=== PATIENT | male | born 1935 | race Caucasian/White ===

== ENCOUNTER → 2016-10-28 | Outpatient (CLI) | payer OTHER ==
[~2016-10-28] MED LIST: ASPCH81X PO; ASPEC81 PO; ATOR-24 PO; LPT40 PO; MULT-506 PO; OMEG10007 PO; PANT1TAB3 PO; PANT40TA PO
[2016-10-28 11:06] LABS: BASO % 0.6 %; BASO ABS # 0.03 K/uL (0-0.2); COMPLETE YES; EOS % 3.6 %; HEMATOCRIT 41.3 % (42-52); IG% 0.2 %; LYMPH ABS # 1.46 K/uL (1.2-3.4); MEAN CELL VOLUME 90.8 fL (80-100); MEAN CORPUSCULAR HEMOGLOBIN 30.3 pg (25-34); MEAN CORPUSCULAR HGB CONC 33.4 g/dl (32-36); MEAN PLATELET VOLUME 9.6 fL (7.4-10.4); MONO % 8.1 %; NEUT % 56.5 %; PLATELET COUNT 152 K/uL (130-400); RED BLOOD COUNT 4.55 M/uL (4.7-6.1); WHITE BLOOD COUNT 4.71 K/uL (4.8-10.8)
[2016-10-28 11:37] LABS: ALT/SGPT 29 U/L (12-78); BLOOD UREA NITROGEN 19 mg/dl (7-18); BUN/CREATININE RATIO 19.4 (10-20); CALCIUM 9.4 mg/dl (8.5-10.1); CARBON DIOXIDE 28 mmol/L (21-32); CHLORIDE 108 mmol/L (98-107); GLUCOSE 88 mg/dl (70-99); POTASSIUM 4.3 mmol/L (3.5-5.1); SODIUM 142 mmol/L (136-145)
[2016-10-28 11:40] LABS: ALKALINE PHOSPHATASE 76 U/L (45-117); AST/SGOT 22 U/L (15-37)
== END | disposition home or self-care (01) ==
LOC: C.LAB 09:55
PROVIDERS: ATTEND Nurse Practitioner Family
DX: C34.90 Malignant neoplasm of unspecified part of unspecified bronchus or lung (principal)

== ENCOUNTER → 2016-10-30 | Outpatient (CLI) | payer OTHER ==
[~2016-10-30] MED LIST changes: +OPTIRAY 320 IV PRN
--- NOTE | 2016-10-30 19:25 | DIAGNOSTIC IMAGING REPORT ---
CT OF THE CHEST WITH IV CONTRAST CLINICAL HISTORY: Lung cancer. COMPARISON STUDY: Chest CT T August 31, 2012 and October 29, 2015 TECHNIQUE: Following IV administration of 92 mL of Optiray-320, helical axial images of the chest were obtained. Images were viewed in the axial, sagittal and coronal planes. IV contrast was administered without complication. CT DOSE: 315.18 mGycm FINDINGS: The water attenuation paratracheal abnormality is unchanged since earlier exams. This is benign given stability. No suspicious thoracic lymph nodes are present. The size of the heart is normal. There is no pericardial effusion. Scoliosis of the thoracolumbar spine is incidentally noted. Postsurgical findings consistent with a right upper lobectomy are noted. The postoperative appearance is unchanged. There are old right-sided rib deformities. Subpleural opacity within the right lower lobe is unchanged and likely reflect scarring. No suspicious nodules are present. There is no consolidation to suggest pneumonia. Several thyroid nodules are again noted. No suspicious osseous lesions are identified in the bony thorax. A left hepatic lobe cyst is again noted. There is a small hiatal hernia. No suspicious osseous lesions are present. IMPRESSION: No evidence of recurrent malignancy status post right upper lobectomy. No change in appearance of the chest. Electronically signed by: Rajan Robertson M.D. 10/30/2016 7:23 PM Dictated Date/Time: 10/30/2016 9:58 AM
== END | disposition home or self-care (01) ==
LOC: C.CTS 09:07
PROVIDERS: ATTEND Nurse Practitioner Family
DX: C34.90 Malignant neoplasm of unspecified part of unspecified bronchus or lung (principal)

== ENCOUNTER → 2016-11-26 | Outpatient (CLI) | payer OTHER ==
[~2016-11-26] MED LIST changes: -ASPCH81X PO; -ATOR-24 PO; -OPTIRAY 320 IV PRN; -PANT1TAB3 PO; +PANT1TAB48 PO; -PANT40TA PO
--- NOTE | 2016-11-26 14:53 | DIAGNOSTIC IMAGING REPORT ---
TWO VIEW CHEST CLINICAL HISTORY: Cough. History of lung cancer.. FINDINGS: PA and lateral chest radiographs are compared to study dated 09/21/2015 and correlated with chest CT dated 10/30/2016. The PA view is degraded by patient rotation. The cardiomediastinal silhouette is unremarkable. Emphysema and chronic interstitial thickening are similar to previous. Postoperative changes present in the right upper lobe. No airspace consolidation or pleural effusion is identified. There is no pneumothorax. The skeletal structures are osteopenic. Degenerative change and moderate scoliosis are noted in the thoracic spine. Chronic posttraumatic deformity is again seen in the right upper ribs. IMPRESSION: Emphysema and chronic changes as above. There is no acute cardiopulmonary abnormality. Electronically signed by: Clifford Amin M.D. 11/26/2016 2:51 PM Dictated Date/Time: 11/26/2016 2:49 PM
== END | disposition home or self-care (01) ==
LOC: C.RAD 14:12
PROVIDERS: ATTEND Internal Medicine Geriatric Medicine
DX: R05 Cough (principal); J43.9 Emphysema, unspecified

== ENCOUNTER → 2017-07-23 | Outpatient (CLI) | payer OTHER ==
[2017-07-23 10:49] LABS: BASO % 0.9 %; BASO ABS # 0.04 K/uL (0-0.2); COMPLETE YES; EOS % 3.9 %; HEMATOCRIT 40.8 % (42-52); IG% 0.2 %; LYMPH % 39.4 %; MEAN CELL VOLUME 89.7 fL (80-100); MEAN CORPUSCULAR HEMOGLOBIN 30.8 pg (25-34); MEAN CORPUSCULAR HGB CONC 34.3 g/dl (32-36); MEAN PLATELET VOLUME 9.7 fL (7.4-10.4); NEUT % 46.6 %; PLATELET COUNT 139 K/uL (130-400); RED BLOOD COUNT 4.55 M/uL (4.7-6.1); WHITE BLOOD COUNT 4.32 K/uL (4.8-10.8)
[2017-07-23 11:08] LABS: ALT/SGPT 33 U/L (12-78); AST/SGOT 28 U/L (15-37); BLOOD UREA NITROGEN 20 mg/dl (7-18); BUN/CREATININE RATIO 19.5 (10-20); CALCIUM 9.1 mg/dl (8.5-10.1); CARBON DIOXIDE 28 mmol/L (21-32); CHLORIDE 107 mmol/L (98-107); CHOLESTEROL 129 mg/dl (0-200); GLUCOSE 89 mg/dl (70-99); POTASSIUM 4.2 mmol/L (3.5-5.1); SODIUM 141 mmol/L (136-145)
[2017-07-23 11:19] LABS: ALB/GLOB RATIO 0.9 (0.9-2); ALKALINE PHOSPHATASE 75 U/L (45-117); CHOLESTEROL/HDL RATIO 1.8; HDL CHOLESTEROL 71 mg/dl; LDL CHOLESTEROL CALCULATED 46 mg/dl; TRIGLYCERIDES 59 mg/dl (0-150); VERY LOW DENSITY LIPOPROT CALC 12 mg/dl
== END | disposition home or self-care (01) ==
LOC: C.LABBC 07:46
PROVIDERS: ATTEND Internal Medicine
DX: K21.9 Gastro-esophageal reflux disease without esophagitis (principal); E78.5 Hyperlipidemia, unspecified; D64.9 Anemia, unspecified; M48.00 Spinal stenosis, site unspecified; K22.70 Barrett's esophagus without dysplasia; I63.9 Cerebral infarction, unspecified

== ENCOUNTER → 2017-09-21 | Day surgery (SDC) | payer OTHER ==
[2017-09-16 14:01] VITALS: Ht 182.9 cm; Wt 81.8 kg
[~2017-09-21] VITALS: Ht 182.9 cm; Wt 81.8 kg
[~2017-09-21] MED LIST changes: +ASPCH81X PO; -ASPEC81 PO; +ATOR-24 PO; +LIDOCAINE HCL 2% 2 ML VIAL (20MG/ML) ONE; -LPT40 PO; -OMEG10007 PO; -PANT1TAB48 PO; +PANT40TA PO; +PROPOFOL IV EMULSION 10 MG/ML 20 ML VIAL IV ONE; +SODIUM CHLORIDE 0.9% 500ML 500 ML IV ONE
--- NOTE | 2017-09-21 10:45 | Endo History and Physical ---
History & Physical Date of Service: Sep 21, 2017. Chief Complaint: Farah's esophagus Referring Physician: Dr. Issa Gonzáles History of Present Illness Farah's esophagus Past Medical History Reflux, Cancer, High Cholesterol Past Surgical History Hx Cardiac Surgery: No Hx Internal Defibrillator: No Hx Pacemaker: No Hx Abdominal Surgery: Yes (APPY, RT/LEFT INGUINAL HERNIA) Hx of Implantable Prosthesis: No Hx Post-Op Nausea and Vomiting: No Hx Cancer Surgery: Yes (RT UPPER LOBECTOMY, MOHS ON FACE) Hx Thoracic Surgery: No Hx Orthopedic: Yes (RT KNEE PATELLA TENDON REPAIR) Hx Urinary Tract Surgery: No Family History Colon CA Social History Smoking Status: Former Smoker Hx Substance Use: No Hx Alcohol Use: Yes (1 DRINK 4 DAYS PER WEEK) Allergies Coded Allergies: No Known Allergies (Verified , 09/16/17) Current Medications Reported Home Medications Medications Dose Route/Sig Max Daily Dose Days Date Category Lipitor (Atorvastatin Calcium) 40 Mg Tab 40 Mg PO HS 09/16/17 Reported Multivitamin (Multivitamins) Tab 1 Tab PO HS 09/16/17 Reported Protonix (Pantoprazole Sodium) 40 Mg Tab 40 Mg PO QAM 09/16/17 Reported Aspirin Chewable (Aspirin) 81 Mg Chew 81 Mg PO QAM 09/16/17 Reported Vital Signs Weight (Kilograms): 81.82 Height (Feet): 6 Height (Inches): 0 Date Time Temp Pulse Resp B/P (MAP) Pulse Ox O2 Delivery O2 Flow Rate FiO2 09/21/17 09:42 36.4 68 16 153/82 (105) 96 Room Air Physical Exam General Appearance: WD/WN, no apparent distress Respiratory/Chest: Respiratory effort: no dyspnea Cardiovascular: Heart Auscultation: RRR Assessment and Plan H/o farah's - EGD
--- NOTE | 2017-09-21 11:22 | GI REPORT ---
Procedure Date: 09/21/2017 10:49 AM Procedure: Upper GI endoscopy Indications: Follow-up of Chavarria's esophagus Medicines: See the Anesthesia note for documentation of the administered medications Complications: No immediate complications. Estimated Blood Loss: Estimated blood loss: none. Procedure: Pre-Anesthesia Assessment: - ASA Grade Assessment: III - A patient with severe systemic disease. After obtaining informed consent, the endoscope was passed under direct vision. Throughout the procedure, the patient's blood pressure, pulse, and oxygen saturations were monitored continuously. The scope was introduced through the mouth, and advanced to the second part of duodenum. The upper GI endoscopy was accomplished without difficulty. The patient tolerated the procedure well. Findings: The Z-line was irregular and was found 40 cm from the incisors. Biopsies were taken with a cold forceps for histology. There was a moderate hiatal hernia. The exam of the esophagus was otherwise normal. The stomach was normal. The examined duodenum was normal. Impression: - Z-line irregular, 40 cm from the incisors. Biopsied. - Hiatal hernia. Recommendation: Given age, would not pursue further Chavarria's surveillance. - Discharge patient to home. Jesse Mon M.D. Jesse Mon MD 09/21/2017 11:22:13 AM This report has been signed electronically. Note Initiated On: 09/21/2017 10:49 AM I attest to the content of the Intraoperative Record and orders documented therein, exceptions below
[2017-09-21 11:33] VITALS: BP 120/75; PULSE 56; O2SAT 97
--- NOTE | 2017-09-21 11:48 | Discharge Instructions ---
Endoscopy Patient Instructions Date / Procedure(s) Performed Sep 21, 2017. EGD Allergy Information Coded Allergies: No Known Allergies (Verified , 09/16/17) Discharge Date / Findings Sep 21, 2017. Irregular Z line, biopsied. Hiatal hernia. Medication Instructions Stopped Medication(s): took ASA yesterday Restart Stopped Medication(s): Resume aspirin today. Provider Instructions Activity Restrictions - No exercising or heavy lifting for 24 hours. - Do not drink alcohol the day of the procedure. - Do not drive a car or operate machinery until the day after the procedure. - Do not make any important decisions or sign important papers in 24 hours after the procedure. Following Day: - Return to full activity which may include returning to work/school. Diet Start your diet with liquids and light foods (jello, soup, juice, toast). Then eat your usual diet if not nauseated. Treatment For Common After Affects For mild abdominal pain, bloating, or excessive gas: - Rest - Eat lightly - Lie on right side Follow-Up Information Follow-up with Dr. Issa Gonzáles as scheduled Anesthesia Information What You Should Know You have had a procedure that required some medicine to reduce anxiety and discomfort. This treatment is called moderate sedation. After receiving the treatment, you may be sleepy, but you will be able to breathe on your own. The effects of the treatment may last for several hours. Follow these instructions along with Activity/Diet recommendations noted above: * Do NOT do anything where dizziness or clumsiness would be dangerous. * Rest quietly at home today, then you can be up and about tomorrow. * Have a responsible person stay with you the rest of today. * You may have had an I.V. today. If so, you may take the dressing off later today. Recommendations Call your doctor if: * Trouble breathing * Continuous vomiting for more than 24 hours * Temperature above 101 degrees * Severe abdominal pain or bloating * Pain not relieved by pain medicine ordered * There is increased drainage or redness from any incision * A large amount of rectal bleeding greater than 2-3 tablespoons. (If you had a polyp/s removed or have hemorrhoids, a small amount of blood - from the rectum is to be expected.) * You have any unanswered questions or concerns. IN THE EVENT OF A SERIOUS EMERGENCY, GO TO THE NEAREST EMERGENCY ROOM Your discharge instructions were prepared by provider Jesse Javed. Patient Instructions Signature Page Makenzie York Patient (or Guardian) Signature/Date: I have read and understand the instructions given to me by my caregivers. Caregiver/RN/Doctor Signature/Date: The above-named patient and/or guardian has received patient instructions on this date. + Original Patient Signature Page (only) stays with chart. Please make copy for patient.
--- NOTE | 2017-09-21 11:52 | Anesthesiology Progress Note ---
Anesthesia Post Op Note Date & Time Sep 21, 2017 at 11:52 Vital Signs Pain Intensity: 0 Vital Signs Past 12 Hours Date Time Temp Pulse Resp B/P (MAP) Pulse Ox O2 Delivery O2 Flow Rate FiO2 09/21/17 11:33 56 20 120/75 (90) 97 Room Air 09/21/17 11:23 56 18 130/67 (88) 96 Room Air 09/21/17 11:13 58 18 112/64 (80) 97 Room Air 09/21/17 09:42 36.4 68 16 153/82 (105) 96 Room Air Notes Mental Status: alert / awake / arousable, participated in evaluation Pt Amnestic to Procedure: Yes Nausea / Vomiting: adequately controlled Pain: adequately controlled Airway Patency, RR, SpO2: stable & adequate BP & HR: stable & adequate Hydration State: stable & adequate Anesthetic Complications: no major complications apparent
== END | disposition home or self-care (01) ==
LOC: C.GI 09:27
PROVIDERS: ATTEND Internal Medicine Gastroenterology
DX: Z09 Encounter for follow-up examination after completed treatment for conditions other than malignant neoplasm (principal); K22.8 Other specified diseases of esophagus; K44.9 Diaphragmatic hernia without obstruction or gangrene; Z90.89 Acquired absence of other organs; Z98.890 Other specified postprocedural states; Z79.82 Long term (current) use of aspirin; Z85.118 Personal history of other malignant neoplasm of bronchus and lung; Z98.42 Cataract extraction status, left eye; Z87.891 Personal history of nicotine dependence; Z86.73 Personal history of transient ischemic attack (TIA), and cerebral infarction without residual deficits; Z80.0 Family history of malignant neoplasm of digestive organs

== ENCOUNTER 2023-10-07 14:38 | Observation (INO) ==
--- NOTE | 2023-10-07 14:57 | ED Triage Note ---
Date of Service October 07, 2023 Provider in Triage Author: Cecilia Zhou History of Present Illness This patient was briefly evaluated while in triage. An abbreviated physical exam was performed. This patient is a 88-year-old Male who presents to the ED for evaluation of fall and right back pain. States he was picking something up off his floor and lost balance and fell into the fridge. Hit his right back. Incident occurred on Thursday. Denies hitting his head or LOC. On a baby MARKEL. Notes pain with deep breath and coughing. Denies headache, dizziness/lightheadedness, chest pain, SOB, abdominal pain. Physical Exam Constitutional: alert and oriented x3. no acute distress. nontoxic HEENT: normocephalic, atraumatic. normal conjunctiva.PERRLA. EOM's grossly intact. Respiratory: lungs are clear to auscultation without wheezes, rhonchi, or rales bilaterally. equal chest rise. normal respiratory effort, no accessory muscle use. Right posterior rib tenderness Cardiovascular: normal heart sounds without murmur. regular rate and rhythm. GI: abdomen is soft, nontender. No palpable masses. No rebound tenderness or guarding. MSK: moves all 4 extremities spontaneously. No midline thoracic or lumbar tenderness. R thoracic tenderness Psych:appropriate mood and affect. Initial orders for labs and / or imaging were placed and patient was placed in the waiting area until a bed is available. Please see further documentation for the full ED course.
--- NOTE | 2023-10-07 15:23 | Emergency Department Note ---
History of Present Illness General Chief complaint: Back Injury/Pain Stated complaint: R RIB PAIN Time Seen by Provider: 10/07/23 15:09 History of Present Illness Maximum Pain Intensity: 9 88-year-old male who presents to the emergency department via EMS for evaluation of right back/rib pain. Patient states on Thursday he was picking something up off of his floor and lost his balance and fell onto his fridge hitting the right side of his back against the handle. He denies hitting his head or loss of consciousness. He is on a baby aspirin, no other blood thinners. He was able to get up on his own and ambulate without difficulty. He notes his only pain is in the right posterior rib. It is intermittent and exacerbated with certain movements, deep inhalation or coughing. He has not taken anything for his symptoms. He denies headache, visual changes, dizziness/lightheadedness, nausea/vomiting, chest pain, shortness of breath, abdominal pain. Denies neck pain or low back pain. No pain in his extremities. Denies blood in his urine or stool. Home Medications Medication Instructions Recorded Confirmed Type aspirin 81 mg tablet,delayed 81 mg PO QAM 08/24/18 04/09/23 History release multivitamin 1 tab PO DAILYBB 08/02/19 04/09/23 History guaifenesin 600 mg tablet, 600 mg PO BID PRN cough #60 tabs 09/09/22 04/09/23 Rx extended release 12 hr (Mucinex) Flutter Valve #1 ea 01/29/23 04/09/23 Rx ipratropium 0.5 mg-albuterol 3 mg 3 ml inhalation BID shortness of 01/29/23 04/09/23 Rx (2.5 mg base)/3 mL nebulization breath or wheezing #180 mL soln nebulizers (Aeroneb Go Nebulizer) #1 ea 01/29/23 04/09/23 Rx sodium chloride 7 % for 1 inh inhalation BID #240 mL 01/29/23 04/09/23 Rx nebulization Vibration Vest #1 ea 02/18/23 Rx sertraline 100 mg tablet 100 mg PO DAILY #90 tabs 09/07/23 Rx atorvastatin 40 mg tablet 40 mg PO HS #90 tabs 09/30/23 Rx pantoprazole 40 mg tablet,delayed 40 mg PO QAM #90 tabs 09/30/23 Rx release Allergies Allergy/AdvReac Type Severity Reaction Status Date / Time No Known Drug Allergies Allergy Verified 04/09/23 14:32 Past Med/Surg History Medical History Sensorineural hearing loss of both ears Positive colorectal cancer screening using Cologuard test reason for colonoscopy History of melanoma on lip Suspected 2018 novel coronavirus infection Barretts esophagus Stage I adenocarcinoma of lung Gastroesophageal reflux disease Hyperlipidemia 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 Scoliosis Spinal stenosis of lumbar region Osteoarthritis GERD (gastroesophageal reflux disease) Thyroid goiter BIOPSY DONE "NORMAL" Cancer LUNG CANCER SKIN CANCER Hearing deficit Stroke 2014 (NO PROBLEMS NOW) Surgical History History of melanoma excision off lip History of Mohs micrographic surgery for skin cancer History of appendectomy History of anesthesia reaction SLOW TO WAKE UP AND "GOES UNDER QUICKLY" History of knee surgery RT History of herniorrhaphy bilateral History of esophagogastroduodenoscopy (EGD) History of colonoscopy History of tooth extraction History of tonsillectomy History of adenoidectomy History of cataract surgery bilt History of lung surgery UPPER RT LOBECTOMY (NO CHEMO) Family History Father Family hx of colon cancer Colorectal cancer Other No family history of adverse response to anesthesia No family history of bleeding disorder Denies family history of Ovarian cancer Prostate cancer Diabetes Myocardial infarction Breast cancer Lung cancer Stroke Social History Smoking Status: Never smoker Age Started Using Tobacco: 19; Age Quit Using Tobacco: 36; packs per day: 0.5; Cigarettes Per Day: QUIT AT AGE 36; Second Hand Exposure: Yes ("everyone smoked"); Do You Dip or Chew Tobacco: No; Hx Alcohol Use: Yes Alcohol type: wine Alcohol Intake Frequency: 4 or More x per/Week Hx Substance Use: No Preferred Language: Maltese Communication Ability: Effective Visual Impairment: Limited Hearing Ability: Use of Hearing Aid Media Sales Representative Required: No Beliefs That Will Affect Care: None marital status: / Current Living Situation: Alone and Personal Care Facility current occupational status: retired How many Children do You have: 3 Feels Safe at Home: Yes Childhood Exposure to Second-Hand Smoke: Yes caffeine: Yes Dental Care, Regularly: Yes Physical Activity Frequency: Daily Seatbelt Use: always Sunscreen Use: Yes Assistive Devices: None Physical Exam Vital Signs Vital Signs - 24 hr 10/07/23 14:54 10/07/23 16:50 10/07/23 18:45 Temperature 36.8 C Temperature Source Skin Pulse Rate 77 Pulse Rate [Apical] 73 65 Respiratory Rate 18 18 18 Respiratory Effort / Characteristics Non-Labored Non-Labored Respiratory Depth Normal Normal Blood Pressure 135/90 Blood Pressure [Right Arm] 154/84 H 174/89 H Blood Pressure Mean 105 Blood Pressure Mean [Right Arm] 107 117 Pulse Oximetry 93 93 94 Oxygen Delivery Method Room Air Room Air Room Air Sepsis Recent Fever Within 48 Hours No Sepsis New/Unexplained Change in Mental Status No Sepsis Action Taken by Nursing No Action Required 10/07/23 18:45 Temperature Temperature Source Pulse Rate Pulse Rate [Apical] Respiratory Rate Respiratory Effort / Characteristics Respiratory Depth Blood Pressure Blood Pressure [Right Arm] Blood Pressure Mean Blood Pressure Mean [Right Arm] Pulse Oximetry Oxygen Delivery Method Room Air Sepsis Recent Fever Within 48 Hours Sepsis New/Unexplained Change in Mental Status Sepsis Action Taken by Nursing Constitutional: alert and oriented x3. no acute distress. nontoxic HEENT: normocephalic, atraumatic. No facial trauma. No scalp tenderness or hematoma. Normal conjunctiva.PERRLA. EOM's grossly intact. No tinoco signs or raccoon eyes. TMs pearly mascorro without effusion. No hemotympanum. Pharynx pink without exudate. Tonsils nonenlarged. Mucus membranes moist Neck: neck is supple, nontender. Midline C-spine nontender Respiratory: lungs are clear to auscultation without wheezes, rhonchi, or rales bilaterally. equal chest rise. normal respiratory effort, no accessory muscle use. Right posterior rib tenderness. No ecchymosis or erythema. No flail chest. Cardiovascular: normal heart sounds without murmur. regular rate and rhythm. GI: abdomen is soft, nontender. No palpable masses. No rebound tenderness or guarding. MSK: Moves all 4 extremities spontaneously. No midline thoracic or lumbar spinal tenderness. Peripheral vascular: Upper extremities warm and well perfused with palpable radial pulses. Brisk capillary refill of all digits. Sensation grossly intact Neuro: without focal neuro deficits. GCS 15. Answers questions appropriately, follows commands. CNII-XII intact. Speech clear, tongue midline, without facial droop. Strength equal throughout all for extremities. Psych:appropriate mood and affect. Course Administered Medications Discontinued Medications Acetaminophen (Acetaminophen 500 Mg Tab) 1,000 mg PO NOW STA Stop: 10/07/23 17:09 Last Admin: 10/07/23 17:40 Dose: 1,000 mg Documented By: TRIPP Lidocaine (Lidocaine 5% 1 Patch) 1 patch TD NOW STA Stop: 10/07/23 17:09 Last Admin: 10/07/23 17:41 Dose: 1 patch Documented By: TRIPP Morphine Sulfate (Morphine Sulfate 2 Mg/Ml Carp) 2 mg IV NOW STA Stop: 10/07/23 17:11 Last Admin: 10/07/23 17:41 Dose: Not Given Documented By: TRIPP Medical Decision Making Differential Diagnosis Fracture, contusion, musculoskeletal, pneumothorax, pneumonia, PE as well as other pathologies Laboratory Data Attestation: I reviewed the patient's lab results. 10/07/23 17:32 10/07/23 17:32 Lab Results 10/07/23 Range/Units 17:32 WBC 5.99 (4.8-10.8) K/ul RBC 4.33 L (4.70-6.10) M/uL Hgb 13.2 L (14.0-18.0) g/dl Hct 39.9 L (42.0-52.0) % MCV 92.1 (80.0-100.0) fL MCH 30.5 (25.0-34.0) pg MCHC 33.1 (32.0-36.0) g/dL RDW Std Deviation 50.4 H (36.4-46.3) fL RDW Coeff of [place] 14.7 H (11.5-14.5) % Plt Count 140 (130-400) K/uL MPV 9.4 (9.4-12.4) fL Immature Gran % (Auto) 0.2 % Neut % (Auto) 71.8 % Lymph % (Auto) 16.0 % [place] % (Auto) 9.3 % Eos % (Auto) 2.2 % Baso % (Auto) 0.5 % Neut # (Auto) 4.30 (1.40-6.50) K/uL Lymph # (Auto) 0.96 L (1.20-3.40) K/uL [place] # (Auto) 0.56 (0.11-0.59) K/uL Eos # (Auto) 0.13 (0.00-0.50) K/uL Baso # (Auto) 0.03 (0.00-0.20) K/uL Immature Gran # (Auto) 0.01 (0.01-0.20) K/uL Sodium 137 (136-145) mmol/L Potassium 4.2 (3.5-5.1) mmol/L Chloride 104 (98-107) mmol/L Carbon Dioxide 27 (21-32) mmol/L Anion Gap 6 (3-11) BUN 19 (6-23) mg/dl Creatinine 1.03 (0.6-1.4) mg/dl Est Cr Clr Drug Dosing Not Reportable Est GFR ( Amer) 75.3 ml/min Est GFR (Non-Af Amer) 65.0 ml/min BUN/Creatinine Ratio 18.4 (10-20) Glucose 112 H (70-99(Fasting)) mg/dl Calcium 10.0 (8.6-10.3) mg/dl Imaging Data Radiologist's Impression: Ribs w/Chest X-Ray 10/07/23 15:16 XR ribs RT min 2V w CXR1V CLINICAL HISTORY: Right posterior rib pain s/p fall. COMPARISON: Chest CT January 20, 2023. Chest radiograph March 30, 2023. FINDINGS: There is a small to moderate size right basilar hydropneumothorax. Acute mildly displaced fractures of the lateral right eighth and ninth ribs are noted. There are multiple old right rib fractures. Left basilar opacity persists. There is a hiatal hernia. Thoracolumbar spine scoliosis is incidentally noted. There is no left pneumothorax. IMPRESSION: 1. Small to moderate right basilar hydropneumothorax. Acute mildly displaced fractures of the right eighth and ninth ribs. 2. Persistent left basilar opacity, similar to prior exam. ACT 112: Negative or not required by law. Electronically signed by: Rajan Robertson M.D. 10/07/2023 4:20 PM MDM Narrative 88-year-old male presents to the emergency department for evaluation of right back/rib pain status post mechanical fall on Thursday. Reviewed pertinent visits and past medical history performed. Vital signs in ED stable, afebrile. Patient was seen and evaluated as above. Right rib x-rays with chest x-ray was performed. This was personally reviewed as well as interpreted by radiology as above and demonstrates acute mildly displaced fractures of the lateral right eighth and ninth ribs with associated small to moderate right basilar hydropneumothorax. Chronic left basilar opacity, unchanged. On exam, patient is well-appearing in no acute distress. He is neurologically intact without focal deficits. GCS 15. There is no evidence for facial or head trauma. He is tender to palpation over the right posterior ribs. Lungs CTA. Abdominal exam is benign. Remaining physical exam is otherwise unremarkable. He initially declined pain medication. Upon reassessment, patient remained stable without new concerns. He was updated on all exam findings and test results. He has sustained rib fractures of right eighth and ninth ribs with associated pneumothorax in the basilar region. Given findings, I recommended admission to the hospital for continued monitoring and repeat imaging. I discussed case with ED attending, Dr. Celestin. Patient initially declined admission and was planning to leave AGAINST MEDICAL ADVICE. Upon continued conversation, patient did eventually agree to admission for observation. I discussed case with on-call streaming media specialist, Dr. Youngblood, who reviewed x-ray and recommended repeat CXR in 6 hours. If CXR is stable patient is okay to be discharged with close follow-up with pulmonology next week for further evaluation. He did not feel NRB would be of much benefit at this time given his initial accident was 3 days ago. Patient was updated with these recommendations and was comfortable with plan of care. IV access was established and basic labs were obtained for admission. CBC without leukocytosis or acute anemia. BMP unremarkable. Patient was ordered IV morphine, PO Tylenol, and lidocaine patch for pain. Case was discussed with hospitalist, Dr. Ocampo, who graciously accepted patient to his service for further management. He was admitted in stable condition. Impression & Plan Multiple fractures of ribs of right side, Pneumothorax, right, Fall from slip, trip, or stumble Discharge Plan Visit Data Chief Complaint: Back Injury/Pain Stated Complaint: R RIB PAIN ED Provider: Collin Celestin ED Midlevel Provider: Cecilia Zhou Discharge Problem: Multiple fractures of ribs of right side, Pneumothorax, right, Fall from slip, trip, or stumble Patient Disposition: Admitted As Inpatient Forms Stand Alone Forms: My [facility] Prescriptions Prescriptions: No Action (DME) Vibration Vest Misc See Rx Instructions .Route Qty: 1 0RF Rx Instructions: As directed sertraline 100 mg tablet 100 mg PO DAILY Qty: 90 3RF atorvastatin 40 mg tablet 40 mg PO HS Qty: 90 3RF pantoprazole 40 mg tablet,delayed release (DR/EC) 40 mg PO QAM Qty: 90 3RF (DME) nebulizers [Aeroneb Go Nebulizer] Misc See Rx Instructions .MEDSUPPLY Qty: 1 0RF Rx Instructions: With tubing and supplies. J44.9. J45.9. (DME) Flutter Valve Device See Rx Instructions .Route Qty: 1 0RF Rx Instructions: As directed sodium chloride 7 % solution for nebulization 1 inh inhalation BID Qty: 240 3RF ipratropium-albuterol 0.5 mg-3 mg(2.5 mg base)/3 mL solution for nebulization 3 ml inhalation BID Qty: 180 3RF guaifenesin [Mucinex] 600 mg tablet extended release 12hr 600 mg PO BID PRN (Reason: cough) Qty: 60 3RF aspirin 81 mg Tablet,Delayed Release (Dr/Ec) 81 mg PO QAM multivitamin tablet 1 tab PO DAILYBB Patient Comments: Take 30 minutes before breakfast Referrals Referrals: PCP,NO [Primary Care Provider] -
--- NOTE | 2023-10-07 16:22 | XRay Report ---
XR ribs RT min 2V w CXR1V CLINICAL HISTORY: Right posterior rib pain s/p fall. COMPARISON: Chest CT January 20, 2023. Chest radiograph March 30, 2023. FINDINGS: There is a small to moderate size right basilar hydropneumothorax. Acute mildly displaced fractures of the lateral right eighth and ninth ribs are noted. There are multiple old right rib frac tures. Left basilar opacity persists. There is a hiatal hernia. Thoracolumbar spine scoliosis is inci dentally noted. There is no left pneumothorax. IMPRESSION: 1. Small to moderate right basilar hydropneumothorax. Acute mildly displaced fractures of the right e ighth and ninth ribs. 2. Persistent left basilar opacity, similar to prior exam. ACT 112: Negative or not required by law. Electronically signed by: Rajan Robertson M.D. 10/07/2023 4:20 PM
[2023-10-07] MEDS ORDERED: ACETAMINOPHEN 500 MG TAB PO STA (17:08)
[2023-10-07] MEDS ORDERED: LIDOCAINE 5% 1 PATCH TD STA (17:08)
[2023-10-07] MEDS ORDERED: MoRPHine SULFATE 2 MG/ML CARP IV STA (17:10)
--- NOTE | 2023-10-07 17:34 | Emergency Department Note ---
ED Visit Note I was consulted by the Advanced Practice Provider Cecilia Zhou PA-C. I personally made/approved the management plan and take responsibility for the patient management. I performed a substantive portion of the visit. This includes the aspects of: I personally saw the patient who had a fall on Thursday where it struck the side of his refrigerator. Patient was noted to have 2 rib fractures with an associated hydropneumothorax. The patient initially was requesting to go home and was given sign out AMA but after further discussion was amenable to staying. The patient was discussed with on-call supervisor chemical Dr. Youngblood via Cecilia Zhou PA-C. He recommended repeat chest x-ray in 6 hours. The patient was admitted to the medicine service. .
[2023-10-07 17:57] LABS: Basophils # (auto) 0.03 K/uL (0.00-0.20); Basophils % (auto) 0.5 %; Eosinophils # (auto) 0.13 K/uL (0.00-0.50); Eosinophils % (auto) 2.2 %; Hematocrit (blood only) 39.9 % (42.0-52.0); Hemoglobin 13.2 g/dl (14.0-18.0); Immature Granulocytes # (auto) 0.01 K/uL (0.01-0.20); Immature Granulocytes % (auto) 0.2 %; Lymphocytes # (auto) 0.96 K/uL (1.20-3.40); Mean Corpuscular Hemoglobin 30.5 pg (25.0-34.0); Mean Corpuscular Hgb Conc 33.1 g/dL (32.0-36.0); Mean Corpuscular Volume 92.1 fL (80.0-100.0); Mean Platelet Volume 9.4 fL (9.4-12.4); Monocytes # (auto) 0.56 K/uL (0.11-0.59); Monocytes % (auto) 9.3 %; Neutrophils % (auto) 71.8 %; Platelet Count 140 K/uL (130-400); RDW Coefficient of Variation 14.7 % (11.5-14.5); RDW Standard Deviation 50.4 fL (36.4-46.3); Red Blood Count 4.33 M/uL (4.70-6.10); White Blood Count 5.99 K/ul (4.8-10.8)
[2023-10-07 18:05] LABS: Anion Gap 6 (3-11); BUN Creatinine Ratio 18.4 (10-20); Blood Urea Nitrogen 19 mg/dl (6-23); Carbon Dioxide 27 mmol/L (21-32); Chloride 104 mmol/L (98-107); Est GFR (African American) 75.3 ml/min; Glucose 112 mg/dl (70-99(Fasting)); Potassium 4.2 mmol/L (3.5-5.1); Sodium 137 mmol/L (136-145)
--- NOTE | 2023-10-07 18:05 | History & Physical Report ---
Date of Service October 07, 2023 Assessment & Plan (1) Pneumothorax, right: (2) Multiple fractures of ribs of right side: (3) Fall from slip, trip, or stumble: (4) Mixed restrictive and obstructive lung disease: (5) Depression: (6) Encounter for pre-operative examination: Plan Patient is a 88 yo M w/ a PMHx of chronic sinusitis, mixed restrictive/obstructive lung disease, adenocarcinoma of lung, melanoma, GERD, hyperlipidemia, scoliosis, lumbar spinal stenosis, depression, presenting with r. posterior rib cage pain that worsens with positional change, deep inspiration or cough. 1. R. hydropneumothorax - no dyspnea on admission, O2 Sats > 90 while in ED - initial chest Xray showed: "Small to moderate right basilar hydropneumothorax. Acute mildly displaced fractures of the right eighth and ninth ribs." "Persistent left basilar opacity, similar to prior exam." - 2nd chest Xray scheduled 6 hrs after admission - daily serial chest Xrays to monitor progression of hydropneumothorax - pulmonology consulted --> not recommending chest tube right now 2. displaced rib fractures of 8th and 9th ribs posteriorly - Tylenol, 650 mg, PO, PRN for pain - taping or brace not recommended due to prevention of deep breaths, increased risk of pneumonia - use an incentive spirometer - A CT-chest/abdomen can be considered if pt develops abdominal pain but not indicated now 3. Depression - continue sertraline 4. GERD - continue pantoprazole 5. restrictive/obstructive lung disease - continue ipratropium/albuterol/ order nebulizers if needed 6. past CVA - continue aspirin 7. Hyperlipidemia - continue atorvastatin FENGI: Reg diet Code: DNR/DNI DVT prophylaxis: SCD Disposition: Med-Tele, Obs History of Present Illness Chief Complaint: acute pain in lower, right posterior rib cage Primary Care Provider: NO PCP 88 yo male presented to the ED via EMS for evaluation of right back/rib pain. Patient stated on Thursday he was picking something up off of his floor and lost his balance and fell onto his fridge hitting the right side of his back against the handle. He denies hitting his head or loss of consciousness. He is on a b jean marie aspirin, no other blood thinners. Pt able to get up on his own and ambulate without difficulty. He notes intermittent pain is in the right posterior rib cage, exacerbated with change in position, deep inhalation or coughing. He has not taken anything for his symptoms. He denied headache, visual changes, dizziness/lightheadedness, nausea/vomiting, chest pain, shortness of breath, abdominal pain, neck pain, low back pain, and any pain in extremities. Denied blood in his urine, stool, or any blood-tinged sputum from lungs. Patient has not had any other recent falls but has had some other near-falls, which he attributed to him putting his body in a position where he loses his balance--is not tripping over anything, does not have any recent gait changes, no new onset weakness. He does occasionally use a cane as a walking assistive device but does not use it in his home. Allergies Allergy/AdvReac Type Severity Reaction Status Date / Time No Known Drug Allergies Allergy Verified 04/09/23 14:32 Home Medications Medication Instructions Recorded Confirmed Type aspirin 81 mg tablet,delayed 81 mg PO QAM 08/24/18 04/09/23 History release multivitamin 1 tab PO DAILYBB 08/02/19 04/09/23 History guaifenesin 600 mg tablet, 600 mg PO BID PRN cough #60 tabs 09/09/22 04/09/23 Rx extended release 12 hr (Mucinex) Flutter Valve #1 ea 01/29/23 04/09/23 Rx ipratropium 0.5 mg-albuterol 3 mg 3 ml inhalation BID shortness of 01/29/23 Rx (2.5 mg base)/3 mL nebulization breath or wheezing #180 mL soln nebulizers (Aeroneb Go Nebulizer) #1 ea 01/29/23 04/09/23 Rx sodium chloride 7 % for 1 inh inhalation BID #240 mL 01/29/23 04/09/23 Rx nebulization Vibration Vest #1 ea 02/18/23 Rx sertraline 100 mg tablet 100 mg PO DAILY #90 tabs 09/07/23 Rx atorvastatin 40 mg tablet 40 mg PO HS #90 tabs 09/30/23 Rx pantoprazole 40 mg tablet,delayed 40 mg PO QAM #90 tabs 09/30/23 Rx release Past Med/Surg History Medical History Sensorineural hearing loss of both ears Positive colorectal cancer screening using Cologuard test reason for colonoscopy History of melanoma on lip Suspected 2018 novel coronavirus infection Barretts esophagus Stage I adenocarcinoma of lung Gastroesophageal reflux disease Hyperlipidemia 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 Scoliosis Spinal stenosis of lumbar region Osteoarthritis GERD (gastroesophageal reflux disease) Thyroid goiter BIOPSY DONE "NORMAL" Cancer LUNG CANCER SKIN CANCER Hearing deficit Stroke 2014 (NO PROBLEMS NOW) Surgical History History of melanoma excision off lip History of Mohs micrographic surgery for skin cancer History of appendectomy History of anesthesia reaction SLOW TO WAKE UP AND "GOES UNDER QUICKLY" History of knee surgery RT History of herniorrhaphy bilateral History of esophagogastroduodenoscopy (EGD) History of colonoscopy History of tooth extraction History of tonsillectomy History of adenoidectomy History of cataract surgery bilt History of lung surgery UPPER RT LOBECTOMY (NO CHEMO) Family History Father Family hx of colon cancer Colorectal cancer Other No family history of adverse response to anesthesia No family history of bleeding disorder Denies family history of Ovarian cancer Prostate cancer Diabetes Myocardial infarction Breast cancer Lung cancer Stroke Social History Smoking Status: Never smoker Age Started Using Tobacco: 19; Age Quit Using Tobacco: 36; packs per day: 0.5; Cigarettes Per Day: QUIT AT AGE 36; Second Hand Exposure: Yes ("everyone smoked"); Do You Dip or Chew Tobacco: No; Hx Alcohol Use: Yes Alcohol type: wine Alcohol Intake Frequency: 4 or More x per/Week Hx Substance Use: No Preferred Language: Slovak Communication Ability: Effective Visual Impairment: Limited Hearing Ability: Use of Hearing Aid Security Systems Technician Required: No Beliefs That Will Affect Care: None marital status: / Current Living Situation: Alone and Personal Care Facility current occupational status: retired How many Children do You have: 3 Feels Safe at Home: Yes Childhood Exposure to Second-Hand Smoke: Yes caffeine: Yes Dental Care, Regularly: Yes Physical Activity Frequency: Daily Seatbelt Use: always Sunscreen Use: Yes Assistive Devices: None Review of Systems Constitutional: no fever, no chills, no fatigue and no weakness Respiratory: + pain on inspiration (can induce pain w / deep breath); no cough and no dyspnea Cardiovascular: no chest pain and no palpitations Gastrointestinal: + constipation (baseline constipation); no abdominal pain, no nausea, no vomiting and no diarrhea/loose stools Genitourinary: no dysuria or no urinary frequency Neurologic: no tingling and no numbness Physical Exam Constitutional: WD/WN, vitals as above Respiratory: normal respiratory effort, lungs clear to auscultation Cardiovascular: RRR, no murmur, no edema Gastrointestinal (Abdomen): normal bowel sounds, soft, nontender, no hepatosplenomegaly Musculoskeletal: Spine: + scoliosis Psychiatric: A+Ox3, euthymic affect Results & Data Results & Data Vital Signs (Past 12 Hours) Vital Signs Temp Pulse Pulse Resp BP BP Pulse Ox 10/07/23 16:50 73 18 154/84 H 93 10/07/23 14:54 36.8 C 77 18 135/90 93 O2 Del Method 10/07/23 16:50 Room Air 10/07/23 14:54 Room Air
[2023-10-07] MEDS ORDERED: ATORVASTATIN 40 MG TAB PO SCH (23:14)
[2023-10-07] MEDS ORDERED: ONDANSETRON INJ 2 MG/ML 2 ML VIAL IV PRN (23:14)
[2023-10-07] MEDS ORDERED: ACETAMINOPHEN 325 MG TAB PO PRN (23:14)
[2023-10-08] MEDS: ALBUT/IPRATROP 3MG/0.5MG NEB 3 ML VIAL INH SCH ×2 (00:47→07:48)
--- OUTSIDE RECORDS SUMMARY | 2023-10-08 04:48 | External Medical Summary | Continuity of Care Document ---
Author Name Unknown Organization [facility] [address] [facility] 2 [place], [place] [id number] Care Team Providers Care Veneer Matcher Name Role Phone Issa Gonzáles Primary Care Physician [phone] [id number] Date(s): 09/04/23 - 09/04/23 [facility] [address] [facility] [address] [place], [place] [id number] Encounter Diagnosis Changing skin lesion(Discharge Diagnosis) - 09/04/23 Actinic keratoses(Discharge Diagnosis) - 09/04/23 Seborrheic keratoses(Discharge Diagnosis) - 09/04/23 History of skin cancer(Discharge Diagnosis) - 09/04/23 Discharge Disposition: Home or Self Care Attending Physician: SHAAN Lawler Dawn M Allergies, Adverse Reactions, Alerts No Known Medication Allergies Substance Reaction Severity Status Adhesive bandage Adhesive retainer Adhesive retainer redness Active Pollen Sneezing.. Active Assessment and Plan Extracted from: Title:Office Visit Note Author:SHAAN Lawler D awn M Date:09/04/23 1.Changing skin lesion Changing skin lesion - bx today. will contact with result 2.Actinic keratoses chronic and worsening. ACTINIC KERATOSES - discussed precancerous potential of these lesions and reviewed options for watchful waiting with judicious sun protection vs cryotherapy. cryo x 7 3.Seborrheic keratoses - chronic and stable -SEBORRHEIC KERATOSES - discussed the likely benign and genetic nature of these lesions._ watchful waiting 4.History of skin cancer Reviewed sun protection with SPF 30 or higher applied every 80 minutes and use of sun protective clothing and hat. Call with questions or concerns. Follow up 6 months and pending mohs. Patient in agreement with plan. Medications aspirin 81 mg oral tablet Start: 12/01/15 9:57:00, 1 tab, PO, Daily Start Date: 09/25/15 Status: Ordered Centrum Silver oral tablet Start: 03/23/13 10:50:00, 1 tab, PO, Daily Start Date: 03/23/13 Status: Ordered Lipitor 40 mg oral tablet Start: 09/25/15 9:57:00, 1 tab, PO, Daily Start Date: 09/25/15 Status: Ordered Nasonex 50 mcg/inh nasal spray Start: 04/16/22 12:04:00 EDT, 2 spray, each nostril, Daily, Disp# 1 each, Refills: 11, Pharmacy: [address] Start Date: 04/16/22 Status: Ordered pantoprazole 40 mg oral delayed release tablet Start: 03/23/13 10:50:00, 1 tab, PO, Daily, Start Date: 03/23/13 Status: Ordered sertraline 50 mg oral tablet take 1/2 tablet by mouth daily for 8 days then INCREASE to 1 tablet by mouth daily Start Date: 09/30/22 Status: Ordered Mental Status 09/04/23 Barriers to Learning one year Hearing de ficit Mandatory Health Literacy Documentation Yes Health Literacy Communication Barriers N ever Primary Language [place] Problem List Condition Confirmation Course Effective Dates Status H ealth Status Informant Actinic keratosis Confirmed Active Basal cell carcinoma of skin Confirmed Active Stroke Confirmed Active Chronic sinusitis Confirmed Active Deviated nasal septum Confirmed Active High cholesterol Confirmed Active Melanoma Confirmed Active Skin neoplasm Confirmed Active Reflux Confirmed Active Scar Confirmed Active Senile hyperkeratosis Confirmed Active Diagnosis Diagnosis Type Effective Dates Health Status Clinical Service Informant History of skin cancer Discharge Diagnosis 09/04/23 Changing skin lesion Discharge Diagnosis 09/04/23 Actinic keratoses Discharge Diagnosis 09/04/23 Seborrheic keratoses Discharge Diagnosis 09/04/23 Procedures Procedure Date Related Diagnosis Body Site Status Shave biopsy 09/04/23 Completed Shave biopsy 1 08/10/23 Completed Shave biopsy of skin 07/13/23 Comp leted Electrodesiccation with curettage 06/13/22 Completed Excision biopsy 2 11/08/20 Complet ed Shave biopsy and cauterization of skin 10/04/20 Completed Shave biopsy 3 11/13/17 Completed Endoscopy 08/2017 Completed Electrodesiccation with curettage 4 08/12/17 Completed Colonoscopy 2014 Completed Endoscopy 2013 Completed Cataract surgery L 2011 Comple jacey lobectomy 5 2010 Completed Appendectomy 2006 Completed Mohs surgery 2003 Completed Hernia repair 1999 Completed Knee reconstr 1985 Completed 1right james 2left wrist 3right lower lip 4right lower cheek 5lobectomy Social History Social History Type Response Smoking Status Never smoked cigaret samson Sex Male Dermatology Outpatient Note * SHAAN Lawler, Sheila M: PERFORM Event Display: Dermatology Outpt Note Authored Date: [id number] Chief Complaint New spots of concern left leg and face x months worsening History of Present Illness CHACHA VERMA Ris [id number] old patient returning todaywith a chief complaint of New spots of concern left leg and face x months worsening.He denies itching, bleeding, oozing, but confirms crusting or evolving lesions. Patient has a past personal history of skin cancer: Review of Systems Denies fever, chills, sweats, night sweats, weight loss, headache, visual change, stomach upset diarrhea and joint pain. Physical Exam _Constitutional: Generally well appearing, well developed. Appears stated age. Eyes: Conjunctivae and lids without noted inflammation, lesion, mass, deformity or drainage. Cardiovascular: Swelling of the lower extremities not noted. Extremities pink, warm and dry. Extremities: Digits and nails without clubbing, cyanosis, petechiae, signs of ischemia, infectionor inflammation. Neurological / Psychiatric: Oriented to person, place and time. Appropriate mood and affect. No notable depression, anxiety or agitation. Complete skin exam was performed today including head, neck, chest, axillae, abdomen, groin, buttocks, back, bilateral upper and bilateral lower extremities. Palpation of the scalp, inspection of hair of scalp, eyebrows and finger and toenails was performed. 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 - 1.2cm pink scaled patch - bx today RIGHT BACK - 1.3cm pink trapped pigment nodule - bx today RIGHT EAR, LEFT EAR, LEFT NOSE, RIGHT CHEEK (3), CENTRAL CHEST - erythematous based scaled lesions consistent with actinic keratoses - cryo x 7 BACK, RIGHT ARM hyperkeratotic plaques and papules consistent with seborrheic keratoses Procedure Note A shave skin biopsy RIGHT BACK and LEFT LATERAL LOWER LEG was performed after a time out (patient identified with full name and date, site located and confirmed with team members) and verbal informed consent was obtained.Risks (infection, scar, bleeding) and benefits (proper diagnosis andtreatment) were reviewed.Alternative options were discussed if applicable.Time was given toaddress and answer all questions.Photograph was taken to document location. Skin prep: isopropyl alcohol Anesthesia: 1% lidocaine with epinephrine Shave biopsy with derm blade. Hemostasis/Closure: aluminum chloride Dressing: sterile Verbal and written wound care instructions given.Patient was informed that further procedure(s)or treatment(s) may be needed pending pathology results.Patient is instructed to call should any problems or concerns arise.The patient agreed to call the office to obtain the test results if they have not been communicated to them within 2 weeks.Patient left after procedure in good condition. PROCEDURE: Cryotherapy performed to actinic keratoses x 7following verbal consent, time out and allowing time for questions. Alternative therapies were discussed, and education on wound healing, risk of thermal injury, dyspigmentation, infection and scar formation were performed. Wound care instruction was provided. Patient was without concerns after questions answered after the procedure. Diagnostic Results Images 2023-09-04 10:49:06 2023-09-04 10:49:13 2023-09-04 10:49:26 2023-09-04 10:49:37 Assessment/Plan 1.Changing skin lesion Changing skin lesion - bx today. will contact with result 2.Actinic keratoses chronic and worsening. ACTINIC KERATOSES - discussed precancerous potential of these lesions and reviewed options for watchful waiting with judicious sun protection vs cryotherapy. cryo x 7 3.Seborrheic keratoses - chronic and stable -SEBORRHEIC KERATOSES - discussed the likely benign and genetic nature of these lesions._ watchful waiting 4.History of skin cancer Reviewed sun protection with SPF 30 or higher applied every 80 minutes and use of sun protective clothing and hat. Call with questions or concerns. Follow up 6 months and pending mohs. Patient in agreement with plan. Problem List/Past Medical History Ongoing Actinic keratosis Basal cell carcinoma of skin Chronic sinusitis Deviated nasal septum High cholesterol Melanoma Reflux Scar Senile hyperkeratosis Skin neoplasm Stroke Procedure/Surgical History Shave biopsy (08/10/2023)Shave biopsy of skin (07/13/2023)Electrodesiccation with curettage (06/13/2022)Excision biopsy (11/08/2020)Shave biopsy and cauterization of skin (10/04/2020)Shave biopsy (11/13/2017)Endoscopy (08/2017)Electrodesiccation with curettage (08/12/2017)Colonoscopy (2014)Endoscopy (2012)Cataract surgery L (2011)lobectomy (2010)Appendectomy(2006)Mohs surgery (2003)Hernia repair (1999)Knee reconstr (1984) Medications aspirin(aspirin 81 mg oral tablet), 81 mg= 1 tab, PO, Daily atorvastatin(Lipitor 40 mg oral tablet), 40 mg= 1 tab, PO, Daily mometasone nasal(Nasonex 50 mcg/inh nasal spray), 2 spray, each nostril, Daily, 11 refills multivitamin with minerals(Centrum Silver oral tablet), 1 tab, PO, Daily pantoprazole(pantoprazole 40 mg oral delayed release tablet), 40 mg= 1 tab, PO, Daily sertraline(sertraline 50 mg oral tablet) Allergies Adhesive bandageAdhesive retainer, Adhesive retainer, redness No Known Medication Allergies PollenSneezing.. Social History Smoking Status Never smoked cigarettes Recommendations Health Maintenance Pending(in the next year) OverDue Body Mass Index due04/16/23and every 1year Adult Influenza Vaccine due04/25/23and every 1year Due Adult COVID-19 Vaccination due09/04/23Unknown Frequency Adult Tdap/Td Vaccine due09/04/23Unknown Frequency Medicare Annual Wellness Visit due09/04/23and every 1year Pneumococcal Vaccine Older Adults due09/04/23One-time only Shingles Vaccine due09/04/23One-time only Satisfied(in the past 1 year) There are no satisfied recommendations within the defined date range Electronic Signature on File Electronically Reviewed/Signed by: ZANDER [place] Author Signature Dt/Tm:09/04/2023 10:58 AM Department of Family Medicine Department of Dermatology D[facility] Patient Care team information Care Team Personnel Name: MD Gonzáles Paul Position: Referring DIRECT Member Role: Primary Care Provider Address: Address: [address] [place] [address] Care Team Related Persons Name: FOREST VERMA Address: home [address] [place], [place] [id number]
--- OUTSIDE RECORDS SUMMARY | 2023-10-08 04:48 | External Medical Summary | Continuity of Care Document ---
Author Name Unknown Organization [facility] [address] [facility] [address] [id number] Care Team Providers Care Agricultural Engineering Technician Name Role Phone Issa Gonzáles Primary Care Physician [phone] [facility] [id number] Date(s): 07/13/23 - 07/13/23 [facility] [address] [phone] Encounter Diagnosis Changing skin lesion(Discharge Diagnosis) - 07/13/23 Discharge Disposition: Home or Self Care Attending Physician: SHAAN Lawler, Sheila Clement Allergies, Adverse Reactions, Alerts No Known Medication Allergies Substance Reaction Severity Status Pollen Sneezing.. Active Medications aspirin 81 mg oral tablet Start: 09/25/15 9:57:00, 1 [...] Daily, Disp# 1 each, Refills: 11, Pharmacy: [address] Start Date: 04/16/22 Status: Ordered pantoprazole 40 mg oral delayed release tablet Start: 03/23/13 10:50:00, 1 tab, PO, Daily, Start Date: 03/23/13 Status: Ordered sertraline 50 mg oral tablet take 1/2 tablet by mouth daily for 8 days then INCREASE to 1 tablet by mouth daily Start Date: 09/30/22 Status: Ordered Mental Status 07/13/23 Barriers to Learning one year Hearing de ficit Mandatory Health Literacy Documentation Yes Health Literacy Communication Barriers N ever Primary Language Swedish Problem List Condition Confirmation Course Effective Dates Status H ealth Status Informant Actinic keratosis Confirmed Active Basal cell carcinoma of skin Confirmed Active Stroke Confirmed Active Chronic sinusitis Confirmed Active Deviated nasal septum Confirmed Active High cholesterol Confirmed Active Melanoma Confirmed Active Skin neoplasm Confirmed Active Reflux Confirmed Active Scar Confirmed Active Senile hyperkeratosis Confirmed Active Diagnosis Diagnosis Type Effective Dates Health Status Cl inical Service Informant Changing skin lesion Discharge Diagnosis 07/13/23 Procedures Procedure Date Related Diagnosis Body Site Status Shave biopsy of skin 07/13/23 Comp leted Electrodesiccation with curettage 06/13/22 Completed Excision biopsy 1 11/08/20 Complet ed Shave biopsy and cauterization of skin 10/04/20 Completed Shave biopsy 2 11/13/17 Completed Endoscopy 08/2017 Completed Electrodesiccation with curettage 3 08/12/17 Completed Colonoscopy 2014 Completed Endoscopy 2012 Completed Cataract surgery L 2011 Comple jacey lobectomy 2010 Completed Appendectomy 2007 Completed Mohs surgery 2004 Completed Hernia repair 1999 Completed Knee reconstr 1985 Completed 1left wrist 2right lower lip 3right lower cheek 4lobectomy Social History Social History Type Response Smoking Status Never smoked cigaret samson Sex Male Dermatology Outpt Proc * SHAAN Lawler, Sheila M: PERFORM Event Display: Dermatology Outpt Proc Authored Date: [id number] DERMATOLOGY OUTPATIENT PROCEDURE NOTE Name: CHACHA VERMA Patient Number: [id number] : 1935 Date of Service: 07/13/2023 _ Diagnosis: changing skin lesion Location: right lower back - 2.5cm Indication: Lesion on back x 10 days. "Looking better" per nursing at [place]. R/o BCC vs avulsed SK Procedure Note A shave skin biopsy RIGHT LOWER BACK was performed after a time out (patient identified with full name and date, site located and confirmed with team members) and verbal informed consent was obtained. Risks (infection, scar, bleeding) and benefits (proper diagnosis and treatment) were reviewed. Alternative options were discussed if applicable. Time was given to address and answer all questions. Photograph was taken to document location. Skin prep: isopropyl alcohol Anesthesia: 1% lidocaine with epinephrine Shave biopsy with derm blade. Hemostasis/Closure: aluminum chloride Dressing: sterile Verbal and written wound care instructions given. Patient was informed that further procedure(s) or treatment(s) may be needed pending pathology results. Patient is instructed to call should any problems or concerns arise. The patient agreed to call the office to obtain the test results if they have not been communicated to them within 2 weeks. Patient left after procedure in good condition. Call with questions or concerns. Follow up pending path. Patient in agreement with plan. Electronic Signature on File Electronically Reviewed/Signed by: ZANDER [place] Author Signature Dt/Tm:07/13/2023 02:08 PM Department of Family Medicine Department of Dermatology D[facility] Patient Care team information Care Team Personnel Name: MD Gonzáles Paul Position: Referring DIRECT Member Role: Primary Care Provider Address: Address: [address] [place] [address] [place] Care Team Related Persons Name: FOREST VERMA Address: home [address] [place] [phone]
--- OUTSIDE RECORDS SUMMARY | 2023-10-08 04:48 | External Medical Summary | Continuity of Care Document ---
Author Name Unknown Organization [facility] [address] [facility] [address] [phone] Care Team Providers Care Speech Lang Path Name Role Phone Issa Gonzáles Primary Care Physician [phone] [id number] Date(s): 08/10/23 - 08/10/23 [facility] [address] [phone] Encounter Diagnosis Changing skin lesion(Discharge Diagnosis) - 08/10/23 Discharge Disposition: Home or Self Care Attending Physician: SHAAN Lawler Dawn M Referring Physician: SHAAN Lawler Dawn M Allergies, Adverse Reactions, Alerts No Known Medication Allergies Substance Reaction Severity Status Adhesive bandage Adhesive retainer Adhesive retainer redness Active Pollen Sneezing.. Active Medications aspirin 81 mg [...] Daily, Disp# 1 each, Refills: 11, Pharmacy: [address] Start Date: 04/16/22 Status: Ordered pantoprazole 40 mg oral delayed release tablet Start: 03/23/13 10:50:00, 1 tab, PO, Daily, Start Date: 03/23/13 Status: Ordered sertraline 50 mg oral tablet take 1/2 tablet by mouth daily for 8 days then INCREASE to 1 tablet by mouth daily Start Date: 09/30/22 Status: Ordered Problem List Condition Confirmation Course Effective Dates [...] Service Informant Changing skin lesion Discharge Diagnosis 08/10/23 Procedures Procedure Date Related Diagnosis Body Site Status Shave biopsy 1 08/10/23 Completed Shave biopsy of skin 07/13/23 Comp leted Electrodesiccation with curettage 06/13/22 Completed Excision biopsy 2 11/08/20 Complet ed Shave biopsy and cauterization of skin 10/04/20 Completed Shave biopsy 3 11/13/17 Completed Endoscopy 08/2017 Completed Electrodesiccation with curettage 4 08/12/17 Completed Colonoscopy 2015 Completed Endoscopy 2013 Completed Cataract surgery L 2011 Comple jacey lobectomy 5 2010 Completed Appendectomy 2007 Completed Mohs surgery 2003 Completed Hernia repair 1999 Completed Knee reconstr 1984 Completed 1right james 2left wrist 3right lower lip 4right lower cheek 5lobectomy Social History Social History Type Response Smoking Status Never smoked cigaret samson Sex Male Dermatology Outpt Proc * SHAAN Lawler Dawn M: PERFORM Event Display: Dermatology Outpt Proc Authored Date: [id number] DERMATOLOGY OUTPATIENT PROCEDURE NOTE Name: CHACHA VERMA Patient Number: [id number] : 1935 Date of Service: 08/10/2023 _ Diagnosis: changing skin lesion Location: right fraga Size: 1.5cm 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 Hemostasis/Closure: electrocautery Dressing: sterile Verbal and written wound care [...] questions or concerns. Follow up pending path. Needs Mohs if SCC. Patient in agreement with plan. Electronic Signature on File Electronically Reviewed/Signed by: ZANDER [place] Author Signature Dt/Tm:08/10/2023 03:36 PM Department of Family Medicine Department of Dermatology D[facility] Patient Care team information Care Team Personnel Name: MD Gonzáles Paul Position: Referring DIRECT Member Role: Primary Care Provider Address: Address: [address] [place] [id number] Care Team Related Persons Name: FOREST VERMA Address: home [address] [place] [phone]
--- OUTSIDE RECORDS SUMMARY | 2023-10-08 04:49 | External Medical Summary | Continuity of Care Document ---
Author Name Unknown Organization [facility] [address] [facility] 2 Address [address] [facility] [address] [id number] Care Team Providers Care Rheologist Name Role Phone Issa Gonzáles Primary Care Physician [phone] Encounter [facility] [id number] Date(s): 05/27/23 - 05/27/23 [facility] [address] [facility] [address] [place], [place] [id number] Encounter Diagnosis SK (seborrheic keratosis)(Discharge Diagnosis) - 05/27/23 History of basal cell cancer(Discharge Diagnosis) - 05/27/23 AK (actinic keratosis)(Discharge Diagnosis) - 05/27/23 Discharge Disposition: Home or Self Care Attending Physician: MD Alicea David L Allergies, Adverse Reactions, Alerts No Known Medication Allergies Substance Reaction Severity Status Pollen Sneezing.. Active Assessment and Plan Extracted from: Title:Clinical Document Author:MD Alicea David L Date:05/27/23 OUTPATIENT NOTE Name: CHACHA YORK Patient Number:1 [id number] : 1935 Date of Service: 05/27/2023 _ Mr York is recheck. He notes a lesion on the scalp and right forearm. He is not outside in the sun at all he says. He does have a past history basal cell carcinoma and melanoma. Physical examination: Well-developed well-nourished white male type I skin. Alert and oriented x3. Examination of scalp face ears and neck reveals a 4 mm verruca hyperkeratotic papule in the vertex of the scalp. Examination of back chest abdomen hands arms legs feet buttocks reveal some brown verruca hyperkeratotic papule in the trunk. He has a 5 mm hyperkeratotic actual cutaneous horn on the extensor proximal right forearm. Impression: #1 verrucal keratosis on the scalp. #2 cutaneous horn on the right forearm. #3 seborrheic keratosis and trunk. #4 no evidence for new or recurrent melanoma or basal cell carcinoma. Plan: After discussing the procedure risk benefits and scarring, lesion on the scalp and lesion on the right forearm were shave removed the base true electrocautery and curettement. 1% Xylocaine with epinephrine was used as local anesthetic. No pathology was sent. Tolerated very well. Wound care instruction given. Sun protection was stressed. Return for recheck in 6 months. Medications aspirin 81 mg oral tablet Start: [...] Daily, Disp# 1 each, Refills: 11, Pharmacy: [address] Start Date: 04/16/22 Status: Ordered pantoprazole 40 mg oral delayed release tablet Start: 03/23/13 10:50:00, 1 tab, PO, Daily, Start Date: 03/23/13 Status: Ordered sertraline 50 mg oral tablet take 1/2 tablet by mouth daily for 8 days then INCREASE to 1 tablet by mouth daily Start Date: 09/30/22 Status: Ordered Mental Status 05/27/23 Barriers to Learning one year Hearing de ficit Mandatory Health Literacy Documentation Yes Health Literacy Communication Barriers N ever Primary Language Uzbek Problem List Condition Confirmation Course Effective Dates [...] Dates Health Status Cl inical Service Informant AK (actinic keratosis) Discharge Diagnosis 05/27/23 History of basal cell cancer Discharge Diagnosis 05/27/23 SK (seborrheic keratosis) Discharge Diagnosis 05/27/23 Procedures Procedure Date Related Diagnosis Body Site Status Electrodesiccation with curettage 06/13/22 Completed Excision biopsy 1 11/08/20 Complet ed Shave biopsy and cauterization of skin 10/04/20 Completed Shave biopsy 2 11/13/17 Completed Endoscopy 08/2017 Completed Electrodesiccation with curettage 3 08/12/17 Completed Colonoscopy 2014 Completed Endoscopy 2012 Completed Cataract surgery L 2011 Comple jacey lobectomy 4 2010 Completed Appendectomy 2006 Completed Mohs surgery 2003 Completed Hernia repair 1999 Completed Knee reconstr 1985 Completed 1left wrist 2right lower lip 3right lower cheek 4lobectomy Social History Social History Type Response Smoking Status Former Smoker, quit > 1 yr Sex Male Outpatient Note * MD Deanne, Vidal L: PERFORM Event Display: .Outpt Note Authored Date: [id number] OUTPATIENT NOTE Name: CHACHA YORK Patient Number:1 [id number] : 1935 Date of Service: 05/27/2023 _ Mr York is recheck. He notes a lesion on the scalp and right forearm. He is not outside in the sun at all he says. He does have a past history basal cell carcinoma and melanoma. Physical examination: Well-developed well-nourished white male type I skin. Alert and oriented x3. Examination of scalp face ears and neck reveals a 4 mm verruca hyperkeratotic papule in the vertex of the scalp. Examination of back chest abdomen hands arms legs feet buttocks reveal some brown verruca hyperkeratotic papule in the trunk. He has a 5 mm hyperkeratotic actual cutaneous horn on the extensor proximal right forearm. Impression: #1 verrucal keratosis on the scalp. #2 cutaneous horn on the right forearm. #3 seborrheic keratosis and trunk. #4 no evidence for new or recurrent melanoma or basal cell carcinoma. Plan: After discussing the procedure risk benefits and scarring, lesion on the scalp and lesion on the right forearm were shave removed the base true electrocautery and curettement. 1% Xylocaine withepinephrine was used as local anesthetic. No pathology was sent. Tolerated very well. Wound care instruction given. Sun protection was stressed. Return for recheck in 6 months. Electronic Signature on File Electronically Reviewed/Signed by: Vidal Alicea MD Author Signature Dt/Tm:05/27/2023 11:16 AM Department of Dermatology DLS Patient Care team information Care Team Personnel Name: MD Gonzáles Paul Position: Referring DIRECT Member Role: Primary Care Provider Address: Address: [address] [facility] [address] [place] [address] [place] Care Team Related Persons Name: FOREST YORK Address: home [address] [place], [place] [id number]
--- NOTE | 2023-10-08 07:21 | XRay Report ---
XR chest 2V PA/lateral HISTORY: 88 years-old Male R rib frax with pneumo, repeat follow-up study in a patient with right-si ded hydropneumothorax with right-sided rib fractures COMPARISON: Chest radiographs of same day at 3:49 PM TECHNIQUE: AP and lateral views of the chest FINDINGS: Unchanged [id number] right basilar hydropneumothorax. Cardiomegaly. Hiatal hernia. Limited exa m secondary to positioning with sigmoidal thoracolumbar scoliosis. Small left pleural effusion with l eft basilar opacities suggestive of atelectasis. Pulmonary vascular congestion. Acute nondisplaced fr actures of the right eighth and ninth ribs again noted. Additional chronic right-sided rib fractures are also present. IMPRESSION: 1. Right basilar hydropneumothorax again noted which appears similar to mildly decreased in size from the earlier study. 2. Acute mildly displaced fractures of the right eighth and ninth ribs. 3. Cardiomegaly with pulmonary vascular congestion. 4. Small left pleural effusion with mild left basilar opacities. ACT 112: Negative or not required by law. The above report was generated using voice recognition software. It may contain grammatical, syntax o r spelling errors. Electronically signed by: Vinod Saeed M.D. 10/08/2023 7:19 AM
[2023-10-08 07:38] LABS: Basophils # (auto) 0.04 K/uL (0.00-0.20); Basophils % (auto) 0.7 %; Eosinophils # (auto) 0.24 K/uL (0.00-0.50); Eosinophils % (auto) 4.2 %; Hematocrit (blood only) 36.3 % (42.0-52.0); Hemoglobin 12.2 g/dl (14.0-18.0); Immature Granulocytes # (auto) 0.02 K/uL (0.01-0.20); Immature Granulocytes % (auto) 0.3 %; Lymphocytes # (auto) 1.34 K/uL (1.20-3.40); Lymphocytes % (auto) 23.4 %; Mean Corpuscular Hemoglobin 30.3 pg (25.0-34.0); Mean Corpuscular Hgb Conc 33.6 g/dL (32.0-36.0); Mean Corpuscular Volume 90.3 fL (80.0-100.0); Mean Platelet Volume 9.2 fL (9.4-12.4); Monocytes # (auto) 0.65 K/uL (0.11-0.59); Monocytes % (auto) 11.3 %; Neutrophils # (auto) 3.44 K/uL (1.40-6.50); Neutrophils % (auto) 60.1 %; Platelet Count 139 K/uL (130-400); RDW Coefficient of Variation 14.6 % (11.5-14.5); RDW Standard Deviation 49.1 fL (36.4-46.3); Red Blood Count 4.02 M/uL (4.70-6.10); White Blood Count 5.73 K/ul (4.8-10.8)
[2023-10-08 07:57] LABS: Calcium 9.7 mg/dl (8.6-10.3); Creatinine Clr Calc Pharmacy 70.2 ml/min; Est GFR (African American) 93.6 ml/min; Est GFR (Non-African American) 80.7 ml/min
[2023-10-08] MEDS: SERTRALINE HCL 100 MG TABLET PO SCH ×2 (08:01→09:32)
--- NOTE | 2023-10-08 08:20 | Pulmonary Consultation ---
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 He is hemodynamically stable and serial chest x-rays have demonstrated slight decrease in size of the pneumothorax. His pain control is adequate. Recommendations: 1. Rib fractures: Pain management. Patient will need to be able to ambulate, cough, and clear secretions without significant compromise to avoid pneumonia. Out of bed to chair as tolerated and ambulate. If additional pain management strategies are needed, consultation with acute pain service may be appropriate. 2. Pneumothorax: The patient underwent a right upper lobectomy in the lung is likely already scarred down which would prevent complete pneumothorax. On chest x-ray 6 hours later, the pneumothorax appears to be significantly decreasing in size. Will repeat a chest x-ray this morning. I think he likely if this is stable can be dismissed from the hospital. Would recommend outpatient follow-up in the pulmonary clinic in 1 to 2 weeks with a repeat chest x-ray. If the patient should develop increasing shortness of breath, chest pain, or hemoptysis, he should return to the emergency room. 3. History of bronchiectasis: Management per primary outpatient pulmonary. The above recommendations and plan were discussed extensively with the patient bedside. Questions were answered to the best my ability. He expressed understanding and is in agreement with plan as outlined. Pulmonary will sign off once the follow-up chest x-ray is completed. Feel free to contact us with questions or concerns History of Present Illness Attending Physician: Shelly Aviles MD History of Present Illness Asked by hospitalist to evaluate this patient with loculated lower lobe hydropneumothorax after a fall and rib fractures. History is obtained from discussion with the patient as well as review the electronic medical record. Patient is an 88-year-old male who follows with Dr. Lowery in the outpatient pulmonary clinic. He suffered a fall on Thursday. He hit the right side of his back against his refrigerator. He did not have a syncopal event. He has had persistent right-sided chest pain which prompted him to be evaluated in the emergency room. Chest x-ray performed in the ER demonstrated mildly to place fractures on the right eighth and ninth ribs with a small right basilar hydropneumothorax. Follow-up chest x-ray performed a few hours later demonstrated stability versus decrease in size of the hydropneumothorax but dougie esparza was admitted overnight for observation. Patient does not report any coughing or shortness of breath. His pain is adequately controlled with Tylenol. Has not had any hemoptysis. He denies any crepitus. No shortness of breath with exertion. Patient has a history of adenocarcinoma of the lung status post right upper lobectomy in 2009. 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 He had a bronchoscopy performed January of this year showing pansensitive Pseudomonas. Allergies Allergy/AdvReac Type Severity Reaction Status Date / Time No Known Drug Allergies Allergy Verified 04/09/23 14:32 Home Medications Medication Instructions Recorded Confirmed Type aspirin 81 mg tablet,delayed 81 mg PO QAM 08/24/18 04/09/23 History release multivitamin 1 tab PO DAILYBB 08/02/19 04/09/23 History guaifenesin 600 mg tablet, 600 mg PO BID PRN cough #60 tabs 09/09/22 04/09/23 Rx extended release 12 hr (Mucinex) Flutter Valve #1 ea 01/29/23 04/09/23 Rx ipratropium 0.5 mg-albuterol 3 mg 3 ml inhalation BID shortness of 01/29/23 04/09/23 Rx (2.5 mg base)/3 mL nebulization breath or wheezing #180 mL soln nebulizers (Aeroneb Go Nebulizer) #1 ea 01/29/23 04/09/23 Rx sodium chloride 7 % for 1 inh inhalation BID #240 mL 01/29/23 04/09/23 Rx nebulization Vibration Vest #1 ea 02/18/23 Rx sertraline 100 mg tablet 100 mg PO DAILY #90 tabs 09/07/23 Rx atorvastatin 40 mg tablet 40 mg PO HS #90 tabs 09/30/23 Rx pantoprazole 40 mg tablet,delayed 40 mg PO QAM #90 tabs 09/30/23 Rx release Patient History Medical History Sensorineural hearing loss of both ears Positive colorectal cancer screening using Cologuard test reason for colonoscopy History of melanoma on lip Suspected 2018 novel coronavirus infection Barretts esophagus Stage I adenocarcinoma of lung Gastroesophageal reflux disease Hyperlipidemia 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 Scoliosis Spinal stenosis of lumbar region Osteoarthritis GERD (gastroesophageal reflux disease) Thyroid goiter BIOPSY DONE "NORMAL" Cancer LUNG CANCER SKIN CANCER Hearing deficit Stroke 2014 (NO PROBLEMS NOW) Surgical History History of melanoma excision off lip History of Mohs micrographic surgery for skin cancer History of appendectomy History of anesthesia reaction SLOW TO WAKE UP AND "GOES UNDER QUICKLY" History of knee surgery RT History of herniorrhaphy bilateral History of esophagogastroduodenoscopy (EGD) History of colonoscopy History of tooth extraction History of tonsillectomy History of adenoidectomy History of cataract surgery bilt History of lung surgery UPPER RT LOBECTOMY (NO CHEMO) Family History Father Family hx of colon cancer Colorectal cancer Other No family history of adverse response to anesthesia No family history of bleeding disorder Denies family history of Ovarian cancer Prostate cancer Diabetes Myocardial infarction Breast cancer Lung cancer Stroke Social History Smoking Status: Never smoker Age Started Using Tobacco: 19; Age Quit Using Tobacco: 36; packs per day: 0.5; Cigarettes Per Day: QUIT AT AGE 36; Second Hand Exposure: Yes ("everyone smoked"); Do You Dip or Chew Tobacco: No; Hx Alcohol Use: No Hx Substance Use: No Preferred Language: German Communication Ability: Effective Visual Impairment: Limited Hearing Ability: Use of Hearing Aid 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 Required: No Beliefs That Will Affect Care: None marital status: / Current Living Situation: Alone current occupational status: retired How many Children do You have: 3 Other Information That Helps Us Care for You: No Feels Safe at Home: Yes Safety Concerns: Feels Safe At This Time Childhood Exposure to Second-Hand Smoke: Yes caffeine: Yes Dental Care, Regularly: Yes Physical Activity Frequency: Daily Seatbelt Use: always Sunscreen Use: Yes Assistive Devices: Glasses Review of Systems Review of Systems: All systems reviewed & are unremarkable except as noted in Subjective Physical Exam Constitutional: WD/WN, vitals as above Neck: trachea midline, no thyromegaly Respiratory: normal respiratory effort, lungs clear to auscultation Cardiovascular: RRR, no murmur, no edema Gastrointestinal (Abdomen): normal bowel sounds, soft, nontender, no hepatosplenomegaly Musculoskeletal: Extremities: extremities normal to inspection Skin: no rashes, warm and dry Neurologic: Nonfocal exam Lymphatic: no cervical lymphadenopathy Results & Data Results & Data Vital Signs (Past 12 Hours) Vital Signs Temp Pulse Pulse Resp BP Pulse Ox O2 Del Method 10/08/23 07:58 36.5 C 66 17 165/83 H 94 Room Air 10/08/23 07:50 58 L 16 93 Room Air 10/08/23 00:49 66 17 92 Room Air 10/07/23 22:50 36.6 C 70 16 162/92 H 93 Room Air 10/07/23 21:30 72 19 10/07/23 21:20 66 23 10/07/23 21:10 78 15 10/07/23 21:00 70 21 10/07/23 20:50 61 20 10/07/23 20:40 61 21 10/07/23 20:30 66 24 10/07/23 20:24 91 H 21 10/07/23 20:13 64 21 Critical Care Results & Data Vital Signs (Past 12 Hours) Vital Signs Temp Pulse Pulse Resp BP Pulse Ox O2 Del Method 10/08/23 07:58 36.5 C 66 17 165/83 H 94 Room Air 10/08/23 07:50 58 L 16 93 Room Air 10/08/23 00:49 66 17 92 Room Air 10/07/23 22:50 36.6 C 70 16 162/92 H 93 Room Air 10/07/23 21:30 72 19 10/07/23 21:20 66 23 10/07/23 21:10 78 15 10/07/23 21:00 70 21 10/07/23 20:50 61 20 10/07/23 20:40 61 21 10/07/23 20:30 66 24 10/07/23 20:24 91 H 21 10/07/23 20:13 64 21 Lab & Micro Results (Past 24 Hours) RBC 4.02 M/uL (4.70-6.10) L 10/08/23 WBC 5.73 K/ul (4.8-10.8) 10/08/23 Hgb 12.2 g/dl (14.0-18.0) L 10/08/23 Hct 36.3 % (42.0-52.0) L 10/08/23 MCV 90.3 fL (80.0-100.0) 10/08/23 MCH 30.3 pg (25.0-34.0) 10/08/23 MCHC 33.6 g/dL (32.0-36.0) 10/08/23 RDW Standard Deviation 49.1 fL (36.4-46.3) H 10/08/23 RDW Coefficient of Variation 14.6 % (11.5-14.5) H 10/08/23 Plt Count 139 K/uL (130-400) 10/08/23 MPV 9.2 fL (9.4-12.4) L 10/08/23 Neutrophils (%) (Auto) 60.1 % 10/08/23 Lymphocytes (%) (Auto) 23.4 % 10/08/23 Monocytes # (Auto) 0.65 K/uL (0.11-0.59) H 10/08/23 Eosinophils # (Auto) 0.24 K/uL (0.00-0.50) 10/08/23 Immature Granulocyte % (Auto) 0.3 % 10/08/23 Neutrophils # (Auto) 3.44 K/uL (1.40-6.50) 10/08/23 Lymphocytes # (Auto) 1.34 K/uL (1.20-3.40) 10/08/23 Monocytes # (Auto) 0.65 K/uL (0.11-0.59) H 10/08/23 Eosinophils # (Auto) 0.24 K/uL (0.00-0.50) 10/08/23 Basophils # (Auto) 0.04 K/uL (0.00-0.20) 10/08/23 Immature Granulocyte # (Auto) 0.02 K/uL (0.01-0.20) 3 Na 139 mmol/L (136-145) 10/08/23 K 4.0 mmol/L (3.5-5.1) 10/08/23 Cl 106 mmol/L (98-107) 10/08/23 CO2 29 mmol/L (21-32) 10/08/23 Anion Gap 4 (3-11) 10/08/23 BUN 15 mg/dl (6-23) 10/08/23 Creatinine 0.79 mg/dl (0.6-1.4) 10/08/23 Estimated GFR ( Amer) 93.6 ml/min 10/08/23 Estimated GFR (Non-Af Amer) 80.7 ml/min 10/08/23 BUN/Creatinine Ratio 19.0 (10-20) 10/08/23 Glu 96 mg/dl (70-99(Fasting)) 10/08/23 Ca 9.7 mg/dl (8.6-10.3) 10/08/23 Calcium Level 9.7 mg/dl (8.6-10.3) 10/08/23 07:11 Diagnostic Findings (Past 24 Hours) Ribs w/Chest X-Ray 10/07/23 15:16 XR ribs RT min 2V w CXR1V CLINICAL HISTORY: Right posterior rib pain s/p fall. COMPARISON: Chest CT January 20, 2023. Chest radiograph March 30, 2023. FINDINGS: There is a small to moderate size right basilar hydropneumothorax. Acute mildly displaced fractures of the lateral right eighth and ninth ribs are noted. There are multiple old right rib fractures. Left basilar opacity persists. There is a hiatal hernia. Thoracolumbar spine scoliosis is incidentally noted. There is no left pneumothorax. IMPRESSION: 1. Small to moderate right basilar hydropneumothorax. Acute mildly displaced fractures of the right eighth and ninth ribs. 2. Persistent left basilar opacity, similar to prior exam. ACT 112: Negative or not required by law. Electronically signed by: Rajan Robertson M.D. 10/07/2023 4:20 PM Chest X-Ray 10/07/23 21:15 XR chest 2V PA/lateral HISTORY: 88 years-old Male R rib frax with pneumo, repeat follow-up study in a patient with right-sided hydropneumothorax with right-sided rib fractures COMPARISON: Chest radiographs of same day at 3:49 PM TECHNIQUE: AP and lateral views of the chest FINDINGS: Unchanged [id number] right basilar hydropneumothorax. Cardiomegaly. Hiatal hernia. Limited exam secondary to positioning with sigmoidal thoracolumbar scoliosis. Small left pleural effusion with left basilar opacities suggestive of atelectasis. Pulmonary vascular congestion. Acute nondisplaced fractures of the right eighth and ninth ribs again noted. Additional chronic right-sided rib fractures are also present. IMPRESSION: 1. Right basilar hydropneumothorax again noted which appears similar to mildly decreased in size from the earlier study. 2. Acute mildly displaced fractures of the right eighth and ninth ribs. 3. Cardiomegaly with pulmonary vascular congestion. 4. Small left pleural effusion with mild left basilar opacities. ACT 112: Negative or not required by law. The above report was generated using voice recognition software. It may contain grammatical, syntax or spelling errors. Electronically signed by: Vinod Saeed M.D. 10/08/2023 7:19 AM RT Ventilator Mngmt (Last Documented) Ventilator Ordered Settings Respiratory Rate 17 10/08/23 07:58 Ventilator - PT Measurements Respiratory Rate 17 PG Care Time/CCT Total # of Minutes Spent Total Time Spent with Patient: Total time spent is greater than 50% in coordination of care (as documented) at patient's floor/unit and/or counseling patient: Coding Level of Care Code 91997 INT INP/OBS CARE 3/75MIN Diagnoses Pneumothorax, right J93.9 Multiple fractures of ribs of right side S22.41XA
[2023-10-08] MEDS ORDERED: PANTOprazole 40 MG TAB PO SCH (09:00)
[2023-10-08] MEDS ORDERED: ASPIRIN 81 MG ECTAB PO SCH (09:00)
--- NOTE | 2023-10-08 09:25 | XRay Report ---
XR chest 1V portable HISTORY: Follow up pneumothorax. COMPARISON: Chest 10/07/2023. FINDINGS: There is again noted a small to moderate right-sided hydropneumothorax. This has slightly d ecreased in size. The heart remains enlarged. There is mild central pulmonary vascular congestion wit hout overt edema. Small left pleural effusion and left basilar densities persist. A hiatal hernia is again noted. Right-sided rib fractures are better appreciated on the prior studies. IMPRESSION: 1. Right-sided hydropneumothorax has slightly decreased in size. 2. Small left pleural effusions and left basilar densities persist. 3. Cardiomegaly and mild congestive change. ACT 112: Negative or not required by law. Electronically signed by: Logan Salgado M.D. 10/08/2023 9:24 AM
[2023-10-08] MEDS ORDERED: SERTRALINE HCL 100 MG TABLET PO SCH (12:00)
--- NOTE | 2023-10-08 12:27 | Discharge Summary ---
Date of Service October 08, 2023 Admission HPI Per Admitting Provider 88 yo male presented to the ED via EMS for evaluation of right back/rib pain. Patient stated on Thursday he was picking something up off of his floor and lost his balance and fell onto his fridge hitting the right side of his back against the handle. He denies hitting his head or loss of consciousness. He is on a baby aspirin, no other blood thinners. Pt able to get up on his own and ambulate without difficulty. He notes intermittent pain is in the right posterior rib cage, exacerbated with change in position, deep inhalation or coughing. He has not taken anything for his symptoms. He denied headache, vi sual changes, dizziness/lightheadedness, nausea/vomiting, chest pain, shortness of breath, abdominal pain, neck pain, low back pain, and any pain in extremities. Denied blood in his urine, stool, or any blood-tinged sputum from lungs. Patient has not had any other recent falls but has had some other near-falls, which he attributed to him putting his body in a position where he loses his balance--is not tripping over anything, does not have any recent gait changes, no new onset weakness. He does occasionally use a cane as a walking assistive device but does not use it in his home. Admission Exam Per Admitting Provider Constitutional: WD/WN, vitals as above Respiratory: normal respiratory effort, lungs clear to auscultation Cardiovascular: RRR, no murmur, no edema Gastrointestinal (Abdomen): normal bowel sounds, soft, nontender, no hepatosplenomegaly Musculoskeletal: Spine: + scoliosis Psychiatric: A+Ox3, euthymic affect Principal Diagnosis Right-sided hydro-pneumothorax and right-sided rib fractures Discharge Exam General: awake, alert, oriented x4, afebrile, cooperative, calm, no acute distress HEENT: EOM intact, normocephalic Chest: symmetrical chest rise with respirations Respiratory: normal respiratory effort, no respiratory distress Cardio: RRR,no r/m/g Abdomen: non-distended, soft, nontender Discharge Data Allergies Allergy/AdvReac Type Severity Reaction Status Date / Time No Known Drug Allergies Allergy Verified 04/09/23 14:32 Consultations 10/07/23 17:52 ED Decision to Admit Stat 10/07/23 23:14 Consult Pulmonology Routine Hospital Course (1) Pneumothorax, right: (2) Multiple fractures of ribs of right side: (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 He has history of imbalance, for which he is undergoing PT in [facility]. CXR done on admission confirmed the presence of right-sided hydro-pneumothorax and rib fractures on the 8th and 9th ribs of that same side. Right hydropneumothorax (Acute, stable) - Patient O2 sat has ranged between 92-94 at room air - Initial CXR showed "small to moderate right basilar hydropneumothorax." 2nd CXR 6 hours after the initial one showing similar to mild improvement of the pneumothorax 3rd CXR done on the morning after showing "right-sided pneumothorax that has sightly decreased in size" - Pulmonology consulted: No chest tube necessary at this time Patient underwent a right upper lobectomy in the lung is likely already scarred down which would prevent complete pneumothorax. Outpatient f/u in pulmonary clinic in 1-2 weeks with a repeat CXR. Mildly displaced rib fractures of 8th and 9th ribs posteriorly (Acute, stable) - Tylenol, 650 mg, PO, PRN for pain - Incentive Spirometer recommended - Advised to return to ED if she should develop increasing SOB or worsening symptoms Depression (Chronic, stable) - continue sertraline GERD (Chronic, stable) - continue pantoprazole Restrictive/obstructive lung disease (Chronic, stable) - continue ipratropium/albuterol Past CVA (Chronic, stable) - continue aspirin Hyperlipidemia (Chronic, stable) - continue atorvastatin Patient found to be clinically and hemodynamically stable, and fit to be discharged today. He was advised to go to his f/u appointment with pulmonology clinic to check the progression of his PTX, as well as his PCP for post- discharge f/u. He expressed understanding and agreed. Total Time Total Time Spent Total Time Spent (In Minutes): As per attending attestation. Discharge Plan Discharge Items Patient Disposition: Transfer [facility] Reason For Visit: R. POSTERIOR RIB PAIN Discharge Diagnosis: right-sided hydro-pneumothorax and rib fractures Activity: Per Instructions section Non-emergency contact: Primary Care Provider and Sales And Marketing Engineer Call non-emergency contact if: your symptoms worsen Follow-up/Referrals: Emily Lowery MD, [facility] [Physician] - 10/15/23 1:00 pm (You have an appt scheduled with ZANDER Odonnell. Please call if you need to reschedule this appointment. ) PCP,NO [Primary Care Provider] - Diet: Regular Ambulatory Orders: XR chest 2V PA/lateral (Routine) Timeframe: 10 Day Location: Determined by Patient Ordered By: Ivonne Austin Attending Provider Instructions: You were admitted to the hospital for right sided lung collapse (hydropneumothorax) and rib fractures on the right side after a fall you sustained. 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 Please make sure to follow up with the incentive spirometry and with your follow up appointments. A discharge summary will be sent to your primary care physician to ensure continuity of care. Please bring this discharge summary with you to your next office appointment so that your provider can review it at that time. Follow-up appointments: Make a follow-up appointment with your PCP within the next week. It is very important that you follow up with them shortly after discharge from the hospital. We have requested a follow-up appointment with your Sales And Marketing Engineer within 1-2 w eeks from your discharge. Please call their office if you do not hear from them. For your appointment, you need to get another chest x ray a few days prior to your appointment to check how it has progressed. Please bring this with you to your appointment. Keep all your follow-up appointments as already scheduled. If you cannot make an appointment, notify your provider. Medications: Your medication list has been reviewed and reconciled upon discharge to ensure accuracy and continuity of care. An updated list of all your medications is included with your hospital discharge paperwork. Please review this list closely, and make note of any changes. If you have any issues filling these prescriptions, please call [phone] and ask to leave a message for Dr. Orellana. Take your medications as instructed; do not skip a dose of your medicines. Make sure all of your doctors know every medicine you are taking (including [id number] medicines, vitamins, and supplements). Call your primary care provider before taking any new medicines (including over- the-counter medicines, vitamins, and supplements), because some of these may interact with your current medications, or may make your symptoms worse. Tell your primary care provider if you cannot afford your medications. CONTACT YOUR PRIMARY CARE PROVIDER if you experience any of the following: Worsening of symptoms Fever, chills, or fatigue Difficulty following your treatment plan, or difficulty taking medications CALL 911 OR GO TO THE EMERGENCY DEPARTMENT if you experience any of the following: Sudden, severe abdominal pain or nausea/vomiting Severe chest pain, or chest pain that radiates (moves) to your jaw or arm Sudden, severe shortness of breath or difficulty breathing Thank you for allowing us to participate in your care. Pending Studies at Discharge: No Stand-Alone Forms: My [facility] Skilled Items Patient informed of condition?: Yes DNR: Yes Discharge Level of Care: Skilled Communicable Disease: No Discharge Prognosis: Stable Lines: None Urinary Catheter: No Medications and DC Order Prescriptions: Continued (DME) Vibration Vest Mis See Rx Instructions .Route Qty: 1 0RF Rx Instructions: As directed sertraline 100 mg tablet 100 mg PO DAILY Qty: 90 3RF atorvastatin 40 mg tablet 40 mg PO HS Qty: 90 3RF pantoprazole 40 mg tablet,delayed release (DR/EC) 40 mg PO QAM Qty: 90 3RF (DME) nebulizers [Aeroneb Go Nebulizer] [facility] See Rx Instructions .MEDSUPPLY Qty: 1 0RF Rx Instructions: With tubing and supplies. J44.9. J45.9. (DME) Flutter Valve Device See Rx Instructions .Route Qty: 1 0RF Rx Instructions: As directed sodium chloride 7 % solution for nebulization 1 inh inhalation BID Qty: 240 3RF ipratropium-albuterol 0.5 mg-3 mg(2.5 mg base)/3 mL solution for nebulization 3 ml inhalation BID Qty: 180 3RF guaifenesin [Mucinex] 600 mg tablet extended release 12hr 600 mg PO BID PRN (Reason: cough) Qty: 60 3RF aspirin 81 mg Tablet,Delayed Release (Dr/Ec) 81 mg PO QAM multivitamin tablet 1 tab PO DAILYBB Patient Comments: Take 30 minutes before breakfast Discharge Orders: Discharge Order (Routine); Ordered 10/08/23 Ordered By: Ivonne Orellana Admission Data Admit Date/Time: 10/07/23 19:48 Attending Provider: Shelly Aviles Admit Provider: Roger Monroy Primary Care Provider: PCP,NO Other Providers: Tushar Ocampo; Sanjiv Youngblood Other Interventions: Discharge Summary Assessment (RN) Last Done: 10/08/23 14:11 Supervising Physician Co-Signing Physician Notes Resident Physician Supervision Note: I reviewed the reddy history and physical, reviewed labs and image studies and agree with resident findings and care plan. I did not see the patient on day of discharge. Resident Activity Tracking Resident Involvement: Resident Care Provided Care Provided: Adult Hospital Medicine
== END 2023-10-08 15:36 ==
LOC: SUATTDRO → 3E 14:38 → ED 14:38 → SUATTDRO 19:48 → 3E 22:18 → 2N 10-08 11:03

== ENCOUNTER 2025-05-19 11:34 | Inpatient (IN) ==
--- NOTE | 2025-05-19 11:46 | Emergency Department Note ---
Impression & Plan Rhabdomyolysis, Generalized weakness ED Provider Note Name: CHACHA VERMA Age: 89 Sex: Male Arrives Via: Ambulance Informant: Patient, EMS ED Provider: Charly Chase MD Chief Complaint: Weakness Impression: As per impressions above Medical Decision Makin-year-old gentleman who lives in an assisted living facility arrives for evaluation of weakness. Patient notes he had gotten up last night to go to the bathroom when he had fallen to the ground and could not get up. Laid on the ground overnight. Arrives via EMS. Patient without any significant plaints. He is clearly quite dehydrated. No evidence of trauma on examination. CT of the head was obtained given the fall and weakness which is fortunately unremarkable. Laboratory workup is consistent with rhabdomyolysis. Patient otherwise is looking well and I do not see any clear evidence of infection at this time. Will need further workup and management as an inpatient. IV fluids initiated and patient stable throughout stay. Of note I do not see any clear evidence of infection thus I do not feel antibiotics necessary at this time. Triage/Nursing Notes reviewed by Me External Chart Review by me: I did review a recent PCP note from 05/16/2025 discussing patient's past medical history and recent care. Differential:Infection, dehydration, metabolic abnormality, hypo/hyperglycemia, electrolyte disturbance, anemia, hypoxia, cardiac sources, intracerebral event, toxicologic, neurologic, as well as other pathologies. Vital Signs: reviewed and remarkable for mildly hypertensive on arrival Interventions: Normal Saline bolus 1 L IV Labs:ED labs Reviewed by me and remarkable for elevated CK along with some other mild elevations of the labs Imagin view chest x-ray as per my interpretation no infiltrate nor effusion appreciated. CT of the head without contrast as per my informal interpretation reveals no intracranial hemorrhage or mass effect. Confirmed by radiologist. EKG:As per my interpretation. Indication weakness. Poor baseline. Sinus with first-degree AV block and PACs noted. 71 bpm QTc 458. There is no overt ischemia. Intraventricular block noted. No significant change from September 22, 2015 EKG. Cardiac/Tele Monitoring: Cardiac Monitoring: An Order was placed for continuous cardiac monitoring. The monitor shows a rate of 70 with a normal sinus rhythm. Consults:Discussed with hospitalist who will further manage patient. Plan: Disposition:Hospitalization. Condition: Fair History of Present Illness: 89-year-old male arrives for evaluation of weakness. Patient states he was going to the bathroom last evening when he fell to the ground. He was too weak to get up. He states he laid on the ground until this morning when staff found him at his assisted living facility. Patient states he is a bit hungry but denies any other significant symptoms. He notes he has not been able to pee since last night as he was lying on the floor thus he is asking to go to the bathroom. Denies any chest pain, shortness of breath abdominal pain, back pain, headache, neck pain, focal deficits or other concerning signs or symptoms. Notes at times he does get a bit weak but this is a bit more than typical. Denies any headache or neck pain. He does not believe he hit his head. He does not believe he had a loss of consciousness. Patient states he is not on any blood thinner. Patient does note recently starting gabapentin and prednisone for some right hip pain. Past Medical History:See Below Home Medications:See Below Allergies:nkda Vitals:Blood Pressure: 170/110, Pulse 70, RR 16, T 36.6C, O2 98% on RA Physical Exam: GENERAL: Patient is dehydrated, cachectic, tired, and tremulous appearing and in minimal distress. Dry mucous membranes RESPIRATORY: No dyspnea. Clear to auscultation and equal bilaterally. CARDIOVASCULAR: Regular rate and rhythm.No murmur appreciated. GASTROINTESTINAL: Abdomen soft, non-tender, no peritonitis. EXTREMITIES: Normal motion all extremities, no cyanosis, no edema. NEUROLOGIC: Alert and oriented though tremulous and a bit of stuttered speaking at times. No focal neurologic deficits appreciated SKIN: No rash, no jaundice, no diaphoresis. PSYCH: Appropriate GCS: 15 ED Course: Times/Reassessments: Patient is stable and does appear a bit improved with IV fluids. He is agreeable to hospitalization. Charly Chase MD Past Med/Surg History Problem List (Updated 05/19/25 @ 17:39 by Charly Chase MD) Generalized weakness (Acute) Leucocytosis Rhabdomyolysis (Acute) Right sided sciatica (Acute) Low back pain radiating to right leg (Acute) Gait apraxia of elderly Upper airway cough syndrome Chronic cough Sensorineural hearing loss of both ears Osteoarthritis of both knees Right bundle branch block (Acute) Anemia Situational depression (Chronic) Barretts esophagus (Chronic) Gastroesophageal reflux disease (Chronic) Hyperlipidemia (Chronic) Scoliosis (Chronic) Spinal stenosis of lumbar region (Acute) Medical History History of stroke Enlarged prostate Lower urinary tract symptoms (LUTS) Deviated nasal septum Chronic sinusitis Ex-smoker Pneumothorax, right Multiple fractures of ribs of right side Depression Mixed restrictive and obstructive lung disease History of melanoma Suspected 2019 novel coronavirus infection Stage I adenocarcinoma of lung 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 Osteoarthritis GERD (gastroesophageal reflux disease) Thyroid goiter Hearing deficit Surgical History History of melanoma excision History of Mohs micrographic surgery for skin cancer History of appendectomy History of anesthesia reaction History of knee surgery History of herniorrhaphy History of esophagogastroduodenoscopy (EGD) History of colonoscopy History of tooth extraction History of tonsillectomy History of adenoidectomy History of cataract surgery History of lung surgery Family History Father Family hx of colon cancer Colorectal cancer Other No family history of adverse response to anesthesia No family history of bleeding disorder Denies family history of Ovarian cancer Prostate cancer Diabetes Myocardial infarction Breast cancer Lung cancer Stroke Social History Smoking Status: Former smoker Tobacco Type: Cigarettes Age Started Using Tobacco: 19; Age Quit Using Tobacco: 36; packs per day: 0.5; Cigarettes Per Day: QUIT AT AGE 36; Second Hand Exposure: Yes ("everyone smoked"); Do You Dip or Chew Tobacco: No; Hx Alcohol Use: No Hx Substance Use: No Preferred Language: French Communication Ability: Effective Visual Impairment: Limited Hearing Ability: Use of Hearing Aid 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 Required: No Beliefs That Will Affect Care: None marital status: / Current Living Situation: Alone Current Living Situation Comment: independent living at [facility] current occupational status: retired How many Children do You have: 3 Feels Safe at Home: Yes Childhood Exposure to Second-Hand Smoke: Yes caffeine: Yes Dental Care, Regularly: Yes Physical Activity Frequency: Daily Seatbelt Use: always Sunscreen Use: Yes Assistive Devices: Cane, Glasses and Hearing Aid - Bilateral Allergies Allergies Allergy/AdvReac Type Severity Reaction Status Date / Time No Known Drug Allergies Allergy Verified 05/16/25 12:55 Home Meds Home Medications Medication Instructions Recorded Confirmed aspirin 81 mg tablet,delayed 81 mg PO QAM 08/24/18 05/19/25 release multivitamin 1 tab PO DAILYBB 08/02/19 05/19/25 guaifenesin 600 mg tablet, 600 mg PO Q12H PRN Congestion 05/19/25 05/19/25 extended release 12 hr (Mucinex) sertraline 50 mg tablet 0 mg PO DAILY 05/19/25 05/19/25 Previous Rx's Medication Instructions Recorded atorvastatin 40 mg tablet 40 mg PO HS #90 tabs 11/11/24 pantoprazole 40 mg tablet,delayed 40 mg PO QAM #90 tabs 11/11/24 release gabapentin 100 mg capsule 100 mg PO BID #60 caps 05/16/25 Results & Data (ED) Vital Signs Vital Signs - 24 hr 05/19/25 11:40 05/19/25 12:00 05/19/25 12:31 Temperature 36.6 C Temperature Source Oral Pulse Rate 73 Pulse Rate [Apical] 67 Pulse Rate from SpO2 Sensor Respiratory Rate 22 20 Respiratory Effort / Characteristics Non-Labored Spontaneous Non-Labored Spontaneous Respiratory Depth Normal Normal Respiratory Pattern Regular Regular Blood Pressure 171/127 H Blood Pressure [Left Arm] 178/102 H 160/97 H Blood Pressure Mean 141 Blood Pressure Mean [Left Arm] 127 118 Blood Pressure Position Lying Blood Pressure Position [Left Arm] Lying Lying Pulse Oximetry 92 95 Oxygen Delivery Method Room Air Room Air Sepsis Recent Fever Within 48 Hours No Sepsis New/Unexplained Change in Mental Status N/A Sepsis Action Taken by Nursing No Action Required 05/19/25 12:55 05/19/25 13:00 05/19/25 13:00 Temperature Temperature Source Pulse Rate 64 71 Pulse Rate [Apical] 69 Pulse Rate from SpO2 Sensor 63 Respiratory Rate 20 20 Respiratory Effort / Characteristics Non-Labored Spontaneous Respiratory Depth Normal Respiratory Pattern Regular Blood Pressure Blood Pressure [Left Arm] 156/93 H Blood Pressure Mean Blood Pressure Mean [Left Arm] 114 Blood Pressure Position Blood Pressure Position [Left Arm] Semi-fowlers Pulse Oximetry 95 92 Oxygen Delivery Method Room Air Sepsis Recent Fever Within 48 Hours Sepsis New/Unexplained Change in Mental Status Sepsis Action Taken by Nursing 05/19/25 13:00 05/19/25 13:27 05/19/25 13:30 Temperature Temperature Source Pulse Rate 76 Pulse Rate [Apical] Pulse Rate from SpO2 Sensor Respiratory Rate 15 Respiratory Effort / Characteristics Respiratory Depth Respiratory Pattern Blood Pressure 156/93 H 186/86 H Blood Pressure [Left Arm] Blood Pressure Mean 109 122 Blood Pressure Mean [Left Arm] Blood Pressure Position Blood Pressure Position [Left Arm] Pulse Oximetry Oxygen Delivery Method Sepsis Recent Fever Within 48 Hours Sepsis New/Unexplained Change in Mental Status Sepsis Action Taken by Nursing 05/19/25 13:33 Temperature Temperature Source Pulse Rate Pulse Rate [Apical] Pulse Rate from SpO2 Sensor Respiratory Rate 20 Respiratory Effort / Characteristics Respiratory Depth Respiratory Pattern Blood Pressure Blood Pressure [Left Arm] Blood Pressure Mean Blood Pressure Mean [Left Arm] Blood Pressure Position Blood Pressure Position [Left Arm] Pulse Oximetry Oxygen Delivery Method Sepsis Recent Fever Within 48 Hours Sepsis New/Unexplained Change in Mental Status Sepsis Action Taken by Nursing Laboratory Data 05/19/25 12:00 05/19/25 12:00 Lab Results 05/19/25 05/19/25 Range/Units 11:50 12:00 WBC 12.24 H (4.8-10.8) K/ul RBC 4.54 L (4.70-6.10) M/uL Hgb 13.6 L (14.0-18.0) g/dl Hct 39.9 L (42.0-52.0) % MCV 87.9 (80.0-100.0) fL MCH 30.0 (25.0-34.0) pg MCHC 34.1 (32.0-36.0) g/dL RDW Std Deviation 47.4 H (36.4-46.3) fL RDW Coeff of [place] 14.7 H (11.5-14.5) % Plt Count 214 (130-400) K/uL MPV 9.6 (9.4-12.4) fL Immature Gran % (Auto) 0.3 % Neut % (Auto) 79.4 % Lymph % (Auto) 12.1 % [place] % (Auto) 7.6 % Eos % (Auto) 0.4 % Baso % (Auto) 0.2 % Neut # (Auto) 9.72 H (1.40-6.50) K/uL Lymph # (Auto) 1.48 (1.20-3.40) K/uL [place] # (Auto) 0.93 H (0.11-0.59) K/uL Eos # (Auto) 0.05 (0.00-0.50) K/uL Baso # (Auto) 0.02 (0.00-0.20) K/uL Immature Gran # (Auto) 0.04 (0.01-0.20) K/uL PT 11.0 (9.0-12.0) Seconds INR 1.0 (0.9-1.1) Sodium 136 (136-145) mmol/L Potassium 4.0 (3.5-5.1) mmol/L Chloride 101 (98-107) mmol/L Carbon Dioxide 29 (21-32) mmol/L Anion Gap 6 (3-11) BUN 18 (6-23) mg/dl Creatinine 0.88 (0.6-1.4) mg/dl Est Cr Clr Drug Dosing 58.8 ml/min eGFR 82.19 BUN/Creatinine Ratio 20.5 H (10-20) Glucose 102 H (70-99(Fasting)) mg/dl Calcium 11.0 H (8.6-10.3) mg/dl Magnesium 2.1 (1.7-2.4) mg/dl Total Bilirubin 1.0 (0.2-1.0) mg/dl Direct Bilirubin 0.2 (0-0.2) mg/dl AST 89 H (13-39) U/L ALT 59 H (7-52) U/L Alkaline Phosphatase 495 H (34-104) U/L Total Creatine Kinase 1094 H (30-223) U/L Troponin I High Sens 28.3 H (0-20) pg/ml Total Protein 8.8 H (6.0-8.3) gm/dl Albumin 4.1 (3.4-5.0) gm/dl Lipase 6 L (11-82) U/L TSH 1.586 (0.300-4.500) uIu/ml Urine Color Yellow Urine Appearance Clear (Clear) Urine pH 5.0 (4.5-7.5) Ur Specific [place] 1.021 (1.000-1.030) Urine Protein Trace H (Negative) Urine Glucose (UA) Negative (Negative) Urine Ketones Trace H (Negative) Urine Blood Negative (Negative) Urine Nitrite Negative (Negative) Urine Bilirubin Negative (Negative) Urine Urobilinogen Negative (Negative) Ur Leukocyte Esterase Negative (Negative) Urine WBC (Auto) 0-5 (0-5) /hpf Urine RBC (Auto) 0-2 (0-2) /hpf U Hyaline Cast (Auto) 0-2 (0-2) /lpf U Epithel Cells (Auto) 0-2 (0-2) /hpf Urine Bacteria (Auto) None Seen (None Seen) Urine Mucus Present A (None Prsent) Urine Comment Administered Medications Sodium Chloride (Nss) 1,000 mls @ 80 mls/hr IV .[id number] HODA Stop: 05/22/25 15:34 Last Admin: 05/19/25 16:32 Dose: 80 mls/hr Documented By: MRE Discontinued Medications Sodium Chloride (Nss) 1,000 mls @ 999 mls/hr IV .[id number] ONE Stop: 05/19/25 12:43 Last Infusion: 05/19/25 14:04 Dose: Infused Documented By: Admin: 05/19/25 12:02 Dose: 999 mls/hr Documented By: TNK Imaging Data Radiologist's Impression: Chest X-Ray 05/19/25 11:43 XR chest 1V portable CLINICAL HISTORY: Confusion. COMPARISON STUDY: Chest radiograph April 21, 2025. Chest CT January 20, 2023. FINDINGS: Thoracic spine dextroscoliosis is again noted. There is no pneumothorax or pleural effusion. There is no evidence for pulmonary edema. Cardiomediastinal silhouette is stable. A moderate sized hiatal hernia is again noted. Apparent left basilar opacity is likely artifactual. There are old right- sided rib fractures. IMPRESSION: No acute cardiopulmonary findings. No significant change in appearance of the chest. ACT 112: Negative or not required by law. Electronically signed by: Rajan Robertson M.D. 05/19/2025 12:[address] 05/19/25 11:43 CT SCAN OF THE BRAIN WITHOUT IV CONTRAST CLINICAL HISTORY: Weakness. Fall. Confusion. COMPARISON STUDY: Head CT and MRI of the brain September 21, 2015. Sinus CT December 26, 2021. TECHNIQUE: Unenhanced axial CT scan of the brain was performed from the vertex to the skull base. A dose lowering technique was utilized adhering to the principles of ALARA. CT DOSE: 703.85 mGy.cm FINDINGS: No acute intracranial hemorrhage, midline shift or mass effect is present. Ventricular system is unremarkable. Basal cisterns are patent. There are no extra axial collections. Old infarcts within the right occipital lobe, left cerebellar hemisphere and left caudate head are noted. There are no findings to suggest acute dural sinus thrombosis or acute territorial infarct. There are no calvarial fractures. IMPRESSION: 1. No acute intracranial findings. 2. Several old infarcts, as described above. ACT 112: Negative or not required by law. Electronically signed by: Rajan Robertson M.D. 05/19/2025 12:48 PM Discharge Plan Visit Data Chief Complaint: Fall Stated Complaint: CONFUSION, ED Provider: Charly Chase Discharge Problem: Rhabdomyolysis, Generalized weakness Patient Disposition: Admitted As Inpatient Condition: Fair Discharge Instructions Interventions: ED Discharge Assessment Last Done: 05/19/25 14:47 Discharge Problem: Rhabdomyolysis Qualifiers: Rhabdomyolysis type: traumatic Encounter type: initial encounter Qualified Code(s): T79.6XXA - Traumatic ischemia of muscle, initial encounter
[2025-05-19] MEDS: SODIUM CHLORIDE 0.9% 1,000 ML IV ONE (12:02)
[2025-05-19 12:22] LABS: Hematocrit (blood only) 39.9 % (42.0-52.0); Hemoglobin 13.6 g/dl (14.0-18.0); Immature Granulocytes # (auto) 0.04 K/uL (0.01-0.20); Immature Granulocytes % (auto) 0.3 %; Mean Corpuscular Hemoglobin 30.0 pg (25.0-34.0); Mean Corpuscular Volume 87.9 fL (80.0-100.0); Platelet Count 214 K/uL (130-400); RDW Standard Deviation 47.4 fL (36.4-46.3); Red Blood Count 4.54 M/uL (4.70-6.10); White Blood Count 12.24 K/ul (4.8-10.8)
--- NOTE | 2025-05-19 12:26 | XRay Report ---
XR chest 1V portable CLINICAL HISTORY: Confusion. COMPARISON STUDY: Chest radiograph April 21, 2025. Chest CT January 20, 2023. FINDINGS: Thoracic spine dextroscoliosis is again noted. There is no pneumothorax or pleural effusion . There is no evidence for pulmonary edema. Cardiomediastinal silhouette is stable. A moderate sized hiatal hernia is again noted. Apparent left basilar opacity is likely artifactual. There are old righ t-sided rib fractures. IMPRESSION: No acute cardiopulmonary findings. No significant change in appearance of the chest. ACT 112: Negative or not required by law. Electronically signed by: Rajan Robertson M.D. 05/19/2025 12:25 PM
[2025-05-19 12:30] LABS: Appearance Urine Clear (Clear); Bacteria Urine Automated None Seen (None Seen); Cast Urine Automated 0-2 /lpf (0-2); Epithelial Cell Urine Auto 0-2 /hpf (0-2); Glucose Urine UA Negative (Negative); RBC Urine Automated 0-2 /hpf (0-2); WBC Urine Automated 0-5 /hpf (0-5)
[2025-05-19 12:36] LABS: Alanine Aminotransferase 59.0 U/L (7-52); Alkaline Phosphatase 495.0 U/L (34-104); Anion Gap 6.0 (3-11); Bilirubin,Total 1.0 mg/dl (0.2-1.0); Blood Urea Nitrogen 18.0 mg/dl (6-23); Calcium 11.0 mg/dl (8.6-10.3); Carbon Dioxide 29.0 mmol/L (21-32); Chloride 101.0 mmol/L (98-107); Creatine Kinase 1094.0 U/L (30-223); Creatinine Clr Calc Pharmacy 58.8 ml/min; Glucose 102.0 mg/dl (70-99(Fasting)); Lipase 6.0 U/L (11-82); Magnesium 2.1 mg/dl (1.7-2.4); Potassium 4.0 mmol/L (3.5-5.1); Sodium 136.0 mmol/L (136-145); Total Protein 8.8 gm/dl (6.0-8.3)
[2025-05-19 12:45] LABS: INR 1.0 (0.9-1.1); Prothrombin Time 11.0 Seconds (9.0-12.0)
--- NOTE | 2025-05-19 12:49 | CT Scan Report ---
CT SCAN OF THE BRAIN WITHOUT IV CONTRAST CLINICAL HISTORY: Weakness. Fall. Confusion. COMPARISON STUDY: Head CT and MRI of the brain September 21, 2015. Sinus CT December 26, 2021. TECHNIQUE: Unenhanced axial CT scan of the brain was performed from the vertex to the skull base. A dose lowering technique was utilized adhering to the principles of ALARA. CT DOSE: 703.85 mGy.cm FINDINGS: No acute intracranial hemorrhage, midline shift or mass effect is present. Ventricular syst em is unremarkable. Basal cisterns are patent. There are no extra axial collections. Old infarcts wit hin the right occipital lobe, left cerebellar hemisphere and left caudate head are noted. There are n o findings to suggest acute dural sinus thrombosis or acute territorial infarct. There are no calvari al fractures. IMPRESSION: 1. No acute intracranial findings. 2. Several old infarcts, as described above. ACT 112: Negative or not required by law. Electronically signed by: Rajan Robertson M.D. 05/19/2025 12:48 PM
[2025-05-19 12:52] LABS: Thyroid Stimulating Hormone 1.586 uIu/ml (0.300-4.500)
--- NOTE | 2025-05-19 13:50 | History & Physical Report ---
Date of Service May 19, 2025 Assessment & Plan (1) Rhabdomyolysis: Plan: Patient was probably on the floor for several hours, he fell in the bathroom last night, found this morning at 11 AM by staff To have a CPK of more than 1000 Will start IV normal saline at 80 cc/h Repeat CPK (2) Right sided sciatica: Plan: Patient said he started taking prednisone for his sciatica, however he got confused increasingly because of the medication. 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 Patient uses a cane at home (4) Leucocytosis: Plan: Slight elevation in WBC could be due to the steroid use No evidence of infection Will hold off on antibiotics for now Plan Admit to [facility] History of Present Illness Chief Complaint: fall Primary Care Provider: Noy Jorge MD This is a 89-year-old male with a history of degenerative disc disease sciatica, bipolar impairment, who was brought from the [facility] after he was found on the floor. According to the patient he went to the bathroom yesterday got so weak that he fell. However he was discovered by staff around 11 AM this morning while still lying on the floor. Upon further investigation he said he had been feeling weak ever since he started prednisone for his sciatica. He said he has been so confused that when he got to the bathroom with he fell and was unable to get up. Upon arrival to the emergency department today, WBC was 12,000 CPK was 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 Patient will be admitted to the hospital for further investigation and further management Allergies Allergy/AdvReac Type Severity Reaction Status Date / Time No Known Drug Allergies Allergy Verified 05/16/25 12:55 Home Medications Medication Instructions Recorded Confirmed Type aspirin 81 mg tablet,delayed 81 mg PO QAM 08/24/18 05/16/25 History release multivitamin 1 tab PO DAILYBB 08/02/19 05/16/25 History atorvastatin 40 mg tablet 40 mg PO HS #90 tabs 11/11/24 05/16/25 Rx pantoprazole 40 mg tablet,delayed 40 mg PO QAM #90 tabs 11/11/24 05/16/25 Rx release gabapentin 100 mg capsule 100 mg PO BID #60 caps 05/16/25 05/16/25 Rx prednisone 20 mg tablet See Rx Instructions .Route 05/16/25 05/16/25 Rx .COMPLEX #14 tabs sertraline 25 mg tablet 25 mg PO DAILY #90 tabs 05/18/25 Rx Past Med/Surg History Problem List (Updated 05/19/25 @ 13:50 by Shawna Gonzalez MD) Leucocytosis Rhabdomyolysis Right sided sciatica (Acute) Low back pain radiating to right leg (Acute) Gait apraxia of elderly Upper airway cough syndrome Chronic cough Sensorineural hearing loss of both ears Osteoarthritis of both knees Right bundle branch block (Acute) Anemia Situational depression (Chronic) Barretts esophagus (Chronic) Gastroesophageal reflux disease (Chronic) Hyperlipidemia (Chronic) Scoliosis (Chronic) Spinal stenosis of lumbar region (Acute) Medical History History of stroke Enlarged prostate Lower urinary tract symptoms (LUTS) Deviated nasal septum Chronic sinusitis Ex-smoker Pneumothorax, right Multiple fractures of ribs of right side Depression Mixed restrictive and obstructive lung disease History of melanoma Suspected 2019 novel coronavirus infection Stage I adenocarcinoma of lung 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 Osteoarthritis GERD (gastroesophageal reflux disease) Thyroid goiter Hearing deficit Surgical History History of melanoma excision History of Mohs micrographic surgery for skin cancer History of appendectomy History of anesthesia reaction History of knee surgery History of herniorrhaphy History of esophagogastroduodenoscopy (EGD) History of colonoscopy History of tooth extraction History of tonsillectomy History of adenoidectomy History of cataract surgery History of lung surgery Family History Father Family hx of colon cancer Colorectal cancer Other No family history of adverse response to anesthesia No family history of bleeding disorder Denies family history of Ovarian cancer Prostate cancer Diabetes Myocardial infarction Breast cancer Lung cancer Stroke Social History Smoking Status: Former smoker Tobacco Type: Cigarettes Age Started Using Tobacco: 19; Age Quit Using Tobacco: 36; packs per day: 0.5; Cigarettes Per Day: QUIT AT AGE 36; Second Hand Exposure: Yes ("everyone smoked"); Do You Dip or Chew Tobacco: No; Hx Alcohol Use: No Hx Substance Use: No Preferred Language: [place] Communication Ability: Effective Visual Impairment: Limited Hearing Ability: Use of Hearing Aid Commutator Repairer Required: No Beliefs That Will Affect Care: None marital status: / Current Living Situation: Alone current occupational status: retired How many Children do You have: 3 Feels Safe at Home: Yes Childhood Exposure to Second-Hand Smoke: Yes caffeine: Yes Dental Care, Regularly: Yes Physical Activity Frequency: Daily Seatbelt Use: always Sunscreen Use: Yes Assistive Devices: Cane Review of Systems Review of Systems: All systems reviewed are negative, apart from the ones contained in the history. Physical Exam Physical Exam: The patient is awake, alert and oriented 3, well developed and well nourished, normocephalic and atraumatic, lying in bed and in no acute distress. HEENT--PERRL, EOMI, mucous membranes and oropharynx mildly dry Neck--supple. No JVD. No bruits. Thyroid normal, trachea midline, no adenopathy. Heart--normal S1 and S2. No murmurs, rubs or gallops. Lungs--clear bilaterally, no respiratory distress, no accessory muscle use. Abdomen--normal bowel sounds and soft. Extremities--no cyanosis or clubbing. No edema. Dermatologic--normal skin turgor, normal color, no abnormal lymph nodes, no rash. Neurologic--cranial nerves II through XII grossly intact. Rheumatologic--normal range of motion. Psychiatric--normal affect. Results & Data Results & Data Vital Signs (Past 12 Hours) Vital Signs Temp Pulse Pulse Resp BP BP Pulse Ox 05/19/25 13:00 69 20 156/93 H 95 05/19/25 12:55 64 05/19/25 12:31 67 20 160/97 H 95 05/19/25 12:00 178/102 H 05/19/25 11:40 97.9 F 73 22 171/127 H 92 O2 Del Method 05/19/25 13:00 Room Air 05/19/25 12:55 05/19/25 12:31 Room Air 05/19/25 12:00 05/19/25 11:40 Room Air PG Care Time/CCT Total # of Minutes Spent Total Time Spent with Patient: Total time spent is greater than 50% in coordination of care (as documented) at patient's floor/unit and/or counseling patient: Coding Level of Care Code 71900 INT INP/OBS CARE MIN Diagnoses Rhabdomyolysis M62.82 Right sided sciatica M54.31 Gait apraxia of elderly R48.2 Leucocytosis D72.829 Time Spent (min) 75
[2025-05-19] MEDS: SODIUM CHLORIDE 0.9% 1,000 ML IV SCH (16:32)
[2025-05-19] MEDS: ATORVASTATIN 40 MG TAB PO SCH (20:43)
--- NOTE | 2025-05-19 22:04 | Electrocardiogram Report ---
Test Reason : Blood Pressure : */* mmHG Vent. Rate : 71 BPM Atrial Rate : 71 BPM P-R Int : 232 ms QRS Dur : 136 ms QT Int : 422 ms P-R-T Axes : 98 66 6 degrees QTcB Int : 458 ms Poor data quality, interpretation may be adversely affected Sinus rhythm with 1st degree A-V block with Premature atrial complexes Non-specific intra-ventricular conduction block Cannot rule out Septal infarct , age undetermined Abnormal ECG When compared with ECG of 22-Sep-2015 06:42, Premature atrial complexes are now Present Confirmed by Toñito Beatty ([id number]) on 05/19/2025 10:04:15 PM Referred By: Confirmed By: Toñito Beatty
[2025-05-20] MEDS: MULTIVITAMIN TAB PO SCH (05:30)
[2025-05-20] MEDS: ASPIRIN 81 MG ECTAB PO SCH (07:43)
[2025-05-20] MEDS: SERTRALINE HCL 50 MG TABLET PO SCH (07:43)
--- NOTE | 2025-05-20 09:59 | Hospitalist Progress Note ---
Date of Service May 20, 2025 Assessment & Plan (1) Rhabdomyolysis: Plan: Patient was probably on the floor for several hours, found by the staff on the day of presentation CPK of more than 1000 Will continue IV normal saline at 80 cc/h Repeat CPK pending (2) Right sided sciatica: Plan: Patient said he started taking prednisone for his sciatica, however he got confused increasingly because of the medication. 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 Patient uses a cane at home (4) Leucocytosis: Plan: Slight elevation in WBC could be due to the steroid use No evidence of infection Will hold off on antibiotics for now Plan Admit to [facility] Admission and Anticipated Discharge Date Admission Date: May 19, 2025 Subjective patient seen and examined, says he feels about the same, no new complaints, Review of Systems Review of Systems: All systems reviewed are negative, apart from the ones contained in the history. Physical Exam Physical Exam: The patient is awake, alert and oriented 3, well developed and well nourished, normocephalic and atraumatic, lying in bed and in no acute distress. HEENT--PERRL, EOMI, mucous membranes and oropharynx mildly dry Neck--supple. No JVD. No bruits. Thyroid normal, trachea midline, no adenopathy. Heart--normal S1 and S2. No murmurs, rubs or gallops. Lungs--clear bilaterally, no respiratory distress, no accessory muscle use. Abdomen--normal bowel sounds and soft. Extremities--no cyanosis or clubbing. No edema. Dermatologic--normal skin turgor, normal color, no abnormal lymph nodes, no rash. Neurologic--cranial nerves II through XII grossly intact. Rheumatologic--normal range of motion. Psychiatric--normal affect. Results & Data Results & Data Vital Signs (Past 12 Hours) Vital Signs Temp Pulse Resp BP Pulse Ox O2 Del Method 05/20/25 09:00 Room Air 05/20/25 07:21 98.1 F 79 16 152/81 H 91 Room Air PG Care Time/CCT Total # of Minutes Spent Total Time Spent with Patient: Total time spent is greater than 50% in coordination of care (as documented) at patient's floor/unit and/or counseling patient: Coding Level of Care Code 22921 SUB INP/OBS CARE 2MIN Diagnoses Rhabdomyolysis T79.6XXA Encounter type: initial encounter Rhabdomyolysis type: traumatic Right sided sciatica M54.31 Gait apraxia of elderly R48.2 Leucocytosis D72.829 Time Spent (min) 35 (1) Rhabdomyolysis Encounter type: initial encounter Rhabdomyolysis type: traumatic Qualified Code(s): T79.6XXA - Traumatic ischemia of muscle, initial encounter
[2025-05-20 10:41] LABS: Anion Gap 5.0 (3-11); Blood Urea Nitrogen 18.0 mg/dl (6-23); Calcium 9.4 mg/dl (8.6-10.3); Carbon Dioxide 25.0 mmol/L (21-32); Chloride 106.0 mmol/L (98-107); Creatinine Clr Calc Pharmacy 49.7 ml/min; Glucose 95.0 mg/dl (70-99(Fasting)); Potassium 4.2 mmol/L (3.5-5.1); Sodium 136.0 mmol/L (136-145)
[2025-05-21 06:35] LABS: Alanine Aminotransferase 39.0 U/L (7-52); Albumin Globulin Ratio 0.9 (0.9-2); Alkaline Phosphatase 321.0 U/L (34-104); Anion Gap 4.0 (3-11); Bilirubin,Total 0.8 mg/dl (0.2-1.0); Blood Urea Nitrogen 17.0 mg/dl (6-23); Calcium 9.1 mg/dl (8.6-10.3); Carbon Dioxide 28.0 mmol/L (21-32); Chloride 104.0 mmol/L (98-107); Creatine Kinase 204.0 U/L (30-223); Creatinine Clr Calc Pharmacy 58.1 ml/min; Globulin 3.3 gm/dl (2.5-4.0); Glucose 104.0 mg/dl (70-99(Fasting)); Potassium 3.9 mmol/L (3.5-5.1); Sodium 136.0 mmol/L (136-145); Total Protein 6.2 gm/dl (6.0-8.3)
--- NOTE | 2025-05-21 09:39 | Hospitalist Progress Note ---
Date of Service May 21, 2025 Assessment & Plan (1) Rhabdomyolysis: Plan: Patient was probably on the floor for several hours, found by the staff on the day of presentation CPK of more than 1000 on admission, now wnl after IV fluids (2) Right sided sciatica: Plan: Patient said he started taking prednisone for his sciatica, however he got confused increasingly because of the medication. 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 Patient uses a cane at home (4) Leucocytosis: Plan: Slight elevation in WBC could be due to the steroid use No evidence of infection Will hold off on antibiotics for now Plan Awaiting PT eval, hopefully d/c to his residence in 24 hrs Admission and Anticipated Discharge Date Admission Date: May 19, 2025 Subjective patient seen and examined, says he feels better, sitting up in the chair Review of Systems Review of Systems: All systems reviewed are negative, apart from the ones contained in the history. Physical Exam Physical Exam: The patient is awake, alert and oriented 3, well developed and well nourished, normocephalic and atraumatic, lying in bed and in no acute distress. HEENT--PERRL, EOMI, mucous membranes and oropharynx mildly dry Neck--supple. No JVD. No bruits. Thyroid normal, trachea midline, no adenopathy. Heart--normal S1 and S2. No murmurs, rubs or gallops. Lungs--clear bilaterally, no respiratory distress, no accessory muscle use. Abdomen--normal bowel sounds and soft. Extremities--no cyanosis or clubbing. No edema. Dermatologic--normal skin turgor, normal color, no abnormal lymph nodes, no rash. Neurologic--cranial nerves II through XII grossly intact. Rheumatologic--normal range of motion. Psychiatric--normal affect. Results & Data Results & Data Vital Signs (Past 12 Hours) Vital Signs Temp Pulse Resp BP Pulse Ox O2 Del Method 05/21/25 07:15 97.7 F 73 16 154/85 H 91 Room Air PG Care Time/CCT Total # of Minutes Spent Total Time Spent with Patient: Total time spent is greater than 50% in coordination of care (as documented) at patient's floor/unit and/or counseling patient: Coding Level of Care Code 30787 SUB INP/OBS CARE 235MIN Diagnoses Rhabdomyolysis T79.6XXA Encounter type: initial encounter Rhabdomyolysis type: traumatic Right sided sciatica M54.31 Gait apraxia of elderly R48.2 Leucocytosis D72.829 Time Spent (min) 35 (1) Rhabdomyolysis Encounter type: initial encounter Rhabdomyolysis type: traumatic Qualified Code(s): T79.6XXA - Traumatic ischemia of muscle, initial encounter
--- NOTE | 2025-05-22 11:01 | Hospitalist Progress Note ---
Date of Service May 22, 2025 Assessment & Plan (1) Rhabdomyolysis: Plan: Patient was probably on the floor for several hours, found by the staff on the day of presentation CPK of more than 1000 on admission, now wnl after IV fluids (2) Right sided sciatica: Plan: Patient said he started taking prednisone for his sciatica, however he got confused increasingly because of the medication. 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 Patient uses a cane at home (4) Leucocytosis: Plan: Slight elevation in WBC could be due to the steroid use No evidence of infection Will hold off on antibiotics for now Plan PT recommends SNF I called and left message for the son, he didnt answer his phone Admission and Anticipated Discharge Date Admission Date: May 19, 2025 Subjective patient seen and examined, says he feels better, sitting up in the chair Review of Systems Review of Systems: All systems reviewed are negative, apart from the ones contained in the history. Physical Exam Physical Exam: The patient is awake, alert and oriented 3, well developed and well nourished, normocephalic and atraumatic, lying in bed and in no acute distress. HEENT--PERRL, EOMI, mucous membranes and oropharynx mildly dry Neck--supple. No JVD. No bruits. Thyroid normal, trachea midline, no adenopathy. Heart--normal S1 and S2. No murmurs, rubs or gallops. Lungs--clear bilaterally, no respiratory distress, no accessory muscle use. Abdomen--normal bowel sounds and soft. Extremities--no cyanosis or clubbing. No edema. Dermatologic--normal skin turgor, normal color, no abnormal lymph nodes, no rash. Neurologic--cranial nerves II through XII grossly intact. Rheumatologic--normal range of motion. Psychiatric--normal affect. 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
[2025-05-23 06:57] VITALS: BP 151/86; PULSE 71; RESP 16; TEMP 97.3; O2SAT 94
--- NOTE | 2025-05-23 11:22 | Discharge Summary ---
Date of Service May 23, 2025 Admission HPI Per Admitting Provider This is a 89-year-old male with a history of degenerative disc disease sciatica, bipolar impairment, who was brought from the [facility] after he was found on the floor. According to the patient he went to the bathroom yesterday got so weak that he fell. However he was discovered by staff around 11 AM this morning while still lying on the floor. Upon further investigation he said he had been feeling weak ever since he started prednisone for his sciatica. He said he has been so confused that when he got to the bathroom with he fell and was unable to get up. Upon arrival to the emergency department today, WBC was 12,000 CPK was 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 Patient will be admitted to the hospital for further investigation and further management Admission Exam (Per Admitting) Constitutional The patient is awake, alert and oriented 3, well developed and well nourished, normocephalic and atraumatic, lying in bed and in no acute distress. HEENT--PERRL, EOMI, mucous membranes and oropharynx mildly dry Neck--supple. No JVD. No bruits. Thyroid normal, trachea midline, no adenopathy. Heart--normal S1 and S2. No murmurs, rubs or gallops. Lungs--clear bilaterally, no respiratory distress, no accessory muscle use. Abdomen--normal bowel sounds and soft. Extremities--no cyanosis or clubbing. No edema. Dermatologic--normal skin turgor, normal color, no abnormal lymph nodes, no rash. Neurologic--cranial nerves II through XII grossly intact. Rheumatologic--normal range of motion. Psychiatric--normal affect. Discharge Data Consultations 05/19/25 13:09 ED Decision to Admit Stat Hospital Course (1) Rhabdomyolysis: Patient was probably on the floor for several hours, found by the staff on the day of presentation CPK of more than 1000 on admission, now wnl after IV fluids (2) Right sided sciatica: Patient said he started taking prednisone for his sciatica, however he got confused increasingly because of the medication. 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 Patient uses a cane at home (4) Leucocytosis: Slight elevation in WBC could be due to the steroid use No evidence of infection Will hold off on antibiotics for now Plan PT recommends SNF d/c to snf Coding Level of Care Code 09998 INP/OBS DISCH >30 MIN Diagnoses Rhabdomyolysis T79.6XXA Encounter type: initial encounter Rhabdomyolysis type: traumatic Right sided sciatica M54.31 Gait apraxia of elderly R48.2 Leucocytosis D72.829 Time Spent (min) 35
== END 2025-05-23 14:18 | DRG 558 ==
LOC: ED 11:34 → 3N 13:42

== ENCOUNTER 2025-06-03 18:58 | Observation (INO) ==
[2025-06-03 19:41] LABS: Hematocrit (blood only) 33.1 % (42.0-52.0); Hemoglobin 10.9 g/dl (14.0-18.0); Immature Granulocytes # (auto) 0.03 K/uL (0.01-0.20); Immature Granulocytes % (auto) 0.3 %; Mean Corpuscular Hemoglobin 28.8 pg (25.0-34.0); Mean Corpuscular Volume 87.6 fL (80.0-100.0); Platelet Count 215 K/uL (130-400); RDW Standard Deviation 47.8 fL (36.4-46.3); Red Blood Count 3.78 M/uL (4.70-6.10); White Blood Count 11.09 K/ul (4.8-10.8)
[2025-06-03 19:58] LABS: Alanine Aminotransferase 107.0 U/L (7-52); Alkaline Phosphatase 634.0 U/L (34-104); Anion Gap 5.0 (3-11); Bilirubin,Total 1.4 mg/dl (0.2-1.0); Blood Urea Nitrogen 16.0 mg/dl (6-23); Calcium 9.7 mg/dl (8.6-10.3); Carbon Dioxide 28.0 mmol/L (21-32); Chloride 99.0 mmol/L (98-107); Creatinine Clr Calc Pharmacy 76.5 ml/min; Glucose 99.0 mg/dl (70-99(Fasting)); Lipase 296.0 U/L (11-82); Potassium 3.9 mmol/L (3.5-5.1); Sodium 132.0 mmol/L (136-145); Total Protein 7.3 gm/dl (6.0-8.3)
--- NOTE | 2025-06-03 20:01 | XRay Report ---
EXAM: Portable AP chest radiograph TECHNIQUE: AP portable radiograph of the chest was obtained. INDICATION: Shortness of breath Comparison: None FINDINGS: LINES and TUBES: None CARDIOVASCULAR: Cardiac silhouette is enlarged in size. Atherosclerosis of the thoracic aorta LUNGS/PLEURA: Mild interstitial pulmonary edema. Left greater than right bibasilar densities may represent atelectasis versus mild pneumonia. Small pleural fluids. No discernible pneumothorax. OSSEOUS/OTHER: No displaced acute osseous process identified. Chronic right-sided rib fracture deformities. IMPRESSION: Congestive changes of the cardiovascular system with enlarged cardiac silhouette, mild interstitial pulmonary edema and small pleural fluids. Left greater than right bibasilar densities may represent atelectasis versus mild pneumonia. Electronically signed by Jeff Rolon 06-03-2025 8:01 PM
[2025-06-03] MEDS: cefTRIAXone SODIUM 2,000 MG/50 ML BAG IV STA (20:04)
[2025-06-03] MEDS: OPTIRAY 320 100ml IV ONE (20:48)
--- NOTE | 2025-06-03 21:07 | Emergency Department Note ---
Impression & Plan Acute confusion, Abnormal transaminases, Elevated lipase, Fluid overload ED Provider Note NAME: CHACHA VERMA AGE: 89 SEX: M : 1935 ARRIVES VIA: Ambulance INFORMANT: Patient, ED PROVIDER(S): Aby Aguiar MD CHIEF COMPLAINT: Dehydration, increasing confusion HPI: This is an 89-year-old male presenting for dehydration and increasing confusion. Patient is with his son who states that he has been increasingly dehydrated as his IV pump is not working today. They also have not given him his IV Rocephin for suspected UTI. Patient has had increased confusion since his fall/rhabdomyolysis. Son states that he has had increasing bilateral lower extremity edema. Son is concerned about the increasing confusion mostly. Otherwise patient reports no current pain or feeling unwell. The son states they did blood work and there was that his LFTs were elevated today. ROS: See above HPI for pertinent positives & negatives. A total of 10 systems reviewed and were otherwise negative. PAST MEDICAL HISTORY: See Below PAST SURGICAL HISTORY: See Below FAMILY HISTORY: See Below SOCIAL HISTORY: See Below HOME MEDICATIONS: See Below ALLERGIES: See Below VITALS: See Below PHYSICAL EXAMINATION: General: resting comfortably in no acute distress Head: Normocephalic and atraumatic Eyes: Normal inspection, extraocular muscles intact Ear, nose, throat: Normal external exam Neck: Normal range of motion Respiratory: lungs clear to auscultation bilaterally Cardiovascular: Regular rate/rhythm, no murmur GI: soft, nontender, no guarding or rebound Extremities: nontender, moves all extremities Neuro: The patient awake and alert, appropriately conversive, no focal deficits, symmetric faces Skin: Warm, dry, and intact MEDICAL DECISION MAKING: This is a 89-year-old male present for dehydration/increasing confusion. Son concerned about dehydration, increased confusion. Patient does have lower extremity edema, 1+. Will do screening chest x-ray, BNP, basic blood work. - Blood work reveals WBC count of 11. Hemoglobin 10.9. Slight hyponatremia. LFTs increasing with AST 106, ALT 107, alk phos 634, total bilirubin 1.4. does have a slight lipase elevation - Patient has no current abdominal pain in his right upper quadrant or epigastrium. Low concern for cholecystitis clinically. - Will do CT imaging to assess for intra-abdominal process including cholecystitis, pancreatitis, choledocholithiasis, acute cancer - CT imaging reveals bibasilar opacities favoring scarring/atelectasis. There are trace small pleural effusions. No signs of cholecystitis/choledocholithiasis. No biliary dilation. No pancreatic mass. - Patient has confusion with signs of fluid overload and increasing LFT/lipase. Will admit the patient for further workup. Care discussed with son for admission at this time. Differential diagnosis: Choledocholithiasis, cholecystitis, pancreatitis, pancreatic cancer, sepsis, endorgan ischemia Independent History obtained from: Son Diagnostics interpreted by me: ECG: ECG independently interpreted by me with sinus rhythm, rate of 95, virtually AV block, right bundle branch block,, normal QTc, no ST segment elevations consistent with STEMI criteria Cardiac Monitoring: An order was placed for continuous cardiac monitoring. The monitor shows a rate of 72 with sinus rhythm. Past Med/Surg History Problem List (Updated 06/04/25 @ 02:02 by Aby Aguiar MD) Fluid overload (Acute) Elevated lipase (Acute) Abnormal transaminases (Acute) Acute confusion (Acute) Urinary tract infection Aspiration into airway Confusion Pneumonia Generalized weakness (Acute) Leucocytosis Rhabdomyolysis (Acute) Gait apraxia of elderly Upper airway cough syndrome Chronic cough Sensorineural hearing loss of both ears Osteoarthritis of both knees Right bundle branch block (Acute) Anemia Situational depression (Chronic) Barretts esophagus (Chronic) Gastroesophageal reflux disease (Chronic) Hyperlipidemia (Chronic) Scoliosis (Chronic) Spinal stenosis of lumbar region (Acute) Medical History History of stroke Enlarged prostate Lower urinary tract symptoms (LUTS) Deviated nasal septum Chronic sinusitis Ex-smoker Pneumothorax, right Multiple fractures of ribs of right side Depression Mixed restrictive and obstructive lung disease History of melanoma Suspected 2019 novel coronavirus infection Stage I adenocarcinoma of lung 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 Osteoarthritis GERD (gastroesophageal reflux disease) Thyroid goiter Hearing deficit Surgical History History of melanoma excision History of Mohs micrographic surgery for skin cancer History of appendectomy History of anesthesia reaction History of knee surgery History of herniorrhaphy History of esophagogastroduodenoscopy (EGD) History of colonoscopy History of tooth extraction History of tonsillectomy History of adenoidectomy History of cataract surgery History of lung surgery Family History Father Family hx of colon cancer Colorectal cancer Other No family history of adverse response to anesthesia No family history of bleeding disorder Denies family history of Ovarian cancer Prostate cancer Diabetes Myocardial infarction Breast cancer Lung cancer Stroke Social History Smoking Status: Former smoker Tobacco Type: Cigarettes Age Started Using Tobacco: 19; Age Quit Using Tobacco: 36; packs per day: 0.5; Cigarettes Per Day: QUIT AT AGE 36; Second Hand Exposure: Yes ("everyone smoked"); Do You Dip or Chew Tobacco: No; Hx Alcohol Use: No Hx Substance Use: No Preferred Language: Chinese Communication Ability: Effective Visual Impairment: Limited Hearing Ability: Use of Hearing Aid 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: No Beliefs That Will Affect Care: None marital status: / Current Living Situation: Alone Current Living Situation Comment: independent living at [place] current occupational status: retired How many Children do You have: 3 Feels Safe at Home: Yes Childhood Exposure to Second-Hand Smoke: Yes caffeine: Yes Dental Care, Regularly: Yes Physical Activity Frequency: Daily Seatbelt Use: always Sunscreen Use: Yes Assistive Devices: Cane and Walker Allergies Allergies Allergy/AdvReac Type Severity Reaction Status Date / Time No Known Drug Allergies Allergy Verified 05/16/25 12:55 Home Meds Home Medications Medication Instructions Recorded Confirmed aspirin 81 mg tablet,delayed 81 mg PO QAM 08/24/18 06/03/25 release guaifenesin 600 mg tablet, 600 mg PO Q12H PRN Congestion 05/19/25 06/03/25 extended release 12 hr (Mucinex) ceftriaxone 1 gram solution for 1 g IM DAILY 06/03/25 06/03/25 injection multivitamin 1 tab PO HS 06/03/25 06/03/25 sertraline 50 mg tablet 50 mg PO HS 06/03/25 06/03/25 tramadol 50 mg tablet 50 mg PO Q8H PRN MOD-SEVERE 06/03/25 06/03/25 PAIN/LEVEL 6-10 Previous Rx's Medication Instructions Recorded atorvastatin 40 mg tablet 40 mg PO HS #90 tabs 11/11/24 pantoprazole 40 mg tablet,delayed 40 mg PO QAM #90 tabs 11/11/24 release Results & Data (ED) Vital Signs Vital Signs - 24 hr 06/03/25 19:05 06/03/25 19:06 06/03/25 19:12 Temperature 36.5 C Temperature Source Oral Pulse Rate 80 75 Pulse Rate [Apical] 74 Respiratory Rate 16 18 Respiratory Effort / Characteristics Non-Labored Spontaneous Respiratory Depth Normal Respiratory Pattern Regular Blood Pressure 168/86 H Blood Pressure Mean 113 Blood Pressure Position Lying Blood Pressure Position [Left Arm] Lying Pulse Oximetry 93 94 Oxygen Delivery Method Room Air Room Air Sepsis Recent Fever Within 48 Hours No Sepsis New/Unexplained Change in Mental Status No Sepsis Action Taken by Nursing No Action Required 06/03/25 19:30 06/03/25 20:00 06/03/25 20:30 Temperature Temperature Source Pulse Rate 79 75 75 Pulse Rate [Apical] Respiratory Rate 20 20 18 Respiratory Effort / Characteristics Respiratory Depth Respiratory Pattern Blood Pressure 156/87 H 157/88 H 155/87 H Blood Pressure Mean 116 122 122 Blood Pressure Position Blood Pressure Position [Left Arm] Pulse Oximetry 94 95 95 Oxygen Delivery Method Room Air Room Air Room Air Sepsis Recent Fever Within 48 Hours Sepsis New/Unexplained Change in Mental Status Sepsis Action Taken by Nursing 06/03/25 21:00 06/03/25 21:30 06/03/25 22:01 Temperature Temperature Source Pulse Rate 76 76 76 Pulse Rate [Apical] Respiratory Rate 22 19 22 Respiratory Effort / Characteristics Respiratory Depth Respiratory Pattern Blood Pressure 153/80 H 159/102 H 169/97 H Blood Pressure Mean 98 121 103 Blood Pressure Position Blood Pressure Position [Left Arm] Pulse Oximetry 93 Oxygen Delivery Method Room Air Sepsis Recent Fever Within 48 Hours Sepsis New/Unexplained Change in Mental Status Sepsis Action Taken by Nursing 06/03/25 22:33 06/03/25 23:26 06/04/25 00:03 Temperature Temperature Source Pulse Rate 76 73 74 Pulse Rate [Apical] Respiratory Rate 23 24 Respiratory Effort / Characteristics Respiratory Depth Respiratory Pattern Blood Pressure 171/93 H 160/90 H Blood Pressure Mean 119 113 Blood Pressure Position Blood Pressure Position [Left Arm] Pulse Oximetry 92 Oxygen Delivery Method Room Air Sepsis Recent Fever Within 48 Hours Sepsis New/Unexplained Change in Mental Status Sepsis Action Taken by Nursing 06/04/25 00:30 06/04/25 00:50 Temperature Temperature Source Pulse Rate 75 72 Pulse Rate [Apical] Respiratory Rate 19 20 Respiratory Effort / Characteristics Respiratory Depth Respiratory Pattern Blood Pressure 158/86 H 159/85 H Blood Pressure Mean 105 98 Blood Pressure Position Blood Pressure Position [Left Arm] Pulse Oximetry Oxygen Delivery Method Sepsis Recent Fever Within 48 Hours Sepsis New/Unexplained Change in Mental Status Sepsis Action Taken by Nursing Laboratory Data 06/03/25 19:08 06/03/25 19:08 Lab Results 06/03/25 06/03/25 Range/Units 19:08 21:39 WBC 11.09 H (4.8-10.8) K/ul RBC 3.78 L (4.70-6.10) M/uL Hgb 10.9 L (14.0-18.0) g/dl Hct 33.1 L (42.0-52.0) % MCV 87.6 (80.0-100.0) fL MCH 28.8 (25.0-34.0) pg MCHC 32.9 (32.0-36.0) g/dL RDW Std Deviation 47.8 H (36.4-46.3) fL RDW Coeff of [place] 15.0 H (11.5-14.5) % Plt Count 215 (130-400) K/uL MPV 9.4 (9.4-12.4) fL Immature Gran % (Auto) 0.3 % Neut % (Auto) 79.0 % Lymph % (Auto) 11.7 % [place] % (Auto) 6.4 % Eos % (Auto) 2.2 % Baso % (Auto) 0.4 % Neut # (Auto) 8.77 H (1.40-6.50) K/uL Lymph # (Auto) 1.30 (1.20-3.40) K/uL Tyrrell # (Auto) 0.71 H (0.11-0.59) K/uL Eos # (Auto) 0.24 (0.00-0.50) K/uL Baso # (Auto) 0.04 (0.00-0.20) K/uL Immature Gran # (Auto) 0.03 (0.01-0.20) K/uL Sodium 132 L (136-145) mmol/L Potassium 3.9 (3.5-5.1) mmol/L Chloride 99 (98-107) mmol/L Carbon Dioxide 28 (21-32) mmol/L Anion Gap 5 (3-11) BUN 16 (6-23) mg/dl Creatinine 0.74 (0.6-1.4) mg/dl Est Cr Clr Drug Dosing 76.5 ml/min eGFR 86.61 BUN/Creatinine Ratio 21.6 H (10-20) Glucose 99 (70-99(Fasting)) mg/dl Calcium 9.7 (8.6-10.3) mg/dl Total Bilirubin 1.4 H (0.2-1.0) mg/dl Direct Bilirubin 0.7 H (0-0.2) mg/dl AST 106 H (13-39) U/L ALT 107 H (7-52) U/L Alkaline Phosphatase 634 H (34-104) U/L B-Natriuretic Peptide 192 H (0-100) pg/ml Total Protein 7.3 (6.0-8.3) gm/dl Albumin 2.7 L (3.4-5.0) gm/dl Lipase 296 H (11-82) U/L Urine Color Dark Yellow Urine Appearance Turbid A (Clear) Urine pH 6.0 (4.5-7.5) Ur Specific [place] > 1.045 H (1.000-1.030) Urine Protein Trace H (Negative) Urine Glucose (UA) Negative (Negative) Urine Ketones Negative (Negative) Urine Blood 1+ H (Negative) Urine Nitrite Negative (Negative) Urine Bilirubin Negative (Negative) Urine Urobilinogen Positive H (Negative) Ur Leukocyte Esterase Trace H (Negative) Urine WBC (Auto) 0-5 (0-5) /hpf Urine RBC (Auto) 3-5 H (0-2) /hpf U Hyaline Cast (Auto) 3-5 H (0-2) /lpf U Epithel Cells (Auto) 0-2 (0-2) /hpf Urine Bacteria (Auto) None Seen (None Seen) Calcium Oxalate Crystal Present A (None Prsent) Urine Comment Administered Medications Discontinued Medications Ceftriaxone Sodium (Rocephin) 2,000 mg in 50 mls @ 100 mls/hr IV NOW STA Stop: 06/03/25 19:53 Last Infusion: 06/03/25 20:38 Dose: Infused Documented By: Admin: 06/03/25 20:04 Dose: 100 mls/hr Documented By: HOLLY Ioversol (Optiray 320 100ml) 90 ml IV ONCE ONE Stop: 06/03/25 20:49 Last Admin: 06/03/25 20:48 Dose: 90 ml Documented By: MATIAS Imaging Data Radiologist's Impression: Chest X-Ray 06/03/25 19:24 EXAM: Portable AP chest radiograph TECHNIQUE: AP portable radiograph of the chest was obtained. INDICATION: Shortness of breath Comparison: None FINDINGS: LINES and TUBES: None CARDIOVASCULAR: Cardiac silhouette is enlarged in size. Atherosclerosis of the thoracic aorta LUNGS/PLEURA: Mild interstitial pulmonary edema. Left greater than right bibasilar densities may represent atelectasis versus mild pneumonia. Small pleural fluids. No discernible pneumothorax. OSSEOUS/OTHER: No displaced acute osseous process identified. Chronic right-sided rib fracture deformities. IMPRESSION: Congestive changes of the cardiovascular system with enlarged cardiac silhouette, mild interstitial pulmonary edema and small pleural fluids. Left greater than right bibasilar densities may represent atelectasis versus mild pneumonia. Electronically signed by Jeff Rolon 06-03-2025 8:01 PM Abdomen/Pelvis CT 06/03/25 20:27 Exam(s): CT ABDOMEN + PELVIS With Contrast IV Amt: 90 ml optiray 320 EXAM: CT Abdomen and Pelvis With Intravenous Contrast CLINICAL HISTORY: Reason for exam: Cholecystitis, pancreatic mass, choledocholithiasi. TECHNIQUE: Axial computed tomography images of the abdomen and pelvis with intravenous contrast. CTDI is 17 mGy and DLP is 858 mGy-cm. Automated exposure control was utilized for the study. A dose lowering technique was utilized adhering to the principles of ALARA. CONTRAST: Patient received 90 ml optiray 320 of IV contrast COMPARISON: 11/19/2022 FINDINGS: Lung bases: Bibasilar opacities favoring scarring/atelectasis. Pleural space: Small right and trace left pleural effusions. Mediastinum: Moderate hiatal hernia. ABDOMEN: Liver: Small simple left hepatic lobe cysts. Gallbladder and bile ducts: No calcified gallstones. Common bile duct measures 8 mm, normal for patient age. No calcified choledocholithiasis. Pancreas: Unremarkable. No mass. No ductal dilation. Spleen: Unremarkable. No splenomegaly. Adrenals: Unremarkable. No mass. Kidneys and ureters: Unremarkable. No solid mass. No hydronephrosis. Stomach and bowel: No bowel obstruction. Diverticulosis without evidence of acute diverticulitis. PELVIS: Appendix: Appendix not identified. No secondary signs of appendicitis. Bladder: Unremarkable. No mass. Reproductive: Prostatomegaly. ABDOMEN and PELVIS: Intraperitoneal space: Unremarkable. No free air, significant free fluid, or fluid collection. Bones/joints: Osteopenia. Levoscoliosis of the lumbar spine. Degenerative changes in the lumbar spine. No acute fracture or dislocation. Soft tissues: Previous ventral hernia repairs. Vasculature: Atherosclerosis. No abdominal aortic aneurysm. Lymph nodes: Unremarkable. No enlarged lymph nodes. IMPRESSION: 1. Bibasilar opacities favoring scarring/atelectasis. 2. Small right and trace left pleural effusions. 3. Moderate hiatal hernia. 4. No CT evidence of cholecystitis or choledocholithiasis. No biliary dilatation. If there is laboratory evidence of biliary obstruction, consider MRCP. 5. No pancreatic mass visualized. Electronically signed by: Anisa Chan M.D. 06/03/25 23:18 PM Discharge Plan Visit Data Chief Complaint: Dehydration Stated Complaint: dehydrated, uti ED Provider: Aby Aguiar Discharge Problem: Acute confusion, Abnormal transaminases, Elevated lipase, Fluid overload Patient Disposition: Admitted As Inpatient Condition: Fair Forms Stand Alone Forms: [email or web address] Prescriptions Prescriptions: No Action atorvastatin 40 mg tablet 40 mg PO HS Qty: 90 3RF pantoprazole 40 mg tablet,delayed release (DR/EC) 40 mg PO QAM Qty: 90 3RF aspirin 81 mg Tablet,Delayed Release (Dr/Ec) 81 mg PO QAM guaifenesin [Mucinex] 600 mg Tablet Extended Release 12hr 600 mg PO Q12H PRN (Reason: Congestion) sertraline 50 mg Tablet 50 mg PO HS multivitamin [Men's Multi-Vitamin] Tablet 1 tab PO HS tramadol 50 mg Tablet 50 mg PO Q8H PRN (Reason: MOD-SEVERE PAIN/LEVEL 6-10) ceftriaxone 1 gram Recon Soln 1 g IM DAILY Rx Instructions: GIVE IN AFTERNOON X 4 DAYS START 06/03/25 END 06/05/25 Referrals Referrals: Noy Jorge MD [Primary Care Provider] -
[2025-06-03 22:08] LABS: Appearance Urine Turbid (Clear); Bacteria Urine Automated None Seen (None Seen); Epithelial Cell Urine Auto 0-2 /hpf (0-2); Glucose Urine UA Negative (Negative); WBC Urine Automated 0-5 /hpf (0-5)
--- NOTE | 2025-06-03 23:19 | CT Scan Report ---
Exam(s): CT ABDOMEN + PELVIS With Contrast IV Amt: 90 ml optiray 320 EXAM: CT Abdomen and Pelvis With Intravenous Contrast CLINICAL HISTORY: Reason for exam: Cholecystitis, pancreatic mass, choledocholithiasi. TECHNIQUE: Axial computed tomography images of the abdomen and pelvis with intravenous contrast. CTDI is 17 mGy and DLP is 858 mGy-cm. Automated exposure control was utilized for the study. A dose lowering technique was utilized adhering to the principles of ALARA. CONTRAST: Patient received 90 ml optiray 320 of IV contrast COMPARISON: 11/19/2022 FINDINGS: Lung bases: Bibasilar opacities favoring scarring/atelectasis. Pleural space: Small right and trace left pleural effusions. Mediastinum: Moderate hiatal hernia. ABDOMEN: Liver: Small simple left hepatic lobe cysts. Gallbladder and bile ducts: No calcified gallstones. Common bile duct measures 8 mm, normal for patient age. No calcified choledocholithiasis. Pancreas: Unremarkable. No mass. No ductal dilation. Spleen: Unremarkable. No splenomegaly. Adrenals: Unremarkable. No mass. Kidneys and ureters: Unremarkable. No solid mass. No hydronephrosis. Stomach and bowel: No bowel obstruction. Diverticulosis without evidence of acute diverticulitis. PELVIS: Appendix: Appendix not identified. No secondary signs of appendicitis. Bladder: Unremarkable. No mass. Reproductive: Prostatomegaly. ABDOMEN and PELVIS: Intraperitoneal space: Unremarkable. No free air, significant free fluid, or fluid collection. Bones/joints: Osteopenia. Levoscoliosis of the lumbar spine. Degenerative changes in the lumbar spine. No acute fracture or dislocation. Soft tissues: Previous ventral hernia repairs. Vasculature: Atherosclerosis. No abdominal aortic aneurysm. Lymph nodes: Unremarkable. No enlarged lymph nodes. IMPRESSION: 1. Bibasilar opacities favoring scarring/atelectasis. 2. Small right and trace left pleural effusions. 3. Moderate hiatal hernia. 4. No CT evidence of cholecystitis or choledocholithiasis. No biliary dilatation. If there is laboratory evidence of biliary obstruction, consider MRCP. 5. No pancreatic mass visualized. Electronically signed by: Anisa Chan M.D. 06/03/25 23:18 PM
--- NOTE | 2025-06-04 01:02 | History & Physical Report ---
Date of Service June 04, 2025 Assessment & Plan (1) Pneumonia: (2) Generalized weakness: (3) Confusion: (4) Aspiration into airway: (5) Urinary tract infection: Plan The patient is an 89-year-old male with past medical history including recent hospitalization from 05/19-05/23/2025 for rhabdomyolysis, gait apraxia bilaterally, upper airway cough syndrome, SNHL bilaterally, situational depression, Chavarria's esophagus, GERD, hyperlipidemia, scoliosis, and lumbar spinal stenosis. The patient is brought to the emergency department by his son with concerns regarding decreased oral intake, difficulty with coughing when chewing and drinking liquids, and worsening generalized weakness and confusion since recent hospitalization. [facility] reports [facility] Confusion- No limited to: Urinary tract infection, aspiration pneumonia, progressively worsening debilitation from recent hospitalization for rhabdomyolysis, abnormal LFTs, Pneumonia- As noted on CT scan Son reports that patient has had significant coughing spells when attempting ora l intake recently Stop ceftriaxone Placed on cefepime 2 g IV every 12 hours Consult speech therapy Urinary tract infection- Patient has been on ceftriaxone in the outpatient setting Placed on cefepime as above to cover UTI and pneumonia Generalized weakness/debilitation- Treat underlying causes as above Consult PT/OT when stronger Abnormal LFTs- Have worsened since recent hospitalization Repeat laboratories in a.m. May be an element of hepatic congestion due to recent IV fluids for rhabdomyolysis Repeat in the a.m. CT scan abdomen pelvis does not note any abnormal liverimaging History of Present Illness Chief Complaint: The patient has brought to the emergency department by his son, due to concerns regarding dehydration, and worsening confusion. The patient was most recently admitted in the hospital from 05/19-05/23/2025 for rhabdomyolysis, after being found on the floor. He is presently being treated for urinary tract infection with ceftriaxone IV. His son reports that ever since he left the hospital, he has had worsening confusion and decreased oral intake. He does note that his father had a significant coughing spell when he was trying to drink through a straw earlier in the day today. Primary Care Provider: Noy Jorge MD The patient is an 89-year-old male with past medical history including recent hospitalization from 05/19-05/23/2025 for rhabdomyolysis, gait apraxia bilaterally, upper airway cough syndrome, SNHL bilaterally, situational depression, Chavarria's esophagus, GERD, hyperlipidemia, scoliosis, and lumbar spinal stenosis. The patient is brought to the emergency department by his son with concerns regarding decreased oral intake, difficulty with coughing when chewing and drinking liquids, and worsening generalized weakness and confusion since recent hospitalization. He reports that physical therapy had just begun at the [facility] Allergies Allergy/AdvReac Type Severity Reaction Status Date / Time No Known Drug Allergies Allergy Verified 05/16/25 12:55 Home Medications Medication Instructions Recorded Confirmed Type aspirin 81 mg tablet,delayed 81 mg PO QAM 08/24/18 06/03/25 History release atorvastatin 40 mg tablet 40 mg PO HS #90 tabs 11/11/24 06/03/25 Rx pantoprazole 40 mg tablet,delayed 40 mg PO QAM #90 tabs 11/11/24 06/03/25 Rx release guaifenesin 600 mg tablet, 600 mg PO Q12H PRN Congestion 05/19/25 06/03/25 History extended release 12 hr (Mucinex) ceftriaxone 1 gram solution for 1 g IM DAILY 06/03/25 06/03/25 History injection multivitamin 1 tab PO HS 06/03/25 06/03/25 History sertraline 50 mg tablet 50 mg PO HS 06/03/25 06/03/25 History tramadol 50 mg tablet 50 mg PO Q8H PRN MOD-SEVERE 06/03/25 06/03/25 History PAIN/LEVEL 6-10 Past Med/Surg History Problem List (Updated 06/04/25 @ 01:31 by Jose L Ramos MD) Urinary tract infection Aspiration into airway Confusion Pneumonia Generalized weakness (Acute) Leucocytosis Rhabdomyolysis (Acute) Gait apraxia of elderly Upper airway cough syndrome Chronic cough Sensorineural hearing loss of both ears Osteoarthritis of both knees Right bundle branch block (Acute) Anemia Situational depression (Chronic) Barretts esophagus (Chronic) Gastroesophageal reflux disease (Chronic) Hyperlipidemia (Chronic) Scoliosis (Chronic) Spinal stenosis of lumbar region (Acute) Medical History History of stroke Enlarged prostate Lower urinary tract symptoms (LUTS) Deviated nasal septum Chronic sinusitis Ex-smoker Pneumothorax, right Multiple fractures of ribs of right side Depression Mixed restrictive and obstructive lung disease History of melanoma Suspected 2019 novel coronavirus infection Stage I adenocarcinoma of lung 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 Osteoarthritis GERD (gastroesophageal reflux disease) Thyroid goiter Hearing deficit Surgical History History of melanoma excision History of Mohs micrographic surgery for skin cancer History of appendectomy History of anesthesia reaction History of knee surgery History of herniorrhaphy History of esophagogastroduodenoscopy (EGD) History of colonoscopy History of tooth extraction History of tonsillectomy History of adenoidectomy History of cataract surgery History of lung surgery Family History Father Family hx of colon cancer Colorectal cancer Other No family history of adverse response to anesthesia No family history of bleeding disorder Denies family history of Ovarian cancer Prostate cancer Diabetes Myocardial infarction Breast cancer Lung cancer Stroke Social History Smoking Status: Former smoker Tobacco Type: Cigarettes Age Started Using Tobacco: 19; Age Quit Using Tobacco: 36; packs per day: 0.5; Cigarettes Per Day: QUIT AT AGE 36; Second Hand Exposure: Yes ("everyone smoked"); Do You Dip or Chew Tobacco: No; Hx Alcohol Use: No Hx Substance Use: No Preferred Language: Arabic Communication Ability: Effective Visual Impairment: Limited Hearing Ability: Use of Hearing Aid Conference Services Director Required: No Beliefs That Will Affect Care: None marital status: / Current Living Situation: Alone Current Living Situation Comment: independent living at [place] current occupational status: retired How many Children do You have: 3 Feels Safe at Home: Yes Childhood Exposure to Second-Hand Smoke: Yes caffeine: Yes Dental Care, Regularly: Yes Physical Activity Frequency: Daily Seatbelt Use: always Sunscreen Use: Yes Assistive Devices: Cane and Walker Review of Systems Review of Systems: Review of systems primarily obtained through his son, due to confusion of the patient Physical Exam Physical Exam: The patient is awake, confused, normocephalic and atraumatic, lying in bed and in no acute distress. HEENT--PERRL, EOMI, mucous membranes and oropharynx mildly dry. Neck--supple. No JVD. No bruits. Thyroid normal, trachea midline, no adenopathy. Heart--normal S1 and S2. No murmurs, rubs or gallops. Lungs--coarse breath sounds at the bases, right greater than left., No respiratory distress, no accessory muscle use. Abdomen--normal bowel sounds and soft. Nontender. Nondistended, no hernias or masses, no organomegaly. Extremities-- trace bilateral pretibial pitting edema. Dermatologic--normal skin turgor, normal color, no abnormal lymph nodes, no rash. Neurologic--cranial nerves II through XII grossly intact. Rheumatologic--normal range of motion. Psychiatric--normal affect. Results & Data Results & Data Vital Signs (Past 12 Hours) Vital Signs Temp Pulse Pulse Resp BP Pulse Ox O2 Del Method 06/04/25 00:50 72 20 159/85 H 06/04/25 00:30 75 19 158/86 H 06/04/25 00:03 74 24 160/90 H 92 Room Air 06/03/25 23:26 73 06/03/25 22:33 76 23 171/93 H 06/03/25 22:01 76 22 169/97 H 06/03/25 21:30 76 19 159/102 H 06/03/25 21:00 76 22 153/80 H 93 Room Air 06/03/25 20:30 75 18 155/87 H 95 Room Air 06/03/25 20:00 75 20 157/88 H 95 Room Air 06/03/25 19:30 79 20 156/87 H 94 Room Air 06/03/25 19:12 74 18 94 Room Air 06/03/25 19:06 75 06/03/25 19:05 36.5 C 80 16 168/86 H 93 Room Air Laboratory Results Laboratory Results WBC 11.09 K/ul (4.8-10.8) H 06/03/25 19:08 RBC 3.78 M/uL (4.70-6.10) L 06/03/25 19:08 Hgb 10.9 g/dl (14.0-18.0) L 06/03/25 19:08 Hct 33.1 % (42.0-52.0) L 06/03/25 19:08 MCV 87.6 fL (80.0-100.0) 06/03/25 19:08 MCH 28.8 pg (25.0-34.0) 06/03/25 19:08 MCHC 32.9 g/dL (32.0-36.0) 06/03/25 19:08 RDW Std Deviation 47.8 fL (36.4-46.3) H 06/03/25 19:08 RDW Coeff of [place] 15.0 % (11.5-14.5) H 06/03/25 19:08 Plt Count 215 K/uL (130-400) 06/03/25 19:08 MPV 9.4 fL (9.4-12.4) 06/03/25 19:08 Immature Gran % (Auto) 0.3 % 06/03/25 19:08 Neut % (Auto) 79.0 % 06/03/25 19:08 Lymph % (Auto) 11.7 % 06/03/25 19:08 [place] % (Auto) 6.4 % 06/03/25 19:08 Eos % (Auto) 2.2 % 06/03/25 19:08 Baso % (Auto) 0.4 % 06/03/25 19:08 Neut # (Auto) 8.77 K/uL (1.40-6.50) H 06/03/25 19:08 Lymph # (Auto) 1.30 K/uL (1.20-3.40) 06/03/25 19:08 [place] # (Auto) 0.71 K/uL (0.11-0.59) H 06/03/25 19:08 Eos # (Auto) 0.24 K/uL (0.00-0.50) 06/03/25 19:08 Baso # (Auto) 0.04 K/uL (0.00-0.20) 06/03/25 19:08 Immature Gran # (Auto) 0.03 K/uL (0.01-0.20) 06/03/25 19:08 Sodium 132 mmol/L (136-145) L 06/03/25 19:08 Potassium 3.9 mmol/L (3.5-5.1) 06/03/25 19:08 Chloride 99 mmol/L (98-107) 06/03/25 19:08 Carbon Dioxide 28 mmol/L (21-32) 06/03/25 19:08 Anion Gap 5 (3-11) 06/03/25 19:08 BUN 16 mg/dl (6-23) 06/03/25 19:08 Creatinine 0.74 mg/dl (0.6-1.4) 06/03/25 19:08 Est Cr Clr Drug Dosing 76.5 ml/min 06/03/25 19:08 eGFR 86.61 06/03/25 19:08 BUN/Creatinine Ratio 21.6 (10-20) H 06/03/25 19:08 Glucose 99 mg/dl (70-99(Fasting)) 06/03/25 19:08 Calcium 9.7 mg/dl (8.6-10.3) 06/03/25 19:08 Total Bilirubin 1.4 mg/dl (0.2-1.0) H 06/03/25 19:08 Direct Bilirubin 0.7 mg/dl (0-0.2) H 06/03/25 19:08 AST 106 U/L (13-39) H 06/03/25 19:08 ALT 107 U/L (7-52) H 06/03/25 19:08 Alkaline Phosphatase 634 U/L (34-104) H 06/03/25 19:08 B-Natriuretic Peptide 192 pg/ml (0-100) H 06/03/25 19:08 Total Protein 7.3 gm/dl (6.0-8.3) 06/03/25 19:08 Albumin 2.7 gm/dl (3.4-5.0) L 06/03/25 19:08 Lipase 296 U/L (11-82) H 06/03/25 19:08 Urine Color Dark Yellow 06/03/25 21:39 Urine Appearance Turbid (Clear) A 06/03/25 21:39 Urine pH 6.0 (4.5-7.5) 06/03/25 21:39 Ur Specific [place] > 1.045 (1.000-1.030) H 06/03/25 21:39 Urine Protein Trace (Negative) H 06/03/25 21:39 Urine Glucose (UA) Negative (Negative) 06/03/25 21:39 Urine Ketones Negative (Negative) 06/03/25 21:39 Urine Blood 1+ (Negative) H 06/03/25 21:39 Urine Nitrite Negative (Negative) 06/03/25 21:39 Urine Bilirubin Negative (Negative) 06/03/25 21:39 Urine Urobilinogen Positive (Negative) H 06/03/25 21:39 Ur Leukocyte Esterase Trace (Negative) H 06/03/25 21:39 Urine WBC (Auto) 0-5 /hpf (0-5) 06/03/25 21:39 Urine RBC (Auto) 3-5 /hpf (0-2) H 06/03/25 21:39 U Hyaline Cast (Auto) 3-5 /lpf (0-2) H 06/03/25 21:39 U Epithel Cells (Auto) 0-2 /hpf (0-2) 06/03/25 21:39 Urine Bacteria (Auto) None Seen (None Seen) 06/03/25 21:39 Calcium Oxalate Crystal Present (None Prsent) A 06/03/25 21:39 Urine Comment 06/03/25 21:39 Impressions Chest X-Ray 06/03/25 19:24 EXAM: Portable AP chest radiograph TECHNIQUE: AP portable radiograph of the chest was obtained. INDICATION: Shortness of breath Comparison: None FINDINGS: LINES and TUBES: None CARDIOVASCULAR: Cardiac silhouette is enlarged in size. Atherosclerosis of the thoracic aorta LUNGS/PLEURA: Mild interstitial pulmonary edema. Left greater than right bibasilar densities may represent atelectasis versus mild pneumonia. Small pleural fluids. No discernible pneumothorax. OSSEOUS/OTHER: No displaced acute osseous process identified. Chronic right-sided rib fracture deformities. IMPRESSION: Congestive changes of the cardiovascular system with enlarged cardiac silhouette, mild interstitial pulmonary edema and small pleural fluids. Left greater than right bibasilar densities may represent atelectasis versus mild pneumonia. Electronically signed by Jeff Rolon 06-03-2025 8:01 PM Abdomen/Pelvis CT 06/03/25 20:27 Exam(s): CT ABDOMEN + PELVIS With Contrast IV Amt: 90 ml optiray 320 EXAM: CT Abdomen and Pelvis With Intravenous Contrast CLINICAL HISTORY: Reason for exam: Cholecystitis, pancreatic mass, choledocholithiasi. TECHNIQUE: Axial computed tomography images of the abdomen and pelvis with intravenous contrast. CTDI is 17 mGy and DLP is 858 mGy-cm. Automated exposure control was utilized for the study. A dose lowering technique was utilized adhering to the principles of ALARA. CONTRAST: Patient received 90 ml optiray 320 of IV contrast COMPARISON: 11/19/2022 FINDINGS: Lung bases: Bibasilar opacities favoring scarring/atelectasis. Pleural space: Small right and trace left pleural effusions. Mediastinum: Moderate hiatal hernia. ABDOMEN: Liver: Small simple left hepatic lobe cysts. Gallbladder and bile ducts: No calcified gallstones. Common bile duct measures 8 mm, normal for patient age. No calcified choledocholithiasis. Pancreas: Unremarkable. No mass. No ductal dilation. Spleen: Unremarkable. No splenomegaly. Adrenals: Unremarkable. No mass. Kidneys and ureters: Unremarkable. No solid mass. No hydronephrosis. Stomach and bowel: No bowel obstruction. Diverticulosis without evidence of acute diverticulitis. PELVIS: Appendix: Appendix not identified. No secondary signs of appendicitis. Bladder: Unremarkable. No mass. Reproductive: Prostatomegaly. ABDOMEN and PELVIS: Intraperitoneal space: Unremarkable. No free air, significant free fluid, or fluid collection. Bones/joints: Osteopenia. Levoscoliosis of the lumbar spine. Degenerative changes in the lumbar spine. No acute fracture or dislocation. Soft tissues: Previous ventral hernia repairs. Vasculature: Atherosclerosis. No abdominal aortic aneurysm. Lymph nodes: Unremarkable. No enlarged lymph nodes. IMPRESSION: 1. Bibasilar opacities favoring scarring/atelectasis. 2. Small right and trace left pleural effusions. 3. Moderate hiatal hernia. 4. No CT evidence of cholecystitis or choledocholithiasis. No biliary dilatation. If there is laboratory evidence of biliary obstruction, consider MRCP. 5. No pancreatic mass visualized. Electronically signed by: Anisa Chan M.D. 06/03/25 23:18 PM Code Status & VTE Plan Code Status DNR/DNI VTE Prophylaxis Plan VTE Prophylaxis will be ordered: Yes PG Care Time/CCT Total # of Minutes Spent Total Time Spent with Patient: Total time spent is greater than 50% in coordination of care (as documented) at patient's floor/unit and/or counseling patient: Coding Level of Care Code 20011 INT INP/OBS CARE 3/75MIN Diagnoses Pneumonia J18.9 Generalized weakness R53.1 Confusion R41.0 Aspiration into airway T17.908A Urinary tract infection N39.0
[2025-06-04] MEDS ORDERED: ACETAMINOPHEN 325 MG TAB PO PRN (04:57)
[2025-06-04] MEDS: CEFEPIME 2000MG 2,000 MG/20 ML SYR IV SCH (05:45)
[2025-06-04 08:46] LABS: Hematocrit (blood only) 29.6 % (42.0-52.0); Hemoglobin 10.1 g/dl (14.0-18.0); Immature Granulocytes # (auto) 0.03 K/uL (0.01-0.20); Immature Granulocytes % (auto) 0.3 %; Mean Corpuscular Hemoglobin 29.4 pg (25.0-34.0); Mean Corpuscular Volume 86.0 fL (80.0-100.0); Platelet Count 187 K/uL (130-400); RDW Standard Deviation 46.2 fL (36.4-46.3); Red Blood Count 3.44 M/uL (4.70-6.10); White Blood Count 8.68 K/ul (4.8-10.8)
[2025-06-04] MEDS: ASPIRIN 81 MG ECTAB PO SCH (08:51)
[2025-06-04] MEDS: HEPARIN SOD 5,000 UNIT/0.5 ML VIAL SQ SCH (08:59)
[2025-06-04 09:05] LABS: Alanine Aminotransferase 81.0 U/L (7-52); Alkaline Phosphatase 532.0 U/L (34-104); Anion Gap 3.0 (3-11); Bilirubin,Total 1.3 mg/dl (0.2-1.0); Blood Urea Nitrogen 13.0 mg/dl (6-23); Calcium 9.2 mg/dl (8.6-10.3); Carbon Dioxide 27.0 mmol/L (21-32); Chloride 102.0 mmol/L (98-107); Creatinine Clr Calc Pharmacy 87.1 ml/min; Glucose 83.0 mg/dl (70-99(Fasting)); Potassium 3.9 mmol/L (3.5-5.1); Sodium 132.0 mmol/L (136-145); Total Protein 6.3 gm/dl (6.0-8.3)
--- NOTE | 2025-06-04 10:22 | Gastrointestinal Consultation ---
Date of Consultation June 04, 2025 Assessment & Plan (1) Abnormal transaminases: Pleasant elderly man with minimally elevated liver enzymes that are actually better today. They have also been minimally elevated in the past with resolution to normalcy. I find it hard to get excited over transaminases of this level in a patient who is 89 years old. My suspicion is that the recent jump related to his fall that led to his rhabdo. Imaging of the liver is not concerning. He has a minimally dilated bile duct but I suspect that is due to aging. I don't see a need for MRCP or ERCP. For now would follow LFT's expectantly History of Present Illness Reason for Consultation: transaminitis Attending Physician: Roger Conner MD History of Present Illness 89 year old man admitted with weakness and pneumonia. He was noted to have minimally elevated transaminases so we were asked to see him. Most of the history is obtained from his son but they report that he saw "Rhea" for his six month visit and was told there were some "things" with his liver that she wanted to pursue. He reports there is "no liver specialist in [place]". He was recently admitted after a fall and had rhabdomyolysis treated with fluids. He drinks but not much. CT of the liver in the past have shown hepatic cysts. Recent hepatic ultrasound showed "changes of cirrhosis" but this has never been seen on CT. He also has issues with cough with eating--is going to be seen by speech pathology Allergies Allergy/AdvReac Type Severity Reaction Status Date / Time No Known Drug Allergies Allergy Verified 05/16/25 12:55 Home Medications Medication Instructions Recorded Confirmed Type aspirin 81 mg tablet,delayed 81 mg PO QAM 08/24/18 06/03/25 History release atorvastatin 40 mg tablet 40 mg PO HS #90 tabs 11/11/24 06/03/25 Rx pantoprazole 40 mg tablet,delayed 40 mg PO QAM #90 tabs 11/11/24 06/03/25 Rx release guaifenesin 600 mg tablet, 600 mg PO Q12H PRN Congestion 05/19/25 06/03/25 History extended release 12 hr (Mucinex) ceftriaxone 1 gram solution for 1 g IM DAILY 06/03/25 06/03/25 History injection multivitamin 1 tab PO HS 06/03/25 06/03/25 History sertraline 50 mg tablet 50 mg PO HS 06/03/25 06/03/25 History tramadol 50 mg tablet 50 mg PO Q8H PRN MOD-SEVERE 06/03/25 06/03/25 History PAIN/LEVEL 6-10 Patient History Medical History History of stroke Enlarged prostate Lower urinary tract symptoms (LUTS) Deviated nasal septum Chronic sinusitis Ex-smoker Pneumothorax, right Multiple fractures of ribs of right side Depression 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 Suspected 2018 novel coronavirus infection Stage I adenocarcinoma of lung s/p curative resection 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 Osteoarthritis GERD (gastroesophageal reflux disease) Thyroid goiter BIOPSY DONE "NORMAL" Hearing deficit Surgical History History of melanoma excision off lip History of Mohs micrographic surgery for skin cancer History of appendectomy History of anesthesia reaction SLOW TO WAKE UP AND "GOES UNDER QUICKLY" History of knee surgery RT History of herniorrhaphy bilateral History of esophagogastroduodenoscopy (EGD) History of colonoscopy History of tooth extraction History of tonsillectomy History of adenoidectomy History of cataract surgery bilt History of lung surgery UPPER RT LOBECTOMY (NO CHEMO) Family History Father Family hx of colon cancer Colorectal cancer Other No family history of adverse response to anesthesia No family history of bleeding disorder Denies family history of Ovarian cancer Prostate cancer Diabetes Myocardial infarction Breast cancer Lung cancer Stroke Social History Smoking Status: Former smoker Tobacco Type: Cigarettes Age Started Using Tobacco: 19; Age Quit Using Tobacco: 36; packs per day: 0.5; Cigarettes Per Day: QUIT AT AGE 36; Second Hand Exposure: No; Do You Dip or Chew Tobacco: No; Hx Alcohol Use: No Hx Substance Use: No Preferred Language: Swedish Communication Ability: Effective Visual Impairment: Limited Hearing Ability: Use of Hearing Aid 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: No Beliefs That Will Affect Care: None marital status: / Current Living Situation: Alone Current Living Situation Comment: Independent Living current occupational status: retired How many Children do You have: 3 Feels Safe at Home: Yes Childhood Exposure to Second-Hand Smoke: Yes caffeine: Yes Dental Care, Regularly: Yes Physical Activity Frequency: Daily Seatbelt Use: always Sunscreen Use: Yes Assistive Devices: Cane, Glasses and Hearing Aid - Bilateral Review of Systems Review of Systems: All systems reviewed & are unremarkable except as noted in HPI & below Physical Exam Physical Exam: Elderly man in no distress Constitutional: WD/WN, vitals as above Neck: trachea midline, no thyromegaly Respiratory: normal respiratory effort, lungs clear to auscultation Cardiovascular: RRR, no murmur, no edema Gastrointestinal (Abdomen): normal bowel sounds, soft, nontender, no hepatosplenomegaly Results & Data Vital Signs (Past 12 Hours) Vital Signs Temp Pulse Pulse Resp BP BP Pulse Ox 06/04/25 08:02 36.6 C 83 16 141/81 H 92 06/04/25 04:49 36.6 C 77 18 152/84 H 92 06/04/25 04:47 78 06/04/25 04:26 06/04/25 04:25 72 18 129/81 92 06/04/25 03:00 70 18 107/66 94 06/04/25 02:09 70 23 93 06/04/25 02:00 157/87 H 06/04/25 01:00 72 17 106/74 96 06/04/25 00:50 72 20 159/85 H 06/04/25 00:30 75 19 158/86 H 06/04/25 00:03 74 24 160/90 H 92 06/03/25 23:26 73 06/03/25 22:33 76 23 171/93 H O2 Del Method 06/04/25 08:02 Room Air 06/04/25 04:49 Room Air 06/04/25 04:47 06/04/25 04:26 Room Air 06/04/25 04:25 Room Air 06/04/25 03:00 Room Air 06/04/25 02:09 Room Air 06/04/25 02:00 06/04/25 01:00 Room Air 06/04/25 00:50 06/04/25 00:30 06/04/25 00:03 Room Air 06/03/25 23:26 06/03/25 22:33 Laboratory Results 06/04/25 06/04/2525 Range/Units 09:13 08:32 21:39 WBC 8.68 (4.8-10.8) K/ul RBC 3.44 L (4.70-6.10) M/uL Hgb 10.1 L (14.0-18.0) g/dl Hct 29.6 L (42.0-52.0) % MCV 86.0 (80.0-100.0) fL MCH 29.4 (25.0-34.0) pg MCHC 34.1 (32.0-36.0) g/dL RDW Std Deviation 46.2 (36.4-46.3) fL RDW Coeff of [place] 14.7 H (11.5-14.5) % Plt Count 187 (130-400) K/uL MPV 8.9 L (9.4-12.4) fL Immature Gran % (Auto) 0.3 % Neut % (Auto) 79.8 % Lymph % (Auto) 10.1 % Har[place] % (Auto) 6.8 % Eos % (Auto) 2.5 % Baso % (Auto) 0.5 % Neut # (Auto) 6.92 H (1.40-6.50) K/uL Lymph # (Auto) 0.88 L (1.20-3.40) K/uL Harney # (Auto) 0.59 (0.11-0.59) K/uL Eos # (Auto) 0.22 (0.00-0.50) K/uL Baso # (Auto) 0.04 (0.00-0.20) K/uL Immature Gran # (Auto) 0.03 (0.01-0.20) K/uL Sodium 132 L (136-145) mmol/L Potassium 3.9 (3.5-5.1) mmol/L Chloride 102 (98-107) mmol/L Carbon Dioxide 27 (21-32) mmol/L Anion Gap 3 (3-11) BUN 13 (6-23) mg/dl Creatinine 0.65 (0.6-1.4) mg/dl Est Cr Clr Drug Dosing 87.1 ml/min eGFR 90.07 BUN/Creatinine Ratio 20.0 (10-20) Glucose 83 (70-99(Fasting)) mg/dl Calcium 9.2 (8.6-10.3) mg/dl Total Bilirubin 1.3 H (0.2-1.0) mg/dl Direct Bilirubin 0.6 H (0-0.2) mg/dl AST 73 H (13-39) U/L ALT 81 H (7-52) U/L Alkaline Phosphatase 532 H (34-104) U/L B-Natriuretic Peptide (0-100) pg/ml Total Protein 6.3 (6.0-8.3) gm/dl Albumin 2.5 L (3.4-5.0) gm/dl Lipase (11-82) U/L Urine Color Dark Yellow Urine Appearance Turbid A (Clear) Urine pH 6.0 (4.5-7.5) Ur Specific [place] > 1.045 H (1.000-1.030) Urine Protein Trace H (Negative) Urine Glucose (UA) Negative (Negative) Urine Ketones Negative (Negative) Urine Blood 1+ H (Negative) Urine Nitrite Negative (Negative) Urine Bilirubin Negative (Negative) Urine Urobilinogen Positive H (Negative) Ur Leukocyte Esterase Trace H (Negative) Urine WBC (Auto) 0-5 (0-5) /hpf Urine RBC (Auto) 3-5 H (0-2) /hpf U Hyaline Cast (Auto) 3-5 H (0-2) /lpf U Epithel Cells (Auto) 0-2 (0-2) /hpf Urine Bacteria (Auto) None Seen (None Seen) Calcium Oxalate Crystal Present A (None Prsent) Urine Comment Nasal Screen MRSA (PCR) Pending 06/03/25 Range/Units 19:08 WBC 11.09 H (4.8-10.8) K/ul RBC 3.78 L (4.70-6.10) M/uL Hgb 10.9 L (14.0-18.0) g/dl Hct 33.1 L (42.0-52.0) % MCV 87.6 (80.0-100.0) fL MCH 28.8 (25.0-34.0) pg MCHC 32.9 (32.0-36.0) g/dL RDW Std Deviation 47.8 H (36.4-46.3) fL RDW Coeff of [place] 15.0 H (11.5-14.5) % Plt Count 215 (130-400) K/uL MPV 9.4 (9.4-12.4) fL Immature Gran % (Auto) 0.3 % Neut % (Auto) 79.0 % Lymph % (Auto) 11.7 % Harney % (Auto) 6.4 % Eos % (Auto) 2.2 % Baso % (Auto) 0.4 % Neut # (Auto) 8.77 H (1.40-6.50) K/uL Lymph # (Auto) 1.30 (1.20-3.40) K/uL Harney # (Auto) 0.71 H (0.11-0.59) K/uL Eos # (Auto) 0.24 (0.00-0.50) K/uL Baso # (Auto) 0.04 (0.00-0.20) K/uL Immature Gran # (Auto) 0.03 (0.01-0.20) K/uL Sodium 132 L (136-145) mmol/L Potassium 3.9 (3.5-5.1) mmol/L Chloride 99 (98-107) mmol/L Carbon Dioxide 28 (21-32) mmol/L Anion Gap 5 (3-11) BUN 16 (6-23) mg/dl Creatinine 0.74 (0.6-1.4) mg/dl Est Cr Clr Drug Dosing 76.5 ml/min eGFR 86.61 BUN/Creatinine Ratio 21.6 H (10-20) Glucose 99 (70-99(Fasting)) mg/dl Calcium 9.7 (8.6-10.3) mg/dl Total Bilirubin 1.4 H (0.2-1.0) mg/dl Direct Bilirubin 0.7 H (0-0.2) mg/dl AST 106 H (13-39) U/L ALT 107 H (7-52) U/L Alkaline Phosphatase 634 H (34-104) U/L B-Natriuretic Peptide 192 H (0-100) pg/ml Total Protein 7.3 (6.0-8.3) gm/dl Albumin 2.7 L (3.4-5.0) gm/dl Lipase 296 H (11-82) U/L Urine Color Urine Appearance (Clear) Urine pH (4.5-7.5) Ur Specific [place] (1.000-1.030) Urine Protein (Negative) Urine Glucose (UA) (Negative) Urine Ketones (Negative) Urine Blood (Negative) Urine Nitrite (Negative) Urine Bilirubin (Negative) Urine Urobilinogen (Negative) Ur Leukocyte Esterase (Negative) Urine WBC (Auto) (0-5) /hpf Urine RBC (Auto) (0-2) /hpf U Hyaline Cast (Auto) (0-2) /lpf U Epithel Cells (Auto) (0-2) /hpf Urine Bacteria (Auto) (None Seen) Calcium Oxalate Crystal (None Prsent) Urine Comment Nasal Screen MRSA (PCR) Diagnostic Findings Chest X-Ray 06/03/25 19:24 EXAM: Portable AP chest radiograph TECHNIQUE: AP portable radiograph of the chest was obtained. INDICATION: Shortness of breath Comparison: None FINDINGS: LINES and TUBES: None CARDIOVASCULAR: Cardiac silhouette is enlarged in size. Atherosclerosis of the thoracic aorta LUNGS/PLEURA: Mild interstitial pulmonary edema. Left greater than right bibasilar densities may represent atelectasis versus mild pneumonia. Small pleural fluids. No discernible pneumothorax. OSSEOUS/OTHER: No displaced acute osseous process identified. Chronic right-sided rib fracture deformities. IMPRESSION: Congestive changes of the cardiovascular system with enlarged cardiac silhouette, mild interstitial pulmonary edema and small pleural fluids. Left greater than right bibasilar densities may represent atelectasis versus mild pneumonia. Electronically signed by Jeff Rolon 06-03-2025 8:01 PM Abdomen/Pelvis CT 06/03/25 20:27 Exam(s): CT ABDOMEN + PELVIS With Contrast IV Amt: 90 ml optiray 320 EXAM: CT Abdomen and Pelvis With Intravenous Contrast CLINICAL HISTORY: Reason for exam: Cholecystitis, pancreatic mass, choledocholithiasi. TECHNIQUE: Axial computed tomography images of the abdomen and pelvis with intravenous contrast. CTDI is 17 mGy and DLP is 858 mGy-cm. Automated exposure control was utilized for the study. A dose lowering technique was utilized adhering to the principles of ALARA. CONTRAST: Patient received 90 ml optiray 320 of IV contrast COMPARISON: 11/19/2022 FINDINGS: Lung bases: Bibasilar opacities favoring scarring/atelectasis. Pleural space: Small right and trace left pleural effusions. Mediastinum: Moderate hiatal hernia. ABDOMEN: Liver: Small simple left hepatic lobe cysts. Gallbladder and bile ducts: No calcified gallstones. Common bile duct measures 8 mm, normal for patient age. No calcified choledocholithiasis. Pancreas: Unremarkable. No mass. No ductal dilation. Spleen: Unremarkable. No splenomegaly. Adrenals: Unremarkable. No mass. Kidneys and ureters: Unremarkable. No solid mass. No hydronephrosis. Stomach and bowel: No bowel obstruction. Diverticulosis without evidence of acute diverticulitis. PELVIS: Appendix: Appendix not identified. No secondary signs of appendicitis. Bladder: Unremarkable. No mass. Reproductive: Prostatomegaly. ABDOMEN and PELVIS: Intraperitoneal space: Unremarkable. No free air, significant free fluid, or fluid collection. Bones/joints: Osteopenia. Levoscoliosis of the lumbar spine. Degenerative changes in the lumbar spine. No acute fracture or dislocation. Soft tissues: Previous ventral hernia repairs. Vasculature: Atherosclerosis. No abdominal aortic aneurysm. Lymph nodes: Unremarkable. No enlarged lymph nodes. IMPRESSION: 1. Bibasilar opacities favoring scarring/atelectasis. 2. Small right and trace left pleural effusions. 3. Moderate hiatal hernia. 4. No CT evidence of cholecystitis or choledocholithiasis. No biliary dilatation. If there is laboratory evidence of biliary obstruction, consider MRCP. 5. No pancreatic mass visualized. Electronically signed by: Anisa Chan M.D. 06/03/25 23:18 PM
[2025-06-04] MEDS ORDERED: PHA DELIRIUM CONSULT PRN (11:56)
--- NOTE | 2025-06-04 16:22 | Hospitalist Progress Note ---
Date of Service June 04, 2025 Assessment & Plan (1) Metabolic encephalopathy: (2) Aspiration into airway: (3) Urinary tract infection: Plan The patient is an 89-year-old male with past medical history including recent hospitalization from 05/19-05/23/2025 for rhabdomyolysis, gait apraxia bilaterally, upper airway cough syndrome, SNHL bilaterally, situational depression, Chavarria's esophagus, GERD, hyperlipidemia, scoliosis, and lumbar spinal stenosis. The patient is brought to the emergency department by his son with concerns regarding decreased oral intake, difficulty with coughing when chewing and drinking liquids, and worsening generalized weakness and confusion since recent hospitalization and coughing spells when attempting oral intake admitted for management of Pneumonia . #Aspiration Pneumonia As noted on Chest XRay Son reports that patient has had significant coughing spells when attempting oral intake recently Continue cefepime 2 g IV every 12 hours. Nasal MRSA negative Speech therapy evaluation today #Urinary tract infection- Patient has been on ceftriaxone in the outpatient setting Placed on cefepime as above to cover UTI and pneumonia #Acute Metabolic Encephalopathy -Multifactorial etiology -Likely 2/2 to Aspiration Pneumonia, UTI and recent hospitalization -PT/OT #Abnormal LFTs -Have worsened since recent hospitalization -AST. ALT downtrending -TB: 1.3; DB : 0.6 -GI consultation. Appreciated GI recs. Will trend LFTs Chronic conditions #H/O CVA -Continue aspirin and Clopidogrel #GERD/Hiatal Hernia -Continue Pantoprazole 40mg qAM #Depression -Continue Sertraline 50mg daily DVT prophylaxis: Lovenox CODE: DNR/DNI with no resuscitation Admission and Anticipated Discharge Date Admission Date: June 04, 2025 Supervising Physician Co-Signing Physician Notes Attending attestation Pt seen and examined in concert with Dr. Huang. In agreement with the documented findings as noted in the resident documentation with any exceptions or additions as noted here. Minimal additional history available from patient due to altered mental status. Denies pain on direct inquiry. VS as noted. On examination, S1/S2 nl RRR no MCG. Decreased breath sounds b/l bases. Abd NT/ND BS+ve Pneumonia with concern for aspiration - speech consult - d/c vancomycin, continue cefepime. O2 per protocol, if required. Trend CBC, BMP in AM history of recent UTI - treated with ?ceftriaxone in outpatient, likely covered w/ cefepime Failure to thrive in adult patient - PT/OT recommended when improved lucidity/focus Transaminitis - GI consulted and s/o - improving, likely associated w/ hepatic congestion on previous admission for rhabdomyolysis. Trend LFT in AM. Subjective Patients resting in bed and had been asleep prior to interaction. Upon conversation, patient is not oriented to time, place and person. no acute events or immediate concerns noted. Review of Systems Review of Systems: As per HPI Physical Exam Physical Exam: Constitutional: Elderly male, No acute distress, PILCCOD: Negative HEENT: Atraumatic, Normocephalic, No conjunctival injection CVS: S1 S2 no murmur, Regular Rhythm, no LE edema Respiratory: BL equal air entry with NVBS. Coarse crackles in b/L lung bases No increased work of breathing GI: Soft, Nondistended, Nontender, Normal Bowel sounds + MSK: No gross deformities noted Skin: Warm, Dry, No rashes Neuro: Alert, Oriented to TPP, No Focal deficit Psych: Mood and Affect congruent, Cooperative on exam Results & Data Results & Data Vital Signs (Past 12 Hours) Vital Signs Temp Pulse Pulse Resp BP Pulse Ox O2 Del Method 06/04/25 15:23 80 06/04/25 11:48 37.2 C 79 16 109/68 92 Room Air 06/04/25 11:39 73 06/04/25 11:39 Room Air 06/04/25 08:02 36.6 C 83 16 141/81 H 92 Room Air 06/04/25 04:49 36.6 C 77 18 152/84 H 92 Room Air 06/04/25 04:47 78 06/04/25 04:26 Room Air 06/04/25 04:25 72 18 129/81 92 Room Air
[2025-06-04] MEDS: ONDANSETRON INJ 2 MG/ML 2 ML VIAL IV PRN (20:34)
[2025-06-04] MEDS: ATORVASTATIN 40 MG TAB PO SCH (20:35)
[2025-06-04] MEDS: SERTRALINE HCL 50 MG TABLET PO SCH (20:35)
--- NOTE | 2025-06-05 06:56 | Hospitalist Progress Note ---
Date of Service June 05, 2025 Assessment & Plan Admission and Anticipated Discharge Date Admission Date: June 04, 2025 Results & Data Results & Data Vital Signs (Past 12 Hours) Vital Signs Temp Pulse Pulse Resp BP Pulse Ox O2 Del Method 06/05/25 04:00 36.5 C 77 18 123/70 93 Room Air 06/04/25 22:19 36.3 C L 86 16 137/55 L 94 Room Air 06/04/25 21:42 78 06/04/25 19:32 Room Air 06/04/25 19:30 36.4 C L 81 18 150/77 H 92 Room Air
[2025-06-05 07:27] LABS: Hematocrit (blood only) 32.3 % (42.0-52.0); Hemoglobin 10.9 g/dl (14.0-18.0); Immature Granulocytes # (auto) 0.04 K/uL (0.01-0.20); Immature Granulocytes % (auto) 0.4 %; Mean Corpuscular Hemoglobin 29.5 pg (25.0-34.0); Mean Corpuscular Volume 87.5 fL (80.0-100.0); Platelet Count 195 K/uL (130-400); RDW Standard Deviation 48.1 fL (36.4-46.3); Red Blood Count 3.69 M/uL (4.70-6.10); White Blood Count 9.42 K/ul (4.8-10.8)
[2025-06-05 07:44] LABS: Alanine Aminotransferase 77.0 U/L (7-52); Albumin Globulin Ratio 0.6 (0.9-2); Alkaline Phosphatase 575.0 U/L (34-104); Anion Gap 5.0 (3-11); Bilirubin,Total 1.3 mg/dl (0.2-1.0); Blood Urea Nitrogen 14.0 mg/dl (6-23); Calcium 9.2 mg/dl (8.6-10.3); Carbon Dioxide 27.0 mmol/L (21-32); Chloride 101.0 mmol/L (98-107); Creatine Kinase 17.0 U/L (30-223); Creatinine Clr Calc Pharmacy 73.6 ml/min; Globulin 4.1 gm/dl (2.5-4.0); Glucose 83.0 mg/dl (70-99(Fasting)); Magnesium 2.1 mg/dl (1.7-2.4); Potassium 4.0 mmol/L (3.5-5.1); Sodium 133.0 mmol/L (136-145); Total Protein 6.7 gm/dl (6.0-8.3)
--- NOTE | 2025-06-05 08:05 | Electrocardiogram Report ---
Test Reason : Blood Pressure : */* mmHG Vent. Rate : 95 BPM Atrial Rate : 73 BPM P-R Int : 228 ms QRS Dur : 136 ms QT Int : 402 ms P-R-T Axes : -10 -19 -6 degrees QTcB Int : 505 ms Sinus rhythm with marked sinus arrhythmia with 1st degree A-V block with premature atrial contraction Right bundle branch block Possible Inferior infarct , age undetermined Abnormal ECG When compared with ECG of 19-May-2025 11:40, Premature atrial complexes Present Minimal criteria for Septal infarct are no longer Present Questionable change in QRS axis Confirmed by Chanda Garcia (Jeremy) on 06/05/2025 8:05:31 AM Referred By: REFERRED SELF Confirmed By: Chanda Garcia
--- NOTE | 2025-06-05 09:29 | Hospitalist Progress Note ---
Date of Service June 05, 2025 Assessment & Plan (1) Metabolic encephalopathy: (2) Elevated LFTs: (3) Urinary tract infection: Plan This patient is an 89-year-old male with H/O recent hospitalization from 05/19- 05/23/2025 for rhabdomyolysis and fall, gait apraxia, upper airway cough syndrome, SNHL bilaterally, situational depression, Chavarria's esophagus, GERD, hyperlipidemia, scoliosis, lumbar spinal stenosis, and CVA as well as spontaneous SAH who was admitted with increased confusion, decreased oral intake, and cough with oral intake #Acute encephalopathy-patient with ongoing possible choledocholithiasis leading to encephalopathy but acutely worsened by taking tramadol on the evening of 06/04. Lethargic all day and barely waking up to eat or drink - Start low-dose maintenance fluids with D5 LR at 50 mL/h - Workup for elevated LFTs as below - Discontinue tramadol - Supportive care - Checked head CT-negative for acute on 06/05 - Follow CBC, BMP #Elevated LFTs-AST ALT and alkaline phosphatase have been elevated since 04/14 and now worsening this admission, but total bilirubin more recently elevated just in the last few days. He has no abdominal pain or tenderness but is a bit encephalopathic. CT abdomen/pelvis with no abnormalities consistent with cholecystitis or choledocholithiasis or biliary dilatation. LFTs remain elevated with no other explanation - Check MRCP-shows possible obstruction in CBD-plan for ERCP on 06/06 as discussed with GI - Follow LFTs in the a.m. - Continue cefepime to cover for biliary disease -Hold atorvastatin #Aspiration Pneumonia-suspected on admission but doubtful. Is requiring some supplemental O2 while lethargic and has some small pleural effusions likely from volume overload from recent hospitalization treated with IV fluids for rhabdomyolysis. Son does report coughing spells with recent oral intake while encephalopathic. CXR with possible pneumonia versus atelectasis with effusions - Okay to continue cefepime for now -Consult speech therapy #UTI-patient diagnosed with UTI at the [facility] prior to admission and was given 1 dose of ceftriaxone in the outpatient setting prior to arrival. UA here not consistent with infection - Will track down urine culture from outside facility -Continue cefepime #Generalized weakness/debilitation- Treat underlying causes as above Consult PT/OT #GERD-no acute issues - Continue PPI #Depression-no acute issues - Continue home sertraline DVT prophylaxis-heparin SQ-placed on hold for ERCP Dispo-continued stay on medical floor with telemetry. Discussed all care with son at length at the bedside and again later on the phone on 06/05 Admission and Anticipated Discharge Date Admission Date: June 04, 2025 Subjective Patient received a dose of tramadol last evening which his son reports he hardly ever takes. Since that time he has been very lethargic/drowsy and has not eaten or drank. When I shouted his name, he did open his eyes a few times and smiled at me. He did not know where he was and asked where everybody was even though his son was sitting next to him at the bedside. The patient denies abdominal pains. I discussed his case with GI. Telemetry with normal sinus rhythm with rates in the 70s to 80s Physical Exam Constitutional: WD/WN, vitals as above Eyes: PERRL, conjunctivae normal, anicteric sclerae Respiratory: normal respiratory effort, lungs clear to auscultation Cardiovascular: RRR, no murmur, no edema Gastrointestinal (Abdomen): normal bowel sounds, soft, nontender, no hepatosplenomegaly Neurologic: Able to grab the side of the hospital bed and help pull himself up to a sitting position Psychiatric: Orientation: + not alert and + not oriented x 3 Results & Data Results & Data Vital Signs (Past 12 Hours) Vital Signs Temp Pulse Pulse Resp BP Pulse Ox O2 Del Method 06/05/25 08:45 36.4 C L 81 17 127/76 92 Nasal Cannula 06/05/25 07:37 71 06/05/25 04:00 36.5 C 77 18 123/70 93 Room Air 06/04/25 22:19 36.3 C L 86 16 137/55 L 94 Room Air 06/04/25 21:42 78 O2 Flow Rate 06/05/25 08:45 2 06/05/25 07:37 06/05/25 04:00 06/04/25 22:19 06/04/25 21:42 Laboratory Results CBC, BMP, LFTs, CK, urine culture reviewed PG Care Time/CCT Total # of Minutes Spent Total Time Spent with Patient: Total time spent is greater than 50% in coordination of care (as documented) at patient's floor/unit and/or counseling patient: Coding Level of Care Code 35731 SUB INP/OBS CARE 50MIN Diagnoses Metabolic encephalopathy G93.41 Elevated LFTs R79.89 Urinary tract infection N39.0
--- NOTE | 2025-06-05 10:21 | CT Scan Report ---
CT head/brain wo con CLINICAL HISTORY: 89 years-old Male with confusion, recent fall,r/o ICH. Acutely altered mental stat us. Head injury with recent fall TECHNIQUE: Multiple axial CT images of the head were obtained without contrast. A dose lowering tech nique was utilized adhering to the principles of ALARA. CT DOSE: 688.24 mGy.cm COMPARISON: Head CT 05/19/2025 FINDINGS: No acute intracranial hemorrhage, midline shift, intracranial mass, hydrocephalus, territorial ischem ia or abnormal extra-axial collection. Involutional changes with chronic microvascular ischemic disea se. Chronic cerebral infarcts redemonstrated within septal malacia, most pronounced within the right parieto-occipital lobes and left cerebellum. Chronic lacunar infarcts of the left basal ganglia. The calvarium is intact. The paranasal sinuses, mastoid air cells, and middle ear cavities are clear . IMPRESSION: 1. No acute intracranial abnormality or calvarial fracture. 2. Chronic findings as above. ACT 112: Negative or not required by law. The above report was generated using voice recognition software. It may contain grammatical, syntax o r spelling errors. Electronically signed by: Vinod Saeed M.D. 06/05/2025 10:19 AM
--- NOTE | 2025-06-05 15:21 | Magnetic Resonance Report ---
MR MRCP CLINICAL HISTORY: elevated LFTs COMPARISON STUDY: CT of 06/03/2025 FINDINGS: There is motion artifact. Common bile duct measures 11 mm maximal diameter distally, mildly dilated. There is a blunt interface at the distal common bile duct which is atypical. This could rep resent an impacted stone just above the ampulla or stricture or anatomic variant. Otherwise no common bile duct stone seen. Gallbladder is mildly distended with no gallstones seen. IMPRESSION: Mild dilatation of the common bile duct with blunt interface distally. Differential diag nosis includes anatomic variant, stricture, or impacted stone. ACT 112: Negative or not required by law. Electronically signed by: Vidal Razo M.D. 06/05/2025 3:19 PM
--- NOTE | 2025-06-05 16:35 | Communication Note ---
Date of Service: June 05, 2025 MRCP results noted. Will discuss with Dr. Montes De Oca about ERCP
--- NOTE | 2025-06-05 16:37 | Communication Note ---
Date of Service: June 05, [address] Montes De Oca. Will consider doing ERCP tomorrow if all agree. Will hold NPO in case
[2025-06-05] MEDS: D5W AND 1/2NSS 1,000 ML IV SCH (17:28)
[2025-06-05] MEDS: OLANZAPINE 2.5 MG TAB PO STA (21:34)
[2025-06-06 08:09] LABS: Hematocrit (blood only) 34.1 % (42.0-52.0); Hemoglobin 11.0 g/dl (14.0-18.0); Immature Granulocytes # (auto) 0.06 K/uL (0.01-0.20); Immature Granulocytes % (auto) 0.6 %; Mean Corpuscular Hemoglobin 28.6 pg (25.0-34.0); Mean Corpuscular Volume 88.6 fL (80.0-100.0); Platelet Count 264 K/uL (130-400); RDW Standard Deviation 47.4 fL (36.4-46.3); Red Blood Count 3.85 M/uL (4.70-6.10); White Blood Count 9.26 K/ul (4.8-10.8)
[2025-06-06 08:10] LABS: Alanine Aminotransferase 81.0 U/L (7-52); Albumin Globulin Ratio 0.6 (0.9-2); Alkaline Phosphatase 682.0 U/L (34-104); Anion Gap 6.0 (3-11); Bilirubin,Total 1.7 mg/dl (0.2-1.0); Blood Urea Nitrogen 11.0 mg/dl (6-23); Calcium 9.6 mg/dl (8.6-10.3); Carbon Dioxide 28.0 mmol/L (21-32); Chloride 99.0 mmol/L (98-107); Creatinine Clr Calc Pharmacy 81.1 ml/min; Globulin 4.9 gm/dl (2.5-4.0); Glucose 98.0 mg/dl (70-99(Fasting)); INR 1.1 (0.9-1.1); Lipase 82.0 U/L (11-82); Magnesium 2.0 mg/dl (1.7-2.4); Potassium 3.6 mmol/L (3.5-5.1); Prothrombin Time 11.5 Seconds (9.0-12.0); Sodium 133.0 mmol/L (136-145); Total Protein 7.9 gm/dl (6.0-8.3)
--- NOTE | 2025-06-06 09:18 | History & Physical Bridge Note ---
Date of Service June 06, 2025 History & Physical Bridge Note I have examined the patient, reviewed the History & Physical and in the interval since the performance of the History & Physical I have noted the following changes of clinical significance: no changes noted Patient seen today for plans of ERCP. Patient awakens to verbal stimuli. Has orders for NPO, Indomethacin and IV antibiotics. Plan to f/u with ERCP later this afternoon. Call with any concerns. Supervising Physician Co-Signing Physician Notes Patient sedated. Was agitated over the evening. Currently afebrile. Abdomen benign. Labs look good. Platelet count normal INR normal lipase currently normal. Alk phos and bilirubin have increased. Concern for biliary obstruction. ERCP today. Consent obtained from daughter Kamilah, risks include and were discussed bleeding perforation and pancreatitis. Informed consent obtained. Daughter expresses concerns in regards to postanesthesia memory issues. Can review further with anesthesiologist preprocedure.
--- NOTE | 2025-06-06 13:54 | Anesthesiology Consultation ---
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 initiated Consults Requested none History Surgery Operation Date: 06/06/25 08:20 Proposed Procedures p Endoscopic Retrograde Cholangiopancreatogram - Reagan Montes De Oca MD Height/Weight Height: 6 ft 1 in Weight: 79 kg Allergies Allergy/AdvReac Type Severity Reaction Status Date / Time No Known Drug Allergies Allergy Verified 05/16/25 12:55 Medications Home Medications Medication Instructions Recorded Confirmed Last Taken aspirin 81 mg tablet,delayed 81 mg PO QAM 08/24/18 06/03/25 06/03/25 08:00 release atorvastatin 40 mg tablet 40 mg PO HS #90 tabs 11/11/24 06/03/25 06/02/25 pantoprazole 40 mg tablet,delayed 40 mg PO QAM #90 tabs 11/11/24 06/03/25 06/03/25 08:00 release guaifenesin 600 mg tablet, 600 mg PO Q12H PRN Congestion 05/19/25 06/03/25 Unknown extended release 12 hr (Mucinex) ceftriaxone 1 gram solution for 1 g IM DAILY 06/03/25 06/03/25 06/03/25 injection multivitamin 1 tab PO HS 06/03/25 06/03/25 06/02/25 sertraline 50 mg tablet 50 mg PO HS 06/03/25 06/03/25 06/02/25 tramadol 50 mg tablet 50 mg PO Q8H PRN MOD-SEVERE 06/03/25 06/03/25 Unknown PAIN/LEVEL 6-10 Active Medications Generic Name Dose Route Start Last Admin Trade Name Chema PRN Reason Stop Dose Admin Aspirin 81 mg 06/04/25 09:00 06/05/25 13:10 Aspirin 81 Mg Ectab PO 07/04/25 08:59 Not Given QAM HODA Atorvastatin Calcium 40 mg 06/04/25 21:00 06/04/25 20:35 Atorvastatin 40 Mg Tab PO 07/04/25 20:59 40 mg HS HODA Administration Heparin Sodium (Porcine) 5,000 units 06/04/25 09:00 06/05/25 07:59 Heparin Sod 5,000 Unit/0.5 Ml Vial SQ 07/04/25 08:59 5,000 units Q12 HODA Administration Cefepime HCl 2,000 mg in 20 mls @ 5 mls/min 06/04/25 06:00 06/06/25 06:02 Maxipime 2000mg IV 06/11/25 05:59 5 mls/min Q8H HODA Administration Protocol Ondansetron HCl 4 mg 06/04/25 04:57 06/04/25 20:34 Ondansetron Inj 2 Mg/Ml 2 Ml Vial IV 07/04/25 04:56 4 mg Q6H PRN Administration Nausea Pantoprazole Sodium 40 mg 06/04/25 09:00 06/06/25 10:15 Pantoprazole 40 Mg Tab PO 07/04/25 08:59 40 mg QAM HODA Administration Sertraline HCl 50 mg 06/04/25 21:00 06/05/25 21:38 Sertraline Hcl 50 Mg Tablet PO 07/04/25 20:59 Not Given HS HODA Past Medical History Medical History Spinal stenosis of lumbar region Scoliosis Upper airway cough syndrome Right bundle branch block Sensorineural hearing loss of both ears History of stroke Enlarged prostate Deviated nasal septum Ex-smoker Pneumothorax, right Depression 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 GERD (gastroesophageal reflux disease) Thyroid goiter BIOPSY DONE "NORMAL" Past Family History Family History Father Family hx of colon cancer Colorectal cancer Other No family history of adverse response to anesthesia No family history of bleeding disorder Denies family history of Ovarian cancer Prostate cancer Diabetes Myocardial infarction Breast cancer Lung cancer Stroke Past Surgical History Surgical History History of melanoma excision off lip History of Mohs micrographic surgery for skin cancer History of appendectomy History of anesthesia reaction SLOW TO WAKE UP AND "GOES UNDER QUICKLY" History of knee surgery RT History of herniorrhaphy bilateral History of esophagogastroduodenoscopy (EGD) History of colonoscopy History of tooth extraction History of tonsillectomy History of adenoidectomy History of cataract surgery bilt History of lung surgery UPPER RT LOBECTOMY (NO CHEMO) Social History Smoking Status: Former smoker tobacco type: cigarettes Smoking cigarettes per day: QUIT AT AGE 36 Do You Dip or Chew Tobacco: No Hx Alcohol Use: No Alcohol type: wine alcohol intake frequency: 0-2 drinks per day Hx Substance Use: No substance use type: does not use Physical Exam Vital Signs Last Vital Signs Temp 36.6 C 06/06/25 11:50 Pulse 63 06/06/25 11:50 Resp 18 06/06/25 11:50 BP 146/73 H 06/06/25 11:50 Pulse Ox 91 06/06/25 11:50 O2 Del Method Room Air 06/06/25 11:50 O2 Flow Rate 2 06/06/25 03:40 Testing Laboratory Results 06/06/25 07:03 06/06/25 07:03 PT 11.5 Seconds (9.0-12.0) 06/06/25 07:03 INR 1.1 (0.9-1.1) 06/06/25 07:03 Urine Color Dark Yellow 06/03/25 21:39 Urine Appearance Turbid (Clear) A 06/03/25 21:39 Urine pH 6.0 (4.5-7.5) 06/03/25 21:39 Ur Specific [place] > 1.045 (1.000-1.030) H 06/03/25 21:39 Urine Protein Trace (Negative) H 06/03/25 21:39 Urine Glucose (UA) Negative (Negative) 06/03/25 21:39 Urine Ketones Negative (Negative) 06/03/25 21:39 Urine Nitrite Negative (Negative) 06/03/25 21:39 Ur Leukocyte Esterase Trace (Negative) H 06/03/25 21:39 Urine WBC (Auto) 0-5 /hpf (0-5) 06/03/25 21:39 Urine RBC (Auto) 3-5 /hpf (0-2) H 06/03/25 21:39 U Hyaline Cast (Auto) 3-5 /lpf (0-2) H 06/03/25 21:39 U Epithel Cells (Auto) 0-2 /hpf (0-2) 06/03/25 21:39 Urine Bacteria (Auto) None Seen (None Seen) 06/03/25 21:39 Electrocardiogram Date: 06/03/25 Sinus rhythm with marked sinus arrhythmia with 1st degree A-V block with premature atrial contraction Right bundle branch block Possible Inferior infarct , age undetermined Abnormal ECG When compared with ECG of 19-May-2025 11:40, Premature atrial complexes Present Minimal criteria for Septal infarct are no longer Present Questionable change in QRS axis Confirmed by Chanda Garcia ([id number]) on 06/05/2025 8:05:31 AM
[2025-06-06] MEDS: INDOMETHACIN 50 MG SUPP PR ONE ×2 (14:00→19:23)
[2025-06-06] MEDS: LACTATED RINGER'S 1,000 ML IV SCH (14:55)
[2025-06-06] MEDS ORDERED: ATROPINE SULFATE 0.1 MG/ML 10ML SYR IV PRN (15:46)
[2025-06-06] MEDS ORDERED: ONDANSETRON INJ 2 MG/ML 2 ML VIAL IV PRN (15:46)
[2025-06-06] MEDS ORDERED: DEXAMETHASONE SOD INJ 4 MG/ML VIAL ONE (15:47)
[2025-06-06] MEDS ORDERED: ROCURONIUM BROMIDE 10 MG/ML 5 ML VIAL IV ONE (15:47)
[2025-06-06] MEDS ORDERED: ONDANSETRON INJ 2 MG/ML 2 ML VIAL ONE (15:47)
[2025-06-06] MEDS ORDERED: GLYCOPYRROLATE 0.2 MG/ML VIAL ONE (15:47)
[2025-06-06] MEDS ORDERED: LIDOCAINE 2% 2 ML VIAL/AMP(20MG/ML) INFIL ONE (15:47)
[2025-06-06] MEDS ORDERED: PROPOFOL IV EMULSION 10 MG/ML 20 ML VIAL IV ONE (15:47)
[2025-06-06] MEDS ORDERED: SUGAMMADEX SODIUM 200 MG/2 ML VIAL IV ONE (15:51)
--- NOTE | 2025-06-06 17:16 | Communication Note ---
Date of Service: June 06, 2025 ERCP Abnormal appearing adenomatous neoplastic ampullary orifice. Abrupt cut off of the most distal bile duct. Questionable filling defect. Difficult to pass the catheter through this area. Brushings were performed of the ampullary orifice distal bile duct. Due to the obstruction need for stenting and tight orifice a biliary sphincterotomy was undertaken. A 10 [place] Islander 6 cm biliary stent was placed with good biliary drainage. Low insertion of the cystic duct. Distal common bile duct obstruction without filling defect. Suspicious for neoplasm. Brushings and biopsies performed of the distal bile duct and ampulla. Await biopsies.
--- NOTE | 2025-06-06 17:22 | GI REPORT ---
[facility] Patient: CHACHA VERMA : 1935 Sex at : Male Age: 89 Years Procedure: ERCP Date: 06/06/2025 Attending Physician: Reagan Montes De Oca MD Referring MD: Ratna Ramsey Md Indications: - Abrupt cut off distal bile duct, stone versus neoplasm Medications: - Indomethacin 100 mg AL Complications: - No immediate complications. Estimated Blood Loss: - Estimated blood loss was minimal. Procedure: - The ercp scope was introduced through the mouth and advanced to the duodenum and used to inject contrast into the bile duct. - The ERCP was accomplished without difficulty. - The patient tolerated the procedure well. Findings: - The french translator film was normal. - Good biliary decompression post procedure. The bile duct was deeply cannulated. Contrast was injected. I personally interpreted the bile duct images. Image quality was adequate. The main bile duct was moderately dilated, secondary to a stricture. The largest diameter was 11mm. The biliary pancreatic junction contained a single moderate stenosis 1 mm in length. Relative resistance on passing even irregular catheter through this area. Passing the brushing catheter even more difficult. Brushings were performed the distal bile duct and ampullary orifice. Patient needed stenting I did not feel a 10 German would adequately pass through the strictured area therefore a biliary sphincterotomy was undertaken. 10 German 6 cm plastic stent placed in the common bile duct with good drainage. Biopsies then performed of the ampullary orifice x 5. 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 The stricture was indeterminate. - The entire main bile duct was moderately dilated, secondary to a stricture. - A biliary tract obstruction secondary to a stricture was found in the biliary pancreatic junction. This was sampled by brushing and biopsied. The biliary obstruction was treated with biliary sphincterotomy and 10 German stent placement. Recommendation: - Await brushings and biopsies. Recheck LFTs and pancreas test in the morning. Clear fluids till then. Procedure Code(s): - 66358, Endoscopic retrograde cholangiopancreatography (ERCP); diagnostic, including collection of specimen(s) by brushing or washing, when performed (separate procedure) - 43071, Endoscopic catheterization of the biliary ductal system, radiological supervision and interpretation Diagnosis Code(s): - K83.1, Obstruction of bile duct CPT(R) - 2023 copyright [employer]. All Rights Reserved. The CPT codes, CCI edits and ICD codes generated are intended as suggestions and were generated based on input data. These codes are preliminary and upon erosion control specialist review may be revised to meet current compliance and payer requirements. The provider is responsible for the final determination of appropriate codes, and modifiers. Reagan Montes De Oca MD This document has been electronically signed. Note Initiated:06/06/2025 Note Completed:06/06/2025 5:21 PM [id number]
--- NOTE | 2025-06-06 18:53 | Anesthesiology Progress Note ---
Date of Service June 06, 2025 Anesthesia Post Procedure Vital Signs Vital Signs: Temp Pulse Pulse Pulse Resp BP BP 06/06/25 18:25 97.7 F 78 16 133/78 06/06/25 18:05 97.7 F 85 15 146/80 H 06/06/25 17:55 82 14 151/83 H 06/06/25 17:45 83 13 141/77 H 06/06/25 17:35 84 13 145/74 H 06/06/25 17:25 97.0 F L 86 12 140/73 06/06/25 14:56 99.1 F 66 20 167/82 H 06/06/25 11:50 97.9 F 63 18 146/73 H 06/06/25 08:25 84 06/06/25 07:38 98.1 F 69 24 164/76 H 06/06/25 03:40 97.7 F 76 20 168/77 H 06/05/25 22:16 97.9 F 102 H 20 162/78 H 06/05/25 22:12 81 06/05/25 19:42 97.7 F 83 18 158/80 H Pulse Ox O2 Del Method O2 Flow Rate 06/06/25 18:25 95 Oxymask 2 06/06/25 18:05 96 Oxymask 2 06/06/25 17:55 92 Room Air 06/06/25 17:45 96 Oxymask 4 06/06/25 17:35 97 Oxymask 4 06/06/25 17:25 97 Oxymask 4 06/06/25 14:56 94 Room Air 06/06/25 11:50 91 Room Air 06/06/25 08:25 06/06/25 07:38 90 Room Air 06/06/25 03:40 95 Nasal Cannula 2 06/05/25 22:16 96 Room Air 06/05/25 22:12 06/05/25 19:42 94 Nasal Cannula 2 Pain Intensity Bilateral Back: Pain Intensity: 6 Transfer of Care Handoff Completed per policy Notes Mental Status: see notes below Patient Amnestic to Procedure: Yes Nausea / Vomiting: adequately controlled Pain: adequately controlled Airway Patency, RR, SpO2: stable & adequate BP & HR: stable & adequate Hydration State: stable & adequate Anesthetic Complications: no major complications apparent and Pt Satisfied with anesthetic care Notes: patient mental status remains altered does not respond to questions similar to preop baseline.
--- NOTE | 2025-06-06 20:10 | Hospitalist Progress Note ---
Date of Service June 06, 2025 Assessment & Plan (1) Bile duct obstruction: (2) Elevated LFTs: (3) Metabolic encephalopathy: (4) Urinary tract infection: Plan This patient is an 89-year-old male with H/O recent hospitalization from 05/19- 05/23/2025 for rhabdomyolysis and fall, gait apraxia, upper airway cough syndrome, SNHL bilaterally, situational depression, Chavarria's esophagus, GERD, hyperlipidemia, scoliosis, lumbar spinal stenosis, and CVA as well as spontaneous SAH who was admitted with increased confusion, decreased oral intake, and cough with oral intake. Found to have elevated LFTs and was being treated for UTI at SNF prior to arrival. #Acute encephalopathy-patient with ongoing possible choledocholithiasis leading to encephalopathy but acutely worsened by taking tramadol on the evening of 06/04. Lethargic all day and barely waking up to eat or drink. Was given IVFs for maintenance. CT head negative for acute on 06/05. He then had a combative episode overnight 06/05 and received IM Zyprexa. Improved through the day on 06/06 and now s/p ERCP with CBD dilation and stent placement for stricture -monitor for improvement now that bile duct obstruction relieved -may not need ongoing abx for UTI as urine cx now negative - Discontinued tramadol - Supportive care #Elevated LFTs/bile duct obstruction-AST ALT and alkaline phosphatase have been elevated since 04/14 and now worsening this admission, but total bilirubin more recently elevated just in the last few days. He has no abdominal pain or tenderness but is a bit encephalopathic. NH3 normal. CT abdomen/pelvis with no abnormalities consistent with cholecystitis or choledocholithiasis or biliary dilatation. LFTs remain elevated with no other explanation. MRCP-shows possible obstruction in CBD-now s/p ERCP on 06/06 with CBD stricture and possible malig amadeo found-sphincterotomy performed and stent placed, biopsies taken - Follow LFTs, lipase in the a.m. - Continue cefepime to cover for biliary disease but can likely be stopped as no other signs of infection -Hold atorvastatin -clear liquids only -hold aspirin due to stent placement and sphincterotomy -f/u path and cytology when available #Aspiration Pneumonia-suspected on admission but doubtful. Is requiring some supplemental O2 while lethargic and has some small pleural effusions likely from volume overload from recent hospitalization treated with IV fluids for rhabdomyolysis. Son does report coughing spells with recent oral intake while encephalopathic. CXR with possible pneumonia versus atelectasis with effusions - Okay to continue cefepime for now -Consult speech therapy appreciated-will need VFSS once more awake #UTI-patient diagnosed with UTI at the SNF prior to admission and was given 1 dose of ceftriaxone in the outpatient setting prior to arrival. UA here not consistent with infection and urine cx negative -Continue cefepime for above but not needed for UTI #Generalized weakness/debilitation- Treat underlying causes as above Consult PT/OT #GERD-no acute issues - Continue PPI #Depression-no acute issues - Continue home sertraline DVT prophylaxis-heparin SQ-placed on hold for ERCP Dispo-continued staybut can downgrade to med/surg. Discussed all care with son on the phone on 06/06 Admission and Anticipated Discharge Date Admission Date: June 04, 2025 Subjective Pt seen after return from ERCP and was lethargic, sleeping-he did briefly open his eyes when I said his name but fell back asleep. 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 I discussed his care with GI as well as with his son, Talat, on the phone. Physical Exam Constitutional: WD/WN, vitals as above Respiratory: normal respiratory effort, lungs clear to auscultation Cardiovascular: RRR, no murmur, no edema Gastrointestinal (Abdomen): normal bowel sounds, soft, nontender, no hepatosplenomegaly Psychiatric: Orientation: + not alert and + not oriented x 3 Results & Data Results & Data Vital Signs (Past 12 Hours) Vital Signs Temp Pulse Pulse Pulse Resp BP BP 06/06/25 18:25 36.5 C 78 16 133/78 06/06/25 18:05 36.5 C 85 15 146/80 H 06/06/25 17:55 82 14 151/83 H 06/06/25 17:45 83 13 141/77 H 06/06/25 17:35 84 13 145/74 H 06/06/25 17:25 36.1 C L 86 12 140/73 06/06/25 14:56 37.3 C 66 20 167/82 H 06/06/25 11:50 36.6 C 63 18 146/73 H 06/06/25 08:25 84 Pulse Ox O2 Del Method O2 Flow Rate 06/06/25 18:25 95 Oxymask 2 06/06/25 18:05 96 Oxymask 2 06/06/25 17:55 92 Room Air 06/06/25 17:45 96 Oxymask 4 06/06/25 17:35 97 Oxymask 4 06/06/25 17:25 97 Oxymask 4 06/06/25 14:56 94 Room Air 06/06/25 11:50 91 Room Air 06/06/25 08:25 Laboratory Results CBC, CMP, lipase reviewed, urine cx reviewed PG Care Time/CCT Total # of Minutes Spent Total Time Spent with Patient: Total time spent is greater than 50% in coordination of care (as documented) at patient's floor/unit and/or counseling patient: Coding Level of Care Code 68050 SUB INP/OBS CARE 3/50MIN Diagnoses Bile duct obstruction K83.1 Elevated LFTs R79.89 Metabolic encephalopathy G93.41 Urinary tract infection N39.0
[2025-06-07 07:37] LABS: Hematocrit (blood only) 31.4 % (42.0-52.0); Hemoglobin 10.7 g/dl (14.0-18.0); Immature Granulocytes # (auto) 0.03 K/uL (0.01-0.20); Immature Granulocytes % (auto) 0.3 %; Mean Corpuscular Hemoglobin 29.8 pg (25.0-34.0); Mean Corpuscular Volume 87.5 fL (80.0-100.0); Platelet Count 224 K/uL (130-400); RDW Standard Deviation 47.4 fL (36.4-46.3); Red Blood Count 3.59 M/uL (4.70-6.10); White Blood Count 8.90 K/ul (4.8-10.8)
[2025-06-07 08:05] LABS: Alanine Aminotransferase 58.0 U/L (7-52); Albumin Globulin Ratio 0.6 (0.9-2); Alkaline Phosphatase 520.0 U/L (34-104); Anion Gap 5.0 (3-11); Bilirubin,Total 1.1 mg/dl (0.2-1.0); Blood Urea Nitrogen 19.0 mg/dl (6-23); Calcium 9.2 mg/dl (8.6-10.3); Carbon Dioxide 28.0 mmol/L (21-32); Chloride 104.0 mmol/L (98-107); Creatinine Clr Calc Pharmacy 77.7 ml/min; Globulin 4.2 gm/dl (2.5-4.0); Glucose 126.0 mg/dl (70-99(Fasting)); Lipase 14.0 U/L (11-82); Magnesium 2.2 mg/dl (1.7-2.4); Potassium 4.6 mmol/L (3.5-5.1); Sodium 137.0 mmol/L (136-145); Total Protein 6.6 gm/dl (6.0-8.3)
--- NOTE | 2025-06-07 08:30 | Fluoroscopy Report ---
[place] ERCP biliary ductal CLINICAL HISTORY: ERCP COMPARISON STUDY: 06/05/2025 FLUOROSCOPY TIME: 1 minute 3 seconds FLUOROSCOPY IMAGES: 7 EXPOSURE DOSE: 13 mGy FINDINGS: Fluoroscopy was provided for ERCP. Endoscope is present at the upper abdomen and the common bile duct is cannulated with contrast injected. There is a stricture distally of the common bile lo t. Stent is present on the final image. IMPRESSION: Fluoroscopy for ERCP. ACT 112: Negative or not required by law. Electronically signed by: Vidal Razo M.D. 06/07/2025 8:29 AM
--- NOTE | 2025-06-07 10:57 | Hospitalist Progress Note ---
Date of Service June 07, 2025 Assessment & Plan (1) Bile duct obstruction: (2) Elevated LFTs: (3) Metabolic encephalopathy: (4) Urinary tract infection: Plan This patient is an 89-year-old male with H/O recent hospitalization from 05/19- 05/23/2025 for rhabdomyolysis and fall, gait apraxia, upper airway cough syndrome, SNHL bilaterally, situational depression, Chavarria's esophagus, GERD, hyperlipidemia, scoliosis, lumbar spinal stenosis, and CVA as well as spontaneous SAH who was admitted with increased confusion, decreased oral intake, and cough with oral intake. Found to have elevated LFTs and was being treated for UTI at SNF prior to arrival. #Acute encephalopathy-patient with bile duct obstruction leading to encephalopathy but acutely worsened by taking tramadol on the evening of 06/04. Lethargic all day and barely waking up to eat or drink. Was given IVFs for maintenance. CT head negative for acute on 06/05. He then had a combative episode overnight 06/05 and received IM Zyprexa. Improved through the day on 06/06 and now s/p ERCP with CBD dilation and stent placement for stricture. Now mentation significantly improved-is awake, oriented to person and hospital, better. -continue to monitor for improvement now that bile duct obstruction relieved -does not need ongoing abx for UTI as urine cx now negative-will check with GI to see if needs to remain on Cefepime for GI related issue - Discontinued tramadol permanently and this should not be continued on discharge med list - Supportive care #Elevated LFTs/bile duct obstruction-AST ALT and alkaline phosphatase have been elevated since 04/14 and now worsening this admission, but total bilirubin more recently elevated just in the last few days prior to admission. He has no abdominal pain or tenderness but was encephalopathic. NH3 normal. CT abdomen/pelvis with no abnormalities consistent with cholecystitis or choledocholithiasis or biliary dilatation. LFTs remained elevated with no other explanation. MRCP-shows possible obstruction in CBD-now s/p ERCP on 06/06 with CBD stricture and possible malignancy found-sphincterotomy performed and stent placed, biopsies taken. LFTs already trending downward and is much improved. Lipase had been mildly elevated and now normal - Follow LFTs in the a.m. -likely will dc Cefepime today as no evidence of cholangitis -continue to hold atorvastatin -defer to GI on advancement of diet today -continue hold aspirin due to stent placement and sphincterotomy -f/u path and cytology when available #Aspiration Pneumonia-suspected on admission but doubtful. Was requiring some supplemental O2 while lethargic and has some small pleural effusions likely from volume overload from recent hospitalization treated with IV fluids for rhabdomyolysis. Now weaned off O2 since he is alert/awake. Son does report coughing spells with recent oral intake while encephalopathic. CXR with possible pneumonia versus atelectasis with effusions -will dc Cefepime -Consult speech therapy appreciated-will need VFSS likely-reached out to Speech tx 06/07 #UTI-patient diagnosed with UTI at the SNF prior to admission and was given 1 dose of ceftriaxone in the outpatient setting prior to arrival. UA here not consistent with infection and urine cx negative -no abx needed for UTI #Generalized weakness/debilitation- Treat underlying causes as above Consult PT/OT #GERD-no acute issues - Continue PPI #Depression-no acute issues - Continue home sertraline DVT prophylaxis-heparin SQ-placed on hold for ERCP and will check with GI when ok to resume Dispo-continued stay med/surg. Discussed all care with daughter Dee at bedside 06/07 Admission and Anticipated Discharge Date Admission Date: June 04, 2025 Subjective Pt much more awake and alert today. Very hard of hearing and confused but cooperative. Thinks I am his daughter. Says "I have to pee." Denies abd pain. Daughter Dee at the bedside and I discussed his care with her. She is concerned about his BUN/parcel post weigher ratio being flagged as high and says her brother is worried this means a GI bleed is occurring-I assured her I was not concerned about it and there is no evidence of GI bleeding. Physical Exam Constitutional: WD/WN, vitals as above Respiratory: normal respiratory effort, lungs clear to auscultation Cardiovascular: RRR, no murmur, no edema Gastrointestinal (Abdomen): normal bowel sounds, soft, nontender, no hepatosplenomegaly Psychiatric: Orientation: alert, oriented to person, oriented to place and cooperative; + not oriented to time Results & Data Results & Data Vital Signs (Past 12 Hours) Vital Signs Temp Pulse Resp BP Pulse Ox O2 Del Method 06/07/25 08:05 36.3 C L 72 17 171/92 H 92 Room Air 06/07/25 03:00 36.4 C L 76 16 169/87 H 91 Room Air Laboratory Results CBC, CMP, lipase reviewed PG Care Time/CCT Total # of Minutes Spent Total Time Spent with Patient: Total time spent is greater than 50% in coordination of care (as documented) at patient's floor/unit and/or counseling patient: Coding Level of Care Code 40615 SUB INP/OBS CARE 3/50MIN Diagnoses Bile duct obstruction K83.1 Elevated LFTs R79.89 Metabolic encephalopathy G93.41 Urinary tract infection N39.0
--- NOTE | 2025-06-07 11:29 | Gastroenterology Progress Note ---
Date of Service June 07, 2025 Assessment & Plan (1) Bile duct obstruction: (2) Elevated LFTs: Plan This patient is an 89-year-old male with H/O recent hospitalization from 05/19- 05/23/2025 for rhabdomyolysis and fall, gait apraxia, upper airway cough syndrome, SNHL bilaterally, situational depression, Chavarria's esophagus, GERD, hyperlipidemia, scoliosis, lumbar spinal stenosis, and CVA as well as spontaneous SAH who was admitted with increased confusion, decreased oral inta ke, and cough with oral intake. Found to have elevated LFTs and was being treated for UTI at SNF prior to arrival. (1) Elevated LFTs with Abnormal MRCP s/p ERCP 06/06/25 - Reviewed findings ERCP. Await pathology. - May advance diet as tolerated with Lipase being normal. - May restart ASA and SQ Heparin this evening (> 24hr after procedure). Please notify of any signs of GI bleeding. H/H stable this morning. - Further recommendations to come with Supervising GI provider on medical rounds. Please see co-signature comments. Admission and Anticipated Discharge Date Admission Date: June 04, 2025 Supervising Physician Co-Signing Physician Notes Potential ampullary neoplasia. Biopsies pending. Stented. LFTs are improved. Patient certainly more alert today though does not provide any meaningful answers to questions. Can stop his antibiotics. Can resume anticoagulation with subcu heparin and aspirin. At 89 do not think further extensive investigations or surgical options should be considered. Can consider stent change in 4 to 6 months if patient's clinical status improves or stabilizes. Subjective This patient is an 89-year-old male with H/O recent hospitalization from 05/19- 05/23/2025 for rhabdomyolysis and fall, gait apraxia, upper airway cough syndrome, SNHL bilaterally, situational depression, Chavarria's esophagus, GERD, hyperlipidemia, scoliosis, lumbar spinal stenosis, and CVA as well as spontaneous SAH who was admitted with increased confusion, decreased oral intake, and cough with oral intake. Found to have elevated LFTs and was being treated for UTI at SNF prior to arrival. GI was consulted d/t elevation in LFTs. MRCP revealed mild dilatation of the common bile duct with blunt interface distally. Differential diagnosis includes anatomic variant, stricture, or impacted stone. Consent was obtained from family and patient underwent ERCP 06/06/25 without complication. 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 Biopsies are pending. Family was informed of potential findings on 06/06/25. Today patient is improved from a cognition stand point. He's watching the news, drinking and using the bathroom however still not a very good historian. History provided from daughter. No fevers, dysphagia, vomiting, abdominal pain, N/V/D, melena or hematochezia. Pertinent Diagnostics T-Bili 1.1, AST 51, ALT 58, Alk Phos 52, Albumin 2.4. Lipase 14 06/07/25 H/H stable with Hgb 10.7g/dl (previously 11.0g/dl yesterday). ERCP Dr. Montes De Oca 06/06/25 Findings: - The power plant operator apprentice film was normal. - Good biliary decompression post procedure. The bile duct was deeply cannulated. Contrast was injected. I personally interpreted the bile duct images. Image quality was adequate. The main bile duct was moderately dilated, secondary to a stricture. The largest diameter was 11mm. The biliary pancreatic junction contained a single moderate stenosis 1 mm in length. Relative resistance on passing even irregular catheter through this area. Passing the brushing catheter even more difficult. Brushings were performed the distal bile duct and ampullary orifice. Patient needed stenting I did not feel a 10 Japanese would adequately pass through the strictured area therefore a biliary sphincterotomy was undertaken. 10 Japanese 6 cm plastic stent placed in the common bile duct with good drainage. Biopsies then performed of the ampullary orifice x 5. 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 The stricture was indeterminate. - The entire main bile duct was moderately dilated, secondary to a stricture. - A biliary tract obstruction secondary to a stricture was found in the biliary pancreatic junction. This was sampled by brushing and biopsied. The biliary obstruction was treated with biliary sphincterotomy and 10 Japanese stent placement. Recommendation: - Await brushings and biopsies. Recheck LFTs and pancreas test in the morning. Clear fluids till then. Review of Systems Review of Systems: See HPI Physical Exam Physical Exam: Constitutional: Patient is pleasant, alert answering questions appropriately and appears to be in no distress. EYES: sclera are white, non-injected. Conjunctiva pink without exudate. No gross periorbital edema. ENT: Head is NC/AT. Respiratory: Breathing is even, non-labored. Lungs schneider are clear to auscultation without wheezes, rhonchi or rales. Cardiovascular: Regular Rate and Rhythm, no murmurs, rubs or gallops appre ciated. Gastrointestinal (Abdomen): Normoactive bowel sounds x4, soft, non-distended, non-tender. Musculoskeletal: Gait steady and appropriate for age. No cyanosis or clubbing is appreciated. No peripheral edema. Neuro: Grossly intact. Non-focal Skin: Warm dry and intact. Psych: Pleasant affect. Speech fluent, organized, non-tangential. Well-groomed. Results & Data Results & Data Vital Signs (Past 12 Hours) Vital Signs Temp Pulse Resp BP Pulse Ox O2 Del Method 06/07/25 08:05 97.3 F L 72 17 171/92 H 92 Room Air 06/07/25 03:00 97.5 F L 76 16 169/87 H 91 Room Air PG Care Time/CCT Total # of Minutes Spent Total Time Spent with Patient: Total time spent is greater than 50% in coordination of care (as documented) at patient's floor/unit and/or counseling patient: Coding Level of Care Code 67859 SUB INP/OBS CARE 2/35MIN Diagnoses Bile duct obstruction K83.1 Elevated LFTs R79.89
[2025-06-07 21:32] LABS: Appearance Urine Clear (Clear); Bacteria Urine Automated None Seen (None Seen); Epithelial Cell Urine Auto 0-2 /hpf (0-2); Glucose Urine UA Negative (Negative); WBC Urine Automated 0-5 /hpf (0-5)
[2025-06-08 09:43] LABS: Hematocrit (blood only) 34.5 % (42.0-52.0); Hemoglobin 11.6 g/dl (14.0-18.0); Immature Granulocytes # (auto) 0.04 K/uL (0.01-0.20); Immature Granulocytes % (auto) 0.3 %; Mean Corpuscular Hemoglobin 29.6 pg (25.0-34.0); Mean Corpuscular Volume 88.0 fL (80.0-100.0); Platelet Count 290 K/uL (130-400); RDW Standard Deviation 48.0 fL (36.4-46.3); Red Blood Count 3.92 M/uL (4.70-6.10); White Blood Count 11.56 K/ul (4.8-10.8)
--- NOTE | 2025-06-08 09:45 | Hospitalist Progress Note ---
Date of Service June 08, 2025 Assessment & Plan (1) Bile duct obstruction: (2) Elevated LFTs: (3) Metabolic encephalopathy: Plan This patient is an 89-year-old male with H/O recent hospitalization from 05/19- 05/23/2025 for rhabdomyolysis and fall, gait apraxia, upper airway cough sy ndrome, SNHL bilaterally, situational depression, Chavarria's esophagus, GERD, hyperlipidemia, scoliosis, lumbar spinal stenosis, and CVA as well as spontaneous SAH who was admitted with increased confusion, decreased oral intake, and cough with oral intake. Found to have elevated LFTs and was being treated for UTI at SNF prior to arrival. #Acute encephalopathy-patient with bile duct obstruction leading to encephalopathy but acutely worsened by taking tramadol on the evening of 06/04. Lethargic all day and barely waking up to eat or drink. Was given IVFs for maintenance. CT head negative for acute on 06/05. He then had a combative episode overnight 06/05 and received IM Zyprexa. Improved through the day on 06/06 and now s/p ERCP with CBD dilation and stent placement for stricture. Now mentation significantly improved-is awake, oriented to person and hospital, conversing. Still with some mild confusion/delirium at times -continue to monitor for improvement now that bile duct obstruction relieved -does not need ongoing abx for UTI as urine cx now negative. Does not need antibiotics for biliary issues or for pneumonia - Discontinued tramadol permanently and this should not be continued on discharge med list - Supportive care #Elevated LFTs/bile duct obstruction-AST ALT and alkaline phosphatase have been elevated since 04/14 and now worsening this admission, but total bilirubin more recently elevated just in the last few days prior to admission. He has no abdominal pain or tenderness but was encephalopathic. NH3 normal. CT abd omen/pelvis with no abnormalities consistent with cholecystitis or choledocholithiasis or biliary dilatation. LFTs remained elevated with no other explanation. MRCP-shows possible obstruction in CBD-now s/p ERCP on 06/06 with CBD stricture and possible malignancy found-sphincterotomy performed and stent placed, biopsies taken. LFTs were trending downward but now back up slightly on 06/08. Lipase had been mildly elevated and now normal. Suspect LFTs mildly increased due to recent procedure but will defer to GI to see if any further evaluation needed at this time Cytology from biliary duct with atypical glandular cells. Pathology from biopsy is pending. - Follow LFTs in the a.m. -continue to hold atorvastatin - Have since resumed aspirin and SQ heparin after cleared with GI s/p sphincterotomy -f/u path when available but cytology is concerning for malignancy -add on senna/docusate for mild constipation #Aspiration Pneumonia-suspected on admission but doubtful. Was requiring some supplemental O2 while lethargic and has some small pleural effusions likely from volume overload from recent hospitalization treated with IV fluids for rhabdomyolysis. Now weaned off O2 since he is alert/awake. Son does report coughing spells with recent oral intake while encephalopathic-this has improved now and he is doing well with speech therapy. CXR with possible pneumonia versus atelectasis with effusions -dcd Cefepime -Consult speech therapy appreciated-much improved, likely does not need video swallow #UTI-patient diagnosed with UTI at the [facility] prior to admission and was given 1 dose of ceftriaxone in the outpatient setting prior to arrival. UA here not consistent with infection and urine cx negative -no abx needed for UTI - Repeat UA on 06/07 with RBCs but again negative for infection #Urinary retention- with urinary frequency, bladder scan PVR now 540mL.UA no infection x 2. -straight cath for PVR> 400mL -start FLomax - Place Albarado catheter if requires multiple straight catheterizations and would need urology follow-up #HTN-started on BP med amlodipine last admission and was not continued for some reason. BPs here remain high -start amlodipine 5mg po daily - Monitor BPs #Generalized weakness/debilitation- Treat underlying causes as above Consult PT/OT appreciated-will need discharge back to SNF at the [facility] once medically stable #GERD-no acute issues - Continue PPI #Depression-no acute issues - Continue home sertraline DVT prophylaxis-heparin SQ Dispo-continued stay med/surg. Discussed all care with daughter Dee at bedside 06/08, once LFTs trending downward, can go to [facility] Admission and Anticipated Discharge Date Admission Date: June 04, 2025 Anticipated date of discharge: 06/10/25 Subjective Patient is much more alert and awake today. Still a bit confused but overall much improved. He is still having issues with urinary urgency and frequency. Bladder scan postvoid was elevated at 540 mL. Denies abdominal pains. His daughter is concerned that he has not had a bowel movement in several days. She also reports that he was placed on a blood pressure medicine last admission but it did not get continued at the long term or here. I discussed his care with GI. Physical Exam Constitutional: WD/WN, vitals as above Respiratory: normal respiratory effort, lungs clear to auscultation Cardiovascular: RRR, no murmur, no edema Gastrointestinal (Abdomen): normal bowel sounds, soft, nontender, no hepatosplenomegaly Psychiatric: Orientation: alert, oriented to person, oriented to place and cooperative; + not oriented to time Results & Data Results & Data Vital Signs (Past 12 Hours) Vital Signs Temp Pulse Resp BP Pulse Ox O2 Del Method 06/08/25 07:48 Room Air 06/08/25 07:46 36.5 C 76 18 169/86 H 94 Room Air 06/07/25 22:47 36.4 C L 76 18 161/83 H 92 Room Air 06/07/25 22:46 Nasal Cannula Laboratory Results CBC, CMP, UA, and biliary duct cytology reviewed PG Care Time/CCT Total # of Minutes Spent Total Time Spent with Patient: Total time spent is greater than 50% in coordination of care (as documented) at patient's floor/unit and/or counseling patient: Coding Level of Care Code 61688 SUB INP/OBS CARE 2/35MIN Diagnoses Bile duct obstruction K83.1 Elevated LFTs R79.89 Metabolic encephalopathy G93.41
--- NOTE | 2025-06-08 09:45 | Gastroenterology Progress Note ---
Date of Service June 08, 2025 Assessment & Plan (1) Bile duct obstruction: (2) Elevated LFTs: Plan This patient is an 89-year-old male with H/O recent hospitalization from 05/19- 05/23/2025 for rhabdomyolysis and fall, gait apraxia, upper airway cough syndrome, SNHL bilaterally, situational depression, Chavarria's esophagus, GERD, hyperlipidemia, scoliosis, lumbar spinal stenosis, and CVA as well as spontaneous SAH who was admitted with increased confusion, decreased oral inta ke, and cough with oral intake. Found to have elevated LFTs and was being treated for UTI at SNF prior to arrival. 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 Stent placed. Awaiting pathology. - We advanced diet yesterday as tolerating and he's eating well. No abdominal pain, vomiting, diarrhea, melena or hematochezia. - Restarted ASA and SQ Heparin last evening (> 24hr after procedure). H/H stable this morning with Hgb 11.6 g/dl - LFTs mildly increased today from yesterday. Now T-Bili 1.4 (1.1), AST 98 (51), ALT 82 (58), Alk Phos 707 (520). - Reviewed with Dr. Montes De Oca Re:elevated LFTs. Recommended KUB to assess for stent migration. - Further recommendations to come with Supervising GI provider on medical rounds. Please see co-signature comments. Admission and Anticipated Discharge Date Admission Date: June 04, 2025 Supervising Physician Co-Signing Physician Notes Liver enzymes back up today. Unclear reasons. Too early for stent stent occlusion. Stent migration possible though x-ray suggest stent in good location. Patient more alert. Eating well according to nursing. Recheck LFTs tomorrow. If they are up further I would do a HIDA scan to evaluate for biliary patency. Biopsies pending. The papilla was suspicious for neoplastic change. If there is biliary patency negative biopsies may need to look at other potential causes for his abnormal liver enzymes. Subjective This patient is an 89-year-old male with H/O recent hospitalization from 05/19- 05/23/2025 for rhabdomyolysis and fall, gait apraxia, upper airway cough syndrome, SNHL bilaterally, situational depression, Chavarria's esophagus, GERD, hyperlipidemia, scoliosis, lumbar spinal stenosis, and CVA as well as spontaneous SAH who was admitted with increased confusion, decreased oral intake, and cough with oral intake. Found to have elevated LFTs and was being treated for UTI at SNF prior to arrival. GI was consulted d/t elevation in LFTs. MRCP revealed mild dilatation of the common bile duct with blunt interface distally. Differential diagnosis includes anatomic variant, stricture, or impacted stone. Consent was obtained from family and patient underwent ERCP 06/06/25 without complication. Findings on ERCP are consistent with possible adenomatous neoplas tic ampullary orifice. Stent was placed. Biopsies are pending. Family was informed of potential findings on 06/06/25. Today patient is improved from a cognition stand point. He's watching the news, drinking and using the bathroom however still not a very good historian. History provided from daughter. Blood counts and Lipase were stable 06/07/25. Restarted on food yesterday afternoon and eating well. Hospitalist starting on Senokot to help with constipation. No fevers, dysphagia, vomiting, abdominal pain, N/V/D, melena or hematochezia. Pertinent Diagnostics LFTs pending Lipase 14 06/07/25 H/H stable with upward trend Hgb 11.6 g/dl (previously 10.7g/dl yesterday). ERCP Dr. Montes De Oca 06/06/25 Findings: - The assistant store director film was normal. - Good biliary decompression post procedure. The bile duct was deeply cannulated. Contrast was injected. I personally interpreted the bile duct images. Image quality was adequate. The main bile duct was moderately dilated, secondary to a stricture. The largest diameter was 11mm. The biliary pancreatic junction contained a single moderate stenosis 1 mm in length. Relative resistance on passing even irregular catheter through this area. Passing the brushing catheter even more difficult. Brushings were performed the distal bile duct and ampullary orifice. Patient needed stenting I did not feel a 10 Spanish would adequately pass through the strictured area therefore a biliary sphincterotomy was undertaken. 10 Spanish 6 cm plastic stent placed in the common bile duct with good drainage. Biopsies then performed of the ampullary orifice x 5. 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 The stricture was indeterminate. - The entire main bile duct was moderately dilated, secondary to a stricture. - A biliary tract obstruction secondary to a stricture was found in the biliary pancreatic junction. This was sampled by brushing and biopsied. The biliary obstruction was treated with biliary sphincterotomy and 10 Spanish stent placement. Recommendation: - Await brushings and biopsies. Recheck LFTs and pancreas test in the morning. Clear fluids till then. Physical Exam Physical Exam: Constitutional: NAD. Alert. Answering some questions. Mentation at baseline Respiratory: Breathing is even, non-labored. Lungs schneider are clear to auscultation anteriorly. Cardiovascular: Regular Rate and Rhythm, no murmurs, rubs or gallops appreciated. Gastrointestinal (Abdomen): Normoactive bowel sounds x4, soft, non-distended, non-tender. Musculoskeletal: Lying in bed comfortably. No peripheral edema. Results & Data Results & Data Vital Signs (Past 12 Hours) Vital Signs Temp Pulse Resp BP Pulse Ox O2 Del Method 06/08/25 07:48 Room Air 06/08/25 07:46 97.7 F 76 18 169/86 H 94 Room Air 06/07/25 22:47 97.5 F L 76 18 161/83 H 92 Room Air 06/07/25 22:46 Nasal Cannula PG Care Time/CCT Total # of Minutes Spent Total Time Spent with Patient: Total time spent is greater than 50% in coordination of care (as documented) at patient's floor/unit and/or counseling patient: Coding Level of Care Code 53118 SUB INP/OBS CARE 2/35MIN Diagnoses Bile duct obstruction K83.1 Elevated LFTs R79.89
[2025-06-08 10:03] LABS: Alanine Aminotransferase 82.0 U/L (7-52); Albumin Globulin Ratio 0.6 (0.9-2); Alkaline Phosphatase 707.0 U/L (34-104); Anion Gap 4.0 (3-11); Bilirubin,Total 1.4 mg/dl (0.2-1.0); Blood Urea Nitrogen 16.0 mg/dl (6-23); Calcium 9.7 mg/dl (8.6-10.3); Carbon Dioxide 29.0 mmol/L (21-32); Chloride 102.0 mmol/L (98-107); Creatinine Clr Calc Pharmacy 74.6 ml/min; Globulin 4.7 gm/dl (2.5-4.0); Glucose 125.0 mg/dl (70-99(Fasting)); Magnesium 2.0 mg/dl (1.7-2.4); Potassium 4.5 mmol/L (3.5-5.1); Sodium 135.0 mmol/L (136-145); Total Protein 7.7 gm/dl (6.0-8.3)
[2025-06-08] MEDS: DOCUSATE SODIUM/SENNA 50/8.6MG TAB PO SCH (11:49)
--- NOTE | 2025-06-08 14:36 | XRay Report ---
XR abdomen 2V w PA chest CLINICAL HISTORY: assess biliary stent. Inc LFT s/p ERCP COMPARISON STUDY: 06/03/2025 FINDINGS: CHEST: There is stable mild cardiomegaly without pulmonary vascular congestion. Stable stranding and patchy opacity at the left lung base with partial obscuration of the left hemidiaphragm. Stable mild blunting of the left costophrenic angle. Otherwise the lungs remain aerated. ABDOMEN: There is an interval common bile duct stent which appears well positioned. There is moderate retained stool. No bowel obstruction seen. No gross free air. IMPRESSION: 1. Stable chest x-ray with consolidation and trace pleural effusion left lung base. 2. Interval common bile duct stent appears well-positioned. ACT 112: Negative or not required by law. Electronically signed by: Vidal Razo M.D. 06/08/2025 2:35 PM
[2025-06-08] MEDS: TAMSULOSIN HCL 0.4 MG CAP PO SCH (20:23)
[2025-06-09 09:31] LABS: Hematocrit (blood only) 34.8 % (42.0-52.0); Hemoglobin 11.8 g/dl (14.0-18.0); Immature Granulocytes # (auto) 0.04 K/uL (0.01-0.20); Immature Granulocytes % (auto) 0.5 %; Mean Corpuscular Hemoglobin 29.4 pg (25.0-34.0); Mean Corpuscular Volume 86.8 fL (80.0-100.0); Platelet Count 258 K/uL (130-400); RDW Standard Deviation 47.8 fL (36.4-46.3); Red Blood Count 4.01 M/uL (4.70-6.10); White Blood Count 8.26 K/ul (4.8-10.8)
[2025-06-09 09:55] LABS: Alanine Aminotransferase 95.0 U/L (7-52); Albumin Globulin Ratio 0.6 (0.9-2); Alkaline Phosphatase 721.0 U/L (34-104); Anion Gap 6.0 (3-11); Bilirubin,Total 1.1 mg/dl (0.2-1.0); Blood Urea Nitrogen 14.0 mg/dl (6-23); Calcium 9.6 mg/dl (8.6-10.3); Carbon Dioxide 29.0 mmol/L (21-32); Chloride 102.0 mmol/L (98-107); Creatinine Clr Calc Pharmacy 72.9 ml/min; Globulin 4.6 gm/dl (2.5-4.0); Glucose 102.0 mg/dl (70-99(Fasting)); Potassium 3.7 mmol/L (3.5-5.1); Sodium 137.0 mmol/L (136-145); Total Protein 7.4 gm/dl (6.0-8.3)
--- NOTE | 2025-06-09 12:18 | Gastroenterology Progress Note ---
Date of Service June 09, 2025 Assessment & Plan (1) Bile duct obstruction: (2) Elevated LFTs: Plan This patient is an 89-year-old male with H/O recent hospitalization from 05/19- 05/23/2025 for rhabdomyolysis and fall, gait apraxia, upper airway cough syndrome, SNHL bilaterally, situational depression, Chavarria's esophagus, GERD, hyperlipidemia, scoliosis, lumbar spinal stenosis, and CVA as well as spontaneous SAH who was admitted with increased confusion, decreased oral inta ke, and cough with oral intake. Found to have elevated LFTs and was being treated for UTI at SNF prior to arrival. 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 Stent placed. Awaiting pathology. - We advanced diet yesterday as tolerating and he's eating well. No abdominal pain, vomiting, diarrhea, melena or hematochezia. - Restarted ASA and SQ Heparin last evening (> 24hr after procedure). H/H stable this morning with Hgb 11.6 g/dl - LFTs mildly increased today over the last two days. Now T-Bili 1.1 (1.4 <=1.1), AST 112 (98 <=51), ALT 95 (82 <= 58), Alk Phos 721 (707 <=520). - KUB 06/08/25 revealed adequate stent location. - Reviewed with staff [employer]. Recommending HIDA stat to confirm biliary flow. - Further recommendations to come with Supervising GI provider on medical rounds. Please see co-signature comments. Admission and Anticipated Discharge Date Admission Date: June 04, 2025 Subjective This patient is an 89-year-old male with H/O recent hospitalization from 05/19- 05/23/2025 for rhabdomyolysis and fall, gait apraxia, upper airway cough syndrome, SNHL bilaterally, situational depression, Chavarria's esophagus, GERD, hyperlipidemia, scoliosis, lumbar spinal stenosis, and CVA as well as spontaneous SAH who was admitted with increased confusion, decreased oral intake, and cough with oral intake. Found to have elevated LFTs and was being treated for UTI at [facility] prior to arrival. GI was consulted d/t elevation in LFTs. MRCP revealed mild dilatation of the common bile duct with blunt interface d istally. Differential diagnosis includes anatomic variant, stricture, or impacted stone. Consent was obtained from family and patient underwent ERCP 06/06/25 without complication. 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 Stent was placed. Biopsies are pending. Family was informed of potential findings on 06/06/25. Blood counts and Lipase were stable 06/07/25. Restarted on food yesterday afternoon and eating well. Hospitalist starting on Senokot to help with constipation. Clinically the patient has had no GI concerns. His LFTs were elevated in comparison to 06/07/25 LFTs 06/07/25 - T-Bili 1.1, AST 41, ALT 58 Alk Phos 520 06/08/25 - T-Bili 1.4 AST 98, ALT 82, Alk Phos 707 06/09/25 - T-Bili 1.1 AST 112, ALT 95, Alk Phos 721. No fevers, dysphagia, vomiting, abdominal pain, N/V/D, melena or hematochezia. Pertinent Diagnostics Lipase 14 06/07/25 H/H stable with upward trend Hgb 11.6 g/dl (previously 10.7g/dl yesterday). ERCP Dr. 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 - Good biliary decompression post procedure. The bile duct was deeply cannulated. Contrast was injected. I personally interpreted the bile duct images. Image quality was adequate. The main bile duct was moderately dilated, secondary to a stricture. The largest diameter was 11mm. The biliary pancreatic junction contained a single moderate stenosis 1 mm in length. Relative resistance on passing even irregular catheter through this area. Passing the brushing catheter even more difficult. Brushings were performed the distal bile duct and ampullary orifice. Patient needed stenting I did not feel a 10 [place] would adequately pass through the strictured area therefore a biliary sphincterotomy was undertaken. 10 [place] 6 cm plastic stent placed in the common bile duct with good drainage. Biopsies then performed of the ampullary orifice x 5. 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 The stricture was indeterminate. - The entire main bile duct was moderately dilated, secondary to a stricture. - A biliary tract obstruction secondary to a stricture was found in the biliary pancreatic junction. This was sampled by brushing and biopsied. The biliary obstruction was treated with biliary sphincterotomy and 10 [place] stent placement. Recommendation: - Await brushings and biopsies. Recheck LFTs and pancreas test in the morning. Clear fluids till then. Review of Systems Review of Systems: See HPI Physical Exam Physical Exam: Constitutional: NAD. Alert. Mentation stable. Respiratory: Breathing is even, non-labored. Lungs schneider are clear to auscultation anteriorly. Cardiovascular: Regular Rate and Rhythm, no murmurs, rubs or gallops appreciated. Gastrointestinal (Abdomen): Normoactive bowel sounds x4, soft, non-distended, non-tender. Musculoskeletal: Lying in bed comfortably. No peripheral edema. Results & Data Results & Data Vital Signs (Past 12 Hours) Vital Signs Temp Pulse Resp BP Pulse Ox O2 Del Method 06/09/25 07:59 97.7 F 73 16 165/86 H 94 Room Air 06/09/25 07:35 Room Air PG Care Time/CCT Total # of Minutes Spent Total Time Spent with Patient: Total time spent is greater than 50% in coordination of care (as documented) at patient's floor/unit and/or counseling patient: Coding Level of Care Code 84945 SUB INP/OBS CARE 2/35MIN Diagnoses Bile duct obstruction K83.1 Elevated LFTs R79.89
[2025-06-09] MEDS ORDERED: MoRPHine SULFATE 2 MG/ML CARP IV PRN (13:18)
[2025-06-09] MEDS: LACTATED RINGER'S 1,000 ML IV SCH (14:04)
--- NOTE | 2025-06-09 16:24 | Hospitalist Progress Note ---
Date of Service June 09, 2025 Assessment & Plan (1) Bile duct obstruction: (2) Elevated LFTs: (3) Metabolic encephalopathy: Plan This patient is an 89-year-old male with H/O recent hospitalization from 05/19- 05/23/2025 for rhabdomyolysis and fall, gait apraxia, upper airway cough sy ndrome, SNHL bilaterally, situational depression, Chavarria's esophagus, GERD, hyperlipidemia, scoliosis, lumbar spinal stenosis, and CVA as well as spontaneous SAH who was admitted with increased confusion, decreased oral intake, and cough with oral intake. Found to have elevated LFTs and was being treated for UTI at SNF prior to arrival. #Acute encephalopathy Initially suspected to have biliary duct obstruction and metabolic encephalopathy. Also noted to have worsened after taking tramadol evening of 06/04 Mentation substantially improved and continues to improve per family 06/09 Tramadol discontinued Urine culture negative Initial concern for aspiration pneumonia as below, more likely fluid however this is not definitively ruled out Supportive care, delirium precautions #Elevated LFTs/bile duct obstruction -AST/ALT and alkaline phosphatase have been elevated since 04/14 and now worsening this admission, but total bilirubin more recently elevated just in the last few days prior to admission. He has no abdominal pain or tenderness but was encephalopathic. Ammonia normal. CT abdomen/pelvis with no abnormalities consistent with cholecystitis or choledocholithiasis or biliary dilatation. MRCP-shows possible obstruction in CBD-now s/p ERCP on 06/06 with CBD stricture and possible malignancy found-sphincterotomy performed and stent placed, biopsies taken. Pathology pending Bilirubin slightly downtrending, AST/ALT/alk phos slightly uptrending. GI following, given continued transaminitis will undergo HIDA to assess for biliary patency Statin held Aspirin/subcu heparin has been resumed -If HIDA scan is negative will continue to trend LFTs, and hepatitis serologies today and labs Dose reduce Tylenol to 2 g total daily dose #Aspiration Pneumonia -suspected on admission but doubtful. Was requiring some supplemental O2 while lethargic and has some small pleural effusions likely from volume overload from recent hospitalization treated with IV fluids for rhabdomyolysis.Now weaned off O2 since he is alert/awake. Son does report coughing spells with recent oral intake while encephalopathic-this has improved now and he is doing well with speech therapy. CXR with possible pneumonia versus atelectasis with effusions -dcd Cefepime CXR on admission with likely mild interstitial pulmonary edema and left greater than right bibasilar densities more likely fluid but for which pneumonia was not excluded Cefepime was discontinued 06/08 Mentation and swallowing improved, video swallow deferred PCT on a.m. labs. If elevated can complete 5 days of antibiotic treatment however otherwise will discontinue antibiotics #UTI -patient diagnosed with UTI at the SNF prior to admission and was given 1 dose of ceftriaxone in the outpatient setting prior to arrival. UA here not consistent with infection and urine cx negative -no abx needed for UTI - Repeat UA on 06/07 with RBCs but again negative for infection #Urinary retention - with urinary frequency, bladder scan PVR now 540mL.UA no infection x 2. -straight cath for PVR> 350cc - Continue Flomax PVR has been decreasing, continue Flomax. Last around 200 cc. - Place Albarado catheter if requires multiple straight catheterizations and would need urology follow-up #HTN -started on BP med amlodipine last admission and was not continued for some reason. Continue amlodipine 5 mg daily Normotensive with addition of amlodipine this admission. Continue this on discharge #Generalized weakness/debilitation- Treat underlying causes as above Consult PT/OT appreciated -will need [facility] medically [facility] #GERD -no acute issues - Continue PPI #Depression -no acute issues - Continue home sertraline DVT prophylaxis -heparin SQ Dispo -continued stay med/surg. Discussed all care with daughter Dee at bedside 06/09. Currently pending HIDA this afternoon Admission and Anticipated Discharge Date Admission Date: June 04, 2025 Subjective Seen at the bedside. Mentation continues to improve from prior per family. At bedside does maintain eye contact and conversation, thought process tangential. Slightly hard of hearing. Has voiding urgency on abdominal palpation but no pain. Afebrile overnight. No cough. Has increased urinary frequency, post voids decreasing currently around 200 cc. On Flomax. Pending HIDA scan this afternoon Physical Exam Physical Exam: General: Oriented to name and place. Cooperative. Slightly tangential thought process, HEENT: Atraumatic, normocephalic. Vision and hearing grossly intact, he is hard of hearing. Pupils approximately 3 mm and reactive to light bilaterally symmetrically Pulm: CTAB A&P. -wheezes, -rales, -rhonchi. Symmetrical chest rise. No increase in work of breathing. No respiratory distress. Cardiac: RRR, -mrg. Radial pulses intact and symmetrical. Abdominal: Softly distended, no pain on palpation Extremities: Warm and dry. Moves extremities equally Results & Data Results & Data Vital Signs (Past 12 Hours) Vital Signs Temp Pulse Resp BP Pulse Ox O2 Del Method 06/09/25 16:00 36.4 C L 77 16 139/79 94 Room Air 06/09/25 07:59 36.5 C 73 16 165/86 H 94 Room Air 06/09/25 07:35 Room Air PG Care Time/CCT Total # of Minutes Spent Total Time Spent with Patient: Total time spent is greater than 50% in coordination of care (as documented) at patient's floor/unit and/or counseling patient: Coding Level of Care Code 33826 SUB INP/OBS CARE 3/50MIN Diagnoses Bile duct obstruction K83.1 Elevated LFTs R79.89 Metabolic encephalopathy G93.41
--- NOTE | 2025-06-09 19:15 | Nuclear Medicine Report ---
Exam(s): NM HIDA SCAN EXAM: NM Hepatobiliary Scan CLINICAL HISTORY: Reason for exam: biliary patency s/p stent placement after ERCP. TECHNIQUE: Frontal dynamic images of the abdomen and pelvis were obtained over 60 minutes following the intravenous administration of Tc99m ABHINAV. COMPARISON: MRI from 06/05/[address] from 06/02/2025 FINDINGS: Liver: There is rapid radiotracer uptake by the liver. Bile ducts: Biliary activity is seen within 20 minutes. Gallbladder: Gallbladder activity is seen at 31 minutes. Normal gallbladder filling. Stomach and bowel: Bowel activity is present at 26 minutes. IMPRESSION: No acute findings in the hepatobiliary system. Electronically signed by: Dominick Ty MD 06/09/25 19:14 PM
[2025-06-09] MEDS: POLYETHYLENE (MIRALAX) 17 GM PACK PO ONE (22:25)
[2025-06-10] MEDS: POLYETHYLENE (MIRALAX) 17 GM PACK PO SCH (08:43)
[2025-06-10 08:59] LABS: Hematocrit (blood only) 32.1 % (42.0-52.0); Hemoglobin 10.7 g/dl (14.0-18.0); Immature Granulocytes # (auto) 0.03 K/uL (0.01-0.20); Immature Granulocytes % (auto) 0.4 %; Mean Corpuscular Hemoglobin 29.3 pg (25.0-34.0); Mean Corpuscular Volume 87.9 fL (80.0-100.0); Platelet Count 250 K/uL (130-400); RDW Standard Deviation 48.4 fL (36.4-46.3); Red Blood Count 3.65 M/uL (4.70-6.10); White Blood Count 8.14 K/ul (4.8-10.8)
[2025-06-10 09:10] LABS: Alanine Aminotransferase 90.0 U/L (7-52); Albumin Globulin Ratio 0.6 (0.9-2); Alkaline Phosphatase 667.0 U/L (34-104); Anion Gap 4.0 (3-11); Bilirubin,Total 1.0 mg/dl (0.2-1.0); Blood Urea Nitrogen 9.0 mg/dl (6-23); Calcium 9.4 mg/dl (8.6-10.3); Carbon Dioxide 30.0 mmol/L (21-32); Chloride 104.0 mmol/L (98-107); Creatinine Clr Calc Pharmacy 71.4 ml/min; Globulin 4.2 gm/dl (2.5-4.0); Glucose 108.0 mg/dl (70-99(Fasting)); Potassium 3.7 mmol/L (3.5-5.1); Sodium 138.0 mmol/L (136-145); Total Protein 6.7 gm/dl (6.0-8.3)
--- NOTE | 2025-06-10 09:27 | Communication Note ---
Date of Service: June 10, 2025 hida, stent functioning, clinical improving, Lfts better today ( a little) biopsy does not confirm cancer. suiggest follow lfts... stent change removal 2-3 months, rebiopsy at thAT TIME can follow-up in GI clinic
[2025-06-10] MEDS ORDERED: MAGNESIUM HYDROXIDE SUSP 30 ML UDC PO PRN (12:49)
--- NOTE | 2025-06-10 12:50 | Hospitalist Progress Note ---
Date of Service June 10, 2025 Assessment & Plan (1) Bile duct obstruction: (2) Elevated LFTs: (3) Metabolic encephalopathy: Plan This patient is an 89-year-old male with H/O recent hospitalization from 05/19- 05/23/2025 for rhabdomyolysis and fall, gait apraxia, upper airway cough sy ndrome, SNHL bilaterally, situational depression, Chavarria's esophagus, GERD, hyperlipidemia, scoliosis, lumbar spinal stenosis, and CVA as well as spontaneous SAH who was admitted with increased confusion, decreased oral intake, and cough with oral intake. Found to have elevated LFTs and was being treated for UTI at SNF prior to arrival. #Acute encephalopathy, improved Initially suspected to have biliary duct obstruction and metabolic encephalopathy. Also noted to have worsened after taking tramadol evening of 06/04 Mentation substantially improved and continues to improve per family 06/09 Tramadol discontinued Urine culture negative Bora treatment for suspected aspiration pneumonia as noted Delirium precautions #Elevated LFTs/bile duct obstruction -AST/ALT and alkaline phosphatase have been elevated since 04/14 and now worsening this admission, but total bilirubin more recently elevated just in the last few days prior to admission. He has no abdominal pain or tenderness but was encephalopathic. Ammonia normal. CT abdomen/pelvis with no abnormalities consistent with cholecystitis or choledocholithiasis or biliary dilatation. MRCP-shows possible obstruction in CBD-now s/p ERCP on 06/06 with CBD stricture and possible malignancy found-sphincterotomy performed and stent placed, biopsies taken. Pathology with benign appearing glandular mucosa however there are scattered rare cells with enlarged nuclei, mild atypia, and some p53/Ki-67 staining. Malignancy including duodenal adenocarcinoma is not excluded. LFTs stable, slightly downtrending Okay to discharge from GI standpoint. Recommend stent exchange in 2 to 3 months and repeat biopsy at that time. Appreciate recommendations #Aspiration Pneumonia Initially treated with cefepime CXR on admission with likely mild interstitial pulmonary edema and left greater than right bibasilar densities more likely fluid but for which pneumonia was not excluded Cefepime was discontinued 06/08 Mentation and swallowing improved, video swallow deferred Procalcitonin is elevated, no function is normal Did have a small streaky opacity on admitting chest x-ray. Given elevated procalcitonin partial treatment and general clinical improvement following this we will complete treatment for pneumonia. Rocephin x 5 days, can convert to cefdinir or cefpodoxime on discharge. MRSA nare was negative. He is not hypotensive and does not appear septic #UTI -patient diagnosed with UTI at the SNF prior to admission and was given 1 dose of ceftriaxone in the outpatient setting prior to arrival. UA here not consistent with infection and urine cx negative -no abx needed for UTI - Repeat UA on 06/07 with RBCs but again negative for infection #Urinary retention - with urinary frequency, bladder scan PVR now 540mL.UA no infection x 2. -straight cath for PVR> 350cc - Continue Flomax PVR has been decreasing, continue Flomax. Last around 200 cc. - Place Albarado catheter if requires multiple straight catheterizations and would need urology follow-up #HTN Continue amlodipine 5 mg daily Normotensive following addition of amlodipine this admission. Continue this on discharge #Generalized weakness/debilitation- -will need [facility] once medically stable Continue PT/OT #GERD -no acute issues - Continue PPI #Depression -no acute issues - Continue home sertraline DVT prophylaxis -heparin SQ Dispo - Patient reasonably stable for discharge 06/10 however given elevated Pro-Dequan now with return to antibiotic treatment, and lack of bowel movements family preferred to have these treated for at least 1 day prior to progression back to facility which is reasonable. Milk of Magnesia added to bowel regimen. Patient recommended to be up to chair and ambulate as tolerated. Rocephin ordered, and will convert to orals on discharge. Admission and Anticipated Discharge Date Admission Date: June 04, 2025 Subjective Seen at bedside with family present Sleeping comfortably Awakes easily during examination HIDA scan patent. Procalcitonin is slightly elevated Afebrile overnight. No cough Some abdominal fullness. Has not yet had a bowel movement. No significant abdominal pain at bedside Reviewed plan of care and options with family. From a GI standpoint transaminases are stable and slightly downtrending, is recommended for outpati ent follow-up with stent exchange in around 2-3 months and rebiopsy at that time. Pathology showed majority of benign appearing glandular mucosa although there are scattered rare cells with enlarged nuclei/atypia and stain uptake; neoplasm including duodenal type adenoma is not excluded. Discussed this with family, are in agreement with repeat biopsy as noted. With streak-like opacity on x-ray elevated procalcitonin and initial rapid improvement with antibiotics. Question if his initial suspected aspiration pneumonia was real. Discussed this with family, given elevated procalcitonin feel this is reasonable to treat for a 5-day course. Family in agreement. MRSA nares negative. Will add Rocephin and plan to switch to cefdinir or cefpodoxime to complete course on discharge which family is in agreement with Physical Exam Physical Exam: General: Oriented to name. Cooperative, awakens easily HEENT: Atraumatic, normocephalic. Vision and hearing grossly intact, he is hard of hearing. Pupils approximately 3 mm and reactive to light bilaterally symmetrically Pulm: Grossly clear, diminished in the bases bilaterally. Symmetrical chest rise. No increase in work of breathing. No respiratory distress. Cardiac: RRR, -mrg. Radial pulses intact and symmetrical. Abdominal: Softly distended, no pain on palpation Extremities: Warm and dry. Moves extremities equally Results & Data Results & Data Vital Signs (Past 12 Hours) Vital Signs Temp Pulse Resp BP Pulse Ox O2 Del Method 06/10/25 07:50 36.8 C 72 18 158/85 H 94 Room Air 06/10/25 07:25 Room Air PG Care Time/CCT Total # of Minutes Spent Total Time Spent with Patient: Total time spent is greater than 50% in coordination of care (as documented) at patient's floor/unit and/or counseling patient: Coding Level of Care Code 22168 SUB INP/OBS CARE 3/50MIN Diagnoses Bile duct obstruction K83.1 Elevated LFTs R79.89 Metabolic encephalopathy G93.41
[2025-06-10] MEDS: cefTRIAXone SODIUM 2,000 MG/50 ML BAG IV SCH (13:45)
[2025-06-10 21:47] VITALS: PULSE 74
[2025-06-11 07:17] LABS: Hematocrit (blood only) 31.9 % (42.0-52.0); Hemoglobin 10.4 g/dl (14.0-18.0); Immature Granulocytes # (auto) 0.02 K/uL (0.01-0.20); Immature Granulocytes % (auto) 0.3 %; Mean Corpuscular Hemoglobin 28.7 pg (25.0-34.0); Mean Corpuscular Volume 88.1 fL (80.0-100.0); Platelet Count 251 K/uL (130-400); RDW Standard Deviation 49.5 fL (36.4-46.3); Red Blood Count 3.62 M/uL (4.70-6.10); White Blood Count 7.03 K/ul (4.8-10.8)
[2025-06-11 07:27] LABS: Alanine Aminotransferase 81.0 U/L (7-52); Albumin Globulin Ratio 0.6 (0.9-2); Alkaline Phosphatase 634.0 U/L (34-104); Anion Gap 3.0 (3-11); Bilirubin,Total 0.9 mg/dl (0.2-1.0); Blood Urea Nitrogen 11.0 mg/dl (6-23); Calcium 9.3 mg/dl (8.6-10.3); Carbon Dioxide 28.0 mmol/L (21-32); Chloride 105.0 mmol/L (98-107); Creatinine Clr Calc Pharmacy 73.5 ml/min; Globulin 4.1 gm/dl (2.5-4.0); Glucose 111.0 mg/dl (70-99(Fasting)); Potassium 4.0 mmol/L (3.5-5.1); Sodium 136.0 mmol/L (136-145); Total Protein 6.5 gm/dl (6.0-8.3)
[2025-06-11 07:59] VITALS: BP 155/84; RESP 18; TEMP 97.9; O2SAT 94
--- NOTE | 2025-06-11 10:20 | Discharge Summary ---
Discharge Summary Date of Service June 11, 2025 Principal Dx & Hospital Course #1 = Principal Diagnosis (1) Bile duct obstruction: (2) Elevated LFTs: (3) Metabolic encephalopathy: Plan This patient is an 89-year-old male with H/O recent hospitalization from 05/19- 05/23/2025 for rhabdomyolysis and fall, gait apraxia, upper airway cough syndrome, SNHL bilaterally, situational depression, Chavarria's esophagus, GERD, hyperlipidemia, scoliosis, lumbar spinal stenosis, and CVA as well as spontaneous SAH who was admitted with increased confusion, decreased oral intake, and cough with oral intake. Found to have elevated LFTs and was being treated for UTI at [facility] prior to arrival. To do as outpatient: 1. Repeat CBC, CMP in 1 week by PCP 2. Follow-up with GI for stent exchange in 2-3 months. At time of stent exchange should have repeat biopsy 3. Complete 3 additional days of cefpodoxime 200 mg twice daily starting morning of 06/12/2025 4. Continue Flomax 0.4 mg nightly. If patient has abdominal swelling/bladder discomfort, or shows a rising creatinine follow-up blood work on bladder scan and if again greater than 350cc should have a Albarado catheter replaced and have follow-up with urology at that point. 5. Continue amlodipine 5 mg daily for blood pressure 6. Discontinue tramadol indefinitely. Avoid narcotics in the future. #Acute encephalopathy, improved Initially suspected to have biliary duct obstruction and metabolic encephalopathy. Also noted to have worsened after taking tramadol evening of 06/04 Mentation improved, encephalopathy resolved Tramadol discontinued Urine culture negative S/p treatment for suspected aspiration pneumonia as noted Delirium precautions #Elevated LFTs/bile duct obstruction -AST/ALT and alkaline phosphatase elevated since 04/14 and worsening this admission, but total bilirubin more recently elevated just in the last few days prior to admission. He has no abdominal pain or tenderness but was encephalopathic. Ammonia normal. CT abdomen/pelvis with no abnormalities consistent with cholecystitis or choledocholithiasis or biliary dilatation. MRCP-shows possible obstruction in CBD - s/p ERCP on 06/06 with CBD stricture and possible malignancy found- sphincterotomy performed and stent placed, biopsies taken. Pathology with benign appearing glandular mucosa however there are scattered rare cells with enlarged nuclei, mild atypia, and some p53/Ki-67 staining. Malignancy including duodenal adenocarcinoma is not excluded. LFTs stable, slightly downtrending Okay to discharge from GI standpoint. Recommend stent exchange in 2 to 3 months and repeat biopsy at that time. Appreciate recommendations #Aspiration Pneumonia Initially treated with cefepime CXR on admission with likely mild interstitial pulmonary edema and left greater than right bibasilar densities more likely fluid but for which pneumonia was not excluded Cefepime was discontinued 06/08 Mentation and swallowing improved, video swallow deferred Procalcitonin is elevated, renal function was normal Did have a small streaky opacity on admitting chest x-ray. Given elevated procalcitonin partial treatment and general clinical improvement following this we will complete treatment for pneumonia. Rocephin x 5 days, can convert to cefdinir or cefpodoxime on discharge. MRSA nare was negative. He is not hypotensive and does not appear septic Continue cefpodoxime x3 days to complete 5 day contiguous course of abx for pna #UTI -patient diagnosed with UTI at the SNF prior to admission and was given 1 dose of ceftriaxone in the outpatient setting prior to arrival. UA here not consistent with infection and urine cx negative -no abx needed for UTI - Repeat UA on 06/07 with RBCs but again negative for infection #Urinary retention - with urinary frequency, bladder scan PVR now 540mL.UA no infection x 2. -straight cath for PVR> 350cc - Continue Flomax PVR has been decreasing, continue Flomax. PVRs less than 200, doing well. Bladder scan as needed. If again retaining urine then place Albarado with leg bag and follow-up with urology as outpatient #HTN Continue amlodipine 5 mg daily Normotensive following addition of amlodipine this admission. Continue this on discharge #Generalized weakness/debilitation- -discharge to SNF at the [facility] Continue PT/OT #GERD -no acute issues - Continue PPI #Depression -no acute issues - Continue home sertraline Admission HPI Per Admitting Provider The patient is an 89-year-old male with past medical history including recent hospitalization from 05/19-05/23/2025 for rhabdomyolysis, gait apraxia bilaterally, upper airway cough syndrome, SNHL bilaterally, situational depression, Chavarria's esophagus, GERD, hyperlipidemia, scoliosis, and lumbar spinal stenosis. The patient is brought to the emergency department by his son with concerns regarding decreased oral intake, difficulty with coughing when chewing and drinking liquids, and worsening generalized weakness and confusion since recent hospitalization. He reports that physical [facility] had just [facility] Dis[facility] Exam General: Oriented to name, alert, cooperative HEENT: Atraumatic, normocephalic. Vision and hearing grossly intact. Hard of hearing. Pupils equal and reactive to light. Pulm: Symmetrical chest rise. No increase in work of breathing. No respiratory distress. Cardiac: RRR, -mrg. Radial pulses intact and symmetrical. Abdominal: Nontender, softly distended. BS present. Extremities: Warm, dry Discharge Plan Discharge Items Patient Disposition: Transfer Inpatient Rehab Fac Reason For Visit: CONFUSION, UTI, ASPIRATION PNEUMONIA Discharge Diagnosis: Metabolic/toxic encephalopathy, multifactorial Obstructive transaminitis s/p biliary stent and sphincterotomy Aspiration pneumonia Condition on Discharge: Fair Activity: Per Instructions section Non-emergency contact: Primary Care Provider and Completion Supervisor Call non-emergency contact if: you have any medication questions, your symptoms worsen, your pain is not controlled and your pain is worsening Follow-up/Referrals: Noy Jorge MD [Primary Care Provider] - Kee Becerra Jr, MD [Physician] - Diet: Heart Healthy Addtl Attending Provider Instructions: You were seen in the hospital for confusion (encephalopathy), and concern for elevated liver numbers. You underwent a procedure where you had a biliary stent placed and a sphincterotomy. At that time biopsies were taken which showed mostly normal cells however there were a few scattered cells from which a cancer such as duodenal adenocarcinoma could not be definitively excluded. Your liver enzymes improved following this procedure. It is recommended that you follow-up with gastroenterology in 2-3 months for a stent exchange, and at the time of that procedure to have a repeat biopsy performed. A GI follow-up appointment is being scheduled for you as noted above. You are suspected to have aspiration pneumonia during admission. You are treated with antibiotics. You have been prescribed cefpodoxime 200 mg twice daily by mouth to complete 3 additional days of antibiotics on discharge. Please take your first dose of this antibiotic the morning of 06/12/2025. You also likely had toxic encephalopathy due to poor tolerance to tramadol. Please do not take tramadol in the future. You should also avoid other opiates/narcotics which are likely to have a similar effect. You should have repeat blood work including a CBC and CMP drawn in approximately 1 week by your primary care or acute rehab provider. Your liver numbers were consistently downtrending although not yet normalized at time of discharge. You had intermittent urinary retention during admission. This improved and your Albarado catheter was removed. You were started on Flomax. Please continue to take Flomax 0.4 mg once daily. If you have abdominal discomfort or there are signs that you are retaining urine in the future, you should have a bladder scan and if again retaining significant amounts of urine could have a Albarado placed and should have outpatient follow-up with urology at that time. If you develop any new or worsening symptoms including fever, chills, sweats, chest pain, chest pressure, difficulty breathing, uncontrolled nausea/vomiting, rash, wheezing, passing out or nearly passing out, bleeding, black/bloody bowel movements, or other new or concerning symptoms please call your primary care physician, or call 911 for re-evaluation in the emergency department if you are very concerned. Pending Studies at Discharge: No Stand-Alone Forms: My [facility] Skilled Items Patient informed of condition?: Yes DNR: Yes Discharge Level of Care: Acute rehab Communicable Disease: No Discharge Prognosis: Stable Lines: None Urinary Catheter: No Medications and DC Order Prescriptions: New amlodipine 5 mg Tablet 5 mg PO QAM Qty: 30 0RF tamsulosin 0.4 mg Capsule 0.4 mg PO HS Qty: 30 0RF cefpodoxime 200 mg tablet 200 mg PO Q12H Qty: 6 0RF Rx Instructions: must administer with a meal/food Continued atorvastatin 40 mg tablet 40 mg PO HS Qty: 90 3RF pantoprazole 40 mg tablet,delayed release (DR/EC) 40 mg PO QAM Qty: 90 3RF aspirin 81 mg Tablet,Delayed Release (Dr/Ec) 81 mg PO QAM guaifenesin [Mucinex] 600 mg Tablet Extended Release 12hr 600 mg PO Q12H PRN (Reason: Congestion) sertraline 50 mg Tablet 50 mg PO HS multivitamin [Men's Multi-Vitamin] Tablet 1 tab PO HS Discontinued tramadol 50 mg Tablet 50 mg PO Q8H PRN (Reason: MOD-SEVERE PAIN/LEVEL 6-10) ceftriaxone 1 gram Recon Soln 1 g IM DAILY Rx Instructions: GIVE IN AFTERNOON X 4 DAYS START 06/03/25 END 06/05/25 Discharge Orders: Discharge Order (Routine); Ordered 06/11/25 Ordered By: Issa Robert Admission Data Admit Date/Time: 06/04/25 01:01 Attending Provider: Issa Robert Admit Provider: Jose L Ramos Primary Care Provider: Noy Jorge Other Providers: Jose L Ramos; Kee Becerra Jr Hospital Stay Data Consultations 06/03/25 23:52 ED Decision to Admit Stat 06/04/25 08:25 Consult Gastroenterology Routine Procedures Performed Operation Date: 06/06/25 08:20 Actual Procedures p Endoscopic Retrograde Cholangiopancreato with stent placement - Reagan Montes De Oca MD Diagnostic Imagining Performed 06/03/25 20:27 CT abd pelvis IV con only Stat 06/05/25 09:29 CT head/brain wo con Stat MR MRCP Routine 06/06/25 15:00 FL ERCP biliary ductal Routine Discharge Instructions Given to Patient (Per Discharging Provider) You were seen in the hospital for confusion (encephalopathy), and concern for elevated liver numbers. You underwent a procedure where you had a biliary stent placed and a sphincterotomy. At that time biopsies were taken which showed mostly normal cells however there were a few scattered cells from which a cancer such as duodenal adenocarcinoma could not be definitively excluded. Your liver enzymes improved following this procedure. It is recommended that you follow-up with gastroenterology in 2-3 months for a stent exchange, and at the time of that procedure to have a repeat biopsy performed. A GI follow-up appointment is being scheduled for you as noted above. You are suspected to have aspiration pneumonia during admission. You are mando jacey with antibiotics. You have been prescribed cefpodoxime 200 mg twice daily by mouth to complete 3 additional days of antibiotics on discharge. Please take your first dose of this antibiotic the morning of 06/12/2025. You also likely had toxic encephalopathy due to poor tolerance to tramadol. Please do not take tramadol in the future. You should also avoid other opiates/narcotics which are likely to have a similar effect. You should have repeat blood work including a CBC and CMP drawn in approximately 1 week by your primary care or acute rehab provider. Your liver numbers were consistently downtrending although not yet normalized at time of discharge. You had intermittent urinary retention during admission. This improved and your Albarado catheter was removed. You were started on Flomax. Please continue to take Flomax 0.4 mg once daily. If you have abdominal discomfort or there are signs that you are retaining urine in the future, you should have a bladder scan and if again retaining significant amounts of urine could have a Albarado placed and should have outpatient follow-up with urology at that time. If you develop any new or worsening symptoms including fever, chills, sweats, chest pain, chest pressure, difficulty breathing, uncontrolled nausea/vomiting, rash, wheezing, passing out or nearly passing out, bleeding, black/bloody bowel movements, or other new or concerning symptoms please call your primary care physician, or call 911 for re-evaluation in the emergency department if you are very concerned. Total Time Total Time Spent Total Time Spent (In Minutes): Time spend day of discharge 40 minutes including direct patient care, documentation, review of labs and images, and coordination of care. Coding Level of Care Code 43343 INP/OBS DISCH >30 MIN Diagnoses Bile duct obstruction K83.1 Elevated LFTs R79.89 Metabolic encephalopathy G93.41
[2025-06-11] MEDS ORDERED: Nursing to Pharmacy Communication SCH (10:45)
== END 2025-06-11 13:58 | DRG 444 ==
LOC: ED 18:58 → 2N 06-04 01:01 → SUATTDRO 06-04 01:01 → INTOOBSV 06-04 01:01 → 2N 06-04 04:26 → 2W 06-05 21:56 → 3E 06-07 22:33

== ENCOUNTER 2025-08-12 08:25 | Inpatient (IN) ==
--- NOTE | 2025-08-12 08:31 | Emergency Department Note ---
Impression & Plan Third degree AV block, Acute dyspnea ED Provider Note NAME: CHACHA VERMA AGE: 89 SEX: M : 1935 ARRIVES VIA: Ambulance INFORMANT: Patient, ED PROVIDER(S): Collin Celestin MD CHIEF COMPLAINT: Shortness of breath MEDICAL DECISION MAKING: Patient presents due to concern for shortness of breath. EMS also did note the patient was bradycardic in the 30s. IV was established and blood work was obtained. EKG does show concern for complete heart block. Pads were applied patient not in extremis and holding blood pressures. Atropine ordered. Patient also did receive albuterol and steroids IV. Patient's EKG did show concern for third-degree heart block. I did message with the on-call payroll representative who agreed. Patient did have the pacer pads applied and the patient was given 0.5 mg of IV atropine. Patient with a normal white count hemoglobin 11.6 with a normal platelet count. Kidney function with prerenal azotemia. Calcium of 10.5. Patient's urinalysis does not show evidence of obvious blood or infection BioFire negative. The patient's chest x-ray does show some patchy nodular bibasilar opacities and bronchiectasis bettered patient prior chest CT. Small pleural effusions noted. I did speak the on-call hospitalist Dr. Sapp and the patient was admitted to the medicine service. I also did make the patient's daughter aware of plan and the potential need for pacemaker. Further discussion with cardiology pending. Critical Care: I have personally spent 45 minutes of critical care time in direct management of this patient. This includes bedside care, interpretation of diagnostic studies, and testing, discussion with consultants, patient, and family members, and other require inpatient management activities. This 45 minutes is in excess of all separately billable procedures. Discussion w/ other healthcare providers: Dr. Eid cardiology service Dr. Sapp inpatient medicine service Prior /Outside records reviewed: None Differential diagnosis: Reactive airway disease, pneumonia, pneumothorax, COPD, CHF, ACS, pulmonary embolism, musculoskeletal, GERD as well as other pathologies were considered. Diagnostics, as interpreted by me: ECG: Likely complete heart block with a ventricular rate of 31 wide QRS left bundle branch block pattern, no obvious STEMI. Cardiac monitoring: An order was placed for continuous cardiac monitoring. The monitor shows a rate of 35 with regular rhythm. Patient was placed on pulse oximetry Medical decision rules: None Imaging studies: I informally interpreted the patient's chest x-ray does show possible consolidation at the left base with formal report to follow. HPI: Patient presents due to concern for shortness of breath. Reportedly was transferred from the [facility] portion of the personal care side of the [facility]. Patient reportedly had some worsening dyspnea and wheezing. EMS reports the patient was bradycardic in the 30s although asymptomatic. When questioned the patient denies any change in his shortness of breath he does have occasional cough and is nonproductive. He denies any chest pain and denies abdominal pain nausea vomiting or diarrhea. Patient has noticed some ankle swelling but no farther up the legs. EMS reported the patient did have a chest x-ray which showed some hyperinflation of the left upper lobe. He was given some Lasix. He states that "this is a CYA mission." PAST MEDICAL HISTORY: See Below PAST SURGICAL HISTORY: See Below SOCIAL HISTORY: See Below HOME MEDICATIONS: See Below ALLERGIES: See Below VITALS: See Below PHYSICAL EXAMINATION: GENERAL: NAD, non-toxic. EYE EXAM: Normal conjunctiva. PERRL, no anisocoria and EOM's grossly intact w/o pain. OROPHARYNX: Moist mucus membranes, grossly normal dentition. NECK: Trachea midline, no stridor. LUNGS: Clear to auscultation. Normal chest wall mechanics. HEART: Bradycardic, no MRG. ABDOMEN: Abdomen soft, non-tender, no masses, no rebound or guarding. BACK: No CVA TTP. SKIN: No rashes and no bruising. UPPER EXTREMITIES: Upper extremities are grossly normal. LOWER EXTREMITIES: Grossly normal, no edema. NEURO EXAM: Awake and alert, follows commands, no obvious facial asymmetry, normal speech, moves all 4 extremities. 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 (Acute) Elevated LFTs Healthcare-associated pneumonia Anemia of chronic disease Leucocytosis Gait apraxia of elderly Hyperlipidemia (Chronic) Gastroesophageal reflux disease Osteoarthritis of both knees Barretts esophagus Medical History Metabolic encephalopathy Elevated lipase Aspiration into airway Spinal stenosis of lumbar region Scoliosis Upper airway cough syndrome Right bundle branch block Sensorineural hearing loss of both ears History of stroke Enlarged prostate Deviated nasal septum Ex-smoker Pneumothorax, right Depression 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 GERD (gastroesophageal reflux disease) Thyroid goiter BIOPSY DONE "NORMAL" Surgical History History of melanoma excision off lip History of Mohs micrographic surgery for skin cancer History of appendectomy History of anesthesia reaction SLOW TO WAKE UP AND "GOES UNDER QUICKLY" History of knee surgery RT History of herniorrhaphy bilateral History of esophagogastroduodenoscopy (EGD) History of colonoscopy History of tooth extraction History of tonsillectomy History of adenoidectomy History of cataract surgery bilt History of lung surgery UPPER RT LOBECTOMY (NO CHEMO) Family History Father Family hx of colon cancer Colorectal cancer Other No family history of adverse response to anesthesia No family history of bleeding disorder Denies family history of Ovarian cancer Prostate cancer Diabetes Myocardial infarction Breast cancer Lung cancer Stroke Social History Smoking Status: Former smoker Tobacco Type: Cigarettes Age Started Using Tobacco: 19; Age Quit Using Tobacco: 36; packs per day: 0.5; Cigarettes Per Day: QUIT AT AGE 36; Second Hand Exposure: No; Do You Dip or Chew Tobacco: No; Hx Alcohol Use: Yes Alcohol type: wine Alcohol Intake Frequency: 4 or More x per/Week Hx Substance Use: No Preferred Language: Nepali Communication Ability: Effective Visual Impairment: Limited Hearing Ability: Use of Hearing Aid Buttermaker Required: No Beliefs That Will Affect Care: None marital status: / Current Living Situation: Personal Care Facility Current Living Situation Comment: Independent Living current occupational status: retired How many Children do You have: 3 Feels Safe at Home: Yes Childhood Exposure to Second-Hand Smoke: Yes caffeine: Yes Dental Care, Regularly: Yes Physical Activity Frequency: Daily Seatbelt Use: always Sunscreen Use: Yes Assistive Devices: Cane and Walker Allergies Allergies Allergy/AdvReac Type Severity Reaction Status Date / Time No Known Drug Allergies Allergy Verified 07/13/25 11:09 Home Meds Home Medications Medication Instructions Recorded Confirmed aspirin 81 mg tablet,delayed 81 mg PO QAM 08/24/18 08/12/25 release guaifenesin 600 mg tablet, 600 mg PO Q12H PRN Congestion 05/19/25 08/12/25 extended release 12 hr (Mucinex) multivitamin 1 tab PO HS 06/03/25 08/12/25 sertraline 50 mg tablet 50 mg PO HS 06/03/25 08/12/25 melatonin 3 mg tablet 6 mg PO HS PRN Sleep 07/06/25 08/12/25 Previous Rx's Medication Instructions Recorded pantoprazole 40 mg tablet,delayed 40 mg PO QAM #90 tabs 11/11/24 release amlodipine 5 mg tablet 5 mg PO DAILY #30 tabs 06/11/25 tamsulosin 0.4 mg capsule (Flomax) 0.4 mg PO HS #30 caps 06/11/25 Results & Data (ED) Vital Signs Vital Signs - 24 hr 08/12/25 08:40 08/12/25 08:45 08/12/25 09:03 Temperature 36.1 C L Temperature Source Oral Pulse Rate 35 L 36 L 78 Pulse Rate from SpO2 Sensor 31 L Respiratory Rate 28 H 20 Respiratory Effort / Characteristics Spontaneous Labored Short of Breath Blood Pressure 149/66 H 131/67 Blood Pressure Mean 93 88 Pulse Oximetry 93 96 Oxygen Delivery Method Room Air Sepsis Recent Fever Within 48 Hours No Sepsis New/Unexplained Change in Mental Status N/A Sepsis Action Taken by Nursing No Action Required 08/12/25 09:30 08/12/25 09:43 08/12/25 10:00 Temperature Temperature Source Pulse Rate 105 H 97 H Pulse Rate from SpO2 Sensor 33 L 33 L Respiratory Rate 37 H 22 Respiratory Effort / Characteristics Blood Pressure 133/59 L 130/63 Blood Pressure Mean 83 85 Pulse Oximetry 98 86 L Oxygen Delivery Method Room Air Sepsis Recent Fever Within 48 Hours Sepsis New/Unexplained Change in Mental Status Sepsis Action Taken by Assisted Medications Current Medication List: was personally reviewed by me Laboratory Data Attestation: I reviewed the patient's lab results. 08/12/25 08:50 08/12/25 08:50 Lab Results 08/12/25 Range/Units 08:50 WBC 8.08 (4.8-10.8) K/ul RBC 3.80 L (4.70-6.10) M/uL Hgb 11.6 L (14.0-18.0) g/dl Hct 34.0 L (42.0-52.0) % MCV 89.5 (80.0-100.0) fL MCH 30.5 (25.0-34.0) pg MCHC 34.1 (32.0-36.0) g/dL RDW Std Deviation 53.8 H (36.4-46.3) fL RDW Coeff of [place] 16.4 H (11.5-14.5) % Plt Count 144 (130-400) K/uL MPV 10.4 (9.4-12.4) fL Immature Gran % (Auto) 0.4 % Neut % (Auto) 78.2 % Lymph % (Auto) 12.4 % [place] % (Auto) 8.8 % Eos % (Auto) 0.1 % Baso % (Auto) 0.1 % Neut # (Auto) 6.32 (1.40-6.50) K/uL Lymph # (Auto) 1.00 L (1.20-3.40) K/uL [place] # (Auto) 0.71 H (0.11-0.59) K/uL Eos # (Auto) 0.01 (0.00-0.50) K/uL Baso # (Auto) 0.01 (0.00-0.20) K/uL Immature Gran # (Auto) 0.03 (0.01-0.20) K/uL PT 11.1 (9.0-12.0) Seconds INR 1.1 (0.9-1.1) APTT 22 (21-31) Seconds PTT Ratio 0.8 Sodium 136 (136-145) mmol/L Potassium 4.9 (3.5-5.1) mmol/L Chloride 103 (98-107) mmol/L Carbon Dioxide 26 (21-32) mmol/L Anion Gap 7 (3-11) BUN 36 H (6-23) mg/dl Creatinine 1.23 (0.6-1.4) mg/dl Est Cr Clr Drug Dosing 39.4 ml/min eGFR 56.12 BUN/Creatinine Ratio 29.3 H (10-20) Glucose 119 H (70-99(Fasting)) mg/dl Calcium 10.5 H (8.6-10.3) mg/dl Magnesium 2.3 (1.7-2.4) mg/dl Total Bilirubin 0.9 (0.2-1.0) mg/dl AST 28 (13-39) U/L ALT 39 (7-52) U/L Alkaline Phosphatase 164 H (34-104) U/L Total Protein 6.9 (6.0-8.3) gm/dl Albumin 3.5 (3.4-5.0) gm/dl Globulin 3.4 (2.5-4.0) gm/dl Albumin/Globulin Ratio 1.0 (0.9-2) TSH 1.471 (0.300-4.500) uIu/ml Free T4 1.36 (0.61-1.60) ng/dl Free T3 2.99 (2.3-4.2) pg/ml Administered Medications Sodium Chloride (Nss) 1,000 mls @ 50 mls/hr IV .Q20H HODA Stop: 08/15/25 11:43 Last Admin: 08/12/25 13:51 Dose: 50 mls/hr Documented By: KJL Discontinued Medications Albuterol (Albut/Ipratrop 3mg/0.5mg Neb 3 Ml Vial) 3 ml INH NOW STA Stop: 08/12/25 08:39 Last Admin: 08/12/25 09:04 Dose: 3 ml Documented By: CEF Atropine Sulfate (Atropine Sulfate 0.1 Mg/Ml 10ml Syr) 0.5 mg IV NOW STA Stop: 08/12/25 08:42 Last Admin: 08/12/25 09:11 Dose: 0.5 mg Documented By: CEF Methylprednisolone (Methylprednisolone 125 Mg/2 Ml Vial) 125 mg IV NOW STA Stop: 08/12/25 08:39 Last Admin: 08/12/25 08:54 Dose: 125 mg Documented By: CEF Imaging Data Radiologist's Impression: Chest X-Ray 08/12/25 08:38 SINGLE VIEW CHEST CLINICAL HISTORY: Dyspnea FINDINGS: 2 AP, portable, upright chest radiographs are compared to study dated 06/08/2025. Correlation is made with chest CT dated 01/20/2023. The examination is degraded by portable technique and patient rotation. A hiatal hernia is noted. The heart is mildly enlarged noting atherosclerotic calcification of the thoracic aorta. There is mild pulmonary vascular congestion. Small pleural effusions are suspected. Bronchiectasis is seen in the lower lobes. Patchy nodular bibasilar airspace opacities are similar to prior studies. No pneumothorax is seen. The skeletal structures are osteopenic. There are chronic/healed right-sided rib fractures. Degenerative change and scoliosis is noted in the thoracic spine. IMPRESSION: 1. Mild cardiomegaly with pulmonary vascular congestion. 2. Suspect small pleural effusions. 3. Patchy nodular bibasilar opacities and bronchiectasis was better assessed on a prior chest CT. The appearance favors a chronic infectious/inflammatory process such as DEVYN. Clinical correlation will be essential. 4. Hiatal hernia. ACT 112: Negative or not required by law. Electronically signed by: Clifford Amin M.D. 08/12/2025 9:16 AM Discharge Plan Visit Data Chief Complaint: Shortness of Breath/Dyspnea ED Provider: Collin Celestin Discharge Problem: Third degree AV block, Acute dyspnea Patient Disposition: Admitted As Inpatient Condition: Good Discharge Instructions Interventions: ED Discharge Assessment Last Done: 08/12/25 11:02
[2025-08-12] MEDS: ALBUT/IPRATROP 3MG/0.5MG NEB 3 ML VIAL INH STA (09:04)
[2025-08-12 09:09] LABS: Hematocrit (blood only) 34.0 % (42.0-52.0); Hemoglobin 11.6 g/dl (14.0-18.0); Immature Granulocytes # (auto) 0.03 K/uL (0.01-0.20); Immature Granulocytes % (auto) 0.4 %; Mean Corpuscular Hemoglobin 30.5 pg (25.0-34.0); Mean Corpuscular Volume 89.5 fL (80.0-100.0); Platelet Count 144 K/uL (130-400); RDW Standard Deviation 53.8 fL (36.4-46.3); Red Blood Count 3.80 M/uL (4.70-6.10); White Blood Count 8.08 K/ul (4.8-10.8)
[2025-08-12] MEDS: ATROPINE SULFATE 0.1 MG/ML 10ML SYR IV STA (09:11)
--- NOTE | 2025-08-12 09:19 | XRay Report ---
SINGLE VIEW CHEST CLINICAL HISTORY: Dyspnea FINDINGS: 2 AP, portable, upright chest radiographs are compared to study dated 06/08/2025. Correlatio n is made with chest CT dated 01/20/2023. The examination is degraded by portable technique and patien t rotation. A hiatal hernia is noted. The heart is mildly enlarged noting atherosclerotic calcificati on of the thoracic aorta. There is mild pulmonary vascular congestion. Small pleural effusions are kumari spected. Bronchiectasis is seen in the lower lobes. Patchy nodular bibasilar airspace opacities are s imilar to prior studies. No pneumothorax is seen. The skeletal structures are osteopenic. There are c hronic/healed right-sided rib fractures. Degenerative change and scoliosis is noted in the thoracic s pine. IMPRESSION: 1. Mild cardiomegaly with pulmonary vascular congestion. 2. Suspect small pleural effusions. 3. Patchy nodular bibasilar opacities and bronchiectasis was better assessed on a prior chest CT. The appearance favors a chronic infectious/inflammatory process such as DEVYN. Clinical correlation will b e essential. 4. Hiatal hernia. ACT 112: Negative or not required by law. Electronically signed by: Clifford Amin M.D. 08/12/2025 9:16 AM
[2025-08-12 09:27] LABS: Alanine Aminotransferase 39.0 U/L (7-52); Albumin Globulin Ratio 1.0 (0.9-2); Albumin Level 3.5 gm/dl (3.4-5.0); Alkaline Phosphatase 164.0 U/L (34-104); Anion Gap 7.0 (3-11); Bilirubin,Total 0.9 mg/dl (0.2-1.0); Blood Urea Nitrogen 36.0 mg/dl (6-23); Calcium 10.5 mg/dl (8.6-10.3); Carbon Dioxide 26.0 mmol/L (21-32); Chloride 103.0 mmol/L (98-107); Creatinine Clr Calc Pharmacy 39.4 ml/min; Globulin 3.4 gm/dl (2.5-4.0); Glucose 119.0 mg/dl (70-99(Fasting)); Magnesium 2.3 mg/dl (1.7-2.4); Potassium 4.9 mmol/L (3.5-5.1); Sodium 136.0 mmol/L (136-145); Total Protein 6.9 gm/dl (6.0-8.3)
[2025-08-12 09:39] LABS: INR 1.1 (0.9-1.1); Partial Thromboplastin Time 22 Seconds (21-31); Prothrombin Time 11.1 Seconds (9.0-12.0)
[2025-08-12 10:23] LABS: Thyroid Stimulating Hormone 1.471 uIu/ml (0.300-4.500)
--- NOTE | 2025-08-12 10:35 | History & Physical Report ---
Date of Service August 12, 2025 Assessment & Plan (1) Third degree AV block: Plan: With bradycardia. Previous EKGs reveal first-degree AV block with complete right bundle branch block. He is on no beta-blockers or diltiazem. Telemetry. External pacer pads in place. Appreciate cardiology consultation. He probably will undergo PPM placement as soon as possible. (2) Gastroesophageal reflux disease: Plan: PPI therapy (3) BPH w urinary obs/LUTS: Plan: He continue Flomax (4) Hard of hearing: Plan: Supportive care. The patient wears hearing aids Plan Probable return to SNF at discharge before he can return to his previous living arrangements in personal care. History of Present Illness Chief Complaint: Exertional dyspnea Primary Care Provider: Russ Walsh, 89-year-old white male with exertional dyspnea for several days. He was treated with Lasix but did not improve. He came to the ED for evaluation. He was found to be in third-degree heart block with rates in the 30s. Blood pressure is acceptable. He is on room air. External pacer patches were applied while in the ED. He was given intravenous atropine with no effect. He does not take diltiazem or any beta-tao. He has been seen by Dr. So Spencer, cardiology, and probably will undergo PPM placement as soon as possible. He is admitted for further evaluation and treatment. He denies any chest pain. No syncope. Allergies Allergy/AdvReac Type Severity Reaction Status Date / Time No Known Drug Allergies Allergy Verified 07/13/25 11:09 Home Medications Medication Instructions Recorded Confirmed Type aspirin 81 mg tablet,delayed 81 mg PO QAM 08/24/18 08/12/25 History release pantoprazole 40 mg tablet,delayed 40 mg PO QAM #90 tabs 11/11/24 08/12/25 Rx release guaifenesin 600 mg tablet, 600 mg PO Q12H PRN Congestion 05/19/25 08/12/25 History extended release 12 hr (Mucinex) multivitamin 1 tab PO HS 06/03/25 08/12/25 History sertraline 50 mg tablet 50 mg PO HS 06/03/25 08/12/25 History amlodipine 5 mg tablet 5 mg PO DAILY #30 tabs 06/11/25 08/12/25 Rx tamsulosin 0.4 mg capsule (Flomax) 0.4 mg PO HS #30 caps 06/11/25 08/12/25 Rx melatonin 3 mg tablet 6 mg PO HS PRN Sleep 07/06/25 08/12/25 History Past Med/Surg History Problem List (Updated 08/12/25 @ 10:34 by Fareed Sapp MD) Hard of hearing 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 Elevated LFTs Healthcare-associated pneumonia Anemia of chronic disease Leucocytosis Gait apraxia of elderly Hyperlipidemia (Chronic) Gastroesophageal reflux disease Osteoarthritis of both knees Barretts esophagus Medical History Metabolic encephalopathy Elevated lipase Aspiration into airway Spinal stenosis of lumbar region Scoliosis Upper airway cough syndrome Right bundle branch block Sensorineural hearing loss of both ears History of stroke Enlarged prostate Deviated nasal septum Ex-smoker Pneumothorax, right Depression Mixed restrictive and obstructive lung disease History of melanoma Stage I adenocarcinoma of lung GERD (gastroesophageal reflux disease) Thyroid goiter Surgical History History of melanoma excision History of Mohs micrographic surgery for skin cancer History of appendectomy History of anesthesia reaction History of knee surgery History of herniorrhaphy History of esophagogastroduodenoscopy (EGD) History of colonoscopy History of tooth extraction History of tonsillectomy History of adenoidectomy History of cataract surgery History of lung surgery Family History Father Family hx of colon cancer Colorectal cancer Other No family history of adverse response to anesthesia No family history of bleeding disorder Denies family history of Ovarian cancer Prostate cancer Diabetes Myocardial infarction Breast cancer Lung cancer Stroke Social History Smoking Status: Former smoker Tobacco Type: Cigarettes Age Started Using Tobacco: 19; Age Quit Using Tobacco: 36; packs per day: 0.5; Cigarettes Per Day: QUIT AT AGE 36; Second Hand Exposure: No; Do You Dip or Chew Tobacco: No; Hx Alcohol Use: No Hx Substance Use: No Preferred Language: Urdu Communication Ability: Effective Visual Impairment: Limited Hearing Ability: Use of Hearing Aid Watermaster Required: No Beliefs That Will Affect Care: None marital status: / Current Living Situation: Alone Current Living Situation Comment: Independent Living current occupational status: retired How many Children do You have: 3 Feels Safe at Home: Yes Childhood Exposure to Second-Hand Smoke: Yes caffeine: Yes Dental Care, Regularly: Yes Physical Activity Frequency: Daily Seatbelt Use: always Sunscreen Use: Yes Assistive Devices: Walker Review of Systems 2 Review of Systems: Constitutionalno fever or chills ENTno blurred vision, no double vision, no epistaxis, no sore throat Respiratoryno cough, no wheezing. He recently developed dyspnea on exertion Cardiacno palpitations, no chest pain, no syncope Yajaira nausea, vomiting, diarrhea, melena, hematochezia GUno urinary retention, no urinary incontinence, no dysuria, no hematuria Musculoskeletalno joint pain, no muscle tenderness Skinno bruising, no rashes, no pruritus Neurono isolated weakness, no paresthesia, no weakness Psychno depression, no anxiety Physical Exam 2 Physical Exam: General-alert and oriented x3, no fever, no chills HEENT-head atraumatic and normocephalic, pupils equal and reactive to light, extraocular muscles intact. Hard of hearing Neck-no lymphadenopathy or thyromegaly, trachea midline Chest-inspiratory rales at the right base. No wheezing or rhonchi i Cardiac-bradycardic regular rhythm. Normal S1 and S2. Abdomen-normal bowel sounds, no hepatosplenomegaly Extremities-no cyanosis, clubbing, or edema Neuro-cranial nerves II through XII intact, motor and sensory function within normal limits, strength symmetrical, no focal deficits Psych-normal affect, normal mood Results & Data Results & Data Vital Signs (Past 12 Hours) Vital Signs Temp Pulse Resp BP Pulse Ox O2 Del Method 08/12/25 09:43 Room Air 08/12/25 08:45 36.1 C L 36 L 28 H 149/66 H 93 Room Air 08/12/25 08:40 35 L Laboratory Results 08/12/25 08:50 08/12/25 08:50 Code Status & VTE Plan Code Status Full code PG Care Time/CCT Total # of Minutes Spent Total Time Spent with Patient: Total time spent is greater than 50% in coordination of care (as documented) at patient's floor/unit and/or counseling patient: Coding Level of Care Code 53480 INT INP/OBS CARE 3/75MIN Diagnoses Third degree AV block I44.2 Gastroesophageal reflux disease K21.9 BPH w urinary obs/LUTS N40.1; N13.8 Hard of hearing H91.90
[2025-08-12 10:50] LABS: T4 Free Thyroxine 1.36 ng/dl (0.61-1.60)
[2025-08-12] MEDS ORDERED: ONDANSETRON INJ 2 MG/ML 2 ML VIAL IV PRN (11:44)
[2025-08-12 12:07] LABS: Chlamydia pneumoniae PCR Not Detected (NotDetected); Coronavirus 229E PCR Not Detected (NotDetected); Coronavirus CoV-2 (COVID19)PCR Not Detected (NotDetected); Coronavirus HKU1 PCR Not Detected (NotDetected); Coronavirus NL63 PCR Not Detected (NotDetected); Coronavirus OC43PCR Not Detected (NotDetected); Human Metapneumovirus PCR Not Detected (NotDetected); Parainfluenza Virus 1 PCR Not Detected (NotDetected); Parainfluenza Virus 2 PCR Not Detected (NotDetected); Parainfluenza Virus 3 PCR Not Detected (NotDetected); Parainfluenza Virus 4 PCR Not Detected (NotDetected); Respiratory Syncytial VirusPCR Not Detected (NotDetected); Rhinovirus/Enterovirus PCR Not Detected (NotDetected)
[2025-08-12 12:12] LABS: Appearance Urine Clear (Clear); Glucose Urine UA Negative (Negative)
--- NOTE | 2025-08-12 13:36 | Cardiology Consultation ---
Date of Consultation August 12, 2025 Assessment & Plan (1) Third degree AV block: Plan 1. Complete heart block: He presents now in complete heart block and his only symptoms seem to be dyspnea on exertion which have been present for about 5 days. He and his daughter are quite specific about that. He has not had lightheadedness or dizziness. He does not have any medications which are generally associated with heart block although amlodipine can do that. I think I would discontinue that, I do not think we have to worry about blood pressure control for the next few days. Assuming he is not taking any medications that we do not know about he will almost certainly need a pacemaker. I am going to order an echocardiogram, before implanting a device I would like to know his left ventricular function. I discussed this approach with him and his daughter, including the indications, procedure and risks of pacemaker implantation and they both understand and he does agree to proceed. He was just finishing lunch when I saw him today, and I do not think we need to do it urgently. Nor do I think he needs a temporarily pacemaker. We will tentatively plan on pacemaker implantation on Thursday, although if there are signs of decompensation we will have to consider temporary or permanent pacemaker implantation before that. History of Present Illness Reason for Consultation: Complete heart block Attending Physician: Fareed Sapp MD History of Present Illness This is an 89-year-old male who does not have known significant heart disease historically. He does carry a diagnosis of a CVA as well as hyperlipidemia, GERD and some other medical issues. He has had difficulty with urinary ret ention and he had a biliary stent placed relatively recently but had been recovering from that. He was in senior care at the [facility] and was recently moved back to independent living. His last electrocardiogram from May 2025 did show right bundle branch block and first-degree AV block. He noted that he was quite short of breath with exertion around August 07, 2025, his daughter is fairly specific about that date of onset. She noticed that he was having difficulty with exertion and he recalls that as well. He evidently has not had other symptoms such as lightheadedness or dizziness and I did question him specifically about those symptoms. He was sent to the emergency room with bradycardia and for evaluation of shortness of breath. In the emergency room he was noted to be in complete heart block with a wide- complex escape rhythm at 31 bpm. He is on no AV jorge blocking medications although he is on amlodipine. Allergies Allergy/AdvReac Type Severity Reaction Status Date / Time No Known Drug Allergies Allergy Verified 07/13/25 11:09 Home Medications Medication Instructions Recorded Confirmed Type aspirin 81 mg tablet,delayed 81 mg PO QAM 08/24/18 08/12/25 History release pantoprazole 40 mg tablet,delayed 40 mg PO QAM #90 tabs 11/11/24 08/12/25 Rx release guaifenesin 600 mg tablet, 600 mg PO Q12H PRN Congestion 05/19/25 08/12/25 History extended release 12 hr (Mucinex) multivitamin 1 tab PO HS 06/03/25 08/12/25 History sertraline 50 mg tablet 50 mg PO HS 06/03/25 08/12/25 History amlodipine 5 mg tablet 5 mg PO DAILY #30 tabs 06/11/25 08/12/25 Rx tamsulosin 0.4 mg capsule (Flomax) 0.4 mg PO HS #30 caps 06/11/25 08/12/25 Rx melatonin 3 mg tablet 6 mg PO HS PRN Sleep 07/06/25 08/12/25 History Patient History Medical History Metabolic encephalopathy Elevated lipase Aspiration into airway Spinal stenosis of lumbar region Scoliosis Upper airway cough syndrome Right bundle branch block Sensorineural hearing loss of both ears History of stroke Enlarged prostate Deviated nasal septum Ex-smoker Pneumothorax, right Depression 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 GERD (gastroesophageal reflux disease) Thyroid goiter BIOPSY DONE "NORMAL" Surgical History History of melanoma excision off lip History of Mohs micrographic surgery for skin cancer History of appendectomy History of anesthesia reaction SLOW TO WAKE UP AND "GOES UNDER QUICKLY" History of knee surgery RT History of herniorrhaphy bilateral History of esophagogastroduodenoscopy (EGD) History of colonoscopy History of tooth extraction History of tonsillectomy History of adenoidectomy History of cataract surgery bilt History of lung surgery UPPER RT LOBECTOMY (NO CHEMO) Family History Father Family hx of colon cancer Colorectal cancer Other No family history of adverse response to anesthesia No family history of bleeding disorder Denies family history of Ovarian cancer Prostate cancer Diabetes Myocardial infarction Breast cancer Lung cancer Stroke Social History Smoking Status: Former smoker Tobacco Type: Cigarettes Age Started Using Tobacco: 19; Age Quit Using Tobacco: 36; packs per day: 0.5; Cigarettes Per Day: QUIT AT AGE 36; Second Hand Exposure: No; Do You Dip or Chew Tobacco: No; Hx Alcohol Use: Yes Alcohol type: wine Alcohol Intake Frequency: 4 or More x per/Week Hx Substance Use: No Preferred Language: Finnish Communication Ability: Effective Visual Impairment: Limited Hearing Ability: Use of Hearing Aid Toggle Press Folder And Feeder Required: No Beliefs That Will Affect Care: None marital status: / Current Living Situation: Personal Care Facility Current Living Situation Comment: Independent Living current occupational status: retired How many Children do You have: 3 Feels Safe at Home: Yes Childhood Exposure to Second-Hand Smoke: Yes caffeine: Yes Dental Care, Regularly: Yes Physical Activity Frequency: Daily Seatbelt Use: always Sunscreen Use: Yes Assistive Devices: Cane and Walker Review of Systems Review of Systems: All systems reviewed & are unremarkable except as noted in HPI & below Physical Exam Physical Exam: Constitutional: Alert, cooperative and in no distress. HEENT: Unremarkable other than being hard of hearing Neck: No jugular venous distention, carotid pulses are slow but equal bilaterally without bruits. Pulmonary: Clear to auscultation bilaterally. Cardiac: Regular slow rhythm with no murmur, gallop or rub. Abdomen: Soft, nontender with normal bowel sounds. Extremities: No edema. Neurologic: No focal findings. Skin: No rash, ecchymoses or petechiae. Results & Data Vital Signs (Past 12 Hours) Vital Signs Temp Pulse Resp BP BP Pulse Ox O2 Del Method 08/12/25 11:44 36.3 C L 18 155/69 H 93 Room Air 08/12/25 10:33 102 H 15 135/75 94 08/12/25 10:00 97 H 22 130/63 86 L 08/12/25 09:43 Room Air 08/12/25 09:30 105 H 37 H 133/59 L 98 08/12/25 09:03 78 20 131/67 96 08/12/25 08:45 36.1 C L 36 L 28 H 149/66 H 93 Room Air 08/12/25 08:40 35 L Laboratory Results Cardiac Enzymes 08/12/25 Range/Units 08:50 AST 28 (13-39) U/L Coagulation 08/12/25 Range/Units 08:50 PT 11.1 (9.0-12.0) Seconds APTT 22 (21-31) Seconds CBC 08/12/25 Range/Units 08:50 WBC 8.08 (4.8-10.8) K/ul RBC 3.80 L (4.70-6.10) M/uL Hgb 11.6 L (14.0-18.0) g/dl Hct 34.0 L (42.0-52.0) % Plt Count 144 (130-400) K/uL Neut # (Auto) 6.32 (1.40-6.50) K/uL Lymph # (Auto) 1.00 L (1.20-3.40) K/uL [place] # (Auto) 0.71 H (0.11-0.59) K/uL Eos # (Auto) 0.01 (0.00-0.50) K/uL Baso # (Auto) 0.01 (0.00-0.20) K/uL Comprehensive Metabolic Panel 08/12/25 Range/Units 08:50 Sodium 136 (136-145) mmol/L Potassium 4.9 (3.5-5.1) mmol/L Chloride 103 (98-107) mmol/L Carbon Dioxide 26 (21-32) mmol/L BUN 36 H (6-23) mg/dl Creatinine 1.23 (0.6-1.4) mg/dl Glucose 119 H (70-99(Fasting)) mg/dl Calcium 10.5 H (8.6-10.3) mg/dl AST 28 (13-39) U/L ALT 39 (7-52) U/L Alkaline Phosphatase 164 H (34-104) U/L Total Protein 6.9 (6.0-8.3) gm/dl Albumin 3.5 (3.4-5.0) gm/dl Intake and Output 08/11/25 08/12/25 08/12/25 22:59 06:59 14:59 Output Total 92 / 92 Balance -92 / -92 Output: Urine 90 / 90 # Bowel Movements 2 / 2 Other: Weight 77.1 kg Weight Measurement Method [facility] Patient Weight 08/13/25 06:59 Weight 77.1 kg Diagnostic Findings Telemetry: Complete heart block since presentation with a heart rate in the low 30s (his heart rate is not being detected properly by telemetry, atrial activity is being detected as his ventricular so the rates are not correct) PG Care Time/CCT Total # of Minutes Spent Total Time Spent with Patient: Total time spent is greater than 50% in coordination of care (as documented) at patient's floor/unit and/or counseling patient: Coding Level of Care Code 79790 INT INP/OBS CARE 3/75MIN Diagnoses Third degree AV block I44.2
[2025-08-12] MEDS: SODIUM CHLORIDE 0.9% 1,000 ML IV SCH (13:51)
--- NOTE | 2025-08-12 18:31 | XCELERA ---
[id number]
[2025-08-12] MEDS: DOCUSATE SODIUM 100 MG CAP PO SCH (20:55)
[2025-08-12] MEDS: ACETAMINOPHEN 325 MG TAB PO PRN (20:55)
[2025-08-12] MEDS: MELATONIN 3 MG TAB PO PRN (20:55)
[2025-08-12] MEDS: MULTIVITAMIN TAB PO SCH (21:31)
[2025-08-12] MEDS: SERTRALINE HCL 50 MG TABLET PO SCH (21:31)
[2025-08-12] MEDS: TAMSULOSIN HCL 0.4 MG CAP PO SCH (21:31)
--- NOTE | 2025-08-13 02:59 | XRay Report ---
EXAM: XR chest 1V portable CLINICAL HISTORY: worsening dysonea, ?fluid overload TECHNIQUE: Radiograph of the chest was acquired. COMPARISON: 06/08/2025 13:08:13 FUNERAL DIRECTOR/EMBALMER FINDINGS: There is blunting of the bilateral costophrenic angles. Ill-defined opacities are seen in the left lower zone. Prominent vascular shadows are seen in the lungs. The cardiac shadow appears enlarged. No acute osseous abnormality is identified. IMPRESSION: 1. Bilateral pleural effusion with pulmonary infiltrates in the left lower zone. Left pleural effusion shows mild reduction. 2. Pulmonary vascular congestion - persistent. Electronically signed by Fco Magallon 08-13-2025 02:58 AM
[2025-08-13 05:14] LABS: HCO3 ABG 22 mmol/L (19-24); Oxygen Saturation ABG 95.5 % (90-95); PCO2 ABG 30 mmHg (35-46); PO2 ABG 73 mmHg (80-95)
[2025-08-13 05:16] LABS: Allen Test Pos (Pos)
[2025-08-13 06:37] LABS: Hematocrit (blood only) 33.5 % (42.0-52.0); Hemoglobin 11.0 g/dl (14.0-18.0); Immature Granulocytes # (auto) 0.02 K/uL (0.01-0.20); Immature Granulocytes % (auto) 0.2 %; Mean Corpuscular Hemoglobin 28.8 pg (25.0-34.0); Mean Corpuscular Volume 87.7 fL (80.0-100.0); Platelet Count 152 K/uL (130-400); RDW Standard Deviation 53.1 fL (36.4-46.3); Red Blood Count 3.82 M/uL (4.70-6.10); White Blood Count 8.84 K/ul (4.8-10.8)
[2025-08-13 06:55] LABS: Anion Gap 7.0 (3-11); Blood Urea Nitrogen 39.0 mg/dl (6-23); Calcium 10.2 mg/dl (8.6-10.3); Carbon Dioxide 24.0 mmol/L (21-32); Chloride 104.0 mmol/L (98-107); Creatinine Clr Calc Pharmacy 42.9 ml/min; Glucose 111.0 mg/dl (70-99(Fasting)); Potassium 4.7 mmol/L (3.5-5.1); Sodium 135.0 mmol/L (136-145)
[2025-08-13] MEDS: ALBUT/IPRATROP 3MG/0.5MG NEB 3 ML VIAL NEB STA (07:54)
--- NOTE | 2025-08-13 09:21 | Cardiology Progress Note ---
Date of Service August 13, 2025 Assessment & Plan (1) Third degree AV block: Plan 1. Complete heart block: He presents now in complete heart block and his only symptoms seem to be dyspnea on exertion which have been present for about 5 days. He and his daughter are quite specific about that. He has not had lightheadedness or dizziness. He does not have any medications which are generally associated with heart block although amlodipine can do that, but he is not on that here and he remains in complete heart block. I do not think we have to worry about blood pressure control for the next few days. There are no apparent reversible causes of heart block therefore he will need a pacemaker. I discussed this approach with him and his daughter yesterday, including the indications, procedure and risks of pacemaker implantation and they both understand and he does agreed to proceed. Morning, I do not think we need to do it urgently. Nor do I think he needs a temporarily pacemaker. We will tentatively plan on pacemaker implantation on Thursday I can do it first thing in the morning although after that I cannot but the schedule seems open. I have scheduled him for around 7:30 AM tomorrow, although if there are signs of decompensation we will have to consider temporary or permanent pacemaker implantation before that. Admission and Anticipated Discharge Date Admission Date: August 12, 2025 Subjective He has been a little bit confused, I doubt it is his heart rate, probably "". This morning he is conversational but confused. Physical Exam Physical Exam: Constitutional: Alert, cooperative and in no distress. HEENT: Unremarkable other than being hard of hearing Neck: No jugular venous distention, carotid pulses are slow but equal bilaterally without bruits. Pulmonary: Clear to auscultation bilaterally. Cardiac: Regular slow rhythm with no murmur, gallop or rub. Abdomen: Soft, nontender with normal bowel sounds. Extremities: No edema. Neurologic: No focal findings. Somewhat confused. Skin: No rash, ecchymoses or petechiae. Results & Data Vital Signs (Past 12 Hours) Vital Signs Pulse Pulse Pulse Resp BP Pulse Ox O2 Del Method 08/13/25 07:11 29 L 26 H 129/80 94 Nasal Cannula 08/13/25 05:21 30 L 08/13/25 04:17 29 L 24 152/80 H 94 Nasal Cannula 08/13/25 03:18 28 L 21 146/84 H 93 Nasal Cannula 08/13/25 02:40 29 L 08/13/25 02:10 29 L 22 166/88 H 91 Nasal Cannula 08/13/25 01:02 142/78 H 08/13/25 00:46 118/45 L 08/12/25 22:29 143/38 H 08/12/25 22:03 29 L 15 93 08/12/25 21:33 29 L 21 83 L O2 Flow Rate 08/13/25 07:11 3 08/13/25 05:21 08/13/25 04:17 3 08/13/25 03:18 3 08/13/25 02:40 08/13/25 02:10 3 08/13/25 01:02 08/13/25 00:46 08/12/25 22:29 08/12/25 22:03 08/12/25 21:33 Laboratory Results Cardiac Enzymes 08/12/25 Range/Units 08:50 AST 28 (13-39) U/L Coagulation 08/12/25 Range/Units 08:50 PT 11.1 (9.0-12.0) Seconds APTT 22 (21-31) Seconds CBC 08/13/25 Range/Units 05:51 WBC 8.84 (4.8-10.8) K/ul RBC 3.82 L (4.70-6.10) M/uL Hgb 11.0 L (14.0-18.0) g/dl Hct 33.5 L (42.0-52.0) % Plt Count 152 (130-400) K/uL Neut # (Auto) 6.86 H (1.40-6.50) K/uL Lymph # (Auto) 1.14 L (1.20-3.40) K/uL [place] # (Auto) 0.81 H (0.11-0.59) K/uL Eos # (Auto) 0.00 (0.00-0.50) K/uL Baso # (Auto) 0.01 (0.00-0.20) K/uL Comprehensive Metabolic Panel 08/12/25 08/13/25 Range/Units 08:50 05:51 Sodium 136 135 L (136-145) mmol/L Potassium 4.9 4.7 (3.5-5.1) mmol/L Chloride 103 104 (98-107) mmol/L Carbon Dioxide 26 24 (21-32) mmol/L BUN 36 H 39 H (6-23) mg/dl Creatinine 1.23 1.13 (0.6-1.4) mg/dl Glucose 119 H 111 H (70-99(Fasting)) mg/dl Calcium 10.5 H 10.2 (8.6-10.3) mg/dl AST 28 (13-39) U/L ALT 39 (7-52) U/L Alkaline Phosphatase 164 H (34-104) U/L Total Protein 6.9 (6.0-8.3) gm/dl Albumin 3.5 (3.4-5.0) gm/dl Intake and Output 08/12/25 08/13/25 08/13/25 22:59 06:59 14:59 Output Total 125 / 217 Balance -125 / -217 Output: Urine 125 / 215 Diagnostic Findings Telemetry: Complete heart block, rate varying 29-35, mostly 29 this morning. Nothing slower than that evident. Echocardiogram: His echocardiogram yesterday shows normal left ventricular function. He does have pulmonary hypertension, some of that may be due to his bradycardia but there is no specific treatment for that in the situation. PG Care Time/CCT Total # of Minutes Spent Total Time Spent with Patient: Total time spent is greater than 50% in coordination of care (as documented) at patient's floor/unit and/or counseling patient: Coding Level of Care Code 18576 SUB INP/OBS CARE 3/50MIN Diagnoses Third degree AV block I44.2
[2025-08-13] MEDS: FUROSEMIDE 40 MG/4 ML VIAL IV SCH (09:45)
[2025-08-13] MEDS: ASPIRIN 81 MG ECTAB PO SCH (09:47)
[2025-08-13] MEDS: ALBUT/IPRATROP 3MG/0.5MG NEB 3 ML VIAL NEB SCH (09:59)
--- NOTE | 2025-08-13 14:01 | Hospitalist Progress Note ---
Date of Service August 13, 2025 Assessment & Plan (1) Third degree AV block: Plan: With bradycardia. Previous EKGs reveal first-degree AV block with complete right bundle branch block. He is on no beta-blockers or diltiazem. Telemetry. External pacer pads in place. Appreciate cardiology consultation. He probably will undergo PPM placement as soon as possible. (2) Acute diastolic CHF (congestive heart failure): Plan: Suspected. Parenteral Lasix every 12. Monitor urine output. Serial chest x- ray (3) Acute respiratory failure with hypoxia: Plan: Supplemental oxygen per nasal cannula to maintain saturation greater than 90%. Wean off as tolerated (4) Gastroesophageal reflux disease: Plan: PPI therapy (5) BPH w urinary obs/LUTS: Plan: Stable. Continue Flomax (6) Hard of hearing: Plan: Supportive care. The patient wears hearing aids Plan Probable return to SNF at discharge before he can return to his previous living arrangements in personal care. Sometime this coming week Admission and Anticipated Discharge Date Admission Date: August 12, 2025 Subjective Alert and oriented. Daughter is at the bedside. Cardiology entry noted. Permanent pacemaker insertion planned for tomorrow, August 14. He is now on supplemental oxygen and may have a component of diastolic CHF. Parenteral Lasix therapy has been started. IV fluids further tapered down to 30 cc/h. Maintaining continuous IV fluids to ensure IV access is available in the event we need it. Review of Systems 2 Review of Systems: Constitutionalno fever or chills ENTno blurred vision, no double vision, no epistaxis, no sore throat Respiratoryno cough, no wheezing. He recently developed dyspnea on exertion Cardiacno palpitations, no chest pain, no syncope Yajaira nausea, vomiting, diarrhea, melena, hematochezia GUno urinary retention, no urinary incontinence, no dysuria, no hematuria Musculoskeletalno joint pain, no muscle tenderness Skinno bruising, no rashes, no pruritus Neurono isolated weakness, no paresthesia, no weakness Psychno depression, no anxiety Physical Exam 2 Physical Exam: General-alert and oriented x3, no fever, no chills HEENT-head atraumatic and normocephalic, pupils equal and reactive to light, extraocular muscles intact. Hard of hearing Neck-no lymphadenopathy or thyromegaly, trachea midline Chest-bibasilar inspiratory rales . No wheezing or rhonchi Cardiac-bradycardic regular rhythm. Normal S1 and S2. Abdomen-normal bowel sounds, no hepatosplenomegaly Extremities-no cyanosis, clubbing, or edema Neuro-cranial nerves II through XII intact, motor and sensory function within normal limits, strength symmetrical, no focal deficits Psych-normal affect, normal mood Results & Data Results & Data Vital Signs (Past 12 Hours) Vital Signs Temp Pulse Pulse Pulse Resp BP Pulse Ox 08/13/25 13:16 34 L 08/13/25 11:32 36.3 C L 51 L 22 118/72 94 08/13/25 10:00 30 L 16 93 08/13/25 07:11 29 L 26 H 129/80 94 08/13/25 05:21 30 L 08/13/25 04:17 29 L 24 152/80 H 94 08/13/25 03:18 28 L 21 146/84 H 93 08/13/25 02:40 29 L 08/13/25 02:10 29 L 22 166/88 H 91 O2 Del Method O2 Flow Rate 08/13/25 13:16 08/13/25 11:32 Nasal Cannula 3 08/13/25 10:00 Nasal Cannula 2.5 08/13/25 07:11 Nasal Cannula 3 08/13/25 05:21 08/13/25 04:17 Nasal Cannula 3 08/13/25 03:18 Nasal Cannula 3 08/13/25 02:40 08/13/25 02:10 Nasal Cannula 3 Laboratory Results 08/13/25 05:51 08/13/25 05:51 PG Care Time/CCT Total # of Minutes Spent Total Time Spent with Patient: Total time spent is greater than 50% in coordination of care (as documented) at patient's floor/unit and/or counseling patient: Coding Level of Care Code 51485 SUB INP/OBS CARE 3/50MIN Diagnoses Third degree AV block I44.2 Acute diastolic CHF (congestive heart failure) I50.31 Acute respiratory failure with hypoxia J96.01 Gastroesophageal reflux disease K21.9 BPH w urinary obs/LUTS N40.1; N13.8 Hard of hearing H91.90
--- NOTE | 2025-08-13 22:35 | Electrocardiogram Report ---
Test Reason : Blood Pressure : */* mmHG Vent. Rate : 31 BPM Atrial Rate : * BPM P-R Int : * ms QRS Dur : 142 ms QT Int : 668 ms P-R-T Axes : * -33 53 degrees QTcB Int : 479 ms Sinus rhythm with complete heart block Left axis deviation Left bundle branch block Abnormal ECG When compared with ECG of 03-Jun-2025 19:08, CHB has replaced Sinus rhythm Vent. rate has decreased by 64 bpm Confirmed by Toñito Beatty ([id number]) on 08/13/2025 10:35:20 PM Referred By: REFERRED SELF Confirmed By: Toñito Beatty
[2025-08-14 06:15] LABS: Hematocrit (blood only) 34.5 % (42.0-52.0); Hemoglobin 11.7 g/dl (14.0-18.0); Immature Granulocytes # (auto) 0.03 K/uL (0.01-0.20); Immature Granulocytes % (auto) 0.3 %; Mean Corpuscular Hemoglobin 30.0 pg (25.0-34.0); Mean Corpuscular Volume 88.5 fL (80.0-100.0); Platelet Count 151 K/uL (130-400); RDW Standard Deviation 53.3 fL (36.4-46.3); Red Blood Count 3.90 M/uL (4.70-6.10); White Blood Count 9.27 K/ul (4.8-10.8)
[2025-08-14 06:42] LABS: Anion Gap 12.0 (3-11); Blood Urea Nitrogen 40.0 mg/dl (6-23); Calcium 9.7 mg/dl (8.6-10.3); Carbon Dioxide 24.0 mmol/L (21-32); Chloride 102.0 mmol/L (98-107); Creatinine Clr Calc Pharmacy 35.6 ml/min; Glucose 108.0 mg/dl (70-99(Fasting)); Potassium 3.5 mmol/L (3.5-5.1); Sodium 138.0 mmol/L (136-145)
--- NOTE | 2025-08-14 07:19 | Hospitalist Progress Note ---
Date of Service August 14, 2025 Assessment & Plan (1) Third degree AV block: Plan: With bradycardia. Previous EKGs reveal first-degree AV block with complete right bundle branch block. He is on no beta-blockers or diltiazem. Permanent pacemaker placed 08/14/25 (2) Acute diastolic CHF (congestive heart failure): Plan: HFpEF, severe pulmonary HTN. Parenteral Lasix every 12. Monitor urine output. (3) Acute respiratory failure with hypoxia: Plan: secondary to HFpEF in exacerbation from heart block , Supplemental oxygen per nasal cannula to maintain saturation greater than 90%. continued diuresis (4) Gastroesophageal reflux disease: Plan: PPI therapy (5) BPH w urinary obs/LUTS: Plan: Stable. Continue Flomax (6) Hard of hearing: Plan: Supportive care. The patient wears hearing aids Plan Probable return to SNF at discharge before he can return to his previous living arrangements in personal care. Sometime this coming week Admission and Anticipated Discharge Date Admission Date: August 12, 2025 Subjective PT had pacemaker placed today has better rate no other issues at this time Physical Exam Physical Exam: Pleasant laying flat, cardiac exam is regular, lungs are clear anteriorly ext without edema Results & Data Results & Data Vital Signs (Past 12 Hours) Vital Signs Temp Pulse Pulse Pulse Resp BP Pulse Ox 08/14/25 03:19 98.1 F 39 L 16 139/71 94 08/13/25 22:56 98.2 F 38 L 18 151/61 H 94 08/13/25 20:00 08/13/25 20:00 39 L 08/13/25 19:40 37 L 18 97 O2 Del Method O2 Flow Rate 08/14/25 03:19 Nasal Cannula 3 08/13/25 22:56 Nasal Cannula 3 08/13/25 20:00 Nasal Cannula 2 08/13/25 20:00 08/13/25 19:40 Nasal Cannula 3 Laboratory Results review cbc review chemistry PG Care Time/CCT Total # of Minutes Spent Total Time Spent with Patient: Total time spent is greater than 50% in coordination of care (as documented) at patient's floor/unit and/or counseling patient: Coding Level of Care Code 44092 SUB INP/OBS CARE 2/35MIN Diagnoses Third degree AV block I44.2 Acute diastolic CHF (congestive heart failure) I50.31 Acute respiratory failure with hypoxia J96.01 Gastroesophageal reflux disease K21.9 BPH w urinary obs/LUTS N40.1; N13.8 Hard of hearing H91.90
--- NOTE | 2025-08-14 08:07 | Pre Anesthesia Assessment ---
Date of Service August 14, 2025 Pre Sedation Assessment Vital Signs Temp Pulse Pulse Pulse Resp BP BP 08/14/25 07:22 132/58 L 08/14/25 07:13 40 L 39 L 18 189/69 H 08/14/25 05:54 40 L 08/14/25 03:19 36.7 C 39 L 16 139/71 08/13/25 22:56 36.8 C 38 L 18 151/61 H 08/13/25 20:00 08/13/25 20:00 39 L 08/13/25 19:40 37 L 18 08/13/25 19:03 36.8 C 45 L 25 H 141/59 H 08/13/25 18:43 08/13/25 15:00 36.1 C L 39 L 22 120/82 08/13/25 14:41 41 L 20 08/13/25 13:16 34 L 08/13/25 11:32 36.3 C L 51 L 22 118/72 08/13/25 10:00 30 L 16 Pulse Ox O2 Del Method O2 Flow Rate 08/14/25 07:22 08/14/25 07:13 94 Nasal Cannula 2 08/14/25 05:54 08/14/25 03:19 94 Nasal Cannula 3 08/13/25 22:56 94 Nasal Cannula 3 08/13/25 20:00 Nasal Cannula 2 08/13/25 20:00 08/13/25 19:40 97 Nasal Cannula 3 08/13/25 19:03 96 Nasal Cannula 3 08/13/25 18:43 Nasal Cannula 3 08/13/25 15:00 95 Nasal Cannula 3 08/13/25 14:41 95 Nasal Cannula 3 08/13/25 13:16 08/13/25 11:32 94 Nasal Cannula 3 08/13/25 10:00 93 Nasal Cannula 2.5 Cardiovascular RRR, no murmur, no edema + bradycardic Respiratory normal respiratory effort, lungs clear to auscultation Pre-Sedation Airway Assessment Smoking Status: Former smoker Hx Sleep Apnea: No Short, Thick Neck: No Thyromental Distance: > or= 3.5 Finger Breadths Oral Cavity: + WNL Mallampati Class: III ASA: ASA3 NPO Status Date of Last Intake of Fluids: 08/13/25 Date of Last Intake of Solid Food: 08/13/25 Time of Last Intake of Solid Foods: 18:00 Procedure Planning Contraindications for Sedation: none Current Medications Reviewed: Yes Notes The planned sedation has been discussed with the patient. Informed Consent was obtained. I have identified the patient, determined the appropriateness of sedation and have assessed the patient immediately prior to the procedure. All medicine(s) and interventions are by my order.
--- NOTE | 2025-08-14 08:10 | Cardiology Progress Note ---
Date of Service August 14, 2025 Assessment & Plan (1) Third degree AV block: Plan He remains in complete heart block with a heart rate typically in the low 30s. We will plan on pacemaker implantation today, a dual-chamber pacemaker will be used as he does have intact sinus node function. I reviewed the indications, procedure, risks and alternatives with the patient, and answered all questions. Patient and his daughter understands and agrees to the procedure. Consent obtain ed from his daughter who is power of city attorney. I also reviewed the risks and use of sedation, patient and his daughter understands and consent obtained. Admission and Anticipated Discharge Date Admission Date: August 12, 2025 Subjective Patient seen and examined in the preop area. He is very sleepy today but seems to be doing well in general. I had discussed pacemaker implantation and risks with him over the weekend and he was agreeable, his daughter is with him today and we reviewed things that we are going to proceed. Physical Exam Physical Exam: Constitutional: Alert, cooperative and in no distress. HEENT: Unremarkable other than being hard of hearing Neck: No jugular venous distention, carotid pulses are slow but equal bilaterally without bruits. Pulmonary: Clear to auscultation bilaterally. Cardiac: Regular slow rhythm with no murmur, gallop or rub. Abdomen: Soft, nontender with normal bowel sounds. Extremities: No edema. Neurologic: No focal findings. Somewhat sleepy this morning. Skin: No rash, ecchymoses or petechiae. Results & Data Vital Signs (Past 12 Hours) Vital Signs Temp Pulse Pulse Pulse Resp BP BP 08/14/25 07:22 132/58 L 08/14/25 07:13 40 L 39 L 18 189/69 H 08/14/25 05:54 40 L 08/14/25 03:19 36.7 C 39 L 16 139/71 08/13/25 22:56 36.8 C 38 L 18 151/61 H Pulse Ox O2 Del Method O2 Flow Rate 08/14/25 07:22 08/14/25 07:13 94 Nasal Cannula 2 08/14/25 05:54 08/14/25 03:19 94 Nasal Cannula 3 08/13/25 22:56 94 Nasal Cannula 3 PG Care Time/CCT Total # of Minutes Spent Total Time Spent with Patient: Total time spent is greater than 50% in coordination of care (as documented) at patient's floor/unit and/or counseling patient: Coding Level of Care Code 28109 SUB INP/OBS CARE 11/19MIN Diagnoses Third degree AV block I44.2
--- NOTE | 2025-08-14 08:19 | XRay Report ---
EXAM: XR chest 1V portable CLINICAL HISTORY: Suspected CHF. TECHNIQUE: An X-ray image of the chest was obtained in AP projection. COMPARISON: 08/13/2025. FINDINGS: Pulmonary Parenchyma: Prominent vascular shadows are seen in the lungs. There is blunting of the bilateral costophrenic angles, likely representing mild pleural effusion, which is unchanged. Ill-defined opacities are seen in the left lower zone and have decreased. Heart and Mediastinum: The cardiac shadow appears enlarged. Atheromatous calcifications are present in the aorta. There is no mediastinal widening or mass. No hilar or mediastinal lymphadenopathy is seen. Bony Thorax: The bony thorax appears intact without fractures or deformities. Soft Tissues: The soft tissues overlying the chest wall are unremarkable. External ECG leads are seen. IMPRESSION: Pulmonary infiltrates in the left lower zone with mild interval regression. Mild bilateral pleural effusion, unchanged. Pulmonary vascular congestion, unchanged. Electronically signed by Oswald River 08-14-2025 08:18 AM
[2025-08-14] MEDS: MIDAZOLAM HCL 5 MG/ML 1 ML VIAL ONE (09:39)
[2025-08-14] MEDS: ceFAZolin 330 MG/ML 1 GM VIAL ONE (09:39)
[2025-08-14] MEDS ORDERED: ACETAMINOPHEN W/CODEINE #3 1 TAB PO PRN (09:41)
--- NOTE | 2025-08-14 09:41 | Post Anesthesia Assessment ---
Date of Service August 14, 2025 Post Sedation Assessment Vital Signs Temp Pulse Pulse Pulse Resp BP BP 08/14/25 07:22 132/58 L 08/14/25 07:13 40 L 39 L 18 189/69 H 08/14/25 05:54 40 L 08/14/25 03:19 36.7 C 39 L 16 139/71 08/13/25 22:56 36.8 C 38 L 18 151/61 H 08/13/25 20:00 08/13/25 20:00 39 L 08/13/25 19:40 37 L 18 08/13/25 19:03 36.8 C 45 L 25 H 141/59 H 08/13/25 18:43 08/13/25 15:00 36.1 C L 39 L 22 120/82 08/13/25 14:41 41 L 20 08/13/25 13:16 34 L 08/13/25 11:32 36.3 C L 51 L 22 118/72 08/13/25 10:00 30 L 16 Pulse Ox O2 Del Method O2 Flow Rate 08/14/25 07:22 08/14/25 07:13 94 Nasal Cannula 2 08/14/25 05:54 08/14/25 03:19 94 Nasal Cannula 3 08/13/25 22:56 94 Nasal Cannula 3 08/13/25 20:00 Nasal Cannula 2 08/13/25 20:00 08/13/25 19:40 97 Nasal Cannula 3 08/13/25 19:03 96 Nasal Cannula 3 08/13/25 18:43 Nasal Cannula 3 08/13/25 15:00 95 Nasal Cannula 3 08/13/25 14:41 95 Nasal Cannula 3 08/13/25 13:16 08/13/25 11:32 94 Nasal Cannula 3 08/13/25 10:00 93 Nasal Cannula 2.5 Recovery Score Activity: Moves 4 extremities Respiration: Deep Breath/Cough Circulation: +/-20% PreAnes Value Consciousness: Fully Awake Oxygen Saturation: > 92% On Room Air Discharge Sedation Level of Care: Fast Track Phase II Post Sedation Plan On clinical assessment, the patient appears to have tolerated the sedation without complications. Patient is recovering as anticipated. Patient will continue to be monitored by nursing and may be discharged when sedation discharge criteria are met per below protocol. Upon Completions of procedure up to 15 minutes continue every 5 minute vital signs and the P.A.R. score; then discharge to a Phase I or Fast Track to Phase II per the following guidelines: * Discharge Patient to appropriate Phase II area if PAR is 8 or greater or return to pre- procedure baseline. The post - procedure orders will be as directed. * If PAR score is less than 8 or not return to pre-procedure baseline then patient will follow Phase I monitoring till PAR is reached for Phase II. The Phase I may be done in procedure room or may call to secure a Phase I area. * If naloxone or flumazenil are used for reversal, hold in Phase I for continued monitoring from when last reversal dose was given for a minimum of 60 minutes or longer pending the nurse and/or physician discretion of patient condition before discharge to Phase II. Please call the Sedation Physician to re-evaluate and complete post-note for discharge to Phase II area. Do NOT discharge from procedure sedation or Phase 1 until post- sedation evaluation note is complete by procedure /sedation MD Sedation Discharge Instructions to be given to the patient at discharge to home.
--- NOTE | 2025-08-14 09:46 | Electrophysiology Report ---
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 The left prepectoral region was anesthetized with 1% lidocaine local anesthetic and left axillary venipuncture was performed by percutaneous technique and a guidewire placed through the left subclavian vein into the superior vena cava. The area was further infiltrated with 1% lidocaine local anesthetic and a 5 cm incision was made parallel to the left clavicle and 2 cm below it and carried down to the anterior pectoralis fascia. A pacemaker pocket was formed by blunt dissection anterior to the pectoralis fascia and a vancomycin-soaked sponge was placed in the pocket. A 9 [place] Medtronic lead introducer was placed over the guidewire into the left subclavian vein, the dilator and guidewire were removed and a bipolar active fixation steroid tipped atrial lead was advanced through the introducer into the superior vena cava. A guidewire was placed through the introducer and the introducer was stripped from the lead and guidewire. The atrial lead was temporarily positioned in the right ventricle for backup pacing. A 7 [place] Medtronic lead introducer was placed over the guidewire into the left subclavian vein, the dilator and guidewire were removed. A C315 His 02 septal sheath was advanced through the introducer over a guidewire and advanced into the right ventricular outflow tract. The guidewire and dilator were removed and the sheath was positioned in a mid septal location. A bipolar active fixation steroid tipped ventricular lead was advanced through the introducer and rotated to advance the screw into the septum. Septal penetration was confirmed by electrogram morphology. Pacing and sensing thresholds were evaluated in bipolar configuration and are noted on the data sheet. The septal sheath was stripped away from the lead. A guidewire was placed back through the introducer and the introducer was removed over the the guidewire. The atrial lead was then removed from the right ventricle. Using a curved stylette the atrial lead was positioned in the region of the atrial appendage and the screw extended fixing the lead in position. Pacing and sensing thresholds were evaluated in bipolar configuration and are recorded on the implant data sheet. Once the leads were in position they were attached to the anterior pectoralis fascia using 2 sutures of 2-0 silk around each lead collar. The vancomycin soaked sponge was removed from the pocket, hemostasis was obtained, the pacemaker was attached to the leads and placed in the pocket with the leads coiled beneath it. The incision was closed with a running double subcutaneous closure of 3-0 Vicryl absorbable suture, followed by running subcuticular skin closure of 4-0 Vicryl absorbable suture. Bacitracin ointment was placed on the incision and a dressing applied. [facility] [place] Electrophysiology codes Indication for Procedure (1) Third degree AV block: Pacing Procedure 1: Pacin Insert/Replace Pacer A & V PG Moderate Sedation Codes Moderate Sedation Codes Procedure 1: Sedation/Anesthesia: 18338 Mod Sedation by the same physician;Init15 Min Child Age 5 & Up Procedure 2: Sedation/Anesthesia: 05747 Mod Sedation by the same physician; Ea [id number] Minutes
[2025-08-14] MEDS: VANCOMYCIN HCL 1000MG/20ML VIAL ONE (10:45)
[2025-08-14] MEDS: LIDOCAINE 1% LOCAL 20 ML VIAL ONE ×2 (10:45)
[2025-08-14] MEDS: WATER, STERILE FOR INJ 10 ML VIAL ONE (10:45)
[2025-08-14] MEDS: BACITRACIN OINT 14 GM TUBE ONE (10:45)
[2025-08-14] MEDS: ACETAMINOPHEN 1,000 MG/100 ML VIAL IV STA (21:32)
[2025-08-15 06:17] LABS: Hematocrit (blood only) 36.6 % (42.0-52.0); Hemoglobin 12.1 g/dl (14.0-18.0); Immature Granulocytes # (auto) 0.01 K/uL (0.01-0.20); Immature Granulocytes % (auto) 0.2 %; Mean Corpuscular Hemoglobin 29.2 pg (25.0-34.0); Mean Corpuscular Volume 88.2 fL (80.0-100.0); Platelet Count 152 K/uL (130-400); RDW Standard Deviation 52.8 fL (36.4-46.3); Red Blood Count 4.15 M/uL (4.70-6.10); White Blood Count 6.21 K/ul (4.8-10.8)
[2025-08-15 06:39] LABS: Anion Gap 10.0 (3-11); Blood Urea Nitrogen 34.0 mg/dl (6-23); Calcium 9.2 mg/dl (8.6-10.3); Carbon Dioxide 27.0 mmol/L (21-32); Chloride 104.0 mmol/L (98-107); Creatinine Clr Calc Pharmacy 38.8 ml/min; Glucose 84.0 mg/dl (70-99(Fasting)); Potassium 3.3 mmol/L (3.5-5.1); Sodium 141.0 mmol/L (136-145)
[2025-08-15] MEDS ORDERED: ALBUT/IPRATROP 3MG/0.5MG NEB 3 ML VIAL NEB PRN (08:03)
--- NOTE | 2025-08-15 08:24 | XRay Report ---
EXAM: XR chest 1V portable CLINICAL HISTORY: evaluate for pneumo s/p pacemaker insertion TECHNIQUE: An X-ray image of the chest was obtained in the AP projection. COMPARISON: 08/14/2025. FINDINGS: Pulmonary Parenchyma: Bilateral prominent bronchovascular markings are suggestive of pulmonary congestion. Interval stable, ill-defined haziness/opacities are seen in the left lower zone. Bilateral mild pleural reaction is causing blunting of the costophrenic (CP) angles. Heart and Mediastinum: The cardiac shadow is enlarged, with bilateral hilar congestion. Mural calcification is seen in the arch of the aorta, consistent with senile changes. There is no mediastinal widening or masses. No hilar or mediastinal lymphadenopathy is present. An interval new cardiac pacemaker lead is seen in situ. Bony Thorax: The bony thorax appears intact, without fractures or deformities. Soft Tissues: The soft tissues overlying the chest wall are unremarkable. IMPRESSION: 1. An interval new cardiac pacemaker lead is seen in situ. 2. Interval stable, ill-defined haziness/opacity is seen in the left lower zone, postinflammatory. Suggest clinical correlation. 3. Bilateral small pleural reaction causing blunting of the costophrenic recesses. Mild/small effusion. 4. Compared with the previous X-ray dated 08/14/2025, the cardiac pacemaker lead is a new finding with interval stability of the ill-defined haziness in the left lower zone and bilateral minimal pleural effusion. Electronically signed by Oswald River 08-15-2025 08:23 AM
--- NOTE | 2025-08-15 09:45 | XRay Report ---
TWO VIEW CHEST CLINICAL HISTORY: Pacemaker placement.. FINDINGS: PA and lateral chest radiographs are compared to study performed earlier the same day 08/15. Correlation is made with chest CT dated 01/20/2023. The PA view is degraded by patient rotation . A 2-lead cardiac pacemaker is unchanged in position and partially obscures the left upper chest. Le ads project over the right atrial appendage and the right ventricle. The heart is enlarged noting ath erosclerotic calcification of the thoracic aorta. The pulmonary vasculature is noncongested. Chronic interstitial thickening is similar to previous. There is lower lobe bronchiectasis. There are small p leural effusions with dependent consolidation. There is no pneumothorax. The skeletal structures are osteopenic. Degenerative change and kyphoscoliosis is noted in the thoracic spine. There are numerous chronic appearing right-sided rib fractures IMPRESSION: 1. A 2-lead cardiac pacemaker is in place as above. No pneumothorax is seen. 2. Cardiomegaly without radiographic evidence of congestive failure. 3. Small pleural effusions with dependent consolidation. ACT 112: Negative or not required by law. Electronically signed by: Clifford Amin M.D. 08/15/2025 9:44 AM
[2025-08-15] MEDS: POTASSIUM CHLORIDE CRTAB 20 MEQ TABCR PO STA (09:52)
--- NOTE | 2025-08-15 13:19 | Cardiology Progress Note ---
Date of Service August 15, 2025 Assessment & Plan (1) Third degree AV block: (2) Status post placement of cardiac pacemaker: (3) Paroxysmal atrial fibrillation: Plan Third-degree AV block status post dual chamber LLB pacemaker placement - The device appears to be functioning appropriately. No pneumothorax apparent on CXR. Lead positioning is appropriate. No concerns with his surgical site. - His dressing may be removed on 08/17/2025. He should not raise his left arm a mike shoulder height for 2 weeks. Paroxysmal atrial fibrillation - Eliquis 5 mg twice daily has been ordered. This will start tonight at 2100. - He had an echocardiogram completed 08/12/25 which reflected a mildly dilated right atrium and normal-sized left atrium. Normal LV size and function. Moderate tricuspid regurgitation is present with an elevated RVSP An appointment should be made for the patient to follow-up in our office in 4 weeks. Admission and Anticipated Discharge Date Admission Date: August 12, 2025 Subjective Patient underwent a dual-chamber left bundle branch pacemaker implantation for complete heart block on 08/14/2025. The pacemaker appears to be functioning appropriately. His post operative CXR does not demonstrate any pneumothorax. Lead positioning is appropriate. Per report, at some point prior to his procedure, he went into atrial fib rillation. He remains in atrial fibrillation today. I did discuss this finding with the patient along with risks/benefits of Eliquis. Surgical site is well-approximated, soft without erythema or drainage. No evidence of hematoma. The patient reports no complaints on assessment today. He denies any pain/discomfort related to his pacemaker site. Review of Systems Review of Systems: per HPI Physical Exam Physical Exam: Physical Exam: AOx3, cooperative and in no distress HEENT: Sclerae are anicteric. Pupils are equal and reactive to light and accommodation. Extraocular movements were intact. Neuro: Cranial nerves intact Lungs: Lungs are clear to auscultation bilaterally. There are no rales wheezes or rhonchi. Normal respiratory effort without use of accessory muscles. Cardiac: The rhythm was regular. S1 and S2 were normal. There are no murmurs on examination. Extremities: Patient has bilateral radial pulses that are equal in intensity. There is no evidence cyanosis or clubbing. There was no evidence of significant peripheral edema bilaterally. Skin: Surgical site is well-approximated and soft without erythema, drainage or evidence of hematoma Results & Data Vital Signs (Past 12 Hours) Vital Signs Temp Pulse Pulse Resp BP Pulse Ox O2 Del Method 08/15/25 11:25 36.7 C 61 18 120/70 92 Room Air 08/15/25 08:00 60 08/15/25 07:53 36.5 C 60 16 136/76 95 Room Air PG Care Time/CCT Total # of Minutes Spent Total Time Spent with Patient: Total time spent is greater than 50% in coordination of care (as documented) at patient's floor/unit and/or counseling patient: Coding [place] [address] SUB INP/OBS CARE 3/50MIN Patient Type Established Diagnoses Third degree AV block I44.2 Status post placement of cardiac pacemaker Z95.0 Paroxysmal atrial fibrillation I48.0
--- NOTE | 2025-08-15 13:54 | Hospitalist Progress Note ---
Date of Service August 15, 2025 Assessment & Plan (1) Third degree AV block: Plan: With bradycardia. Previous EKGs reveal first-degree AV block with complete right bundle branch block. He is on no beta-blockers or diltiazem. Permanent pacemaker placed 08/14/25 (2) Acute diastolic CHF (congestive heart failure): Plan: HFpEF, severe pulmonary HTN. Parenteral Lasix every 12. Monitor urine output. (3) Acute respiratory failure with hypoxia: (4) Gastroesophageal reflux disease: Plan: PPI therapy (5) BPH w urinary obs/LUTS: Plan: Stable. Continue Flomax (6) Hard of hearing: Plan 89-year-old male presents with exertional dyspnea. Find to be in complete heart block with rates in the 30s and some mild heart failure. Patient had a pacemaker placed on August 14. Patient is doing well but has reduced in his performance status and is decreased functional status leads to probable return to SNF at discharge before he can return to his previous living arrangements in personal care. Sometime this coming week #Heart block. Patient has had a pacemaker placed postprocedure x-ray shows no pneumothorax #Paroxysmal atrial fibrillation remains on apixaban therapy #Concern for acute respiratory failure with hypoxia secondary to exacerbation heart failure preserved ejection fraction now resolved, Lasix is discontinued at this time #Hypertension continue amlodipine. Patient will need physical therapy evaluation but likely may need referral back to senior care facility. Patient medically stable at this time if senior care facility can be secured. Admission and Anticipated Discharge Date Admission Date: August 12, 2025 Subjective Patient status post pacemaker placement. He is awake and alert eating lunch and as a matter of fact clearing this whole tray. No chest pain no pain at the pacemaker site Daughter at the bedside and updated concerns regarding need to return to subacute at senior care level care Physical Exam Physical Exam: Alert appropriate minorly forgetful Card exam is regular systolic murmur at upper sternal border pacemaker site is clean dry and intact Lungs are clear without wheezes or crackles Extremities are without edema Results & Data Results & Data Vital Signs (Past 12 Hours) Vital Signs Temp Pulse Pulse Resp BP Pulse Ox O2 Del Method 08/15/25 11:25 98.1 F 61 18 120/70 92 Room Air 08/15/25 08:00 60 08/15/25 07:53 97.7 F 60 16 136/76 95 Room Air Laboratory Results Postprocedure chest x-ray without pneumothorax some haziness in the left lung base which was seen on previous film as far back as May Reviewed CBC stable hemoglobin Reviewed chemistry mild hypokalemia replete PG Care Time/CCT Total # of Minutes Spent Total Time Spent with Patient: Total time spent is greater than 50% in coordination of care (as documented) at patient's floor/unit and/or counseling patient: Coding Level of Care Code 92935 SUB INP/OBS CARE 2/35MIN Diagnoses Third degree AV block I44.2 Acute diastolic CHF (congestive heart failure) I50.31 Acute respiratory failure with hypoxia J96.01 Gastroesophageal reflux disease K21.9 BPH w urinary obs/LUTS N40.1; N13.8 Hard of hearing H91.90
[2025-08-15] MEDS: APIXABAN 5 MG TABLET PO SCH (21:00)
--- NOTE | 2025-08-16 06:08 | Electrocardiogram Report ---
Test Reason : Blood Pressure : */* mmHG Vent. Rate : 60 BPM Atrial Rate : 60 BPM P-R Int : * ms QRS Dur : 106 ms QT Int : 454 ms P-R-T Axes : * -63 119 degrees QTcB Int : 454 ms Ventricular-paced rhythm Abnormal ECG When compared with ECG of 12-Aug-2025 08:40, Electronic ventricular pacemaker has replaced Idioventricular rhythm Vent. rate has increased by 29 bpm Confirmed by Marcelo Rucker ([id number]) on 08/16/2025 6:08:09 AM Referred By: REFERRED SELF Confirmed By: Marcelo Rucker
--- NOTE | 2025-08-16 06:08 | Electrocardiogram Report ---
Test Reason : Blood Pressure : */* mmHG Vent. Rate : 61 BPM Atrial Rate : 41 BPM P-R Int : * ms QRS Dur : 172 ms QT Int : 524 ms P-R-T Axes : * -42 112 degrees QTcB Int : 527 ms Ventricular-paced rhythm Abnormal ECG When compared with ECG of 14-Aug-2025 09:58, No significant change was found Confirmed by Marcelo Rucker ([id number]) on 08/16/2025 6:08:23 AM Referred By: REFERRED SELF Confirmed By: Marcelo Rucker
[2025-08-16 08:40] VITALS: TEMP 97.3
[2025-08-16 09:44] LABS: Hematocrit (blood only) 36.7 % (42.0-52.0); Hemoglobin 12.5 g/dl (14.0-18.0); Immature Granulocytes # (auto) 0.04 K/uL (0.01-0.20); Immature Granulocytes % (auto) 0.6 %; Mean Corpuscular Hemoglobin 30.0 pg (25.0-34.0); Mean Corpuscular Volume 88.2 fL (80.0-100.0); Platelet Count 158 K/uL (130-400); RDW Standard Deviation 52.2 fL (36.4-46.3); Red Blood Count 4.16 M/uL (4.70-6.10); White Blood Count 6.81 K/ul (4.8-10.8)
[2025-08-16 10:02] LABS: Anion Gap 6.0 (3-11); Blood Urea Nitrogen 37.0 mg/dl (6-23); Calcium 9.0 mg/dl (8.6-10.3); Carbon Dioxide 27.0 mmol/L (21-32); Chloride 106.0 mmol/L (98-107); Creatinine Clr Calc Pharmacy 38.1 ml/min; Glucose 108.0 mg/dl (70-99(Fasting)); Potassium 3.6 mmol/L (3.5-5.1); Sodium 139.0 mmol/L (136-145)
[2025-08-16 10:48] VITALS: RESP 18; O2SAT 94
--- NOTE | 2025-08-16 11:56 | Discharge Summary ---
Discharge Summary Date of Service August 16, 2025 Principal Dx & Hospital Course #1 = Principal Diagnosis (1) Third degree AV block: With bradycardia. Previous EKGs reveal first-degree AV block with complete right bundle branch block. He is on no beta-blockers or diltiazem. Telemetry. He underwent dual-chamber permanent pacemaker placement on August 14. Pacemaker insertion site is currently unremarkable. Appreciate cardiology consultation. (2) Acute diastolic CHF (congestive heart failure): Now resolved. He was treated while hospitalized with parenteral Lasix every 12. Monitor urine output. Serial chest x-ray (3) Acute respiratory failure with hypoxia: Resolved. He is now on room air. (4) Gastroesophageal reflux disease: PPI therapy. Stable (5) BPH w urinary obs/LUTS: Stable. Continue Flomax (6) Hard of hearing: Supportive care. The patient wears hearing aids Plan Discharge to the [facility] today, August 16 Admission HPI Per Admitting Provider 89-year-old white male with exertional dyspnea for several days. He was treated with Lasix but did not improve. He came to the ED for evaluation. He was found to be in third-degree heart block with rates in the 30s. Blood pressure is acceptable. He is on room air. External pacer patches were applied while in the ED. He was given intravenous atropine with no effect. He does not take diltiazem or any beta-tao. He has been seen by Dr. So Spencer, cardiology, and probably will undergo PPM placement as soon as possible. He is admitted for further evaluation and treatment. He denies any chest pain. No syncope. Discharge Plan Discharge Items Patient Disposition: Transfer [facility] Reason For Visit: 3RD DRGREE AVB. BRADYCARDIA Discharge Diagnosis: Third-degree AV block, bradycardia, acute diastolic CHF. Acute hypoxic respiratory failure Condition on Discharge: Good Activity: Per Instructions section Activity Comment: Limit use of left arm per cardiology instructions Non-emergency contact: Primary Care Provider and Market Research Intern Call non-emergency contact if: you have any medication questions and your symptoms worsen Follow-up/Referrals: Russ Walsh, [Primary Care Provider] - Diet: Regular, Heart Healthy and Other - See Diet Comment Diet Comment: Soft Addtl Attending Provider Instructions: Limit use of left arm per cardiology instructions. Eliquis blood thinner is new. See cardiology in follow-up in 1 to 2 weeks Addtl Brace End [employer] Former Provider Instructions: ACTIVITY RECOMMENDATIONS: * Do not raise affected arm over head for 2 weeks. SPECIAL CARE INSTRUCTIONS: * If bleeding occurs, apply direct pressure to area for 5 minutes. * Call your doctor if you have severe pain, fever, drainage or bleeding at site. * Keep dressing on and dry until 08/17/2025 then remove. * Keep any scheduled doctor's appointment. * Implant Card - hand held device with website information given. SKIN IRRITATION: * You may experience some redness and/or swelling in the area where radiation was administered. If any skin irritation occurs, please contact your family physician. FOLLOW UP VISIT: Keep any scheduled doctor appointments. Pending Studies at Discharge: No Stand-Alone Forms: My [facility] Skilled Items Patient informed of condition?: Yes DNR: Yes Discharge Level of Care: Skilled Communicable Disease: No Discharge Prognosis: Stable Lines: None Urinary Catheter: No Medications and DC Order Prescriptions: New Eliquis 5 mg Tablet 5 mg PO BID Qty: 20 0RF Continued pantoprazole 40 mg tablet,delayed release (DR/EC) 40 mg PO QAM Qty: 90 3RF melatonin 3 mg tablet 6 mg PO HS PRN (Reason: Sleep) aspirin 81 mg Tablet,Delayed Release (Dr/Ec) 81 mg PO QAM guaifenesin [Mucinex] 600 mg Tablet Extended Release 12hr 600 mg PO Q12H PRN (Reason: Congestion) sertraline 50 mg Tablet 50 mg PO HS multivitamin Tablet 1 tab PO HS amlodipine 5 mg tablet 5 mg PO DAILY Qty: 30 0RF tamsulosin [Flomax] 0.4 mg capsule 0.4 mg PO HS Qty: 30 0RF Discharge Orders: Discharge Order- CHF (Routine); Ordered 08/16/25 Ordered By: Fareed Sapp Admission Data Admit Date/Time: 08/12/25 10:19 Attending Provider: Fareed Sapp Admit Provider: Fareed Sapp Primary Care Provider: Russ Walsh Other Providers: Toñito Beatty; Fareed Sapp; [facility] Hospital Stay Data Consultations 08/12/25 09:53 Consult Cardiology Stat ED Decision to Admit Stat 08/12/25 11:44 Consult Cardiology Routine Procedures Performed Operation Date: 08/14/25 07:30 Actual Procedures p Pacer with A/V Leads (Dual) - Toñito Beatty MD Diagnostic Imagining Performed 08/14/25 07:00 EP Lab Images for PACS ONCE Pending Results Patient Have Any Pending Studies at Discharge: No Discharge Instructions Given to Patient (Per Discharging Provider) Limit use of left arm per cardiology instructions. Eliquis blood thinner is new. See cardiology in follow-up in 1 to 2 weeks Total Time Total Time Spent Total Time Spent (In Minutes): 50-minute Coding Level of Care Code 22039 INP/OBS DISCH >30 MIN Diagnoses Third degree AV block I44.2 Acute diastolic CHF (congestive heart failure) I50.31 Acute respiratory failure with hypoxia J96.01 Gastroesophageal reflux disease K21.9 BPH w urinary obs/LUTS N40.1; N13.8 Hard of hearing H91.90
[2025-08-16 13:52] VITALS: BP 139/71; PULSE 60
== END 2025-08-16 14:15 | DRG 242 ==
LOC: SUATTDRO → ED 08:25 → 2E 10:19 → SUATTDRO 10:19 → 2E 11:02

== ENCOUNTER 2025-09-01 14:22 | Observation (INO) ==
[2025-09-01 14:50] LABS: Hematocrit (blood only) 39.8 % (42.0-52.0); Hemoglobin 13.1 g/dl (14.0-18.0); Immature Granulocytes # (auto) 0.03 K/uL (0.01-0.20); Immature Granulocytes % (auto) 0.5 %; Mean Corpuscular Hemoglobin 29.2 pg (25.0-34.0); Mean Corpuscular Volume 88.6 fL (80.0-100.0); Platelet Count 141 K/uL (130-400); RDW Standard Deviation 52.5 fL (36.4-46.3); Red Blood Count 4.49 M/uL (4.70-6.10); White Blood Count 5.90 K/ul (4.8-10.8)
--- NOTE | 2025-09-01 14:54 | XRay Report ---
XR chest 1V portable CLINICAL HISTORY: Trauma COMPARISON STUDY: 08/15/2025 FINDINGS: Stable pacemaker. Stable moderate hiatal hernia. Stable cardiomegaly without pulmonary vasc ular congestion. No consolidation or pleural effusion seen. No pneumothorax. Stable old right upper r ib fractures. IMPRESSION: No acute findings seen. ACT 112: Negative or not required by law. Electronically signed by: Vidal Razo M.D. 09/01/2025 2:52 PM
--- NOTE | 2025-09-01 14:57 | Emergency Department Note ---
Impression & Plan Ambulatory dysfunction, Transaminitis, Falls frequently, Weakness, Encephalopathy, Pneumonia ED Provider Note NAME: CHACHA VERMA AGE: 89 SEX: M : 1935 ARRIVES VIA: Ambulance INFORMANT: Patient, EMS ED PROVIDER(S): Endy Louise DO CHIEF COMPLAINT: Falls HPI: This was prehospital trauma/injury alert by EMS. This is an 89-year-old male with the PMHx of hypertension, hyperlipidemia, complete heart block s/p PPM, osteoarthritis, CHF, and paroxysmal atrial fibrillation on chronic anticoagulation with apixaban presenting to [facility] for further evaluation of multiple falls. Patient is accompanied by EMS who provide additional history. EMS states that he has had multiple falls at his living facility. Patient was recently in senior living home with transition to assisted living. Patient on chronic anticoagulation with apixaban. Patient is mildly confused but no traumatic injuries per EMS. Patient states he has no complaints at this time. They deny head strike or LOC. They deny neck or back pain. They deny fever or chills. No cough or congestion. Denies chest pain or palpitations. No shortness of breath. They deny abdominal pain, nausea and vomiting. No urinary complaints. No recent changes in bowel movements. Patient denies recent changes in medications or OTC supplements. Patient offers no other complaints, today. ADDITIONAL HISTORY OBTAINED: Per HPI Chronic Medical/Social Conditions Affecting Care: Per HPI PAST MEDICAL HISTORY: See Below PAST SURGICAL HISTORY: See Below FAMILY HISTORY: See Below SOCIAL HISTORY: See Below HOME MEDICATIONS: See Below ALLERGIES: See Below VITALS: See Below PHYSICAL EXAMINATION: Primary Survey Airway: Intact Breathing: Normal, breath sounds equal bilaterally Circulation: Skin warm, distal pulses 2+, capillary refill less than 2 seconds Disability Pupils: Equal and reactive to light, 4mm, brisk GCS: 15, E = 4, V=4, M= 6 Motor Function: Moves all extremities. Sensory: No deficits Secondary Survey GEN: Well developed and well-nourished HENT: Head: [No] external signs of trauma. No obvious contusions, abrasions, or laceration. No raccoon eyes or tinoco sign. Mouth/Throat: No blood within the oral cavity. No malocclusion. Eyes: EOMI. Pupils are 4 mm, round and reactive bilaterally. Ears: TMs are intact bilaterally. No hematomas. No hemotympanum. Nose: No nasal septal hematoma. No gross deformity. Neck: C-collar in place. No midline C-spine tenderness. No step-offs. Cardiovascular: RRR. Pulses present in all 4 extremities. Pulmonary/Chest: BS equal bilaterally. No tenderness or ecchymosis. Abdomen: No tenderness or ecchymosis. Musculoskeletal: Pelvis: No instability. Back: No midline tenderness. No step-offs or deformities. Extremities: No gross deformities. No TTP. Skin: No laceration. No abrasion. Neuro: No focal neurological deficits. GCS as above. Patient is mildly confused and inattentive. Psych: Normal mood and affect. MEDICAL DECISION MAKING: Vitals: The patient is mildly hypertensive but otherwise afebrile and HDS. An order was placed for continuous cardiorespiratory monitoring. I reviewed and this shows a rate of 70-80s with regular rhythm. EKG: EKG independently interpreted by me reveals atrial sensed ventricular paced rhythm at [address] segment changes to suggest STEMI. Intervals are within normal limits. Differential diagnoses include but not limited to multi-system trauma, ICH, skull fracture, spine / spinal cord injury, fracture, dislocation, traumatic abdominal injuries, solid / visceral organ injuries, MSK sprain / strain, contusion, whiplash, concussion In summary, this is an 89-year-old male who presented as an injury alert. Patient was brought into the emergency/resuscitation room by EMS. Full ATLS protocol was initiated under direction of the ED team. The history was concerning for multi-system trauma. Airway intact and self maintained, breath sounds bilateral and equal along with normal effort, circulation intact with pp in 4 extremities, GCS 14 with normal speech and sensorium and JORGE. [Patient was removed from the EMS stretcher with in-line stabilization technique and patient is back examined.] Full physical examination as above. History and secondary survey as above. Labs drawn. eFAST deferred for WBCT as the patient has no abdominal/chest complaints, evidence of trauma in these areas or hemodynamic instability. Collar maintained. Pt was not given tetanus. Initial/stabilizing treatments include close observation. Imaging performed and reviewed as above. I-STAT chemistries independently interpreted by me revealed no acute electrolyte derangements. No kidney dysfunction. Patient is appropriate for CT scan. Patient was taken to the CT suite for WBCT. Labs were independently interpreted by me as chronic anemia. No leukocytosis electrolytes and kidney function are normal. Does have a transaminitis from prior but not as severe as it has been in the previous lab draws. CXR independently interpreted by me reveals no evidence of focal consolidation to suggest pna. No large pneumothorax or pleural effusion. No obvious displaced rib fracture. CTH independently interpreted by me reveals no evidence of ICH. No significant hydrocephalus. No major skull fractures. CTH does not demonstrate findings to suggest an etiology of the patient's symptoms or presentation, today. CT C spine was independently interpreted by me as negative for acute fracture or dislocation.. The patient's cervical collar was removed today. The patient's imaging was reviewed and the CT C-Spine was negative for acute injury. The patient was alert and oriented prior to his exam. On exam, he was non-tender to palpation midline and had full ROM without any neurologic deficits. The patient tolerated this procedure well. Collar removed at 1620. CT chest abdomen pelvis were negative for traumatic injuries. Patient does have questional findings of cystitis on CT. He also has questionable findings of of possible pneumonia. Given this. Patient will be started on antibiotics. Given his frequent falls, patient may benefit from hospital admission. Patient reports improvement in his symptoms. He is mildly confused. Further history and review of systems provided by family member. They report worsening confusion and multiple falls over the course the last 3 to 4 days. They report that he is not acting himself. Patient's trauma workup is unremarkable. His pacemaker appears to be functioning. Patient does have possible pneumonia as well as a UTI. There is a [address] abdomen/pelvis but urine does not appear infectious. Will manage with 2 g of ceftriaxone. Patient may benefit from atypical coverage for pneumonia. Family members are very concerned about him and recommending that we observe the patient in the hospital. I do not disagree with this as he is mildly confused and has had multiple falls. The patient's complex injuries include multiple falls without traumatic injuries with possible pneumonia or UTI. Based on the patient's age, code existing illnesses, exam and lab findings, the decision to treat as an inpatient was made. They received the medications, treatments, interventions indicated above and their condition remain guarded. I discussed my findings with the patient and their family and they understand and agree with the treatment plan. All patient / family questions were answered to their satisfaction. Consults/Care Managements Discussions: Per MDM ER treatment provided: See above Procedures: None Critical Care: None The chart was completed utilizing [employer] Speech voice recognition software. Grammatical errors, random word insertions, pronoun errors, and incomplete sentences are an occasional consequence of this system due to software limitations, ambient noise, and hardware issues. Any formal questions or concerns about the content, text, or information contained within the body of this dictation should be directly addressed to the physician for clarification. Past Med/Surg History Problem List (Updated 09/02/25 @ 23:29 by Endy Louise DO) Pneumonia (Acute) Encephalopathy (Acute) Weakness (Acute) Falls frequently (Acute) Transaminitis (Acute) Ambulatory dysfunction (Acute) Transaminitis Ambulatory dysfunction Hematuria, microscopic Lower urinary tract symptoms (LUTS) (Acute) Paroxysmal atrial fibrillation Status post placement of cardiac pacemaker Acute respiratory failure with hypoxia Acute diastolic CHF (congestive heart failure) Acute dyspnea (Acute) Hard of hearing 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 (Acute) Elevated LFTs Healthcare-associated pneumonia Anemia of chronic disease Leucocytosis Gait apraxia of elderly Hyperlipidemia (Chronic) Gastroesophageal reflux disease Osteoarthritis of both knees Barretts esophagus Medical History Metabolic encephalopathy Elevated lipase Aspiration into airway Spinal stenosis of lumbar region Scoliosis Upper airway cough syndrome Right bundle branch block Sensorineural hearing loss of both ears History of stroke Enlarged prostate Deviated nasal septum Ex-smoker Pneumothorax, right Depression 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 GERD (gastroesophageal reflux disease) Thyroid goiter BIOPSY DONE "NORMAL" Surgical History History of melanoma excision off lip History of Mohs micrographic surgery for skin cancer History of appendectomy History of anesthesia reaction SLOW TO WAKE UP AND "GOES UNDER QUICKLY" History of knee surgery RT History of herniorrhaphy bilateral History of esophagogastroduodenoscopy (EGD) History of colonoscopy History of tooth extraction History of tonsillectomy History of adenoidectomy History of cataract surgery bilt History of lung surgery UPPER RT LOBECTOMY (NO CHEMO) Family History (Updated 09/01/25 @ 18:42 by Charly Ann MD, PhD) Father , at 92 years of age from natural causes. Family hx of colon cancer Colorectal cancer Mother , at 65 years of age from "blood poisoning." No problems noted. Other No family history of adverse response to anesthesia No family history of bleeding disorder Denies family history of Ovarian cancer Prostate cancer Diabetes Myocardial infarction Breast cancer Lung cancer Stroke Social History (Updated 09/01/25 @ 18:45 by Charly Ann MD, PhD) Smoking Status: Former smoker Tobacco Type: Cigarettes Age Started Using Tobacco: 19; Age Quit Using Tobacco: 36; packs per day: 0.5; Second Hand Exposure: No; Do You Dip or Chew Tobacco: No; Hx Alcohol Use: No Hx Substance Use: No Preferred Language: Armenian Communication Ability: Effective Communication Ability Comment: Hard of Hearing wears hearing aids Visual Impairment: Limited Hearing Ability: Use of Hearing Aid Mixing Machine Tender Cork Gasket Required: No Beliefs That Will Affect Care: None marital status: / Current Living Situation: Personal Care Facility Current Living Situation Comment: Independent Living @ the [facility] current occupational status: retired current occupation: [employer];@[employer],8y;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 Feels Safe at Home: Yes Childhood Exposure to Second-Hand Smoke: Yes caffeine: Yes Dental Care, Regularly: Yes Physical Activity Frequency: Daily Seatbelt Use: always Sunscreen Use: Yes Assistive Devices: Walker Allergies Allergies Allergy/AdvReac Type Severity Reaction Status Date / Time No Known Allergies Allergy Verified 09/01/25 15:52 Home Meds Home Medications Medication Instructions Recorded Confirmed aspirin 81 mg tablet,delayed 81 mg PO QAM 08/24/18 09/01/25 release guaifenesin 600 mg tablet, 600 mg PO Q12H PRN Congestion 05/19/25 09/01/25 extended release 12 hr (Mucinex) multivitamin 1 tab PO HS 06/03/25 09/01/25 sertraline 50 mg tablet 50 mg PO HS 06/03/25 09/01/25 melatonin 3 mg tablet 6 mg PO HS PRN Sleep 07/06/25 09/01/25 Previous Rx's Medication Instructions Recorded pantoprazole 40 mg tablet,delayed 40 mg PO QAM #90 tabs 01/17/25 release apixaban 5 mg tablet (Eliquis) 5 mg PO BID #20 tabs 08/16/25 Results & Data (ED) Vital Signs Vital Signs - 24 hr 09/01/25 14:25 09/01/25 14:38 09/01/25 14:38 Temperature Temperature Source Pulse Rate 86 86 Pulse Rate [Apical] 86 Pulse Rhythm Regular Regular Pulse Rhythm [Apical] Regular Pulse Strength Normal Pulse Strength [Apical] Normal Respiratory Rate 23 23 Respiratory Effort / Characteristics Non-Labored Spontaneous Non-Labored Spontaneous Respiratory Depth Normal Respiratory Pattern Regular Regular Blood Pressure 151/88 H Blood Pressure [Right Arm] 151/88 H Blood Pressure Mean 109 Blood Pressure Mean [Right Arm] 109 Blood Pressure Position Lying Blood Pressure Position [Right Arm] Sitting Pulse Oximetry 91 91 91 Oxygen Delivery Method Room Air Room Air Room Air Sepsis Recent Fever Within 48 Hours No Sepsis New/Unexplained Change in Mental Status N/A Sepsis Action Taken by Nursing No Action Required 09/01/25 15:24 09/01/25 16:00 09/01/25 16:00 Temperature Temperature Source Pulse Rate 83 Pulse Rate [Apical] 68 75 Pulse Rhythm Pulse Rhythm [Apical] Regular Regular Pulse Strength Pulse Strength [Apical] Normal Normal Respiratory Rate 20 26 H Respiratory Effort / Characteristics Non-Labored Spontaneous Non-Labored Spontaneous Respiratory Depth Normal Normal Respiratory Pattern Regular Regular Blood Pressure Blood Pressure [Right Arm] 141/112 H 135/86 Blood Pressure Mean Blood Pressure Mean [Right Arm] 121 102 Blood Pressure Position Blood Pressure Position [Right Arm] Lying Lying Pulse Oximetry 98 98 Oxygen Delivery Method Room Air Room Air Sepsis Recent Fever Within 48 Hours Sepsis New/Unexplained Change in Mental Status Sepsis Action Taken by Nursing 09/01/25 17:00 09/01/25 18:00 09/01/25 18:00 Temperature 37.1 C Temperature Source Oral Pulse Rate Pulse Rate [Apical] 82 83 84 Pulse Rhythm Pulse Rhythm [Apical] Regular Pulse Strength Pulse Strength [Apical] Normal Respiratory Rate 21 17 20 Respiratory Effort / Characteristics Non-Labored Spontaneous Non-Labored Spontaneous Respiratory Depth Normal Normal Respiratory Pattern Regular Regular Blood Pressure Blood Pressure [Right Arm] 187/84 H 176/103 H 176/103 H Blood Pressure Mean Blood Pressure Mean [Right Arm] 118 127 127 Blood Pressure Position Blood Pressure Position [Right Arm] Lying Semi-fowlers Pulse Oximetry 92 94 Oxygen Delivery Method Room Air Room Air Sepsis Recent Fever Within 48 Hours Sepsis New/Unexplained Change in Mental Status Sepsis Action Taken by Nursing Laboratory Data 09/01/25 14:35 09/01/25 14:35 Lab Results 09/01/25 09/01/25 09/01/25 Range/Units 14:35 15:01 17:04 WBC 5.90 (4.8-10.8) K/ul RBC 4.49 L (4.70-6.10) M/uL Hgb 13.1 L (14.0-18.0) g/dl POC Hgb 13.3 L (14.0-18.0) g/dl Hct 39.8 L (42.0-52.0) % POC Hct 39 L (42-52) % MCV 88.6 (80.0-100.0) fL MCH 29.2 (25.0-34.0) pg MCHC 32.9 (32.0-36.0) g/dL RDW Std Deviation 52.5 H (36.4-46.3) fL RDW Coeff of [place] 16.1 H (11.5-14.5) % Plt Count 141 (130-400) K/uL MPV 8.8 L (9.4-12.4) fL Immature Gran % (Auto) 0.5 % Neut % (Auto) 70.2 % Lymph % (Auto) 17.3 % [place] % (Auto) 10.0 % Eos % (Auto) 1.7 % Baso % (Auto) 0.3 % Neut # (Auto) 4.14 (1.40-6.50) K/uL Lymph # (Auto) 1.02 L (1.20-3.40) K/uL [place] # (Auto) 0.59 (0.11-0.59) K/uL Eos # (Auto) 0.10 (0.00-0.50) K/uL Baso # (Auto) 0.02 (0.00-0.20) K/uL Immature Gran # (Auto) 0.03 (0.01-0.20) K/uL PT 11.3 (9.0-12.0) Seconds INR 1.1 (0.9-1.1) APTT 26 (21-31) Seconds PTT Ratio 1.0 POC Sodium 138 (135-144) mmol/L Sodium 138 (136-145) mmol/L POC Potassium 4.3 (3.3-5.0) mmol/L Potassium 4.4 (3.5-5.1) mmol/L POC Chloride 105 (101-112) mmol/L Chloride 104 (98-107) mmol/L Carbon Dioxide 28 (21-32) mmol/L POC Total CO2 25 (24-31) mmol/L Anion Gap 6 (3-11) POC Anion Gap 13.0 L (16-25) mmol/L POC BUN 17 (7-18) mg/dl BUN 17 (6-23) mg/dl Creatinine 1.08 (0.6-1.4) mg/dl POC Creatinine 1.2 (0.6-1.3) mg/dl Est Cr Clr Drug Dosing 50.9 ml/min eGFR 65.60 BUN/Creatinine Ratio 15.7 (10-20) Glucose 126 H (70-99(Fasting)) mg/dl POC Glucose (other) 111 H (70-99) mg/dl Calcium 10.5 H (8.6-10.3) mg/dl POC Ioniz Calcium Crista 1.30 (1.12-1.32) mmol/l Phosphorus 2.7 (2.5-4.9) mg/dl Magnesium 2.0 (1.7-2.4) mg/dl Total Bilirubin 1.0 (0.2-1.0) mg/dl AST 51 H (13-39) U/L ALT 61 H (7-52) U/L Alkaline Phosphatase 310 H (34-104) U/L Total Creatine Kinase 154 (30-223) U/L Total Protein 7.2 (6.0-8.3) gm/dl Albumin 3.7 (3.4-5.0) gm/dl Globulin 3.5 (2.5-4.0) gm/dl Albumin/Globulin Ratio 1.1 (0.9-2) Lipase < 3 L (11-82) U/L Procalcitonin 0.20 (0-0.5) ng/ml TSH 0.982 (0.300-4.500) uIu/ml Urine Color Yellow Urine Appearance Clear (Clear) Urine pH 7.0 (4.5-7.5) Ur Specific [place] 1.043 H (1.000-1.030) Urine Protein Negative (Negative) Urine Glucose (UA) Negative (Negative) Urine Ketones Trace H (Negative) Urine Blood Negative (Negative) Urine Nitrite Negative (Negative) Urine Bilirubin Negative (Negative) Urine Urobilinogen Negative (Negative) Ur Leukocyte Esterase Negative (Negative) Urine Comment Administered Medications Apixaban (Apixaban 5 Mg Tablet) 5 mg PO BID HODA Stop: 10/01/25 20:59 Last Admin: 09/02/25 20:51 Dose: 5 mg Documented By: Admin: 09/02/25 10:31 Dose: 5 mg Documented By: Admin: 09/01/25 21:24 Dose: 5 mg Documented By: JEROMY Aspirin (Aspirin 81 Mg Ectab) 81 mg PO QAM HODA Stop: 10/02/25 08:59 Last Admin: 09/02/25 10:31 Dose: 81 mg Documented By: NADINE Melatonin (Melatonin 3 Mg Tab) 6 mg PO HS PRN PRN Reason: Sleep Stop: 10/01/25 18:06 Last Admin: 09/01/25 21:23 Dose: 6 mg Documented By: JEROMY Discontinued Medications Ceftriaxone Sodium (Rocephin) 2,000 mg in 50 mls @ 100 mls/hr IV NOW STA Stop: 09/01/25 18:07 Last Infusion: 09/01/25 18:40 Dose: Infused Documented By: Admin: 09/01/25 18:09 Dose: 100 mls/hr Documented By: JEROMY Ioversol (Optiray 320 100ml) 90 ml IV ONCE ONE Stop: 09/01/25 15:27 Last Admin: 09/01/25 15:27 Dose: 90 ml Documented By: MATIAS Sertraline HCl (Sertraline Hcl 50 Mg Tablet) 50 mg PO HS HODA Stop: 10/01/25 20:59 Last Admin: 09/01/25 21:25 Dose: 50 mg Documented By: JEROMY Imaging Data Radiologist's Impression: Abdomen/Pelvis CT 09/01/25 14:[address] WITH IV CONTRAST CT DOSE: 2804 HISTORY: Trauma TECHNIQUE: Multiaxial CT images of the abdomen and pelvis were performed following the IV administration of 90 cc of Optiray, A dose lowering technique was utilized adhering to the principles of ALARA. COMPARISON STUDY: 06/03/2025 FINDINGS: ABDOMEN: There is an interval well positioned common bile duct stent. No significant biliary dilatation seen. Stable tiny cyst left hepatic lobe. Liver, gallbladder, spleen, pancreas, adrenal glands, and kidneys show no evidence of acute injury. No hydronephrosis. No abdominal aortic injury. There are scattered atherosclerotic calcifications. No abdominal aortic aneurysm. Pelvis: Stable enlarged prostate. Urinary bladder is mildly distended. There is mild inflammation at the urinary bladder consistent with cystitis. There is a 5 mm calculus distally in the left ureter. There is sigmoid diverticulosis. No acute diverticulitis. No bowel inflammation or obstruction. No free fluid or free air. Osseous structures: There is osteopenia. Stable mild scoliosis and lumbar degenerative changes. No acute fracture seen at the visualized osseous structures. IMPRESSION: 1. No acute injury seen at the abdomen or pelvis. 2. 5 mm calculus distal left ureter with no hydronephrosis. 3. Urinary bladder mild inflammation consistent with cystitis. ACT 112: Negative or not required by law. The above report was generated using voice recognition software. It may contain grammatical, syntax or spelling errors. Electronically signed by: Vidal Razo M.D. 09/01/2025 3:[address] 09/01/25 14:32 CT SCAN OF THE CERVICAL SPINE CLINICAL HISTORY: Falls. COMPARISON STUDY: PET/CT September 22, 2011. TECHNIQUE: CT scan of the cervical spine is performed from the skull base to the upper thoracic spine. Images are reviewed in the axial, sagittal, and coronal planes. IV contrast was not administered for this examination. A dose lowering technique was utilized adhering to the principles of ALARA. CT DOSE: 2804.19 mGy.cm FINDINGS: Skeletal structures: There is mild reversal of the cervical lordosis and leftward curvature of the cervical spine. There is no evidence of fracture or subluxation involving the cervical spine. Vertebral body height and alignment are maintained. The odontoid process and lateral masses are intact. The atlantoaxial articulation is preserved. The spinous processes appear intact. There is moderate multilevel facet arthrosis and degenerative disc disease within the cervical spine. Soft tissues: The prevertebral and paraspinous soft tissues are within normal limits. Calvarium: The visualized calvarium at the skull base appears intact. Brain parenchyma: Partially visualized brain parenchyma at the skull base is within normal limits. Lung apices: Clear as visualized. IMPRESSION: No acute cervical spine fracture or subluxation. ACT 112: Negative or not required by law. Electronically signed by: Rajan Robertson M.D. 09/01/2025 3:[address] 09/01/25 14:[address] WITH CONTRAST HISTORY: Trauma TECHNIQUE: Multiaxial CT images of the chest were performed following the IV administration of 90 cc of Optiray. A dose lowering technique was utilized adhering to the principles of ALARA. COMPARISON STUDY: 01/20/2023 FINDINGS: There is an interval small area of consolidation in the lingula which could represent early pneumonia or atelectasis. Otherwise there is mild atelectasis in the lung bases. No pulmonary contusion or pleural effusion. No pneumothorax. No mediastinal hematoma. No thoracic aortic injury seen. No pericardial effusion. No enlarged adenopathy. Stable tiny thyroid nodules. Stable moderate hiatal hernia. There are a few subacute or old right-sided rib fractures. Stable mild scoliosis. No acute fracture seen of the visualized osseous structures. IMPRESSION: 1. No acute injury seen in the chest. 2. Early pneumonia versus atelectasis at the lingula. 3. Otherwise as described. ACT 112: Negative or not required by law. Electronically signed by: Vidal Razo M.D. 09/01/2025 3:50 PM Chest X-Ray 09/01/25 14:32 XR chest 1V portable CLINICAL HISTORY: Trauma COMPARISON STUDY: 08/15/2025 FINDINGS: Stable pacemaker. Stable moderate hiatal hernia. Stable cardiomegaly without pulmonary vascular congestion. No consolidation or pleural effusion seen. No pneumothorax. Stable old right upper rib fractures. IMPRESSION: No acute findings seen. ACT 112: Negative or not required by law. Electronically signed by: Vidal Razo M.D. 09/01/2025 2:[address] 09/01/25 14:32 CT head/brain wo con CLINICAL HISTORY: trauma. TECHNIQUE: Multiple axial CT images of the head were obtained without contrast. A dose lowering technique was utilized adhering to the principles of ALARA. COMPARISON: 06/05/2025 FINDINGS: No intracranial hemorrhage seen. No mass effect, midline shift, or hydrocephalus. Stable small areas of encephalomalacia at the right occipital lobe and left cerebellum. Stable moderate chronic small vessel ischemic changes. Visualized paranasal sinuses and mastoid air cells are clear. No skull fracture seen. IMPRESSION: No acute findings. ACT 112: Negative or not required by law. The above report was generated using voice recognition software. It may contain grammatical, syntax or spelling errors. Electronically signed by: Vidal Razo M.D. 09/01/2025 3:46 PM Discharge Plan Visit Data Chief Complaint: Fall Stated Complaint: CONFUSION, LEHTARGIC, FALLS ED Provider: Endy Louise Discharge Problem: Ambulatory dysfunction, Transaminitis, Falls frequently, Weakness, Encephalopathy, Pneumonia Patient Disposition: Admitted As Inpatient Condition: Fair Discharge Instructions Interventions: ED Discharge Assessment Last Done: 09/01/25 21:26
[2025-09-01 15:06] LABS: Anion Gap 6 (3-11); Blood Urea Nitrogen 17 mg/dl (6-23); Calcium 10.5 mg/dl (8.6-10.3); Carbon Dioxide 28 mmol/L (21-32); Chloride 104 mmol/L (98-107); Creatinine Clr Calc Pharmacy 50.9 ml/min; Glucose 126 mg/dl (70-99(Fasting)); Potassium 4.4 mmol/L (3.5-5.1); Sodium 138 mmol/L (136-145)
[2025-09-01 15:07] LABS: Alanine Aminotransferase 61 U/L (7-52); Albumin Globulin Ratio 1.1 (0.9-2); Albumin Level 3.7 gm/dl (3.4-5.0); Alkaline Phosphatase 310 U/L (34-104); Bilirubin,Total 1.0 mg/dl (0.2-1.0); Globulin 3.5 gm/dl (2.5-4.0); Lipase < 3 U/L (11-82); Total Protein 7.2 gm/dl (6.0-8.3)
[2025-09-01 15:24] LABS: INR 1.1 (0.9-1.1); Partial Thromboplastin Time 26 Seconds (21-31); Prothrombin Time 11.3 Seconds (9.0-12.0)
[2025-09-01] MEDS: OPTIRAY 320 100ml IV ONE (15:27)
--- NOTE | 2025-09-01 15:47 | CT Scan Report ---
CT head/brain wo con CLINICAL HISTORY: trauma. TECHNIQUE: Multiple axial CT images of the head were obtained without contrast. A dose lowering tech nique was utilized adhering to the principles of ALARA. COMPARISON: 06/05/2025 FINDINGS: No intracranial hemorrhage seen. No mass effect, midline shift, or hydrocephalus. Stable sm all areas of encephalomalacia at the right occipital lobe and left cerebellum. Stable moderate chroni c small vessel ischemic changes. Visualized paranasal sinuses and mastoid air cells are clear. No sku ll fracture seen. IMPRESSION: No acute findings. ACT 112: Negative or not required by law. The above report was generated using voice recognition software. It may contain grammatical, syntax o r spelling errors. Electronically signed by: Vidal Razo M.D. 09/01/2025 3:46 PM
--- NOTE | 2025-09-01 15:51 | CT Scan Report ---
CHEST CT WITH CONTRAST HISTORY: Trauma TECHNIQUE: Multiaxial CT images of the chest were performed following the IV administration of 90 cc of Optiray. A dose lowering technique was utilized adhering to the principles of ALARA. COMPARISON STUDY: 01/20/2023 FINDINGS: There is an interval small area of consolidation in the lingula which could represent early pneumonia or atelectasis. Otherwise there is mild atelectasis in the lung bases. No pulmonary contus ion or pleural effusion. No pneumothorax. No mediastinal hematoma. No thoracic aortic injury seen. No pericardial effusion. No enlarged adenopathy. Stable tiny thyroid nodules. Stable moderate hiatal he rnia. There are a few subacute or old right-sided rib fractures. Stable mild scoliosis. No acute frac ture seen of the visualized osseous structures. IMPRESSION: 1. No acute injury seen in the chest. 2. Early pneumonia versus atelectasis at the lingula. 3. Otherwise as described. ACT 112: Negative or not required by law. Electronically signed by: Vidal Razo M.D. 09/01/2025 3:50 PM
--- NOTE | 2025-09-01 15:51 | CT Scan Report ---
CT SCAN OF THE CERVICAL SPINE CLINICAL HISTORY: Falls. COMPARISON STUDY: PET/CT September 22, 2011. TECHNIQUE: CT scan of the cervical spine is performed from the skull base to the upper thoracic spine . Images are reviewed in the axial, sagittal, and coronal planes. IV contrast was not administered fo r this examination. A dose lowering technique was utilized adhering to the principles of ALARA. CT DOSE: 2804.19 mGy.cm FINDINGS: Skeletal structures: There is mild reversal of the cervical lordosis and leftward curvature of the ce rvical spine. There is no evidence of fracture or subluxation involving the cervical spine. Vertebral body height and alignment are maintained. The odontoid process and lateral masses are intact. The a tlantoaxial articulation is preserved. The spinous processes appear intact. There is moderate multile shree facet arthrosis and degenerative disc disease within the cervical spine. Soft tissues: The prevertebral and paraspinous soft tissues are within normal limits. Calvarium: The visualized calvarium at the skull base appears intact. Brain parenchyma: Partially visualized brain parenchyma at the skull base is within normal limits. Lung apices: Clear as visualized. IMPRESSION: No acute cervical spine fracture or subluxation. ACT 112: Negative or not required by law. Electronically signed by: Rajan Robertson M.D. 09/01/2025 3:49 PM
--- NOTE | 2025-09-01 15:58 | CT Scan Report ---
ABDOMEN AND PELVIS CT WITH IV CONTRAST CT DOSE: 2804 HISTORY: Trauma TECHNIQUE: Multiaxial CT images of the abdomen and pelvis were performed following the IV administrat ion of 90 cc of Optiray, A dose lowering technique was utilized adhering to the principles of ALARA. COMPARISON STUDY: 06/03/2025 FINDINGS: ABDOMEN: There is an interval well positioned common bile duct stent. No significant biliary dilatati on seen. Stable tiny cyst left hepatic lobe. Liver, gallbladder, spleen, pancreas, adrenal glands, an d kidneys show no evidence of acute injury. No hydronephrosis. No abdominal aortic injury. There are scattered atherosclerotic calcifications. No abdominal aortic aneurysm. Pelvis: Stable enlarged prostate. Urinary bladder is mildly distended. There is mild inflammation at the urinary bladder consistent with cystitis. There is a 5 mm calculus distally in the left ureter. T here is sigmoid diverticulosis. No acute diverticulitis. No bowel inflammation or obstruction. No jatinder e fluid or free air. Osseous structures: There is osteopenia. Stable mild scoliosis and lumbar degenerative changes. No ac eleazar fracture seen at the visualized osseous structures. IMPRESSION: 1. No acute injury seen at the abdomen or pelvis. 2. 5 mm calculus distal left ureter with no hydronephrosis. 3. Urinary bladder mild inflammation consistent with cystitis. ACT 112: Negative or not required by law. The above report was generated using voice recognition software. It may contain grammatical, syntax o r spelling errors. Electronically signed by: Vidal Razo M.D. 09/01/2025 3:56 PM
[2025-09-01 17:28] LABS: Appearance Urine Clear (Clear); Glucose Urine UA Negative (Negative)
[2025-09-01] MEDS ORDERED: ACETAMINOPHEN 325 MG TAB PO PRN (18:02)
[2025-09-01] MEDS: cefTRIAXone SODIUM 2,000 MG/50 ML BAG IV STA (18:09)
[2025-09-01 18:31] LABS: Creatine Kinase 154 U/L (30-223); Magnesium 2.0 mg/dl (1.7-2.4)
--- NOTE | 2025-09-01 18:40 | History & Physical Report ---
Date of Service September 01, 2025 Assessment & Plan (1) Ambulatory dysfunction: Plan: As above in the History of Present Illness. History of Present Illness Chief Complaint: "I fell down twice in my apartment @ [facility]. I did not pass out. I just tripped on my feet and fell down. I couldn't get up so the staff @ [facility] called and an ambulance brought me to [facility] to get checked out. I feel okay. I think if I stay in the hospital tonight, I will feel better and be able to go back to [facility]. I can't stay in the hospital more than 1 night because if I do, I will miss the football game with [facility] and [place], and I cannot miss the game. I have a crappy TV, but my friends @ [facility] have a big screen TV to watch the game." Primary Care Provider: Russ Walsh, 89 years old right-handed male with PMH of FULL CODE @ [facility], major depression on sertraline 50mg PO qhs, GERD on protonix 40mg PO daily, paroxysmal AFIB, s/p PPM, on apixaban 5mg PO bid, and acute non-hemorrhagic, ischemic CVA with neurologic sequela including ambulatory dysfunction utilizing cane @ home and walker outside of home, leading to intermittent falls @ [facility], who reports: "I fell down twice in my apartment @ [facility]. I did not pass out. I just tripped on my feet and fell down. I couldn't get up so the staff @ [facility] called and an ambulance brought me to [facility] to get checked out. I feel okay. I think if I stay in the hospital tonight, I will feel better and be able to go back to [facility]. I can't stay in the hospital more than 1 night because if I do, I will miss the football game with [facility] and [place], and I cannot miss the game. I have a crappy TV, but my friends @ [facility] have a big screen TV to watch the game." Patient denies antecedent/coincident fevers, chills, diaphoresis, cough, wheeze, sore throat, hemoptysis, shortness of breath, dyspnea on exertion, chest pains, palpitations, pleurisy, nausea, vomiting, diarrhea, abdominal pain, pelvic pain, hematemesis, hematochezia, melena, hematuria, dysuria, frequency, urgency, headaches, dizziness, lightheadedness, visual changes, hearing changes, syncope, travel history, sick contacts, or food/drug ingestions novel or new. All other review of systems are reported as negative by the patient on 09/01/2025. In [facility] ER bed #C6, patient was afebrile with HR 86, RR 23, O2 sat 91% on room air, and BP 151/89 (09/01/2025, 2:25pm). Exam was noted for multiple ecchymoses on the bilateral forearms and shins, all of which appeared very dry with skin tenting > 2 seconds, but no delay in capillary refill time > 2 seconds. Labs in [facility] ER bed #C6 included: WBC 5.90, N70 L17 M10 E2, Hb 13.1, MCV 88.6, MCHC 32.9, platelet 141 (09/01/2025, 2:35pm). INR 1.1 (09/01/2025, 2:35pm). Na 138, K 4.4, BUN 17, creatinine 1.08, glucose 126, anion gap 6, CO2 28, Ca 10.5, PO4 2.7, Mg 2.0, AST 51, ALT 61, ALK PHOS 310, total bilirubin 1.0 (09/01/2025, 2:35pm). CK 154 U/L (09/01/2025, 2:35pm). Procalcitonin 0.20 ng/mL (09/01/2025, 2:35pm). TSH 0.982 uIU/mL (09/01/2025, 2:35pm). U/A: clear yellow, LE-, nitrite- (09/01/2025, 5:04pm). MRSA nares screen (09/01/2025, 10:55am). BIOFIRE (09/01/2025, 10:55am). Additional testing in [facility] ER bed #C6 included: CT brain without contrast (09/01/2025, 2:32pm): 1. No intracranial hemorrhage seen. No mass effect, midline shift, or hydrocephalus. Stable small areas of encephalomalacia at the right occipital lobe and left cerebellum. Stable moderate chronic small vessel ischemic changes. Visualized paranasal sinuses and mastoid air cells are clear. No skull fracture seen. Portable CXR (09/01/2025, 2:32pm): 1. No infiltrate, effusion, cardiomegaly, pulmonary vascular congestion, or pneumothorax (by my review). CT chest with IV contrast (09/01/2025, 2:32pm): 1. Interval small area of consolidation in the lingula which could represent early pneumonia or atelectasis. Otherwise there is mild atelectasis in the lung bases. 2. No pulmonary contusion or pleural effusion. No pneumothorax. No mediastinal hematoma. No thoracic aortic injury seen. No pericardial effusion. No enlarged adenopathy. 3. Stable tiny thyroid nodules. 4. Stable moderate hiatal hernia. 5. Few subacute or old right-sided rib fractures. Stable mild scoliosis. 6. No acute fracture seen of the visualized osseous structures. CT cervical spine without IV contrast (09/01/2025, 2:32pm): 1. No acute fracture or dislocation. CT abd/pelvis with IV contrast (09/01/2025, 2:32pm): 1. No acute injury seen at the abdomen or pelvis. 2. 5 mm calculus distal left ureter with no hydronephrosis. 3. Urinary bladder mild inflammation consistent with cystitis. Patient was subsequently placed in OBSERVATION on the hospitalist service @ [facility] on 09/01/2025 with the following diagnosis: 1. [id number] ambulatory dysfunction, culminating in 2 mechanical falls on 09/01/2025, R/O acute viral syndrome. To address #1, patient awaits PT/OT Service evaluations in the 09/02/2025 am, to determine if patient can be discharged back to [facility] or if patient is better served with discharge to [facility] for short-term rehab. In the interim, patient is being held off his home-sc heduled protonix 40mg PO qam given the association of proton pump inhibitors with an increased incidence of falls and/or fractures. Patient also awaits BIOFIRE respiratory pathogen PCR panel testing (09/01/2025,10:55am). Allergies Allergy/AdvReac Type Severity Reaction Status Date / Time No Known Allergies Allergy Verified 09/01/25 15:52 Home Medications Medication Instructions Recorded Confirmed Type aspirin 81 mg tablet,delayed 81 mg PO QAM 08/24/18 09/01/25 History release pantoprazole 40 mg tablet,delayed 40 mg PO QAM #90 tabs 11/11/24 09/01/25 Rx release guaifenesin 600 mg tablet, 600 mg PO Q12H PRN Congestion 05/19/25 09/01/25 History extended release 12 hr (Mucinex) multivitamin 1 tab PO HS 06/03/25 09/01/25 History sertraline 50 mg tablet 50 mg PO HS 06/03/25 09/01/25 History melatonin 3 mg tablet 6 mg PO HS PRN Sleep 07/06/25 09/01/25 History apixaban 5 mg tablet (Eliquis) 5 mg PO BID #20 tabs 08/16/25 09/01/25 Rx Past Med/Surg History Problem List (Updated 09/01/25 @ 19:08 by Charly Ann MD, PhD) Ambulatory dysfunction Hematuria, microscopic Lower urinary tract symptoms (LUTS) (Acute) Paroxysmal atrial fibrillation Status post placement of cardiac pacemaker Acute respiratory failure with hypoxia Acute diastolic CHF (congestive heart failure) Acute dyspnea (Acute) Hard of hearing 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 (Acute) Elevated LFTs Healthcare-associated pneumonia Anemia of chronic disease Leucocytosis Gait apraxia of elderly Hyperlipidemia (Chronic) Gastroesophageal reflux disease Osteoarthritis of both knees Barretts esophagus Medical History Metabolic encephalopathy Elevated lipase Aspiration into airway Spinal stenosis of lumbar region Scoliosis Upper airway cough syndrome Right bundle branch block Sensorineural hearing loss of both ears History of stroke Enlarged prostate Deviated nasal septum Ex-smoker Pneumothorax, right Depression 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 GERD (gastroesophageal reflux disease) Thyroid goiter BIOPSY DONE "NORMAL" Surgical History History of melanoma excision off lip History of Mohs micrographic surgery for skin cancer History of appendectomy History of anesthesia reaction SLOW TO WAKE UP AND "GOES UNDER QUICKLY" History of knee surgery RT History of herniorrhaphy bilateral History of esophagogastroduodenoscopy (EGD) History of colonoscopy History of tooth extraction History of tonsillectomy History of adenoidectomy History of cataract surgery bilt History of lung surgery UPPER RT LOBECTOMY (NO CHEMO) Family History (Updated 09/01/25 @ 18:42 by Charly Ann MD, PhD) Father , at 92 years of age from natural causes. Family hx of colon cancer Colorectal cancer Mother , at 65 years of age from "blood poisoning." No problems noted. Other No family history of adverse response to anesthesia No family history of bleeding disorder Denies family history of Ovarian cancer Prostate cancer Diabetes Myocardial infarction Breast cancer Lung cancer Stroke Social History (Updated 09/01/25 @ 18:45 by Charly Ann MD, PhD) Smoking Status: Former smoker Tobacco Type: Cigarettes Age Started Using Tobacco: 19; Age Quit Using Tobacco: 36; packs per day: 0.5; Cigarettes Per Day: QUIT AT AGE 36; Second Hand Exposure: No; Do You Dip or Chew Tobacco: No; Hx Alcohol Use: Yes Alcohol type: wine Alcohol Intake Frequency: 4 or More x per/Week Hx Substance Use: No Preferred Language: Chinese Communication Ability: Effective Visual Impairment: Limited Hearing Ability: Use of Hearing Aid 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 Feels Safe at Home: Yes Childhood Exposure to Second-Hand Smoke: Yes caffeine: Yes Dental Care, Regularly: Yes Physical Activity Frequency: Daily Seatbelt Use: always Sunscreen Use: Yes Assistive Devices: Walker Review of Systems Constitutional: As above in the History of Present Illness. Physical Exam Constitutional: General: Comfortable, cooperative and coherent. Wide awake and alert. Not confused, lethargic, or obtunded. Patient speaks in complete, fluent, and articulate sentences, without pause, interruption, cough, or wheeze. HEENT: NC/AT. EOMI. PERRL. No diplopia, homonymous hemianopsia, superior/inferior/nasal/temporal quadrantanopia, nystagmus, gaze paresis, anisocoria, miosis, mydriasis, chemosis, hyphema, scleral injection, conjunctivitis, pterygium, facial droop, dysarthria, or pronator drift. No otorrhea. No rhinorrhea. Neck: Supple, no stridor, bruit, or goiter. Jugular venous pressure 3 cm above the sternal angle of Main, which is typically 5 cm above the right atrium. Lymph: No anterior/posterior cervical lymphadenopathy, supraclavicular/infraclavicular lymphadenopathy, axilla/epitrochlear/inguinal lymphadenopathy. Chest: Symmetric rise and fall with respirations. Non-tender to palpation. Heart: RRR, S1 and S2. No S3 or S4 summation gallop. No tripartite friction rub. No murmur. Lungs: Clear to auscultation and percussion. No audible expiratory wheeze, egophony, pectoriloquy, increase in tactile fremitus, or flatness/dullness to percussion at the bases. Abd: Soft, non-tender, non-distended. Bowel sounds auscultated in all 4 quadrants. No rebound, guarding, Pérez's sign, or organomegaly. Ext: No clubbing, cyanosis, or edema. 2+ pedal pulses bilaterally. Skin: No decubitus ulcer or enanthem or exanthem. Neuro: Alert and oriented in regards to person, place, time, and situation. No tremors, tics, or myoclonus. DTR+. 5/5 motor strength in all 4 extremities, both proximally and distally. Urology: No valverde catheter. No purewick. No urethral discharge. Results & Data Results & Data Vital Signs (Past 12 Hours) Vital Signs Temp Pulse Pulse Resp BP BP Pulse Ox 09/01/25 18:00 84 20 176/103 H 09/01/25 18:00 37.1 C 83 17 176/103 H 94 09/01/25 17:00 82 21 187/84 H 92 09/01/25 16:00 75 26 H 135/86 98 09/01/25 16:00 83 09/01/25 15:24 68 20 141/112 H 98 09/01/25 14:38 86 91 09/01/25 14:38 86 23 151/88 H 91 09/01/25 14:25 86 23 151/88 H 91 O2 Del Method 09/01/25 18:00 09/01/25 18:00 Room Air 09/01/25 17:00 Room Air 09/01/25 16:00 Room Air 09/01/25 16:00 09/01/25 15:24 Room Air 09/01/25 14:38 Room Air 09/01/25 14:38 Room Air 09/01/25 14:25 Room Air Laboratory Results As above in the History of Present Illness. Diagnostic Findings As above in the History of Present Illness. Medications Administered As above in the History of Present Illness. Code Status & VTE Plan VTE Prophylaxis Plan VTE Prophylaxis will be ordered: Yes PG Care Time/CCT Total # of Minutes Spent Total Time Spent with Patient: Total time spent is greater than 50% in coordination of care (as documented) at patient's floor/unit and/or counseling patient: Coding Level of Care Code 29212 INT INP/OBS CARE 2/55MIN Diagnoses Ambulatory dysfunction R26.2
[2025-09-01 18:46] LABS: Thyroid Stimulating Hormone 0.982 uIu/ml (0.300-4.500)
[2025-09-01] MEDS: MELATONIN 3 MG TAB PO PRN (21:23)
[2025-09-01] MEDS: APIXABAN 5 MG TABLET PO SCH (21:24)
[2025-09-01] MEDS: SERTRALINE HCL 50 MG TABLET PO SCH (21:25)
[2025-09-02] MEDS: ASPIRIN 81 MG ECTAB PO SCH (10:31)
--- NOTE | 2025-09-02 19:32 | Hospitalist Progress Note ---
Date of Service September 02, 2025 Assessment & Plan (1) Ambulatory dysfunction: Plan: 1. Lshue-[id number] ambulatory dysfunction, culminating in 2 mechanical falls on 09/01/2025, R/O acute viral syndrome. To address #1, patient awaits PT/OT Service evaluations in the 09/03/2025 am, to determine if patient can be discharged back to [facility] or if patient is better served with discharge to [facility] for short-term rehab. In the interim, patient is being held off his home- scheduled protonix 40mg PO qam given the association of proton pump inhibitors with an increased incidence of falls and/or fractures. (2) Transaminitis: Plan: cf., AST 51, ALT 61, ALK PHOS 310, total bilirubin 1.0 (09/01/2025, 2:35pm). cf., baseline AST range, 50-112 (04/14/2025 - 06/19/2025). cf., baseline ALT range, 54-107 (04/14/2025 - 06/11/2025). cf., baseline ALK range, 321-667 (04/14/2025 - 06/19/2025). Etiology of transaminitis remains unclear, but may be due to home-scheduled sertraline 50mg PO qhs. Subsequently, I have opted to D/C sertraline 50mg PO qhs and will check repeat LFT in the 09/03/2025 am. Admission and Anticipated Discharge Date Admission Date: September 01, 2025 Subjective "I'm weak, Doc." Review of Systems Constitutional: Positive for generalized weakness. Patient denies antecedent/coincident fevers, chills, diaphoresis, cough, wheeze, sore throat, hemoptysis, shortness of breath, dyspnea on exertion, chest pains, palpitations, pleurisy, nausea, vomiting, diarrhea, abdominal pain, pelvic pain, hematemesis, hematochezia, melena, hematuria, dysuria, frequency, urgency, headaches, dizziness, lightheadedness, visual changes, hearing changes, syncope, travel history, sick contacts, or food/drug ingestions novel or new. All other review of systems are reported as negative by the patient on 09/02/2025. Physical Exam Constitutional: General: Comfortable, cooperative and coherent. Wide awake and alert. Not confused, lethargic, or obtunded. Patient speaks in complete, fluent, and articulate sentences, without pause, interruption, cough, or wheeze. HEENT: NC/AT. EOMI. PERRL. No nystagmus, gaze paresis, anisocoria, miosis, mydriasis, chemosis, hyphema, scleral injection, conjunctivitis, pterygium, facial droop, dysarthria, or pronator drift. No otorrhea. No rhinorrhea. Neck: Supple, no stridor, bruit, or goiter. Jugular venous pressure 3 cm above the sternal angle of Main, which is typically 5 cm above the right atrium. Lymph: No anterior/posterior cervical lymphadenopathy, supraclavicular/infraclavicular lymphadenopathy, axilla/epitrochlear/inguinal lymphadenopathy. Chest: Symmetric rise and fall with respirations. Non-tender to palpation. Heart: RRR, S1 and S2. No S3 or S4 summation gallop. No tripartite friction rub. No murmur. Lungs: Clear to auscultation and percussion. No audible expiratory wheeze, egophony, pectoriloquy, increase in tactile fremitus, or flatness/dullness to percussion at the bases. Abd: Soft, non-tender, non-distended. Bowel sounds auscultated in all 4 quadrants. No rebound, guarding, Pérez's sign, or organomegaly. Ext: No clubbing, cyanosis, or edema. 2+ pedal pulses bilaterally. Skin: No decubitus ulcer or enanthem or exanthem. Neuro: Alert and oriented in regards to person, place, time, and situation. No tremors, tics, or myoclonus. DTR+. 5/5 motor strength in all 4 extremities, both proximally and distally. Urology: No valverde catheter. No purewick. No diaper. No urethral discharge. Results & Data Results & Data Vital Signs (Past 12 Hours) Vital Signs Temp Pulse Resp BP Pulse Ox O2 Del Method 09/02/25 14:51 36.4 C L 61 18 147/78 H 94 Room Air 09/02/25 13:04 61 14 157/80 H 93 Room Air 09/02/25 08:00 36.4 C L 84 18 174/90 H 91 Room Air Laboratory Results WBC 5.90, N70 L17 M10 E2, Hb 13.1, MCV 88.6, MCHC 32.9, platelet 141 (09/01/2025, 2:35pm). INR 1.1 (09/01/2025, 2:35pm). Na 138, K 4.4, BUN 17, creatinine 1.08, glucose 126, anion gap 6, CO2 28, Ca 10.5, PO4 2.7, Mg 2.0, AST 51, ALT 61, ALK PHOS 310, total bilirubin 1.0 (09/01/2025, 2:35pm). CK 154 U/L (09/01/2025, 2:35pm). Procalcitonin 0.20 ng/mL (09/01/2025, 2:35pm). TSH 0.982 uIU/mL (09/01/2025, 2:35pm). U/A: clear yellow, LE-, nitrite- (09/01/2025, 5:04pm). MRSA nares screen negative (09/01/2025, 10:55am). BIOFIRE negative (09/01/2025, 10:55am). Diagnostic Findings CT brain without contrast (09/01/2025, 2:32pm): 1. No intracranial hemorrhage seen. No mass effect, midline shift, or h ydrocephalus. Stable small areas of encephalomalacia at the right occipital lobe and left cerebellum. Stable moderate chronic small vessel ischemic changes. Visualized paranasal sinuses and mastoid air cells are clear. No skull fracture seen. Portable CXR (09/01/2025, 2:32pm): 1. No infiltrate, effusion, cardiomegaly, pulmonary vascular congestion, or pneumothorax (by my review). CT chest with IV contrast (09/01/2025, 2:32pm): 1. Interval small area of consolidation in the lingula which could represent early pneumonia or atelectasis. Otherwise there is mild atelectasis in the lung bases. 2. No pulmonary contusion or pleural effusion. No pneumothorax. No mediastinal hematoma. No thoracic aortic injury seen. No pericardial effusion. No enlarged adenopathy. 3. Stable tiny thyroid nodules. 4. Stable moderate hiatal hernia. 5. Few subacute or old right-sided rib fractures. Stable mild scoliosis. 6. No acute fracture seen of the visualized osseous structures. CT cervical spine without IV contrast (09/01/2025, 2:32pm): 1. No acute fracture or dislocation. CT abd/pelvis with IV contrast (09/01/2025, 2:32pm): 1. No acute injury seen at the abdomen or pelvis. 2. 5 mm calculus distal left ureter with no hydronephrosis. 3. Urinary bladder mild inflammation consistent with cystitis. PG Care Time/CCT Total # of Minutes Spent Total Time Spent with Patient: Total time spent is greater than 50% in coordination of care (as documented) at patient's floor/unit and/or counseling patient: Coding Level of Care Code 08441 SUB INP/OBS CARE 2/35MIN Diagnoses Ambulatory dysfunction R26.2 Transaminitis R74.01
[2025-09-02 20:24] LABS: Alanine Aminotransferase 45.0 U/L (7-52); Albumin Level 3.1 gm/dl (3.4-5.0); Alkaline Phosphatase 264.0 U/L (34-104); Bilirubin,Total 0.9 mg/dl (0.2-1.0); Total Protein 6.2 gm/dl (6.0-8.3)
[2025-09-03 06:14] LABS: Alanine Aminotransferase 41.0 U/L (7-52); Albumin Level 3.4 gm/dl (3.4-5.0); Alkaline Phosphatase 259.0 U/L (34-104); Bilirubin,Total 0.9 mg/dl (0.2-1.0); Total Protein 6.4 gm/dl (6.0-8.3)
--- NOTE | 2025-09-03 17:45 | Hospitalist Progress Note ---
Date of Service September 03, 2025 Assessment & Plan (1) Ambulatory dysfunction: Plan: 1. Akwco-mj-iuwkboa ambulatory dysfunction, culminating in 2 mechanical falls on 09/01/2025, R/O acute viral syndrome. To address #1, patient awaits PT/OT Service evaluations in the 09/04/2025 am, to determine if patient can be discharged back to [facility] or if patient is better served with discharge to [facility] for short-term rehab. In the interim, patient is being held off his home- scheduled protonix 40mg PO qam given the association of proton pump inhibitors with an increased incidence of falls and/or fractures. (2) Transaminitis: Plan: cf., AST 51, ALT 61, ALK PHOS 310, total bilirubin 1.0 (09/01/2025, 2:35pm). cf., baseline AST range, 50-112 (04/14/2025 - 06/19/2025). cf., baseline ALT range, 54-107 (04/14/2025 - 06/11/2025). cf., baseline ALK range, 321-667 (04/14/2025 - 06/19/2025). Etiology of transaminitis remains unclear, but may be due to home-scheduled sertraline 50mg PO qhs. Subsequently, I opted to D/C sertraline 50mg PO qhs and AST/ALT elevations have RESOLVED, while ALK PHOS remains elevated: cf., AST 35, ALT 45, ALK PHOS 264, total bilirubin 0.9 (09/02/2025, 7:36pm). cf., AST 32, ALT 41, ALK PHOS 259, total bilirubin 0.9 (09/03/2025, 5:44am). Etiology of chronic ALK PHOS elevation remains unclear, but is probably due to bony inflammation from patient's multiple falls @ [facility]. Hence, I have opted to observe this laboratory anomaly without further evaluation for the remainder of patient's hospital stay @ [facility]. cf., CT abd/pelvis with IV contrast (09/01/2025): 1. Interval well positioned common bile duct stent. No significant biliary dilatation seen. 2. Stable tiny cyst left hepatic lobe. 3. Liver, gallbladder, spleen, pancreas, adrenal glands, and kidneys show no evidence of acute injury. 4. No hydronephrosis. No abdominal aortic injury. 5. Scattered atherosclerotic calcifications. 6. No abdominal aortic aneurysm. 7. Stable enlarged prostate. Urinary bladder is mildly distended. Mild inflammation at the urinary bladder consistent with cystitis. 5 mm calculus distally in the left ureter. 8. Sigmoid diverticulosis. No acute diverticulitis. No bowel inflammation or obstruction. No free fluid or free air. 9. Osseous structures: Osteopenia. Stable mild scoliosis and lumbar degenerative changes. No acute fracture seen at the visualized osseous structures. Admission and Anticipated Discharge Date Admission Date: September 03, 2025 Subjective "I'm weak, Doc." Review of Systems Constitutional: Positive for generalized weakness. Patient denies antecedent/coincident fevers, chills, diaphoresis, cough, wheeze, sore throat, hemoptysis, shortness of breath, dyspnea on exertion, chest pains, palpitations, pleurisy, nausea, vomiting, diarrhea, abdominal pain, pelvic pain, hematemesis, hematochezia, melena, hematuria, dysuria, frequency, urgency, headaches, dizziness, lightheadedness, visual changes, hearing changes, syncope, travel history, sick contacts, or food/drug ingestions novel or new. All other review of systems are reported as negative by the patient on 09/03/2025. Physical Exam Constitutional: General: Comfortable, cooperative and coherent. Wide awake and alert. Not confused, lethargic, or obtunded. Patient speaks in complete, fluent, and articulate sentences, without pause, interruption, cough, or wheeze. HEENT: NC/AT. EOMI. PERRL. No nystagmus, gaze paresis, anisocoria, miosis, mydriasis, chemosis, hyphema, scleral injection, conjunctivitis, pterygium, facial droop, dysarthria, or pronator drift. No otorrhea. No rhinorrhea. Neck: Supple, no stridor, bruit, or goiter. Jugular venous pressure 3 cm above the sternal angle of Main, which is typically 5 cm above the right atrium. Lymph: No anterior/posterior cervical lymphadenopathy, supraclavicular/infraclavicular lymphadenopathy, axilla/epitrochlear/inguinal lymphadenopathy. Chest: Symmetric rise and fall with respirations. Non-tender to palpation. Heart: RRR, S1 and S2. No S3 or S4 summation gallop. No tripartite friction rub. No murmur. Lungs: Clear to auscultation and percussion. No audible expiratory wheeze, egophony, pectoriloquy, increase in tactile fremitus, or flatness/dullness to percussion at the bases. Abd: Soft, non-tender, non-distended. Bowel sounds auscultated in all 4 quadrants. No rebound, guarding, Pérez's sign, or organomegaly. Ext: No clubbing, cyanosis, or edema. 2+ pedal pulses bilaterally. Multiple ecchymoses, generalized, all non-tender. Skin: No decubitus ulcer or enanthem or exanthem. Neuro: Alert and oriented in regards to person, place, time, and situation. No tremors, tics, or myoclonus. DTR+. 5/5 motor strength in all 4 extremities, both proximally and distally. Urology: No valverde catheter. No purewick. No diaper. No urethral discharge. Results & Data Results & Data Vital Signs (Past 12 Hours) Vital Signs Temp Pulse Resp BP Pulse Ox O2 Del Method 09/03/25 15:31 36.4 C L 86 18 149/88 H 94 Room Air 09/03/25 07:50 Room Air 09/03/25 07:44 36.4 C L 73 16 156/87 H 93 Room Air Laboratory Results WBC 5.90, N70 L17 M10 E2, Hb 13.1, MCV 88.6, MCHC 32.9, platelet 141 (09/01/2025, 2:35pm). INR 1.1 (09/01/2025, 2:35pm). Na 138, K 4.4, BUN 17, creatinine 1.08, glucose 126, anion gap 6, CO2 28, Ca 10.5, PO4 2.7, Mg 2.0, AST 51, ALT 61, ALK PHOS 310, total bilirubin 1.0 (09/01/2025, 2:35pm). CK 154 U/L (09/01/2025, 2:35pm). Procalcitonin 0.20 ng/mL (09/01/2025, 2:35pm). TSH 0.982 uIU/mL (09/01/2025, 2:35pm). U/A: clear yellow, LE-, nitrite- (09/01/2025, 5:04pm). MRSA nares screen negative (09/01/2025, 10:55am). BIOFIRE negative (09/01/2025, 10:55am). Diagnostic Findings CT brain without contrast (09/01/2025, 2:32pm): 1. No intracranial hemorrhage seen. No mass effect, midline shift, or hydrocephalus. Stable small areas of encephalomalacia at the right occipital lobe and left cerebellum. Stable moderate chronic small vessel ischemic changes. Visualized paranasal sinuses and mastoid air cells are clear. No skull fracture seen. Portable CXR (09/01/2025, 2:32pm): 1. No infiltrate, effusion, cardiomegaly, pulmonary vascular congestion, or pneumothorax (by my review). CT chest with IV contrast (09/01/2025, 2:32pm): 1. Interval small area of consolidation in the lingula which could represent early pneumonia or atelectasis. Otherwise there is mild atelectasis in the lung bases. 2. No pulmonary contusion or pleural effusion. No pneumothorax. No mediastinal hematoma. No thoracic aortic injury seen. No pericardial effusion. No enlarged adenopathy. 3. Stable tiny thyroid nodules. 4. Stable moderate hiatal hernia. 5. Few subacute or old right-sided rib fractures. Stable mild scoliosis. 6. No acute fracture seen of the visualized osseous structures. CT cervical spine without IV contrast (09/01/2025, 2:32pm): 1. No acute fracture or dislocation. CT abd/pelvis with IV contrast (09/01/2025, 2:32pm): 1. No acute injury seen at the abdomen or pelvis. 2. 5 mm calculus distal left ureter with no hydronephrosis. 3. Urinary bladder mild inflammation consistent with cystitis. PG Care Time/CCT Total # of Minutes Spent Total Time Spent with Patient: Total time spent is greater than 50% in coordination of care (as documented) at patient's floor/unit and/or counseling patient: Coding Level of Care Code 22615 SUB INP/OBS CARE 2/35MIN Diagnoses Ambulatory dysfunction R26.2 Transaminitis R74.01
--- NOTE | 2025-09-04 08:55 | Electrocardiogram Report ---
Test Reason : Blood Pressure : */* mmHG Vent. Rate : 85 BPM Atrial Rate : 85 BPM P-R Int : 152 ms QRS Dur : 122 ms QT Int : 382 ms P-R-T Axes : 45 -60 102 degrees QTcB Int : 454 ms Atrial-sensed ventricular-paced rhythm Abnormal ECG When compared with ECG of 15-Aug-2025 08:33, Vent. rate has increased by 24 bpm Confirmed by Toñito Beatty ([id number]) on 09/04/2025 8:54:48 AM Referred By: REFERRED SELF Confirmed By: Toñito Beatty
--- NOTE | 2025-09-04 12:23 | Hospitalist Progress Note ---
"Date of Service September 04, 2025 Assessment & Plan (1) Ambulatory dysfunction: (2) Transaminitis: Plan This is an 89 year old gentleman with past medical history of Barretts esophagus, s/p pacemaker, CHF who presented to the ED on 09/01/2025 secondary to a fall at a H. #Ambulatory dysfunction | Fall CTAP: no acute injury: 5mm stone in distal left ureter w/ no hydronephrosis. urinary bladder w/ mild inflammation consistent w/ cystitis. Cervical spine CT: negative for acute pathology Chest CT: no acute pathology. early pneumonia vs atelectasis @ lingula CXR: negative Head CT: negative PT/OT recommending rehab, pt to go to [facility] upon discharge for rehab prior to returning to [facility]. #UTI | Pneumonia Imaging as above concerning for cystitis & early pneumonia. -> pt currently w/o urinary or respiratory symptoms but has had changes in mental status leading up to his fall which could be consistent w/ an infection. No biofire performed on admission. CBC w/o leukocytosis & BMP w/ stable renal function/electrolytes on 09/01 procal negative on 09/03. s/p Rocephin x 1 given in ED on 09/01. Urinalysis neg for UTI & UC contaminated. In the event infection is present - treat with Cefdinir BID x 5 days for completion. Repeat AM labs #Transaminitis Mild transaminitis present on admission. AST/ALT 51/61 which has since resolved. Alk phos downtrending to 259 as of 09/03. CTAP negative for biliary pathology as above. Presence of biliary stent, to undergo another ERCP in September 2025 per daughter. Repeat CMP + GGT in AM. #Chavarria's esophagus - pantoprazole #Mental health - Zoloft #BPH Recent urology visit on 09/01 documenting continuing Flomax Not on recent medication list ? but will continue & prescribe on dc. #HTN BP elevated at 165/83. Amlodipine 5mg continued as last dc on 08/16 but not on recent med list ? --> given hypertensive resume amlodipine 5mg AM starting 09/05. # Atrial Fib | CHF Presence of pacemaker placed on 08/14/2025 Echo 08/12/2025 w/ stable EF of 60-65%, moderate tricuspid regurg. Continue Eliquis BID. DVT prophylaxis: Eliquis Code: full Updated daughter via phone 09/04. Discussed w/ CM 09/04. Admission and Anticipated Discharge Date Admission Date: September 03, 2025 Supervising Physician Co-Signing Physician Notes The patient was not seen by me. The chart was reviewed. Case discussed with ZANDER Herrera. Agree with assessment and plan Subjective [place] was seen & examined this morning. He was sitting in his chair at time of encounter. He endorsed no complaints including no pain, CP, or SOB. Physical Exam Physical Exam: General: NAD, VS: BP 165/83; P72; R16; T36.4C Resp: normal respiratory effort, lungs clear to auscultation CV: RRR, no murmur Abd: normal bowel sounds, non tender, soft Extremities: Moves all extremities, no edema Neuro: Alert, oriented to person and place Skin: intact, no lesions noted Results & Data Results & Data Vital Signs (Past 12 Hours) Vital Signs Temp Pulse Resp BP Pulse Ox O2 Del Method 09/04/25 09:03 Room Air 09/04/25 08:00 36.4 C L 72 16 165/83 H 95 Room Air PG Care Time/CCT Total # of Minutes Spent Total Time Spent with Patient: Total time spent is greater than 50% in coordination of care (as documented) at patient's floor/unit and/or counseling patient: Coding Level of Care Code 25286 SUB INP/OBS CARE 3/50MIN Diagnoses Ambulatory dysfunction R26.2 Transaminitis R74.01"
[2025-09-04] MEDS: CEFDINIR 300 MG CAP PO SCH (20:34)
[2025-09-04] MEDS: TAMSULOSIN HCL 0.4 MG CAP PO SCH (20:34)
[2025-09-04] MEDS: SERTRALINE HCL 50 MG TABLET PO SCH (21:04)
[2025-09-05 08:54] LABS: Hematocrit (blood only) 39.9 % (42.0-52.0); Hemoglobin 13.4 g/dl (14.0-18.0); Mean Corpuscular Hemoglobin 29.3 pg (25.0-34.0); Mean Corpuscular Volume 87.3 fL (80.0-100.0); Platelet Count 145 K/uL (130-400); RDW Standard Deviation 49.3 fL (36.4-46.3); Red Blood Count 4.57 M/uL (4.70-6.10); White Blood Count 4.78 K/ul (4.8-10.8)
[2025-09-05 09:12] LABS: Alanine Aminotransferase 59.0 U/L (7-52); Albumin Globulin Ratio 1.1 (0.9-2); Albumin Level 3.7 gm/dl (3.4-5.0); Alkaline Phosphatase 345.0 U/L (34-104); Anion Gap 6.0 (3-11); Bilirubin,Total 1.3 mg/dl (0.2-1.0); Blood Urea Nitrogen 16.0 mg/dl (6-23); Calcium 10.2 mg/dl (8.6-10.3); Carbon Dioxide 26.0 mmol/L (21-32); Chloride 103.0 mmol/L (98-107); Creatinine Clr Calc Pharmacy 68.7 ml/min; Globulin 3.4 gm/dl (2.5-4.0); Glucose 115.0 mg/dl (70-99(Fasting)); Potassium 4.0 mmol/L (3.5-5.1); Sodium 135.0 mmol/L (136-145); Total Protein 7.1 gm/dl (6.0-8.3)
[2025-09-05] MEDS: OPTIRAY 320 100ml IV ONE (11:50)
--- NOTE | 2025-09-05 12:09 | CT Scan Report ---
CT abdomen w IV con CLINICAL HISTORY: transaminitis, presence of biliary stent COMPARISON STUDY: 09/01/2025 FINDINGS: Stable large hiatal hernia. There is minimal atelectasis in the lung bases. ABDOMEN: There is a stable well-positioned common bile duct stent. There is no biliary dilatation. St able tiny cysts left hepatic lobe. Otherwise the liver, gallbladder, spleen, pancreas, and adrenal gl ands are unremarkable. Kidneys show no hydronephrosis. There are a few tiny calculi at the left kidne y. There are scattered atherosclerotic calcifications. No abdominal aortic aneurysm. No ascites. Visu alized bowel shows no inflammation or obstruction. No enlarged adenopathy seen. Stable scoliosis and degenerative changes at the visualized spine. IMPRESSION: No acute findings seen at the abdomen. Common bile duct stent is well-positioned with no biliary dilatation seen. ACT 112: Negative or not required by law. Electronically signed by: Vidal Razo M.D. 09/05/2025 12:07 PM
--- NOTE | 2025-09-05 12:33 | Hospitalist Progress Note ---
"Date of Service September 05, 2025 Assessment & Plan (1) Ambulatory dysfunction: (2) Transaminitis: Plan This is an 89 year old gentleman with past medical history of Barretts esophagus, s/p pacemaker, CHF who presented to the ED on 09/01/2025 secondary to a fall at a [facility]. #Ambulatory dysfunction | Fall CTAP: no acute injury: 5mm stone in distal left ureter w/ no hydronephrosis. urinary bladder w/ mild inflammation consistent w/ cystitis. Cervical spine & Head CT: negative for acute pathology Chest CT: no acute pathology. early pneumonia vs atelectasis @ lingula; CXR: negative PT/OT recommending rehab, pt to go to [facility] upon discharge for rehab prior to returning to [facility]. #UTI | Pneumonia Imaging as above concerning for cystitis & early pneumonia. -> pt currently w/o urinary or respiratory symptoms but has had changes in mental status leading up to his fall which could be consistent w/ an infection. No Biofire performed on admission. CBC w/o leukocytosis & BMP w/ stable renal function/electrolytes Procal negative on 09/03. s/p Rocephin x 1 given in ED on 09/01. Urinalysis neg for UTI & UC contaminated. In the event infection is present - treat with Cefdinir BID x 5 days for completion. #Transaminitis Mild transaminitis present on admission. Recent ERCP w/ Biliary stent 05/2025. Repeat LFTs 09/05 reveal rising values--> TB 1.3, AST/ALT 60/59; AP 345 CTAP negative x2 for biliary pathology. (09/01 & 09/05) Attempted MRCP 09/05 but unable to obtained secondary to recent pacemaker placement. Discussed w/ GI 09/05 --> pt will require repeat ERCP w/ stent exchange next week; ok to be discharged from GI standpoint in the absence of no leukocytosis or fevers. #Chavarria's esophagus - pantoprazole #Mental health - Zoloft #BPH Recent urology visit on 09/01 documenting continuing Flomax Not on recent medication list ? but will continue & prescribe on dc. #HTN BP elevated at 165/83. Amlodipine 5mg continued as last dc on 08/16 but not on recent med list ? --> given hypertensive resume amlodipine 5mg AM starting 09/05. # Atrial Fib | CHF Presence of pacemaker placed on 08/14/2025 Echo 08/12/2025 w/ stable EF of 60-65%, moderate tricuspid regurg. Continue Eliquis BID. DVT prophylaxis: Eliquis Code: full Updated daughter via phone 09/05. Discussed w/ CM 09/05. Admission and Anticipated Discharge Date Admission Date: September 03, 2025 Supervising Physician Co-Signing Physician Notes The patient was not seen by me. The chart was reviewed. Case discussed with ZANDER Herrera. Agree with assessment and plan Subjective Tiny was seen & examined this afternoon. He mentioned no complaints at time of his encounter, denied abdominal pain. Physical Exam Physical Exam: General: NAD, VS: BP 131/81; P69; R16; T36.4C Resp: normal respiratory effort, lungs clear to auscultation CV: RRR, no murmur Abd: normal bowel sounds, non tender, soft Extremities: Moves all extremities, no edema Skin: intact, no lesions noted Results & Data Results & Data Vital Signs (Past 12 Hours) Vital Signs Temp Pulse Resp BP Pulse Ox O2 Del Method 09/05/25 08:20 Room Air 09/05/25 07:46 36.6 C 72 16 154/86 H 92 Room Air PG Care Time/CCT Total # of Minutes Spent Total Time Spent with Patient: Total time spent is greater than 50% in coordination of care (as documented) at patient's floor/unit and/or counseling patient: Coding Level of Care Code 33229 SUB INP/OBS CARE 3/50MIN Diagnoses Ambulatory dysfunction R26.2 Transaminitis R74.01"
[2025-09-06 07:44] VITALS: BP 122/72; PULSE 94; RESP 12; TEMP 97.5; O2SAT 94
--- NOTE | 2025-09-06 08:38 | Discharge Summary ---
Discharge Summary Date of Service September 06, 2025 Principal Dx & Hospital Course #1 = Principal Diagnosis (1) Ambulatory dysfunction: (2) Transaminitis: Plan This is an 89 year old gentleman with past medical history of Barretts esophagus, s/p pacemaker, CHF who presented to the ED on 09/01/2025 secondary to a fall at a H. #Ambulatory dysfunction | Fall CTAP: no acute injury: 5mm stone in distal left ureter w/ no hydronephrosis. urinary bladder w/ mild inflammation consistent w/ cystitis. Cervical spine & Head CT: negative for acute pathology Chest CT: no acute pathology. early pneumonia vs atelectasis @ lingula; CXR: negative PT/OT recommending rehab, pt to go to [facility] upon discharge for rehab prior to returning to [facility]. #UTI | Pneumonia Imaging as above concerning for cystitis & early pneumonia. -> pt currently w/o urinary or respiratory symptoms but has had changes in mental status leading up to his fall which could be consistent w/ an infection. No Biofire performed on admission; CBC w/o leukocytosis & BMP w/ stable renal function/electrolytes; Procal negative on 09/03. s/p Rocephin x 1 given in ED on 09/01. Urinalysis neg for UTI & UC contaminated. In the event infection is present - treat with Cefdinir BID x 5 days for completion. - sent on discharge. #Transaminitis Mild transaminitis present on admission. Recent ERCP w/ Biliary stent 05/2025. Repeat LFTs 09/05 reveal rising values--> TB 1.3, AST/ALT 60/59; AP 345 CTAP negative x2 for biliary pathology. (09/01 & 09/05) Attempted MRCP 09/05 but unable to obtained secondary to recent pacemaker placement. Discussed w/ GI 09/05 --> pt will require repeat ERCP w/ stent exchange next week; ok to be discharged from GI standpoint in the absence of no leukocytosis or fevers. #Chavarria's esophagus - pantoprazole #Mental health - Zoloft #BPH Recent urology visit on 09/01 documenting continuing Flomax Not on recent medication list ? but will continue & prescribed on dc. #HTN Amlodipine 5mg continued as last dc on 08/16 but not on recent med list ? BP w/ improvement after resuming amlodipine. # Atrial Fib | CHF Presence of pacemaker placed on 08/14/2025 Echo 08/12/2025 w/ stable EF of 60-65%, moderate tricuspid regurg. Continue Eliquis BID. Updated daughter via phone 09/05. [facility]charged [facility] 09/06. Admission HPI Per Admitting Provider 89 years old right-handed male with PMH of FULL CODE @ [facility], major depression on sertraline 50mg PO qhs, GERD on protonix 40mg PO daily, paroxysmal AFIB, s/p PPM, on apixaban 5mg PO bid, and acute non-hemorrhagic, ischemic CVA with neurologic sequela including ambulatory dysfunction utilizing cane @ home and walker outside of home, leading to intermittent falls @ [facility], who reports: "I fell down twice in my apartment @ [facility]. I did not pass out. I just tripped on my feet and fell down. I couldn't get up so the staff @ [facility] called and an ambulance brought me to [facility] to get checked out. I feel okay. I think if I stay in the hospital tonight, I will feel better and be able to go back to [facility]. I can't stay in the hospital more than 1 night because if I do, I will miss the football game with [facility] and [place], and I cannot miss the game. I have a crappy TV, but my friends @ [facility] have a big screen TV to watch the game." Patient denies antecedent/coincident fevers, chills, diaphoresis, cough, wheeze, sore throat, hemoptysis, shortness of breath, dyspnea on exertion, chest pains, palpitations, pleurisy, nausea, vomiting, diarrhea, abdominal pain, pelvic pain, hematemesis, hematochezia, melena, hematuria, dysuria, frequency, urgency, headaches, dizziness, lightheadedness, visual changes, hearing changes, syncope, travel history, sick contacts, or food/drug ingestions novel or new. All other review of systems are reported as negative by the patient on 09/01/2025. In [facility] ER bed #C6, patient was afebrile with HR 86, RR 23, O2 sat 91% on room air, and BP 151/89 (09/01/2025, 2:25pm). Exam was noted for multiple ecchymoses on the bilateral forearms and shins, all of which appeared very dry with skin tenting > 2 seconds, but no delay in capillary refill time > 2 seconds. Labs in [facility] ER bed #C6 included: WBC 5.90, N70 L17 M10 E2, Hb 13.1, MCV 88.6, MCHC 32.9, platelet 141 (09/01/2025, 2:35pm). INR 1.1 (09/01/2025, 2:35pm). Na 138, K 4.4, BUN 17, creatinine 1.08, glucose 126, anion gap 6, CO2 28, Ca 10.5, PO4 2.7, Mg 2.0, AST 51, ALT 61, ALK PHOS 310, total bilirubin 1.0 (1 11/01/2024, 2:35pm). CK 154 U/L (09/01/2025, 2:35pm). Procalcitonin 0.20 ng/mL (09/01/2025, 2:35pm). TSH 0.982 uIU/mL (09/01/2025, 2:35pm). U/A: clear yellow, LE-, nitrite- (09/01/2025, 5:04pm). MRSA nares screen (09/01/2025, 10:55am). BIOFIRE (09/01/2025, 10:55am). Additional testing in [facility] ER bed #C6 included: CT brain without contrast (09/01/2025, 2:32pm): 1. No intracranial hemorrhage seen. No mass effect, midline shift, or hydrocephalus. Stable small areas of encephalomalacia at the right occipital lobe and left cerebellum. Stable moderate chronic small vessel ischemic changes. Visualized paranasal sinuses and mastoid air cells are clear. No skull fracture seen. Portable CXR (09/01/2025, 2:32pm): 1. No infiltrate, effusion, cardiomegaly, pulmonary vascular congestion, or pneumothorax (by my review). CT chest with IV contrast (09/01/2025, 2:32pm): 1. Interval small area of consolidation in the lingula which could represent early pneumonia or atelectasis. Otherwise there is mild atelectasis in the lung bases. 2. No pulmonary contusion or pleural effusion. No pneumothorax. No mediastinal hematoma. No thoracic aortic injury seen. No pericardial effusion. No enlarged adenopathy. 3. Stable tiny thyroid nodules. 4. Stable moderate hiatal hernia. 5. Few subacute or old right-sided rib fractures. Stable mild scoliosis. 6. No acute fracture seen of the visualized osseous structures. CT cervical spine without IV contrast (09/01/2025, 2:32pm): 1. No acute fracture or dislocation. CT abd/pelvis with IV contrast (09/01/2025, 2:32pm): 1. No acute injury seen at the abdomen or pelvis. 2. 5 mm calculus distal left ureter with no hydronephrosis. 3. Urinary bladder mild inflammation consistent with cystitis. Patient was subsequently placed in OBSERVATION on the hospitalist service @ [facility] on 09/01/2025 with the following diagnosis: 1. Aqxqa-em-bnxiqef ambulatory dysfunction, culminating in 2 mechanical falls on 09/01/2025, R/O acute viral syndrome. To address #1, patient awaits PT/OT Service evaluations in the 09/02/2025 am, to determine if patient can be discharged back to [facility] or if patient is better served with discharge to [facility] for short-term rehab. In the interim, patient is being held off his home- scheduled protonix 40mg PO qam given the association of proton pump inhibitors with an increased incidence of falls and/or fractures. Patient also awaits [employer] respiratory pathogen PCR panel testing (09/01/2025,10:55am). Discharge Exam General: NAD, VS: BP 122/72; P94; T36.4C; R12 Resp: normal respiratory effort Abd: normal bowel sounds, non tender, soft Extremities: Moves all extremities, no edema Neuro: Alert, oriented to person. Skin: intact, no lesions noted Discharge Plan Discharge Items Patient Disposition: Transfer Inpatient Rehab Fac Reason For Visit: FALLS @ [facility] Discharge Diagnosis: Fall Condition on Discharge: Fair Activity: Resume your previous activity Non-emergency contact: Primary Care Provider Call non-emergency contact if: you have any medication questions, your symptoms worsen and you have a fever Follow-up/Referrals: Russ Walsh, [Primary Care Provider] - Reagan Montes De Oca MD [Physician] - Diet: Heart Healthy Addtl Attending Provider Instructions: Mr. York, You were recently hospitalized secondary to falls that were occurring at your living facility. While nothing was overtly found relating to your falls, we have opted to treat you with antibiotics to cover both a urinary tract infection and pneumonia. Your liver function tests were also found to be elevated. Gastroenterology was contacted and they are arranging for you to have an ERCP next week to have your biliary stent exchanged. Medications: Your medication list has been reviewed and reconciled upon discharge to ensure accuracy and continuity of care. An updated list of all your medications is included with your hospital discharge paperwork. Please review this list closely, and make note of any changes. Please take Cefdinir twice daily for the next 4 days. Your first dose will be this evening, 1112. You may take with food to avoid GI upset. Additional medications that were not on your medication list at time of admission but you should be taking include Tamsulosin and Amlodipine. Tamsulosin is for your enlarged prostate and Amlodipine is for your blood pressure. These medications were sent at time of discharge to ensure you are able to take them on an outpatient basis. Take your medications as instructed; do not skip a dose of your medicines. Make sure all of your doctors know every medicine you are taking (including faqv-utg-hmwwiql medicines, vitamins, and supplements). Call your primary care provider before taking any new medicines (including over- the-counter medicines, vitamins, and supplements), because some of these may interact with your current medications, or may make your symptoms worse. Tell your primary care provider if you cannot afford your medications. Activity: You can do normal everyday activities as your body allows. Take rest breaks if you feel tired. Do not overexert. Stop activity if you have pain, shortness of breath or feel dizzy. Follow-up appointments: Make an appointment with your primary care physician within one week of discharge. A copy of this summary will be sent to them. Every time you see your primary care physician, or any other doctor, bring your medication list, and a list of questions. CONTACT YOUR PRIMARY CARE PROVIDER if you experience any of the following: Shortness of breath or difficulty breathing Fevers or chills Feeling tired with normal activity or experiencing dizziness or fainting Difficulty following your treatment plan, or difficulty taking medications CALL 911 OR GO TO THE EMERGENCY DEPARTMENT if you experience any of the following: Severe abdominal pain or nausea/vomiting Severe chest pain, or chest pain that radiates (moves) to your jaw or arm Sudden, severe shortness of breath or difficulty breathing Thank you for allowing us to participate in your care. Pending Studies at Discharge: No Stand-Alone Forms: My [facility] Skilled Items Patient informed of condition?: Yes DNR: No Discharge Level of Care: Acute rehab Communicable Disease: No Discharge Prognosis: Stable Lines: None Urinary Catheter: No Medications and DC Order Prescriptions: New amlodipine 5 mg Tablet 5 mg PO QAM Qty: 30 0RF tamsulosin 0.4 mg Capsule 0.4 mg PO HS Qty: 30 0RF cefdinir 300 mg Capsule 300 mg PO BID Qty: 8 0RF Continued pantoprazole 40 mg tablet,delayed release (DR/EC) 40 mg PO QAM Qty: 90 3RF melatonin 3 mg tablet 6 mg PO HS PRN (Reason: Sleep) aspirin 81 mg Tablet,Delayed Release (Dr/Ec) 81 mg PO QAM guaifenesin [Mucinex] 600 mg Tablet Extended Release 12hr 600 mg PO Q12H PRN (Reason: Congestion) sertraline 50 mg Tablet 50 mg PO HS multivitamin Tablet 1 tab PO HS Eliquis 5 mg tablet 5 mg PO BID Qty: 20 0RF Discharge Orders: Discharge Order (Routine); Ordered 09/06/25 Ordered By: Shannan Darling Admission Data Admit Date/Time: 09/03/25 12:58 Attending Provider: Fareed Sapp Admit Provider: Charly Ann Primary Care Provider: Russ Walsh Other Providers: Charly Ann Hospital Stay Data Consultations 09/01/25 18:11 ED Decision to Admit Stat Diagnostic Imagining Performed 09/01/25 14:32 CT abd pelvis IV con only Stat CT cervical spine wo con Stat CT chest diagnostic w con Stat CT head/brain wo con Stat 09/05/25 10:40 CT abdomen w IV con Urgent Pending Results Patient Have Any Pending Studies at Discharge: No Discharge Instructions Given to Patient (Per Discharging Provider) Mr. York, Gilson were recently hospitalized secondary to falls that were occurring at your living facility. While nothing was overtly found relating to your falls, we have opted to treat you with antibiotics to cover both a urinary tract infection and pneumonia. Your liver function tests were also found to be elevated. Gastroenterology was contacted and they are arranging for you to have an ERCP next week to have your biliary stent exchanged. Medications: Your medication list has been reviewed and reconciled upon discharge to ensure accuracy and continuity of care. An updated list of all your medications is included with your hospital discharge paperwork. Please review this list closely, and make note of any changes. Please take Cefdinir twice daily for the next 4 days. Your first dose will be this evening, 09/06. You may take with food to avoid GI upset. Additional medications that were not on your medication list at time of admission but you should be taking include Tamsulosin and Amlodipine. Tamsulosin is for your enlarged prostate and Amlodipine is for your blood pressure. These medications were sent at time of discharge to ensure you are able to take them on an outpatient basis. Take your medications as instructed; do not skip a dose of your medicines. Make sure all of your doctors know every medicine you are taking (including usdo-ynz-elvbcha medicines, vitamins, and supplements). Call your primary care provider before taking any new medicines (including over- the-counter medicines, vitamins, and supplements), because some of these may interact with your current medications, or may make your symptoms worse. Tell your primary care provider if you cannot afford your medications. Activity: You can do normal everyday activities as your body allows. Take rest breaks if you feel tired. Do not overexert. Stop activity if you have pain, shortness of breath or feel dizzy. Follow-up appointments: Make an appointment with your primary care physician within one week of discharge. A copy of this summary will be sent to them. Every time you see your primary care physician, or any other doctor, bring your medication list, and a list of questions. CONTACT YOUR PRIMARY CARE PROVIDER if you experience any of the following: Shortness of breath or difficulty breathing Fevers or chills Feeling tired with normal activity or experiencing dizziness or fainting Difficulty following your treatment plan, or difficulty taking medications CALL 911 OR GO TO THE EMERGENCY DEPARTMENT if you experience any of the following: Severe abdominal pain or nausea/vomiting Severe chest pain, or chest pain that radiates (moves) to your jaw or arm Sudden, severe shortness of breath or difficulty breathing Thank you for allowing us to participate in your care. Supervising Physician Co-Signing Physician Notes The patient was not seen by me. The chart was reviewed. Case discussed with ZANDER Herrera. Agree with assessment and plan Total Time Total Time Spent Total Time Spent (In Minutes): 45 Total Time Includes: Examination of the Patient, Discharge Planning, Medication Reconciliation and Communication With Other Providers Coding Level of Care Code 39778 INP/OBS DISCH >30 MIN Diagnoses Ambulatory dysfunction R26.2 Transaminitis R74.01
== END 2025-09-06 13:15 | DRG 91 ==
LOC: EDINP 14:22 → ED 14:22 → 3E 21:26 → SUATTDRO 09-03 12:58

== ENCOUNTER 2025-09-25 15:45 | Inpatient (IN) ==
[2025-09-25 16:49] LABS: Hematocrit (blood only) 38.0 % (42.0-52.0); Hemoglobin 12.7 g/dL (14.0-18.0); Immature Granulocytes # (auto) 0.04 K/uL (0.01-0.20); Immature Granulocytes % (auto) 0.3 %; Mean Corpuscular Hemoglobin 29.3 pg (25.0-34.0); Mean Corpuscular Volume 87.6 fL (80.0-100.0); Platelet Count 309 K/uL (130-400); RDW Standard Deviation 51.0 fL (36.4-46.3); Red Blood Count 4.34 M/uL (4.70-6.10); White Blood Count 11.66 K/ul (4.8-10.8)
[2025-09-25 17:08] LABS: Alanine Aminotransferase 98 U/L (7-52); Albumin Globulin Ratio 0.7 (0.9-2); Albumin Level 3.1 gm/dl (3.4-5.0); Alkaline Phosphatase 873 U/L (34-104); Anion Gap 5 (3-11); Bilirubin,Total 2.8 mg/dl (0.2-1.0); Blood Urea Nitrogen 18 mg/dl (6-23); Calcium 9.8 mg/dl (8.6-10.3); Carbon Dioxide 29 mmol/L (21-32); Chloride 100 mmol/L (98-107); Globulin 4.6 gm/dl (2.5-4.0); Glucose 143 mg/dl (70-99(Fasting)); Lipase 120 U/L (11-82); Potassium 4.3 mmol/L (3.5-5.1); Sodium 134 mmol/L (136-145); Total Protein 7.7 gm/dl (6.0-8.3)
--- NOTE | 2025-09-25 18:22 | History & Physical Report ---
Date of Service September 25, 2025 Assessment & Plan (1) Hyperbilirubinemia: (2) Transaminitis: (3) Status post placement of cardiac pacemaker: (4) Lower urinary tract symptoms (LUTS): (5) Chavarria esophagus: (6) Essential hypertension: (7) Metabolic encephalopathy: (8) History of stroke: Plan 89 y/o male with h/o biliary stent occlusion presenting with up-trending bili and alk phos after biliary stent removal 09/12: #Hyperbilirubinemia: Uptrending Tbili and alk phos suggestive of obstructive process, suspect recurrent biliary obstruction MRCP ordered, pending GI consult, appreciate recs re: need for ERCP NPO - gentle maintenance fluids x1L Check AM CMP AMS: Ammonia level pending, ?hepatic encephalopathy #HTN: continue amlodipine #BPH with LUTS: continue tamsulosin H/o stroke: Hold Eliquis and aspirin #Chavarria's esophagus: continue PPI Dispo: admit-obs med-surg VTE ppx: SCDs, hold Eliquis Diet: NPO Full Code History of Present Illness Primary Care Provider: Russ Walsh, DO 89 y/o male with h/o biliary stent occlusion presenting with up-trending bili and alk phos after biliary stent removal 09/12. Patient is somewhat lethargic, had to be woken up repeatedly. Mentation appears clear, states that he has felt a bit dizzy and weak the past couple days but denies N/V/D. Denies abdominal pain, states he is tolerating a normal diet. Denies fevers/chills. Allergies Allergy/AdvReac Type Severity Reaction Status Date / Time No Known Allergies Allergy Verified 09/10/25 00:54 Home Medications Medication Instructions Recorded Confirmed Type aspirin 81 mg tablet,delayed 81 mg PO QAM 08/24/18 09/12/25 History release pantoprazole 40 mg tablet,delayed 40 mg PO QAM #90 tabs 11/11/24 09/12/25 Rx release guaifenesin 600 mg tablet, 600 mg PO Q12H PRN Congestion 05/19/25 09/12/25 History extended release 12 hr (Mucinex) multivitamin 1 tab PO HS 06/03/25 09/12/25 History sertraline 50 mg tablet 50 mg PO HS 06/03/25 09/12/25 History apixaban 5 mg tablet (Eliquis) 5 mg PO BID #20 tabs 08/16/25 09/12/25 Rx amlodipine 5 mg tablet 5 mg PO QAM #30 tabs 09/06/25 09/12/25 Rx tamsulosin 0.4 mg capsule 0.4 mg PO HS #30 caps 09/06/25 09/12/25 Rx Past Med/Surg History Problem List (Updated 09/25/25 @ 18:33 by Rosales Templeton DO) Hyperbilirubinemia Biliary anastomotic stent occlusion Bile leak Pneumonia (Acute) Encephalopathy (Acute) Weakness (Acute) Falls frequently (Acute) Transaminitis (Acute) Ambulatory dysfunction Hematuria, microscopic Status post placement of cardiac pacemaker Third degree AV block (Acute) Anemia of chronic disease Healthcare-associated pneumonia Lower urinary tract symptoms (LUTS) (Acute) Gait apraxia of elderly Osteoarthritis of both knees Barretts esophagus Hyperlipidemia (Chronic) Encounter for pre-operative examination Medical History (Updated 09/25/25 @ 18:33 by Rosales Templeton DO) History of respiratory failure CHF (congestive heart failure) Diastolic Constipation History of rhabdomyolysis Presence of cardiac pacemaker Essential hypertension Hyperlipidemia Difficulty walking Atrioventricular block, complete Chavarria esophagus Paroxysmal atrial fibrillation Hard of hearing BPH w urinary obs/LUTS Gastroesophageal reflux disease Metabolic encephalopathy Elevated lipase Aspiration into airway Spinal stenosis of lumbar region Scoliosis Upper airway cough syndrome Right bundle branch block Sensorineural hearing loss of both ears History of stroke Enlarged prostate Deviated nasal septum Pneumothorax, right Hx Depression Mixed restrictive and obstructive lung disease History of melanoma Lip Stage I adenocarcinoma of lung s/p "curative" resection Thyroid goiter s/p "normal" biopsy Surgical History History of permanent cardiac pacemaker placement (08/14/25) [employer] Melanie XT DR SPENCER Hartmann implanted @ [facility] History of melanoma excision Lip History of Mohs micrographic surgery for skin cancer History of appendectomy History of anesthesia reaction Slow to wake "Goes under quickly" History of knee surgery Right History of herniorrhaphy B/L History of esophagogastroduodenoscopy (EGD) History of colonoscopy History of tooth extraction History of tonsillectomy History of adenoidectomy History of cataract surgery B/L History of lung surgery Right upper lobectomy Family History Father , at 92 years of age from natural causes. Family hx of colon cancer Colorectal cancer Mother , at 65 years of age from "blood poisoning." No problems noted. Other No family history of adverse response to anesthesia No family history of bleeding disorder Denies family history of Ovarian cancer Prostate cancer Diabetes Myocardial infarction Breast cancer Lung cancer Stroke Social History Smoking Status: Former smoker Age Started Using Tobacco: 19; Age Quit Using Tobacco: 36; packs per day: 0.5; Do You Dip or Chew Tobacco: No; Hx Alcohol Use: No Hx Substance Use: No Preferred Language: Kazakh Communication Ability: Impaired Communication Ability Comment: per penitentiary does not sign own consents, daughter will be present Visual Impairment: Limited Hearing Ability: Use of Hearing Aid Manager Beverage Required: No Beliefs That Will Affect Care: None marital status: / Current Living Situation: Personal Care Facility Current Living Situation Comment: Independent Living @ the [facility] current occupational status: retired 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 Feels Safe at Home: Yes Childhood Exposure to Second-Hand Smoke: Yes caffeine: Yes Dental Care, Regularly: Yes Physical Activity Frequency: Daily Seatbelt Use: always Sunscreen Use: Yes Assistive Devices: Walker Review of Systems Review of Systems: as per HPI Physical Exam Physical Exam: Constitutional: no acute distress, lethargic/somnolent HEENT: NCAT, no conjunctival injection CV: extremities well-perfused, no LE edema Resp: no increased work of breathing GI: nondistended, normal bowel sounds, +mild epigastric TTP MSK: no gross deformities Skin: warm, dry Neuro: alert, oriented, mild UE resting tremor, o/w no focal neurologic deficit appreciated Results & Data Results & Data Vital Signs (Past 12 Hours) Vital Signs Temp Pulse Pulse Resp BP BP Pulse Ox 09/25/25 16:30 81 09/25/25 16:30 80 18 143/81 H 96 12/01/25 15:52 36.8 C 93 H 18 145/76 H 94 O2 Del Method 09/25/25 16:30 09/25/25 16:30 Room Air 09/25/25 15:52 Room Air Supervising Physician Co-Signing Physician Notes I personally examined the patient and verified all reddy points of history and exam, discussed case, and agree with decision making with Dr Templeton Does not offer a lot of history, knows he is in the hospital, seems somewhere between hard of hearing and may be mildly confused. Denies any abdominal pain, relates that he was eating and drinking okay. Seems to have been sent over largely due to abnormal labs. Chart reviewed. Biliary stent removed about 2 weeks ago. Vitals noted, in general he is awake and alert but somewhat sleepy and a little bit slow to respond although possibly all just due to hard of hearing. Mucous membranes slightly dry. Abdomen is soft he does have epigastric tenderness without guarding rebound or rigidity. Skin without rashes pallor or icterus. Elevated LFTslargely obstructive pattern. Recent biliary stent removalconcern on reocclusion. MRCP and GI consult. Gentle IV fluids (last echo and severe pulm HTN noted, but appears slightly dry and will be NPO - sub- maintenance w LR @ 60/hr). Mental status likely fatigued, but given question and given elevation of liver numberscheck ammonia. Otherwise as above. Resident Activity Tracking Resident Involvement: Resident Care Provided Care Provided: Adult Hospital Medicine
--- NOTE | 2025-09-25 18:29 | Billing Data ---
Date of Service September 25, 2025 Coding Level of Care Code 49285 INT INP/OBS CARE
--- NOTE | 2025-09-25 18:52 | Emergency Department Note ---
Impression & Plan Hyperbilirubinemia ED Provider Note Diagnosis: Hyperbilirubinemia Disposition: Admit CHIEF COMPLAINT: Abnormal lab work HPI: Patient is an 89-year-old male coming from nursing facility with abnormal outpatient lab work. 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 Patient reportedly had a stent removed from his biliary duct 1 to 2 weeks prior. skilled nursing had drawn blood work 4 to 5 days prior which showed an elevated T bilirubin level of 3.2. Patient sent in for further evaluation after they discussed it with his gastroenterology team. Patient denies any current pain or symptoms upon arrival in the emergency room. PAST MEDICAL HISTORY: See Below PAST SURGICAL HISTORY: See Below SOCIAL HISTORY: See Below HOME MEDICATIONS: See Below ALLERGIES: See Below VITALS: See Below PHYSICAL EXAMINATION: GENERAL: NAD EYE EXAM: Normal conjunctiva. OROPHARYNX: Moist mucus membranes. Grossly normal dentition. NECK: Supple, LUNGS: Clear to auscultation. Normal chest wall mechanics. HEART: NSR ABDOMEN: Abdomen soft, non-tender, normo-active bowel sounds, no masses, no rebound or guarding BACK: No CVA TTP. SKIN: No rashes and no bruising. UPPER EXTREMITIES: Upper extremities are grossly normal LOWER EXTREMITIES: Grossly normal, no edema. NEURO EXAM: ,, normal speech, moves all 4 extremities PSYCH: Cooperative MEDICAL DECISION MAKING: Reviewed external documents: Paperwork from [facility] History obtained from: Patient ER Course: Patient is a an 89-year-old male presenting with hyperbilirubinemia. 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 Patient denies any pain fevers nausea or vomiting currently. Patient found to have an elevated bilirubin level today. Patient's case discussed with gastroenterology and they plan for MRCP and to see the patient in consult and decide if ERCP is necessary. Recommend admission to medicine service overnight. Discussion was had with MRI staff who states the patient's pacemaker device requires that a pacemaker staff be present for the MRI and it will need to be done tomorrow morning. Patient's case discussed with hospital service. Labs (independently interpreted) are significant for: Elevated bilirubin level Consultants: Discussion with Dr. Garcia of gastroenterology who recommends ordering MRCP and will see in consult tomorrow to determine if ERCP is necessary. Discussion with hospitalist service. Triage Nursing notes reviewed and agree them. Vital Signs: reviewed and remarkable for: no significant abnormalities Past Med/Surg History Problem List (Updated 09/25/25 @ 18:52 by Johnathan Noe DO) Hyperbilirubinemia (Acute) Biliary anastomotic stent occlusion Bile leak Pneumonia (Acute) Encephalopathy (Acute) Weakness (Acute) Falls frequently (Acute) Transaminitis (Acute) Ambulatory dysfunction Hematuria, microscopic Status post placement of cardiac pacemaker Third degree AV block (Acute) Anemia of chronic disease Healthcare-associated pneumonia Lower urinary tract symptoms (LUTS) (Acute) Gait apraxia of elderly Osteoarthritis of both knees Barretts esophagus Hyperlipidemia (Chronic) Encounter for pre-operative examination Medical History (Updated 09/25/25 @ 18:52 by Johnathan Noe DO) History of respiratory failure CHF (congestive heart failure) Diastolic Constipation History of rhabdomyolysis Presence of cardiac pacemaker Essential hypertension Hyperlipidemia Difficulty walking Atrioventricular block, complete Chavarria esophagus Paroxysmal atrial fibrillation Hard of hearing BPH w urinary obs/LUTS Gastroesophageal reflux disease Metabolic encephalopathy Elevated lipase Aspiration into airway Spinal stenosis of lumbar region Scoliosis Upper airway cough syndrome Right bundle branch block Sensorineural hearing loss of both ears History of stroke Enlarged prostate Deviated nasal septum Pneumothorax, right Hx Depression Mixed restrictive and obstructive lung disease History of melanoma Lip Stage I adenocarcinoma of lung s/p "curative" resection Thyroid goiter s/p "normal" biopsy Surgical History History of permanent cardiac pacemaker placement (08/14/25) [employer] [place] XT DR SPENCER Hartmann implanted @ [facility] History of melanoma excision Lip History of Mohs micrographic surgery for skin cancer History of appendectomy History of anesthesia reaction Slow to wake "Goes under quickly" History of knee surgery Right History of herniorrhaphy B/L History of esophagogastroduodenoscopy (EGD) History of colonoscopy History of tooth extraction History of tonsillectomy History of adenoidectomy History of cataract surgery B/L History of lung surgery Right upper lobectomy Family History Father , at 92 years of age from natural causes. Family hx of colon cancer Colorectal cancer Mother , at 65 years of age from "blood poisoning." No problems noted. Other No family history of adverse response to anesthesia No family history of bleeding disorder Denies family history of Ovarian cancer Prostate cancer Diabetes Myocardial infarction Breast cancer Lung cancer Stroke Social History Smoking Status: Former smoker Age Started Using Tobacco: 19; Age Quit Using Tobacco: 36; packs per day: 0.5; Do You Dip or Chew Tobacco: No; Hx Alcohol Use: No Hx Substance Use: No Preferred Language: Italian Communication Ability: Impaired Communication Ability Comment: per [facility] does not sign own consents, daughter will be present Visual Impairment: Limited Hearing Ability: Use of Hearing Aid Light Adjuster Required: No Beliefs That Will Affect Care: None marital status: / Current Living Situation: Personal Care Facility Current Living Situation Comment: Independent Living @ the [facility] current occupational status: retired current occupation: [employer], [employer];[email or web address],8y;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 Feels Safe at Home: Yes Childhood Exposure to Second-Hand Smoke: Yes caffeine: Yes Dental Care, Regularly: Yes Physical Activity Frequency: Daily Seatbelt Use: always Sunscreen Use: Yes Assistive Devices: Walker Allergies Allergies Allergy/AdvReac Type Severity Reaction Status Date / Time No Known Allergies Allergy Verified 09/10/25 00:54 Home Meds Home Medications Medication Instructions Recorded Confirmed aspirin 81 mg tablet,delayed 81 mg PO QAM 08/24/18 09/12/25 release guaifenesin 600 mg tablet, 600 mg PO Q12H PRN Congestion 05/19/25 09/12/25 extended release 12 hr (Mucinex) multivitamin 1 tab PO HS 06/03/25 09/12/25 sertraline 50 mg tablet 50 mg PO HS 06/03/25 09/12/25 Previous Rx's Medication Instructions Recorded pantoprazole 40 mg tablet,delayed 40 mg PO QAM #90 tabs 11/11/24 release apixaban 5 mg tablet (Eliquis) 5 mg PO BID #20 tabs 08/16/25 amlodipine 5 mg tablet 5 mg PO QAM #30 tabs 09/06/25 tamsulosin 0.4 mg capsule 0.4 mg PO HS #30 caps 09/06/25 Results & Data (ED) Vital Signs Vital Signs - 24 hr 09/25/25 15:52 09/25/25 16:30 09/25/25 16:30 Temperature 36.8 C Temperature Source Temporal Artery Scan Pulse Rate 93 H 81 Pulse Rate [Apical] 80 Respiratory Rate 18 18 Respiratory Effort / Characteristics Non-Labored Spontaneous Non-Labored Spontaneous Respiratory Depth Normal Normal Respiratory Pattern Regular Blood Pressure 145/76 H Blood Pressure [Right Arm] 143/81 H Blood Pressure Mean 99 Blood Pressure Mean [Right Arm] 101 Blood Pressure Position [Right Arm] Pulse Oximetry 94 96 Oxygen Delivery Method Room Air Room Air Sepsis Recent Fever Within 48 Hours No Sepsis New/Unexplained Change in Mental Status No Sepsis Action Taken by Nursing No Action Required 09/25/25 18:23 Temperature Temperature Source Pulse Rate Pulse Rate [Apical] 75 Respiratory Rate 20 Respiratory Effort / Characteristics Respiratory Depth Respiratory Pattern Blood Pressure Blood Pressure [Right Arm] 134/78 Blood Pressure Mean Blood Pressure Mean [Right Arm] 96 Blood Pressure Position [Right Arm] Lying Pulse Oximetry 94 Oxygen Delivery Method Room Air Sepsis Recent Fever Within 48 Hours Sepsis New/Unexplained Change in Mental Status Sepsis Action Taken by Nursing Laboratory Data 09/25/25 16:24 09/25/25 16:24 Lab Results 09/25/25 Range/Units 16:24 WBC 11.66 H (4.8-10.8) K/ul RBC 4.34 L (4.70-6.10) M/uL Hgb 12.7 L (14.0-18.0) g/dL Hct 38.0 L (42.0-52.0) % MCV 87.6 (80.0-100.0) fL MCH 29.3 (25.0-34.0) pg MCHC 33.4 (32.0-36.0) g/dL RDW Std Deviation 51.0 H (36.4-46.3) fL RDW Coeff of Mercedez 16.0 H (11.5-14.5) % Plt Count 309 (130-400) K/uL MPV 9.5 (9.4-12.4) fL Immature Gran % (Auto) 0.3 % Neut % (Auto) 83.3 % Lymph % (Auto) 7.9 % [place] % (Auto) 6.6 % Eos % (Auto) 1.5 % Baso % (Auto) 0.4 % Neut # (Auto) 9.71 H (1.40-6.50) K/uL Lymph # (Auto) 0.92 L (1.20-3.40) K/uL [place] # (Auto) 0.77 H (0.11-0.59) K/uL Eos # (Auto) 0.17 (0.00-0.50) K/uL Baso # (Auto) 0.05 (0.00-0.20) K/uL Immature Gran # (Auto) 0.04 (0.01-0.20) K/uL Sodium 134 L (136-145) mmol/L Potassium 4.3 (3.5-5.1) mmol/L Chloride 100 (98-107) mmol/L Carbon Dioxide 29 (21-32) mmol/L Anion Gap 5 (3-11) BUN 18 (6-23) mg/dl Creatinine 0.84 (0.6-1.4) mg/dl Est Cr Clr Drug Dosing Not Reportable eGFR 83.36 BUN/Creatinine Ratio 21.4 H (10-20) Glucose 143 H (70-99(Fasting)) mg/dl Calcium 9.8 (8.6-10.3) mg/dl Total Bilirubin 2.8 H (0.2-1.0) mg/dl Direct Bilirubin 1.4 H (0-0.2) mg/dl AST 71 H (13-39) U/L ALT 98 H (7-52) U/L Alkaline Phosphatase 873 H (34-104) U/L Total Protein 7.7 (6.0-8.3) gm/dl Albumin 3.1 L (3.4-5.0) gm/dl Globulin 4.6 H (2.5-4.0) gm/dl Albumin/Globulin Ratio 0.7 L (0.9-2) Lipase 120 H (11-82) U/L Discharge Plan Visit Data Chief Complaint: Abnormal Labs/Diagnostic Testing Stated Complaint: ELEVATED BILIRUBIN ED Provider: Johnathan Noe Discharge Problem: Hyperbilirubinemia Condition: Fair Forms Stand Alone Forms: [facility] Prescriptions Prescriptions: No Action pantoprazole 40 mg tablet,delayed release (DR/EC) 40 mg PO QAM Qty: 90 3RF aspirin 81 mg Tablet,Delayed Release (Dr/Ec) 81 mg PO QAM guaifenesin [Mucinex] 600 mg Tablet Extended Release 12hr 600 mg PO Q12H PRN (Reason: Congestion) sertraline 50 mg Tablet 50 mg PO HS multivitamin Tablet 1 tab PO HS Eliquis 5 mg tablet 5 mg PO BID Qty: 20 0RF Rx Instructions: PER MED LIST "PT REFUSED BOTH DOSES ON 09/09/25", NOTED ON MED LIST, ELIQUIS TO BE HELD 09/10-09/16/2025 amlodipine 5 mg Tablet 5 mg PO QAM Qty: 30 0RF tamsulosin 0.4 mg Capsule 0.4 mg PO HS Qty: 30 0RF Referrals Referrals: Russ Walsh, [Primary Care Provider] -
[2025-09-25] MEDS ORDERED: POLYETHYLENE (MIRALAX) 17 GM PACK PO PRN (22:18)
[2025-09-25] MEDS ORDERED: LACTATED RINGER'S 1,000 ML IV SCH (22:18)
[2025-09-25] MEDS ORDERED: ONDANSETRON INJ 2 MG/ML 2 ML VIAL IV PRN (22:18)
[2025-09-25] MEDS: SERTRALINE HCL 50 MG TABLET PO SCH (23:21)
[2025-09-25] MEDS: TAMSULOSIN HCL 0.4 MG CAP PO SCH (23:21)
[2025-09-25] MEDS: LACTATED RINGER'S 1,000 ML IV SCH (23:21)
[2025-09-26 07:02] LABS: Hematocrit (blood only) 31.8 % (42.0-52.0); Hemoglobin 10.9 g/dL (14.0-18.0); Immature Granulocytes # (auto) 0.05 K/uL (0.01-0.20); Immature Granulocytes % (auto) 0.6 %; Mean Corpuscular Hemoglobin 29.6 pg (25.0-34.0); Mean Corpuscular Volume 86.4 fL (80.0-100.0); Platelet Count 233 K/uL (130-400); RDW Standard Deviation 50.0 fL (36.4-46.3); Red Blood Count 3.68 M/uL (4.70-6.10); White Blood Count 8.47 K/ul (4.8-10.8)
[2025-09-26 07:33] LABS: Alanine Aminotransferase 74.0 U/L (7-52); Albumin Globulin Ratio 0.8 (0.9-2); Albumin Level 2.8 gm/dl (3.4-5.0); Alkaline Phosphatase 689.0 U/L (34-104); Anion Gap 5.0 (3-11); Bilirubin,Total 3.0 mg/dl (0.2-1.0); Blood Urea Nitrogen 14.0 mg/dl (6-23); Calcium 9.4 mg/dl (8.6-10.3); Carbon Dioxide 27.0 mmol/L (21-32); Chloride 103.0 mmol/L (98-107); Creatinine Clr Calc Pharmacy 76.2 ml/min; Globulin 3.6 gm/dl (2.5-4.0); Glucose 116.0 mg/dl (70-99(Fasting)); Potassium 4.1 mmol/L (3.5-5.1); Sodium 135.0 mmol/L (136-145); Total Protein 6.4 gm/dl (6.0-8.3)
--- NOTE | 2025-09-26 07:47 | Gastrointestinal Consultation ---
Date of Consultation September 26, 2025 Assessment & Plan (1) Abnormal liver enzymes: Suspect secondary to distal common bile duct stricture in light of his age concern for malignancy. Imaging does support a distal CBD stricture. Cytology during May ERCP was equivocal for neoplasm. Will need repeat ERCP and probable repeat stent placement. Will need to hold Eliquis prior to ERCP. No signs of cholangitis. History of Present Illness Reason for Consultation: Abnormal liver enzymes Attending Physician: Trisha Price MD History of Present Illness Patient presented to the emergency CT room today for further evaluation of increasingly abnormal liver enzymes. Back in May he presented with weight loss and weakness found to have abnormal liver enzymes. MRI was suspicious for possible stricture in the bile duct. He underwent an ERCP in May and a biliary stent was placed due to the distal CBD stricture. He had been doing well. 2 weeks ago he had the biliary stent removed. Repeat liver enzymes this week revealed rising bilirubin and alkaline phosphatase. Denies any abdominal pain nausea vomiting or chills. Allergies Allergy/AdvReac Type Severity Reaction Status Date / Time No Known Allergies Allergy Verified 09/10/25 00:54 Home Medications Medication Instructions Recorded Confirmed Type pantoprazole 40 mg tablet,delayed 40 mg PO QAM #90 tabs 11/11/24 09/25/25 Rx release guaifenesin 600 mg tablet, 600 mg PO Q12H PRN Congestion 05/19/25 09/25/25 History extended release 12 hr (Mucinex) multivitamin 1 tab PO HS 06/03/25 09/25/25 History sertraline 50 mg tablet 50 mg PO HS 06/03/25 09/25/25 History apixaban 5 mg tablet (Eliquis) 5 mg PO BID #20 tabs 08/16/25 09/25/25 Rx amlodipine 5 mg tablet 5 mg PO QAM #30 tabs 09/06/25 09/25/25 Rx tamsulosin 0.4 mg capsule 0.4 mg PO HS #30 caps 09/06/25 09/25/25 Rx Patient History Medical History (Updated 09/26/25 @ 07:44 by Phillip Chance MD) History of respiratory failure CHF (congestive heart failure) Diastolic Constipation History of rhabdomyolysis Presence of cardiac pacemaker Essential hypertension Hyperlipidemia Difficulty walking Atrioventricular block, complete Chavarria esophagus Paroxysmal atrial fibrillation Hard of hearing BPH w urinary obs/LUTS Gastroesophageal reflux disease Metabolic encephalopathy Elevated lipase Aspiration into airway Spinal stenosis of lumbar region Scoliosis Upper airway cough syndrome Right bundle branch block Sensorineural hearing loss of both ears History of stroke Enlarged prostate Deviated nasal septum Pneumothorax, right Hx Depression Mixed restrictive and obstructive lung disease History of melanoma Lip Stage I adenocarcinoma of lung s/p "curative" resection Thyroid goiter s/p "normal" biopsy Surgical History History of permanent cardiac pacemaker placement (08/14/25) [employer] [place] XT DR SPENCER Hartmann implanted @ [facility] History of melanoma excision Lip History of Mohs micrographic surgery for skin cancer History of appendectomy History of anesthesia reaction Slow to wake "Goes under quickly" History of knee surgery Right History of herniorrhaphy B/L History of esophagogastroduodenoscopy (EGD) History of colonoscopy History of tooth extraction History of tonsillectomy History of adenoidectomy History of cataract surgery B/L History of lung surgery Right upper lobectomy Family History Father , at 92 years of age from natural causes. Family hx of colon cancer Colorectal cancer Mother , at 65 years of age from "blood poisoning." No problems noted. Other No family history of adverse response to anesthesia No family history of bleeding disorder Denies family history of Ovarian cancer Prostate cancer Diabetes Myocardial infarction Breast cancer Lung cancer Stroke Social History Smoking Status: Former smoker Tobacco Type: Cigarettes Age Started Using Tobacco: 19; Age Quit Using Tobacco: 36; packs per day: 0.5; Do You Dip or Chew Tobacco: No; Hx Alcohol Use: No Hx Substance Use: No Preferred Language: Azerbaijani Communication Ability: Effective Communication Ability Comment: per [facility] does not sign own consents, daughter will be present Visual Impairment: Limited Hearing Ability: Use of Hearing Aid Heat Treater Helper Required: No Beliefs That Will Affect Care: None marital status: / Current Living Situation: Custodial Current Living Situation Comment: [facility] current occupational status: retired current occupation: [employer], [employer];@Natanael,8y;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 Feels Safe at Home: Yes Childhood Exposure to Second-Hand Smoke: Yes caffeine: Yes Dental Care, Regularly: Yes Physical Activity Frequency: Daily Seatbelt Use: always Sunscreen Use: Yes Assistive Devices: Hearing Aid - Bilateral Review of Systems Review of Systems: No fever No chills No SOB No CP No Abd pain Physical Exam Physical Exam: Eyes; anicteric HENT No masses Chest clear to A Cor S1, S2 physiologic Abd: softer nontender no masses Ext no edema Results & Data Vital Signs (Past 12 Hours) Vital Signs Temp Pulse Pulse Pulse Resp BP BP 09/25/25 22:00 09/25/25 22:00 36.7 C 79 16 162/78 H 09/25/25 21:30 82 17 131/81 09/25/25 21:00 79 19 145/82 H 09/25/25 20:41 81 22 150/89 H 09/25/25 20:32 77 Pulse Ox O2 Del Method 09/25/25 22:00 Room Air 09/25/25 22:00 94 Room Air 09/25/25 21:30 94 Room Air 09/25/25 21:00 93 Room Air 09/25/25 20:41 93 Room Air 09/25/25 20:32 Laboratory Results Laboratory Results - last 48 hr 09/25/25 09/25/25 09/25/25 16:24 18:56 23:38 WBC 11.66 H RBC 4.34 L Hgb 12.7 L Hct 38.0 L MCV 87.6 MCH 29.3 MCHC 33.4 RDW Std Deviation 51.0 H RDW Coeff of Mercedez 16.0 H Plt Count 309 MPV 9.5 Immature Gran % (Auto) 0.3 Neut % (Auto) 83.3 Lymph % (Auto) 7.9 [place] % (Auto) 6.6 Eos % (Auto) 1.5 Baso % (Auto) 0.4 Neut # (Auto) 9.71 H Lymph # (Auto) 0.92 L [place] # (Auto) 0.77 H Eos # (Auto) 0.17 Baso # (Auto) 0.05 Immature Gran # (Auto) 0.04 Sodium 134 L Potassium 4.3 Chloride 100 Carbon Dioxide 29 Anion Gap 5 BUN 18 Creatinine 0.84 Est Cr Clr Drug Dosing Not Reportable eGFR 83.36 BUN/Creatinine Ratio 21.4 H Glucose 143 H Calcium 9.8 Total Bilirubin 2.8 H Direct Bilirubin 1.4 H AST 71 H ALT 98 H Alkaline Phosphatase 873 H Ammonia 35.0 Total Protein 7.7 Albumin 3.1 L Globulin 4.6 H Albumin/Globulin Ratio 0.7 L Lipase 120 H Nasal Screen MRSA (PCR) Negative 09/26/25 06:38 WBC 8.47 RBC 3.68 L Hgb 10.9 L Hct 31.8 L MCV 86.4 MCH 29.6 MCHC 34.3 RDW Std Deviation 50.0 H RDW Coeff of Mercedez 15.9 H Plt Count 233 MPV 9.3 L Immature Gran % (Auto) 0.6 Neut % (Auto) 74.6 Lymph % (Auto) 13.8 [place] % (Auto) 7.8 Eos % (Auto) 2.5 Baso % (Auto) 0.7 Neut # (Auto) 6.32 Lymph # (Auto) 1.17 L [place] # (Auto) 0.66 H Eos # (Auto) 0.21 Baso # (Auto) 0.06 Immature Gran # (Auto) 0.05 Sodium 135 L Potassium 4.1 Chloride 103 Carbon Dioxide 27 Anion Gap 5 BUN 14 Creatinine 0.66 Est Cr Clr Drug Dosing 76.2 eGFR 89.65 BUN/Creatinine Ratio 21.2 H Glucose 116 H Calcium 9.4 Total Bilirubin 3.0 H Direct Bilirubin AST 54 H ALT 74 H Alkaline Phosphatase 689 H Ammonia Total Protein 6.4 Albumin 2.8 L Globulin 3.6 Albumin/Globulin Ratio 0.8 L Lipase Nasal Screen MRSA (PCR) PG Care Time/CCT Total # of Minutes Spent Total Time Spent with Patient: Total time spent is greater than 50% in coordination of care (as documented) at patient's floor/unit and/or counseling patient: Coding Level of Care Code 05743 INT INP/OBS CARE 3/75MIN Diagnoses Abnormal liver enzymes R74.8
--- NOTE | 2025-09-26 10:07 | Electrocardiogram Report ---
Test Reason : Blood Pressure : */* mmHG Vent. Rate : 87 BPM Atrial Rate : 87 BPM P-R Int : 124 ms QRS Dur : 156 ms QT Int : 400 ms P-R-T Axes : 53 -56 90 degrees QTcB Int : 481 ms Atrial-sensed ventricular-paced rhythm Abnormal ECG When compared with ECG of 10-Sep-2025 00:38, Vent. rate has increased by 11 bpm Confirmed by Niall Mcneill ([id number]) on 09/26/2025 10:06:29 AM Referred By: REFERRED SELF Confirmed By: Niall Mcneill
--- NOTE | 2025-09-26 17:00 | Hospitalist Progress Note ---
Date of Service September 26, 2025 Assessment & Plan (1) Biliary obstruction: (2) Hyperbilirubinemia: (3) Paroxysmal atrial fibrillation: (4) BPH w urinary obs/LUTS: (5) Essential hypertension: (6) CHF (congestive heart failure): Plan 89-year-old man with common bile duct stricture who had plastic stent removed a week ago and has recurrent elevated bilirubin associated with anorexia. 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 likely plan is biopsy/brushing and more permanent stent - No evidence of acute cholangitis, no right upper quadrant pain or evidence of sepsis - Canceled MRCP as unnecessary. - Held apixaban, last dose yesterday morning, for ERCP on . - Allow diet today, may need gentle maintenance IV fluids. - NPO after midnight 09/27/2025 - Discussed plan of care with community recreation programmer Dr. Chance # Chronic atrial fibrillation - Intrinsically rate controlled not on a beta-tao - Apixaban held, confirmed last dose was 09/25 at 7 AM at his SNF # Elevated bilirubin Fluctuated from 3.2 to 2.8, back up to 3.0 today. # Elevated lipase Lipase 120, not in pancreatitis range and no signs or symptoms of acute pancreatitis, related to biliary issue, has been elevated in the past as well # Distal left ureteral stone Note that recent CT abdomen/pelvis showed incidental distal left ureteral stone. Reimage if any symptoms develop or if signs and symptoms of urinary tract infection or obstruction # chronic diastolic heart failure, Hypertension continue amlodipine and monitor volume status and blood pressure, uses as needed furosemide # BPH CT abdomen/pelvis showed BPH Continue tamsulosin # Hiatal hernia CT abdomen/pelvis showed large hiatal hernia Continue pantoprazole # DVT Prophylaxis: Was on apixaban 3 yesterday morning, continue SCDs. No heparinoid's since planned for ERCP within 48 hours DNR/DNI and limited interventions according to his POLST form I updated his daughter by phone today, requested the community recreation programmer call her back about some specific procedural questions and concerns Medical Complexity: Medical decision making was complex, high risk for clinical deterioration morbidity, or mortality for this encounter. Admission and Anticipated Discharge Date Admission Date: September 25, 2025 Subjective Reason for Admit: Increasing bilirubin following biliary stent removal. 89-year-old male admitted with increasing bilirubin following biliary stent removal a week ago. Known distal common bile duct stricture. Refusing to eat at [facility]. Labs showed bilirubin increased to 3.2. Pleasantly confused today, denies chest or abdominal pain, shortness of breath, nausea, or vomiting. Physical Exam Physical Exam: General Appearance: Elderly, aroused fairly easily from sleeping Vital signs: Reviewed past 24h vital signs in EMR, unremarkable. HEENT: Within normal limits other than dry mucous membranes. Respiratory: Clear to auscultation bilaterally, no rhonchi, rales, or wheezes. Cardiovascular: Regular rhythm, no murmurs, rubs, or gallops. Gastrointestinal: Soft, nontender, nondistended, normal bowel sounds, no RUQ tenderness. Genitourinary: Lymphatic: Back, Musculoskeletal: Extremities: Lower extremities warm, well perfused, no edema. Skin: Warm, dry, no rashes. Neurological: Baseline left facial asymmetry. Alert oriented to a hospital but otherwise confused to situation, follows basic commands, verbalizes but only short replies does not narrate history, moves 4 extremities equally Psychiatric: Normal. Other observations: Results & Data Results & Data Vital Signs (Past 12 Hours) Vital Signs Temp Pulse Resp BP Pulse Ox O2 Del Method 09/26/25 15:20 36.4 C L 74 18 137/79 94 Room Air 09/26/25 07:47 36.4 C L 70 18 154/79 H 95 Room Air 09/26/25 07:30 Room Air Laboratory Results - Labs: - WBC: 8.4 (improved from 11.6 yesterday) - Hemoglobin: Stable at 11 - Platelets: 233 - Sodium: Improved to 135 - Creatinine: Stable at 0.66 - Bilirubin: Trended from 3.2 24 hours ago to 2.8, back up to 3.0 today - AST: 54 - ALT: 74 - Alk phos: 689 - Lipase: 120 - Imaging: - CT abdomen/pelvis: Distal left ureteral stone, BPH, large hiatal hernia PG Care Time/CCT Total # of Minutes Spent Total Time Spent with Patient: I personally spent: 60 minutes today on clinical care activities including: reviewing chart notes and vital signs reviewing labs reviewing studies discussion with senior sales consultant(s): Gastroenterology discussion with staff interpreter examining and counseling the patient counseling the patient's family writing orders documentation Coding Level of Care Code 50927 SUB INP/OBS CARE 350MIN Diagnoses Biliary obstruction K83.1 Hyperbilirubinemia E80.6 Paroxysmal atrial fibrillation I48.0 BPH w urinary obs/LUTS N40.1; N13.8 Essential hypertension I10 CHF (congestive heart failure) I50.9
[2025-09-26] MEDS: MELATONIN 3 MG TAB PO PRN (19:52)
--- NOTE | 2025-09-27 08:20 | Hospitalist Progress Note ---
Date of Service September 27, 2025 Assessment & Plan (1) Biliary obstruction: (2) Hyperbilirubinemia: (3) Paroxysmal atrial fibrillation: (4) BPH w urinary obs/LUTS: (5) Essential hypertension: (6) CHF (congestive heart failure): Plan 89-year-old man with common bile duct stricture who had plastic stent removed a week ago and has recurrent elevated bilirubin associated with anorexia. 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 likely plan is biopsy/brushing and more permanent stent - No evidence of acute cholangitis, no right upper quadrant pain or evidence of sepsis - Canceled MRCP as unnecessary. - Held apixaban, last dose 09/25 morning, for ERCP on . - Allow diet today, may need gentle maintenance IV fluids. - NPO after midnight 09/27/2025 - Discussed plan of care with induction coordination engineer Dr. Chance # Chronic atrial fibrillation - Intrinsically rate controlled not on a beta-tao - Apixaban held, confirmed last dose was 09/25 at 7 AM [facility] # Elevated bilirubin Secondary to common bile duct stricture this is reduced in the past with treatment # Elevated lipase not suspicious of acute pancreatitis # Distal left ureteral stone Note that recent CT abdomen/pelvis showed incidental distal left ureteral stone. Asymptomatic at this time # chronic diastolic heart failure, exacerbation, hypertension continue amlodipine and monitor volume status and blood pressure, uses as needed furosemide # BPH without lower urinary tract symptoms CT abdomen/pelvis showed BPH Continue tamsulosin # Hiatal hernia CT abdomen/pelvis showed large hiatal hernia Continue pantoprazole # DVT Prophylaxis: Apixaban is held, continue SCDs. DNR/DNI and limited interventions according to his POLST form Medical Complexity: Medical decision making was complex, high risk for clinical deterioration manage care coordination with gastroenterology service and management of medications that would change or impact operative risk Admission and Anticipated Discharge Date Admission Date: September 25, 2025 Subjective Patient was without distress today had no abdominal discomfort. He is understanding likely invasive ERCP with stent placement if indicated. Patient said previous stent placement and exchange for rising bilirubin and possible common bile duct stricture would be to also obtain brushings of the area to be sure there is no malignancy or other issues at that site. Physical Exam Physical Exam: Pleasant nonjaundiced nonicteric male no apparent distress Abdomen is NABS soft he is not tender in right upper quadrant there is no pedal splenomegaly. Cardiac exam is regular with a systolic murmur which is slight Lungs are clear without wheezes or crackles Results & Data Results & Data Vital Signs (Past 12 Hours) Vital Signs Temp Pulse Resp BP Pulse Ox O2 Del Method 09/27/25 07:47 97.5 F L 85 20 168/84 H 92 Room Air 09/26/25 22:52 97.5 F L 78 18 159/84 H 95 Room Air Laboratory Results Discussed case with gastroenterology NITHIN onsite for possible procedure on 09/28/25 PG Care Time/CCT Total # of Minutes Spent Total Time Spent with Patient: Total time spent is greater than 50% in coordination of care (as documented) at patient's floor/unit and/or counseling patient: Coding Level of Care Code 70975 SUB INP/OBS CARE 2/35MIN Diagnoses Biliary obstruction K83.1 Hyperbilirubinemia E80.6 Paroxysmal atrial fibrillation I48.0 BPH w urinary obs/LUTS N40.1; N13.8 Essential hypertension I10 CHF (congestive heart failure) I50.9
--- NOTE | 2025-09-27 09:27 | Gastroenterology Progress Note ---
Date of Service September 27, 2025 Assessment & Plan (1) Abnormal liver enzymes: Plan: 89 year old male w/ history of HTN, CVA (on ASA and Eliquis) gait apraxia, upper airway cough syndrome, SNHL bilaterally, situational depression, Chavarria's esophagus, GERD, hyperlipidemia, scoliosis, lumbar spinal stenosis and others below admitted w/ elevated LFTs. He has recent history of distal common bile duct stricture w/ equivocal cytology in May. Will plan for repeat ERCP w/ brushings and stent placement if indicated. Please continue to hold anticoagulation. NPO aftermidnight for anticipated ERCP 09/28/25 w/ Dr. Chance. I spent a total of 40 minutes on the date of service in review of patient's record, and previously obtained information in person and appropriate medical visit, discussion and education of plan, with patient and/or caregiver, placing orders for tests/referral/procedures as medically necessary and documentation of pertinent clinical information in patient's medical records for their visit today. We appreciate assistance in the management of any serological abnormality and corrections to include: hemoglobin >7, INR <2, platelets >50,000, potassium levels >3.5 but <5.3, and sodium levels within 5 points of the reference range prior to endoscopic evaluation. Admission and Anticipated Discharge Date Admission Date: September 25, 2025 Supervising Physician Co-Signing Physician Notes I saw and examined this patient with our nurse practitioner and agree with her assessment and plan. Resting comfortably denies abdominal pain. No fever no chills. Will plan on ERCP with stent placement tomorrow. Please check INR. Subjective Plan for ERCP 09/28. Anticoagulation held, last dose of apixaban was 09/25 in the AM. Offers no GI concerns this AM. Tb 3 AST 54 ALT 74 ALKP 689 CTAP 09/19: Liver: Normal in size, shape, and density. Left lobe small cyst measuring 10x6 mm. No focal lesions, cysts, or masses were identified. Hepatic vasculature and biliary ducts are unremarkable. Gallbladder and Biliary System: The gallbladder is normal in size and shape. No wall thickening, pericholecystic fluid, or gallstones were identified. The common bile duct shows an inserted stent in place with no evidence of biliary dilatation. Pancreas: The pancreatic head, body, and tail are visualized and appear normal in size nd density. No pancreatic masses or calcifications were noted. The pancreatic duct is not dilated. ERCP 09/19: There is an indwelling biliary stent. Distal tip of the stent appeared to be full of secretions and debris suggesting obstruction of bile coming through the center but only self. Stent ensnared and pulled retrogradely out through the oropharynx and retrieved. Duodenoscope then reinserted. Study the bile duct undertaken. There is a generous appearing cystic duct. No leak identified. Because of occluded stent and history of stones the duct was swept to remove any debris carotid or stone material. No material retrieved. Duct appeared clear post. Duct appeared to be draining well opposed. And procedure completed Occluded biliary stent, removed. Duct swept without furtherstones debris or material. No evidence of persistent bile leak. ERCP 06/19: A single moderate biliary stricture was found in the biliarypancreatic junction. The stricture was indeterminate.The entire main bile duct was moderately dilated, secondary to a stricture. A biliary tract obstruction secondary to a stricture was found inthe biliary pancreatic junction. This was sampled by brushing and biopsied. The biliary obstruction was treated with biliary sphincterotomy and 10 [place] stent placement. Review of Systems Review of Systems: All other findings negative except as noted in HPI. Physical Exam Gastrointestinal (Abdomen): normal bowel sounds, soft, nontender, no hepatosplenomegaly Results & Data Results & Data Vital Signs (Past 12 Hours) Vital Signs Temp Pulse Resp BP Pulse Ox O2 Del Method 09/27/25 07:47 97.5 F L 85 20 168/84 H 92 Room Air 09/26/25 22:52 97.5 F L 78 18 159/84 H 95 Room Air Laboratory Results No 09/27 labs to review. PG Care Time/CCT Total # of Minutes Spent Total Time Spent with Patient: Total time spent is greater than 50% in coordination of care (as documented) at patient's floor/unit and/or counseling patient: Coding Level of Care Code 05291 SUB INP/OBS CARE 2/35MIN Diagnoses Abnormal liver enzymes R74.8
[2025-09-28 07:49] LABS: INR 1.1 (0.9-1.1); Prothrombin Time 11.4 Seconds (9.0-12.0)
--- NOTE | 2025-09-28 09:51 | Gastroenterology Progress Note ---
Date of Service September 28, 2025 Assessment & Plan (1) Abnormal liver enzymes: Plan: 89 year old male w/ history of HTN, CVA (on ASA and Eliquis) gait apraxia, upper airway cough syndrome, SNHL bilaterally, situational depression, Chavarria's esophagus, GERD, hyperlipidemia, scoliosis, lumbar spinal stenosis and others below admitted w/ elevated LFTs. He has recent history of distal common bile duct stricture w/ equivocal cytology in May. Will plan for repeat ERCP w/ brushings and stent placement today. Please continue to hold anticoagulation. Maintain NPO status for anticipated ERCP today w/ Dr. Chance. We appreciate assistance in the management of any serological abnormality and corrections to include: hemoglobin >7, INR <2, platelets >50,000, potassium levels >3.5 but <5.3, and sodium levels within 5 points of the reference range prior to endoscopic evaluation. Admission and Anticipated Discharge Date Admission Date: September 27, 2025 Supervising Physician Co-Signing Physician Notes I saw and examined this patient with our nurse practitioner and agree with her assessment and plan. Hemodynamically stable obtain consent from daughter. Will proceed with ERCP and stent placement this afternoon. Family has decided to go with a permanent metal stent to optimally treat the distal common bile duct stricture. Subjective NPO for ERCP today. Questions answered, he voices no additional concerns. Review of Systems Review of Systems: All other findings negative except as noted in HPI. Physical Exam Gastrointestinal (Abdomen): normal bowel sounds, soft, nontender, no hepatosplenomegaly Results & Data Results & Data Vital Signs (Past 12 Hours) Vital Signs Temp Pulse Resp BP Pulse Ox O2 Del Method 09/28/25 07:56 Room Air 09/28/25 07:48 97.9 F 67 15 157/76 H 93 Room Air 09/27/25 22:38 98.1 F 71 18 157/83 H 93 Room Air Laboratory Results 09/28/25 Range/Units 06:45 PT 11.4 (9.0-12.0) Seconds INR 1.1 (0.9-1.1) PG Care Time/CCT Total # of Minutes Spent Total Time Spent with Patient: Total time spent is greater than 50% in coordination of care (as documented) at patient's floor/unit and/or counseling patient: Coding Level of Care Code None Diagnoses Abnormal liver enzymes R74.8
[2025-09-28] MEDS ORDERED: LIDOCAINE 2% 2 ML VIAL/AMP(20MG/ML) INFIL ONE (14:37)
[2025-09-28] MEDS ORDERED: ROCURONIUM BROMIDE 10 MG/ML 5 ML VIAL IV ONE (14:37)
[2025-09-28] MEDS ORDERED: PROPOFOL IV EMULSION 10 MG/ML 20 ML VIAL IV ONE (14:37)
[2025-09-28] MEDS ORDERED: ONDANSETRON INJ 2 MG/ML 2 ML VIAL ONE (14:37)
[2025-09-28] MEDS ORDERED: ATROPINE SULFATE 0.1 MG/ML 10ML SYR IV PRN (14:56)
--- NOTE | 2025-09-28 14:56 | Anesthesiology Consultation ---
Date of Service September 28, 2025 Assessment & Plan Chart Review Chart Review: Acceptable Risk for Surgery Consults Requested none ASA ASA4 Proposed Anesthesia Anesthesia Type: General Risk / Benefits Reviewed With: PT / POA / Parent / Guardian, Accepts Plan and Informed Consent Obtained Additional Comments: consent obtained via phone with daughter yasmine wang History Surgery Operation Date: 09/28/25 09:00 Proposed Procedures p Endoscopic Retrograde Cholangiopancreatogram - Phillip Chance MD Height/Weight Height: 6 ft Weight: 71 kg Allergies Allergy/AdvReac Type Severity Reaction Status Date / Time No Known Allergies Allergy Verified 09/10/25 00:54 Medications Home Medications Medication Instructions Recorded Confirmed Last Taken pantoprazole 40 mg tablet,delayed 40 mg PO QAM #90 tabs 11/11/24 09/25/25 09/12/25 05:00 release guaifenesin 600 mg tablet, 600 mg PO Q12H PRN Congestion 05/19/25 09/25/25 Unknown extended release 12 hr (Mucinex) multivitamin 1 tab PO HS 06/03/25 09/25/25 09/11/25 20:00 sertraline 50 mg tablet 50 mg PO HS 06/03/25 09/25/25 09/11/25 20:00 apixaban 5 mg tablet (Eliquis) 5 mg PO BID #20 tabs 08/16/25 09/25/25 09/08/25 20:00 amlodipine 5 mg tablet 5 mg PO QAM #30 tabs 09/06/25 09/25/25 09/12/25 05:00 tamsulosin 0.4 mg capsule 0.4 mg PO HS #30 caps 09/06/25 09/25/25 09/11/25 20:00 Active Medications Generic Name Dose Route Start Last Admin Trade Name Freq PRN Reason Stop Dose Admin Amlodipine Besylate 5 mg 09/26/25 09:00 09/28/25 09:03 Amlodipine Besylate 5 Mg Tab PO 10/26/25 08:59 5 mg QAM HODA Administration Lactated Ringer's 1,000 mls @ 60 mls/hr 09/25/25 22:18 09/28/25 00:50 Lr IV 09/28/25 22:17 60 mls/hr .[id number] HODA Administration Melatonin 3 mg 09/25/25 22:18 09/26/25 19:52 Melatonin 3 Mg Tab PO 10/25/25 22:17 3 mg HS PRN Administration Insomnia Pantoprazole Sodium 40 mg 09/26/25 09:00 09/28/25 09:03 Pantoprazole 40 Mg Tab PO 10/26/25 08:59 40 mg QAM HODA Administration Sertraline HCl 50 mg 09/25/25 22:18 09/27/25 20:11 Sertraline Hcl 50 Mg Tablet PO 10/25/25 22:17 50 mg HS HODA Administration Tamsulosin HCl 0.4 mg 09/25/25 22:18 09/27/25 20:11 Tamsulosin Hcl 0.4 Mg Cap PO 10/25/25 22:17 0.4 mg HS HODA Administration NPO Date Last Intake of Fluids: 09/28/25 Time Last Intake of Fluids: 09:00 Date Last Intake of Solids: 09/27/25 Past Medical History Medical History (Updated 09/26/25 @ 16:56 by Trisha Price MD) History of respiratory failure CHF (congestive heart failure) Diastolic Constipation History of rhabdomyolysis Presence of cardiac pacemaker Essential hypertension Hyperlipidemia Difficulty walking Atrioventricular block, complete Chavarria esophagus Paroxysmal atrial fibrillation Hard of hearing BPH w urinary obs/LUTS Gastroesophageal reflux disease Metabolic encephalopathy Elevated lipase Aspiration into airway Spinal stenosis of lumbar region Scoliosis Upper airway cough syndrome Right bundle branch block Sensorineural hearing loss of both ears History of stroke Enlarged prostate Deviated nasal septum Pneumothorax, right Hx Depression Mixed restrictive and obstructive lung disease History of melanoma 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 Family hx of colon cancer Colorectal cancer Mother , at 65 years of age from "blood poisoning." No problems noted. Other No family history of adverse response to anesthesia No family history of bleeding disorder Denies family history of Ovarian cancer Prostate cancer Diabetes Myocardial infarction Breast cancer Lung cancer Stroke Past Surgical History Surgical History History of permanent cardiac pacemaker placement (08/14/25) [employer] [place] XT DR SPENCER Hartmann implanted @ [facility] History of melanoma excision Lip History of Mohs micrographic surgery for skin cancer History of appendectomy History of anesthesia reaction Slow to wake "Goes under quickly" History of knee surgery Right History of herniorrhaphy B/L History of esophagogastroduodenoscopy (EGD) History of colonoscopy History of tooth extraction History of tonsillectomy History of adenoidectomy History of cataract surgery B/L History of lung surgery Right upper lobectomy Social History Smoking Status: Former smoker tobacco type: cigarettes Do You Dip or Chew Tobacco: No Hx Alcohol Use: No Alcohol type: wine alcohol intake frequency: holidays/special occasions only Hx Substance Use: No substance use type: does not use Physical Exam Vital Signs Last Vital Signs Temp 36.2 C L 09/28/25 14:03 Pulse 65 09/28/25 14:03 Resp 16 09/28/25 14:03 BP 147/82 H 09/28/25 14:03 Pulse Ox 94 09/28/25 14:03 O2 Del Method Room Air 09/28/25 14:03 Constitutional no acute distress ENMT Mouth: no TMJ abnormality Thyromental Distance: > or= 3.5 Finger Breadths Mallampati Class: II Neck normal visual inspection Respiratory normal respiratory effort Auscultation: lungs clear to auscultation bilaterally Cardiovascular Rate/Rhythm: regular rate and regular rhythm Chest (Breasts) Chest: + pacemaker Psychiatric Orientation: alert Testing Laboratory Results 09/26/25 06:38 09/26/25 06:38 PT 11.4 Seconds (9.0-12.0) 09/28/25 06:45 INR 1.1 (0.9-1.1) 09/28/25 06:45
[2025-09-28] MEDS ORDERED: SUGAMMADEX SODIUM 200 MG/2 ML VIAL IV ONE (15:51)
--- NOTE | 2025-09-28 16:18 | GI REPORT ---
[facility] Patient: CHACHA VERMA : 1935 Sex at : Male Age: 89 Years Procedure: ERCP Date: 09/28/2025 Attending Physician: Phillip Chance MD Referring MD: Referred Self; Nico Wang Indications: - Distal bile duct stricture Medications: - Indomethacin 100 mg NC - See the Anesthesia note for documentation of the administered medications Complications: - No immediate complications. Estimated Blood Loss: - Estimated blood loss was minimal. Procedure: - Prior to the procedure, a History and Physical was performed, and patient medications, allergies and sensitivities were reviewed. The patient's tolerance of previous anesthesia was reviewed. - The risks and benefits of the procedure and the sedation options and risks were discussed with the patient. All questions were answered and informed consent was obtained. - Prophylactic Antibiotics: The patient requires prophylactic antibiotics as clinically indicated based on published guidelines for the planned ERCP. The patient received antibiotic therapy before the procedure. - The ercp scope was introduced through the mouth and advanced to the duodenum and used to cannulate the bile duct. - The ERCP was accomplished without difficulty. - The patient tolerated the procedure well. Findings: - The administrative staff supervisor film was normal. Status post prior sphincterotomy. The pancreatic duct was not cannulated. - The bile duct was deeply cannulated with the short-nosed traction sphincterotome. Contrast was injected. I personally interpreted the bile duct images. Image quality was adequate. The lower third of the main duct was partially obstructed by a distal stricture.. The main bile duct was moderately dilated, secondary to the stricture. - One 10 mm by 6 cm covered metal stent was placed into the common bile duct. Bile flowed through the stent. The stent was in good position. Impression: - A biliary tract obstruction secondary to a stricture in the lower third of the main duct. [place] cytology was obtained. - One covered metal stent was placed into the common bile duct. Recommendation: - Continue present medications. - Watch for pancreatitis, bleeding, perforation, and cholangitis. - Clear liquid diet. Procedure Code(s): - 45276, Endoscopic retrograde cholangiopancreatography (ERCP); with placement of endoscopic stent into biliary or pancreatic duct, including pre- and post-dilation and guide wire passage, when performed, including sphincterotomy, when performed, each stent - [id number], Endoscopic catheterization of the biliary ductal system, radiological supervision and interpretation Diagnosis Code(s): - K83.1, Obstruction of bile duct CPT(R) - 2022 copyright [employer]. All Rights Reserved. The CPT codes, CCI edits and ICD codes generated are intended as suggestions and were generated based on input data. These codes are preliminary and upon partition assembler review may be revised to meet current compliance and payer requirements. The provider is responsible for the final determination of appropriate codes, and modifiers. Phillip Chance MD This document has been electronically signed. Note Initiated:09/28/2025 Note Completed:09/28/2025 4:16 PM [email or web address]\[email or web address]\[id number]
--- NOTE | 2025-09-28 16:41 | Anesthesiology Progress Note ---
Date of Service September 28, 2025 Anesthesia Post Procedure Vital Signs Vital Signs: Temp Pulse Pulse Resp BP Pulse Ox O2 Del Method 09/28/25 16:30 64 16 145/79 H 98 Room Air 09/28/25 16:20 62 16 141/78 H 97 Oxymask 09/28/25 16:11 36.0 C L 66 16 138/80 97 Oxymask 09/28/25 14:03 36.2 C L 65 16 147/82 H 94 Room Air 09/28/25 07:56 Room Air 09/28/25 07:48 36.6 C 67 15 157/76 H 93 Room Air 09/27/25 22:38 36.7 C 71 18 157/83 H 93 Room Air 09/27/25 20:10 Room Air 09/27/25 19:24 36.3 C L 71 14 153/81 H 94 Room Air O2 Flow Rate 09/28/25 16:30 09/28/25 16:20 5 09/28/25 16:11 5 09/28/25 14:03 09/28/25 07:56 09/28/25 07:48 09/27/25 22:38 09/27/25 20:10 09/27/25 19:24 Transfer of Care Handoff Completed per policy Notes Mental Status: alert / awake / arousable Patient Amnestic to Procedure: Yes Nausea / Vomiting: adequately controlled Pain: adequately controlled Airway Patency, RR, SpO2: stable & adequate BP & HR: stable & adequate Hydration State: stable & adequate Anesthetic Complications: no major complications apparent
[2025-09-28] MEDS: cefTRIAXone SODIUM 2,000 MG/50 ML BAG IV STA (17:19)
[2025-09-28] MEDS: INDOMETHACIN 50 MG SUPP PR ONE (17:19)
[2025-09-28] MEDS: GLUCAGON FOR INJ 1 MG VIAL ONE (17:19)
--- NOTE | 2025-09-28 18:28 | Hospitalist Progress Note ---
Date of Service September 28, 2025 Assessment & Plan (1) Biliary obstruction: (2) Hyperbilirubinemia: (3) Paroxysmal atrial fibrillation: (4) BPH w urinary obs/LUTS: (5) Essential hypertension: (6) CHF (congestive heart failure): Plan 89-year-old man with common bile duct stricture who had plastic stent removed a week ago and has recurrent elevated bilirubin associated with anorexia. he has been having issues with biliary obstruction since May 2025 and has had several ERCPs # Biliary obstruction, 09/28/25 planned ERCP. lower third of the distal common bile duct stricture, brushings obtained, metal stent placed - Held apixaban, last dose 09/25 morning, for ERCP on , will restart 09/29/25 if stable. resume diet # Chronic atrial fibrillation - Intrinsically rate controlled not on a beta-tao - Apixaban held, confirmed last dose was 09/25 at 7 AM at his [facility] # Elevated bilirubin Secondary to common bile duct stricture this is reduced in the past with treatment # Elevated lipase not suspicious of acute pancreatitis # Distal left ureteral stone Note that recent CT abdomen/pelvis showed incidental distal left ureteral stone. Asymptomatic at this time # chronic diastolic heart failure, exacerbation, hypertension continue amlodipine and monitor volume status and blood pressure, uses as needed furosemide # BPH without lower urinary tract symptoms CT abdomen/pelvis showed BPH Continue tamsulosin # Hiatal hernia CT abdomen/pelvis showed large hiatal hernia Continue pantoprazole # DVT Prophylaxis: Apixaban is held, continue SCDs. DNR/DNI and limited interventions according to his POLST form Admission and Anticipated Discharge Date Admission Date: September 27, 2025 Subjective pt is without pain, understands will have ERCP today Physical Exam Physical Exam: Pleasant nonjaundiced nonicteric male no apparent distress Abdomen is NABS soft he is not tender in right upper quadrant there is no pedal splenomegaly. Cardiac exam is regular with a systolic murmur which is slight Lungs are clear without wheezes or crackles Results & Data Results & Data Vital Signs (Past 12 Hours) Vital Signs Temp Pulse Pulse Resp BP Pulse Ox O2 Del Method 09/28/25 18:06 97.5 F L 62 16 153/83 H 97 Nasal Cannula 09/28/25 17:13 97.3 F L 61 15 155/80 H 96 Nasal Cannula 09/28/25 16:50 97.2 F L 09/28/25 16:40 64 16 143/75 H 94 Room Air 09/28/25 16:30 64 16 145/79 H 98 Room Air 09/28/25 16:20 62 16 141/78 H 97 Oxymask 09/28/25 16:11 96.8 F L 66 16 138/80 97 Oxymask 09/28/25 14:03 97.2 F L 65 16 147/82 H 94 Room Air 09/28/25 07:56 Room Air 09/28/25 07:48 97.9 F 67 15 157/76 H 93 Room Air O2 Flow Rate 09/28/25 18:06 2 09/28/25 17:13 2 09/28/25 16:50 09/28/25 16:40 09/28/25 16:30 09/28/25 16:20 5 09/28/25 16:11 5 09/28/25 14:03 09/28/25 07:56 09/28/25 07:48 PG Care Time/CCT Total # of Minutes Spent Total Time Spent with Patient: Total time spent is greater than 50% in coordination of care (as documented) at patient's floor/unit and/or counseling patient: Coding Level of Care Code 91778 SUB INP/OBS CARE 2/35MIN Diagnoses Biliary obstruction K83.1 Hyperbilirubinemia E80.6 Paroxysmal atrial fibrillation I48.0 BPH w urinary obs/LUTS N40.1; N13.8 Essential hypertension I10 CHF (congestive heart failure) I50.9
--- NOTE | 2025-09-29 06:57 | Fluoroscopy Report ---
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 FINDINGS: Fluoroscopic spot images during ERCP. 6 fluoroscopic spot images are provided for interpret ation. There is evidence for cannulation the common bile duct with contrast injection. There is mild narrowing of the distalmost common bile duct. Cystic duct appears patent. A balloon catheter was swep t through the duct. IMPRESSION: Electronically signed by: Randy Nunez M.D. 09/29/2025 6:55 AM
--- NOTE | 2025-09-29 07:13 | Gastroenterology Progress Note ---
Date of Service September 29, 2025 Assessment & Plan (1) Biliary obstruction: Plan: Secondary to distal common bile duct stricture etiology unclear concern for malignancy. Status post stent placement. No signs of complications post procedure. Await repeat LFTs and cytology results. Can follow-up with us as an outpatient once discharged. Advance diet as tolerated. Admission and Anticipated Discharge Date Admission Date: September 27, 2025 Subjective Resting comfortably no complaints Physical Exam Physical Exam: No acute distress Respiratory rate regular Cardiac rhythm regular Abdomen soft nontender Results & Data Results & Data Vital Signs (Past 12 Hours) Vital Signs Temp Pulse Resp BP Pulse Ox O2 Del Method O2 Flow Rate 09/29/25 03:00 36.7 C 78 12 148/73 H 95 Room Air 09/28/25 23:21 36.5 C 68 16 154/80 H 98 Nasal Cannula 2 09/28/25 19:30 Nasal Cannula 2 PG Care Time/CCT Total # of Minutes Spent Total Time Spent with Patient: Total time spent is greater than 50% in coordination of care (as documented) at patient's floor/unit and/or counseling patient: Coding Level of Care Code 31901 SUB INP/OBS CARE 2/35MIN Diagnoses Biliary obstruction K83.1
[2025-09-29 15:09] LABS: Alanine Aminotransferase 61.0 U/L (7-52); Albumin Level 2.5 gm/dl (3.4-5.0); Alkaline Phosphatase 703.0 U/L (34-104); Bilirubin,Total 3.3 mg/dl (0.2-1.0); Total Protein 6.4 gm/dl (6.0-8.3)
--- NOTE | 2025-09-29 16:00 | Hospitalist Progress Note ---
Date of Service September 29, 2025 Assessment & Plan (1) Biliary obstruction: (2) Hyperbilirubinemia: (3) Paroxysmal atrial fibrillation: (4) BPH w urinary obs/LUTS: (5) Essential hypertension: (6) CHF (congestive heart failure): Plan 89-year-old man with common bile duct stricture who had plastic stent removed a week ago and has recurrent elevated bilirubin associated with anorexia. he has been having issues with biliary obstruction since May 2025 and has had several ERCPs. 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 Biliary tract obstruction due to stricture in lower third of main duct seen. [place] cytology obtained. 1 covered metal stent placed into CBD Patient clinically improved. 2 days preprocedure 3.0, 3.3 postprocedure with minimal stable transaminitis. Okay to advance diet as tolerated per GI, will have outpatient follow-up and further LFTs. Cytology remains pending. Appreciate recommendations and care No clinical evidence of acute pancreatitis - Brushing pathology indicative of cholangiocarcinoma. F/u with onc pending. Chronic atrial fibrillation - Intrinsically rate controlled not on a beta-tao - Apixaban held periprocedurally Clinically well and nearing discharge. Eliquis resumed Distal left ureteral stone -Note that recent CT abdomen/pelvis showed incidental distal left ureteral stone. Asymptomatic at this time Chronic diastolic heart failure, exacerbation, hypertension continue amlodipine and monitor volume status and blood pressure, Lasix as needed BPH without lower urinary tract symptoms -CT abdomen/pelvis showed BPH -Continue tamsulosin Hiatal hernia -CT abdomen/pelvis showed large hiatal hernia -Continue pantoprazole DVT Prophylaxis: Eliquis resumed Disposition planning: Anticipate return to the [facility] Admission and Anticipated Discharge Date Admission Date: September 27, 2025 Subjective Seen at the bedside this morning. Reports he feels a little tired but overall okay. He does not have any pain at time of assessment. No nausea or vomiting. He does not feel lightheaded or dizzy. He is not short of breath. He denies abdominal discomfort. Physical Exam Physical Exam: General: A&Ox3. NAD. Cooperative. HEENT: Atraumatic, normocephalic. No scleral icterus Pulm: CTAB A&P. -wheezes, -rales, -rhonchi. Symmetrical chest rise. No increase in work of breathing. No respiratory distress. Cardiac: RRR, +sm. Radial pulses intact and symmetrical. Abdominal: Nontender, nondistended, soft. BS present. Results & Data Results & Data Vital Signs (Past 12 Hours) Vital Signs Temp Pulse Resp BP Pulse Ox O2 Del Method 09/29/25 15:25 36.4 C L 78 16 125/72 92 Room Air 09/29/25 07:36 Room Air 09/29/25 07:17 36.3 C L 74 17 118/72 93 Room Air PG Care Time/CCT Total # of Minutes Spent Total Time Spent with Patient: Total time spent is greater than 50% in coordination of care (as documented) at patient's floor/unit and/or counseling patient: Coding Level of Care Code 90563 SUB INP/OBS CARE 3/50MIN Diagnoses Biliary obstruction K83.1 Hyperbilirubinemia E80.6 Paroxysmal atrial fibrillation I48.0 BPH w urinary obs/LUTS N40.1; N13.8 Essential hypertension I10 CHF (congestive heart failure) I50.9
[2025-09-29] MEDS: APIXABAN 5 MG TABLET PO SCH (20:57)
[2025-09-30 06:35] LABS: Hematocrit (blood only) 29.3 % (42.0-52.0); Hemoglobin 10.3 g/dL (14.0-18.0)
[2025-09-30 07:37] LABS: Alanine Aminotransferase 55.0 U/L (7-52); Albumin Level 2.6 gm/dl (3.4-5.0); Alkaline Phosphatase 654.0 U/L (34-104); Bilirubin,Total 3.0 mg/dl (0.2-1.0); Total Protein 6.1 gm/dl (6.0-8.3)
--- NOTE | 2025-09-30 07:54 | Discharge Summary ---
Discharge Summary Date of Service September 30, 2025 Principal Dx & Hospital Course #1 = Principal Diagnosis (1) Biliary obstruction: (2) Hyperbilirubinemia: (3) Paroxysmal atrial fibrillation: (4) BPH w urinary obs/LUTS: (5) Essential hypertension: (6) CHF (congestive heart failure): Plan 89-year-old man with common bile duct stricture who had plastic stent removed a week ago and has recurrent elevated bilirubin associated with anorexia and some lightheadedness/dizziness/weakness. he has been having issues with biliary obstruction since May 2025 and has had several ERCPs. Now s/pBiliary stent placement on 09/28/2025. Brushings showed evidence of cholangiocarcinoma. Case was reviewed with him and his daughter, he is not sure if he would like to pursue further treatment for this but would like to think about it and [facility]. Outpatient appoint is being set up with Dr. Toth [facility]. He was eating reasonably well, saturating normally on room air, voiding spontaneously they have discharge. Strength was diminished, was discharged to continue SNF care To do as outpatient: 1. Follow-up with gastroenterology 2. [facility] Dr. Toth for cholangiocarcinoma evaluation 3. Repeat CMP in approximately 1 week 4. 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 Biliary tract obstruction due to stricture in lower third of main duct seen. [place] cytology obtained. 1 covered metal stent placed into CBD Patient clinically improved. 2 days preprocedure 3.0, 3.3 postprocedure with minimal stable transaminitis stable and slightly downtrending on recheck Brushings show cholangiocarcinoma. Reviewed with patient and daughter. Did notify oncology. Will have outpatient follow-up with Dr. Toth in the coming week Chronic atrial fibrillation - Intrinsically rate controlled not on a beta-tao - Apixaban held periprocedurally Clinically well and nearing discharge. Eliquis resumed Distal left ureteral stone -Note that recent CT abdomen/pelvis showed incidental distal left ureteral stone. Asymptomatic at this time Chronic diastolic heart failure, exacerbation, hypertension continue amlodipine and monitor volume status and blood pressure, Lasix as needed Saturating 96-90% on room air at time of discharge. Did have some slight crackles in the bases these cleared with deep breathing suspicious for atelectasis. Continue I-S use, this was provided at bedside. If becoming hypoxic can spot dose with Lasix BPH -CT abdomen/pelvis showed BPH -Continue tamsulosin Was voiding normally at time of discharge Hiatal hernia -CT abdomen/pelvis showed large hiatal hernia -Continue pantoprazole DVT Prophylaxis: Yue resumed Admission HPI Per Admitting Provider 89 y/o male with h/o biliary stent occlusion presenting with up-trending bili and alk phos after biliary stent removal 09/12. Patient is somewhat lethargic, had to be woken up repeatedly. Mentation appears clear, states that he has felt a bit dizzy and weak the past couple days but denies N/V/D. Denies abdominal doug n, states he is tolerating a normal diet. Denies fevers/chills. Discharge Exam General: A&Ox3. NAD. Cooperative. HEENT: Atraumatic, normocephalic. No scleral icterus Pulm: CTAB A&P. -wheezes, -rales, -rhonchi. Symmetrical chest rise. No increase in work of breathing. No respiratory distress. Cardiac: RRR, +sm. Radial pulses intact and symmetrical. Abdominal: Nontender, nondistended, soft. BS present. Discharge Plan Discharge Items Patient Disposition: Transfer Intermediate Fac Reason For Visit: HYPERBILIRUBINEMIA Discharge Diagnosis: Biliary Obstruction 2/2 cholangiocarcinoma Condition on Discharge: Fair Activity: Resume your previous activity Non-emergency contact: Primary Care Provider, Cottage Attendant and Oncologist Call non-emergency contact if: you have any medication questions, your symptoms worsen, your pain is not controlled and your pain is worsening Follow-up/Referrals: Russ Walsh DO [Primary Care Provider] - Lloyd Toth MD [Physician] - Diet: Regular Addtl Attending Provider Instructions: You were seen in the hospital for concerns of recurrent biliary obstruction. You had a common bile duct stent placed. Your pathology showed evidence of cholangiocarcinoma, type of cancer from the lining of the ducts from the liver to the gallbladder and intestines. Oncology has been consulted, you will a follow-up with [facility]. Your liver enzymes were stable and your bilirubin were downtrending after the stent procedure which appeared to be successful. If you develop any new or worsening symptoms including fever, chills, sweats, chest pain, chest pressure, difficulty breathing, uncontrolled nausea/vomiting, rash, wheezing, passing out or nearly passing out, bleeding, black/bloody bowel movements, or other new or concerning symptoms please call your primary care physician, or call 911 for re-evaluation in the emergency department if you are very concerned. Pending Studies at Discharge: No Stand-Alone Forms: My [facility] Skilled Items Patient informed of condition?: No DNR: No Discharge Level of Care: Skilled Communicable Disease: No Discharge Prognosis: Stable Lines: None Urinary Catheter: No Medications and DC Order Prescriptions: New melatonin 3 mg Tablet 3 mg PO HS PRN (Reason: sleep) Qty: 30 0RF Continued pantoprazole 40 mg tablet,delayed release (DR/EC) 40 mg PO QAM Qty: 90 3RF guaifenesin [Mucinex] 600 mg Tablet Extended Release 12hr 600 mg PO Q12H PRN (Reason: Congestion) sertraline 50 mg Tablet 50 mg PO HS multivitamin Tablet 1 tab PO HS Eliquis 5 mg tablet 5 mg PO BID Qty: 20 0RF amlodipine 5 mg Tablet 5 mg PO QAM Qty: 30 0RF tamsulosin 0.4 mg Capsule 0.4 mg PO HS Qty: 30 0RF Discharge Orders: Discharge Order (Routine); Ordered 09/30/25 Ordered By: Issa Robert Admission Data Admit Date/Time: 09/27/25 17:34 Attending Provider: Issa Robert Admit Provider: Rosales Templeton Primary Care Provider: Russ Walsh Other Providers: Sam Ott; Lucretia Walsh; Ant Hazel; Nicole Ng; yMra Solomon; Faina Mike; Juana Mcmahon; Bryant Laws; Kezia Fox; Jesse Mon; Tammy Rudolph; Katrina Quintana; Melanie Wheeler; Josie Whittaker; Eliza Camacho; Sheldon Burgess; Jama Hoskins; Damaris Aquino; Kee Becerra Jr; Julio Cabrera; José Miguel London; Jas Dunbar; Kirstin Carpenter; Phillip Chance I; Cely Olvera; Reagan Montes De Oca; Tushar Smith; Sincere Caldera; Sp Cosme; Maude Goode Other Interventions: Discharge Summary Assessment (RN) Last Done: 09/30/25 12:03 Hospital Stay Data Consultations 09/25/25 18:05 ED Decision to Admit Stat 09/25/25 22:18 Consult Gastroenterology Routine Procedures Performed Operation Date: 09/28/25 09:00 Actual Procedures p Endoscopic Retrograde Cholangiopancreato - Phillip Chance MD Diagnostic Imagining Performed 09/28/25 14:00 [place] ERCP biliary ductal Routine Pending Results Patient Have Any Pending Studies at Discharge: No Discharge Instructions Given to Patient (Per Discharging Provider) You were seen in the hospital for concerns of recurrent biliary obstruction. You had a common bile duct stent placed. Your pathology showed evidence of cholangiocarcinoma, type of cancer from the lining of the ducts from the liver to the gallbladder and intestines. Oncology has been consulted, you will a follow-[facility] with [facility]. Your liver enzymes were stable and your bilirubin were downtrending after the stent procedure which appeared to be successful. If you develop any new or worsening symptoms including fever, chills, sweats, chest pain, chest pressure, difficulty breathing, uncontrolled nausea/vomiting, rash, wheezing, passing out or nearly passing out, bleeding, black/bloody bowel movements, or other new or concerning symptoms please call your primary care physician, or call 911 for re-evaluation in the emergency department if you are very concerned. Total Time Total Time Spent Total Time Spent (In Minutes): Time spend day of discharge 55 minutes including direct patient care, documentation, review of labs and images, and coordination of care. Coding Level of Care Code 83234 INP/OBS DISCH >30 MIN Diagnoses Biliary obstruction K83.1 Hyperbilirubinemia E80.6 Paroxysmal atrial fibrillation I48.0 BPH w urinary obs/LUTS N40.1; N13.8 Essential hypertension I10 CHF (congestive heart failure) I50.9
[2025-09-30 07:57] VITALS: RESP 16; TEMP 98.1
[2025-09-30 10:57] VITALS: O2SAT 96
[2025-09-30 12:05] VITALS: BP 134/78; PULSE 64
== END 2025-09-30 12:26 | DRG 435 ==
LOC: ED 15:45 → 3N 15:45 → SUATTDRO 18:21 → 3N 21:43 → SUATTDRO 09-27 17:34